=== PATIENT | female | born 1990 | race Caucasian/White ===

== ENCOUNTER 2020-11-18 15:30 | Outpatient (REF) | payer OTHER, SELFPAY | END 2020-11-18 15:31 | disposition home or self-care (01) | LOC: HO.MANLNP 15:30 | PROVIDERS: PCP Internal Medicine; Visit Provider Physician Assistant | DX: N39.0 Urinary tract infection, site not specified (principal) | CPT/HCPCS: 87086 ==

== ENCOUNTER 2021-03-13 07:56 | Outpatient (REF) | payer OTHER, SELFPAY ==
[2021-03-13 11:07] LABS: MANUAL DIFF FLAG NO
[2021-03-13 11:10] LABS: Basophils Absolute Auto 0.1 X10*3/uL (0.0-0.2); Basophils Percent Auto 1.6 % (0-2); Eosinophils Absolute Auto 0.4 X10*3/uL (0.0-0.4); Eosinophils Percent Auto 4.6 % (0-4); Hematocrit 43.1 % (37-47); Hemoglobin 13.8 g/dl (12.0-16.0); Imm Gran Abs Auto 0.02 X10*3/uL (0.00-0.03); Imm Gran Pct Auto 0.3 % (0.0-0.4); Lymphocytes Absolute Auto 2.4 X10*3/uL (1.2-4.9); Lymphocytes Percent Auto 31.8 % (20-40); Mean Corpuscular Hemoglobin 27.5 pg (27.0-33.0); Mean Platelet Volume 12.9 fL (9.4-12.3); Monocytes Absolute Auto 0.6 X10*3/uL (0.1-1.2); Monocytes Percent Auto 8.2 % (2-11); Neutrophils Absolute Auto 4.1 X10*3/uL (2.0-8.3); Neutrophils Percent Auto 53.5 % (45-73); Platelet Count 307 X10*3/uL (160-400); Red Blood Count 5.01 X10*6/uL (4.20-5.50); Red Cell Distribution Width 13.3 % (11.0-16.0); White Blood Count 7.6 X10*3/uL (4.8-10.8)
[2021-03-13 11:59] LABS: Alanine Aminotransferase 12 U/L (0-31); Albumin Level 4.5 g/dL (3.5-5.0); Alkaline Phosphatase 94 U/L (39-117); Anion Gap 12 (12-20); Aspartate Amino Transferase 14 U/L (5-31); Bilirubin Total 0.7 mg/dL (0.0-1.0); Blood Urea Nitrogen 11 mg/dL (9-16); Calcium 9.2 mg/dL (8.4-10.2); Carbon Dioxide 29 mmol/L (22-29); Chloride 103 mmol/L (96-108); Cholesterol 209 mg/dL; Estimated Glomerular Filt Rate 60; Glucose Fasting 91 mg/dL (60-99); HDL Cholesterol 56 mg/dL; LDL Cholesterol Calculated 138 mg/dl; Potassium 4.2 mmol/L (3.3-5.1); Sodium 140 mmol/L (135-145); Triglycerides 78 mg/dL
[2021-03-13 12:21] LABS: Thyroid Stimulating Hormone 1.44 uIU/mL (0.32-4.0); Vitamin D 25-OH Total 19.8 ng/mL (>30)
== END 2021-03-13 07:57 | disposition home or self-care (01) ==
LOC: HO.MANLDS 07:56
PROVIDERS: PCP Internal Medicine; Visit Provider Internal Medicine
DX: Z00.00 Encounter for general adult medical examination without abnormal findings (principal)
CPT/HCPCS: 36415; 80053; 80061; 82306; 84443; 85025

== ENCOUNTER 2021-12-04 09:22 | Outpatient (REF) | payer OTHER, SELFPAY ==
[2021-12-04 10:55] LABS: MANUAL DIFF FLAG NO
[2021-12-04 10:58] LABS: Basophils Absolute Auto 0.1 X10*3/uL (0.0-0.2); Basophils Percent Auto 1.2 % (0-2); Eosinophils Absolute Auto 0.4 X10*3/uL (0.0-0.4); Eosinophils Percent Auto 5.9 % (0-4); Hematocrit 41.7 % (37.0-47.0); Hemoglobin 13.5 g/dl (12.0-16.0); Imm Gran Abs Auto 0.02 X10*3/uL (0.00-0.03); Imm Gran Pct Auto 0.3 % (0.0-0.4); Lymphocytes Absolute Auto 2.2 X10*3/uL (1.2-4.9); Lymphocytes Percent Auto 31.4 % (20-40); Mean Corpuscular HGB Conc 32.4 g/dl (31.0-35.0); Mean Corpuscular Hemoglobin 27.8 pg (27.0-33.0); Mean Corpuscular Volume 85.8 fL (80.0-98.0); Mean Platelet Volume 12.1 fL (9.4-12.3); Monocytes Absolute Auto 0.6 X10*3/uL (0.1-1.2); Monocytes Percent Auto 8.4 % (2-11); Neutrophils Absolute Auto 3.7 x10*3/uL (2.0-8.3); Neutrophils Percent Auto 52.8 % (45-73); Platelet Count 331 X10*3/uL (160-400); Red Blood Count 4.86 X10*6/uL (4.20-5.50); Red Cell Distribution Width 12.8 % (11.0-16.0); White Blood Count 6.9 X10*3/uL (4.8-10.8)
[2021-12-04 11:24] LABS: Estimated Average Glucose 100 mg/dL; Hemoglobin A1c % 5.1 %
[2021-12-04 11:36] LABS: Erythrocyte Sedimentation Rate 7 MM/HR (0-20)
[2021-12-04 14:08] LABS: Alanine Aminotransferase 10 U/L (0-31); Albumin Level 4.6 g/dL (3.5-5.0); Alkaline Phosphatase 81 U/L (39-117); Anion Gap 12 (12-20); Aspartate Amino Transferase 13 U/L (5-31); Bilirubin Total 0.8 mg/dL (0.0-1.0); Blood Urea Nitrogen 17 mg/dL (9-16); Calcium 9.6 mg/dL (8.4-10.2); Carbon Dioxide 26 mmol/L (22-29); Chloride 105 mmol/L (96-108); Estimated Glomerular Filt Rate > 60; Glucose Random 89 mg/dL (60-115); Iron 62 mcg/dL (30-160); Percent Iron Saturation 17 % (15-50); Potassium 4.2 mmol/L (3.3-5.1); Rheumatoid Factor < 15.0 IU/mL (<15.0); Sodium 139 mmol/L (135-145); Total Iron Binding Capacity 357 mcg/dL (228-428); Total Protein 7.4 g/dL (6.5-8.0); Unsaturated Iron Binding 295 ug/dL
[2021-12-04 14:15] LABS: Ferritin 68 ng/mL (10-122); Free T4 (Free Thyroxine) 1.09 ng/dL (0.71-1.85); Thyroid Stimulating Hormone 0.67 uIU/mL (0.32-4.0); Vitamin D 25-OH Total 19.7 ng/mL (>30)
[2021-12-04 14:50] LABS: Folate 5.2 ng/mL (> or = 4.0); Vitamin B12 400 pg/mL (200-900)
[2021-12-05 13:51] LABS: Anti Nuclear Antibody Screen NEGATIVE (NEGATIVE)
[2021-12-09 15:12] LABS: HLA B27 Negative (Negative)
== END 2021-12-04 09:23 | disposition home or self-care (01) ==
LOC: HO.MANLDS 09:22
PROVIDERS: PCP Internal Medicine; Visit Provider Physician Assistant
DX: R53.83 Other fatigue (principal)
CPT/HCPCS: 36415; 80053; 82306; 82607; 82728; 82746; 83036; 83540; 84439; 84443; 85025; 85652; 86038; 86039; 86431; 86812

== ENCOUNTER 2022-09-05 14:38 | Outpatient (REF) | payer OTHER, SELFPAY ==
[2022-09-05 18:17] LABS: Appearance Urine Clear; Color Urine Yellow; Glucose Urine UA Negative (Negative); Leukocyte Esterase Urine Trace (Negative); Nitrite Urine Negative (Negative); PH 7.5 (5.0-9.0); Specific Gravity - Urine 1.025 (1.005-1.025); UMIC TRIGGER UACC YES; Urine Blood Negative (Negative); Urine Ketones Negative (Negative); Urine Protein Trace mg/dL (Neg-Trace)
[2022-09-05 18:22] LABS: Bacteria Urine None Seen (None Seen); Hyaline Casts Urine 0-2 /LPF (0-2); RBC Urine 0-2 /HPF (0-2); WBC Urine 0-5 /HPF (0-5)
[2022-09-05 18:46] LABS: HCG Quantitative < 2 mIU/mL
== END 2022-09-05 14:39 | disposition home or self-care (01) ==
LOC: HO.MANLDS 14:38
PROVIDERS: Visit Provider Physician Assistant
DX: N10 Acute pyelonephritis (principal); N94.4 Primary dysmenorrhea
CPT/HCPCS: 36415; 81001; 84702; 87086

== ENCOUNTER 2023-03-12 14:46 | Outpatient (REF) | payer OTHER, SELFPAY ==
[2023-03-12 18:00] LABS: Estimated Average Glucose 100 mg/dL; Hemoglobin A1C 108.3776 umol/L; Hemoglobin A1c % 5.1 % (<6.0)
== END 2023-03-12 14:47 | disposition home or self-care (01) ==
LOC: HO.MANLDS 14:46
PROVIDERS: Visit Provider Internal Medicine
DX: R73.9 Hyperglycemia, unspecified (principal)
CPT/HCPCS: 36415; 83036

== ENCOUNTER 2023-08-02 09:02 | Emergency (ER) | payer OTHER, SELFPAY ==
--- NOTE | ~2023-08-02 | CT_ITS ---
EXAMINATION: CT ABDOMEN AND PELVIS WITH CONTRAST CLINICAL INFORMATION: Abdominal pain COMPARISON: None available. TECHNIQUE: Multidetector volumetric images were obtained from the superior aspect of the liver through the pubic symphysis following administration 85 mL of Omnipaque 350 intravenous contrast. Sagittal and coronal reformatted images were obtained on the technologist's workstation. Oral contrast: No This CT examination was performed using dose optimization techniques as appropriate, variously including the following: *Automated exposure control *Adjustment of mA and/or kV according to patient size (this includes techniques or standardized protocols for targeted exams where dose is matched to indication/reason for exam; i.e. extremities or head) *Use of iterative reconstruction technique DLP: 416 mGy-cm FINDINGS: LUNG BASES: There is dependent bibasilar atelectasis. The heart size is normal. LIVER, GALLBLADDER, AND BILIARY TREE: The liver is normal in size, shape, and attenuation. There are punctate hypodensities in the right and left hepatic lobe most likely small cysts.. The gallbladder is unremarkable with no evidence of radiopaque gallstones, gallbladder wall thickening, or obvious pericholecystic inflammatory changes. PANCREAS: Unremarkable. SPLEEN: Unremarkable. ADRENAL GLANDS: Unremarkable. KIDNEYS AND URETERS: The kidneys are normal in size, shape, and attenuation. There are 2 mm nonobstructive radiopaque calculi upper pole right kidney and midpole and lower pole left kidney. No caliectasis or hydronephrosis seen. BLADDER: Unremarkable. GASTROINTESTINAL TRACT: There is moderate scattered stool seen throughout the colon without significant distention. The small bowel loops are normal caliber. No free air or free fluid seen. ABDOMINAL WALL: No significant hernia is appreciated. LYMPH NODES: Normal. VASCULAR: Unremarkable. PELVIC VISCERA: The uterus is anteverted and appears unremarkable. There is rim wall enhancing 1.4 cm cyst right ovarian likely corpus luteal cyst. There is no free fluid or free air. No abnormal pelvic lymphadenopathy. OSSEOUS STRUCTURES: Unremarkable. CT/CT abdomen pelvis w IV con IMPRESSION: 1. No acute intra-abdominal process seen. 2. Bilateral nonobstructive radiopaque renal calculi. No hydronephrosis. 3. Moderate constipation. Fleischner guidelines were followed.
[2023-08-02 09:06] VITALS: BP 109/71; PULSE 79; RESP 19; TEMP 36.6; O2SAT 98; BMI 21.0
--- NOTE | 2023-08-02 09:14 | ED_ITS ---
HPI - General Adult General Chief complaint: Abdominal Pain Stated complaint: abd pain Time Seen by Provider: 08/02/23 09:13 Source: patient and family () Mode of arrival: ambulatory Limitations: no limitations History of Present Illness HPI narrative: 32 year-old female with a history of ovarian cysts and tubal ligation arrives to emergency room with a complaint of right lower quadrant pain. She states that it started two days ago on 07/31/2023. The pain has been constant. She rated it a 6/10. No medications or other interventions have helped. The patient reports everything makes the pain worse. Last night, 08/01/2023, she had two episodes of vomiting. She reports no known sick contacts or travel history. She states her last menstrual period was 07/16/2023. Her last oral intake was a slice of lemon cake at 10:30 pm 08/01/2023. Patient denies fever, night sweats, chest pain, palpitations, shortness of breath, dyspnea, lightheadedness, dizziness, vision changes, double vision, loss of vision, changes in bowel movements, and changes in urination. Onset (ago): day(s) (2) Location: abdomen (RLQ) Radiation: non-radiation Severity: mild Severity scale (1-10): 4 Pain Consistency: constant Relieving factors: none Exacerbating factors: other (Patient reports everything makes the pain worse) Associated symptoms: nausea/vomiting and other (fatigue) Related Data Previous Rx's Medication Instructions Recorded ondansetron 4 mg disintegrating 4 mg PO Q8H 3 days #9 tabs 08/02/23 tablet Allergies Allergy/AdvReac Type Severity Reaction Status Date / Time naproxen Allergy Unknown Verified 08/02/23 09:05 quetiapine [From Seroquel] Allergy Vomiting Verified 08/02/23 09:05 Review of Systems 2 Constitutional: Constitutional: Reports no additional constitutional complaints, Denies chills, Denies fever(s) and Denies night sweats Eyes: Eyes: Reports no additional eye complaints, Denies blurry vision, Denies change in vision, Denies diplopia, Denies eye discharge, Denies loss of vision and Denies eye pain ENT: Denies dizziness Cardiovascular: Cardiovascular: Reports no additional cardiovascular complaints, Denies chest pain, Denies lightheadedness, Denies Loss of Consciousness and Denies dyspnea Respiratory: Respiratory: Reports no additional respiratory complaints and Denies dyspnea Gastrointestinal: Gastrointestinal: Reports no additional gastrointestinal complaints, Reports abdominal pain, Denies melena, Denies hematochezia, Denies change in bowel habits, Denies change in stool character, Reports nausea and Reports vomiting Genitourinary: Genitourinary: Denies hematuria, Denies urinary frequency, Denies dysuria, Denies urinary incontinence, Denies urinary hesitancy and Denies urinary urgency Musculoskeletal: Musculoskeletal: Reports no additional musculoskeletal complaints, Denies numbness and Denies tingling Neurologic: Denies dizziness, Denies loss of vision, Denies numbness and Denies tingling Psychiatric: Psychiatric: Reports no additional psychiatric complaints Endocrine: Endocrine: Reports no additional endocrine complaints Hematologic/Lymphatic: Hematologic/Lymphatic: Reports no additional hematologic/lymphatic complaints Allergic/Immunologic: Allergic/Immunologic: Reports no additional allergic/immunologic complaints PMFSH Past Medical History Attestation statement: The following information was validated with the patient. Source: old records reviewed, obtained from family (patient's provided additional history and confirmed the history provided by the patient.) and nursing notes reviewed Onset Date is defined in the Problem List Problems that require an onset date and time if occurred within 24 hrs of arrival to the ED Aortic Dissection and Rupture; Neurologic impairment; Cardiopulmonary Arrest; Endotracheal Intubation; Insertion or Replacement of Mechanical Circulatory Assist Device Social History Social History Smoked in Last 30 Days: No Advance Directives: No Advance Directives Information Provided: No Patient : No Physical Exam ED Vital Signs: Vital Signs - 24 hr 08/02/23 09:06 08/02/23 10:00 Temperature 98 F 98.6 F Pulse Rate 79 73 Respiratory Rate 19 16 Blood Pressure 109/71 99/57 L Pulse Oximetry 98 99 Oxygen Delivery Method Room Air Room Air BMI result Body Mass Index 21.0 Const General: cooperative, no acute distress, alert and awake Nutritional Appearance: well nourished Orientation/consciousness: patient oriented x3 Limitations: no limitations HENMT Head: Yes normal to inspection and Yes atraumatic Ears: hearing grossly normal bilaterally and external ears normal General nose exam: Normal external nose present, no nasal discharge noted and no epistaxis Face and sinus: Yes normal facial exam, No abrasion and No laceration Mouth: Normal oral and palatal mucosa present, no drooling and no muffled voice Eyes General: appearance normal, both eyes and all related structures Periorbital: periorbital findings normal Eyelids: Yes eyelids normal Conjunctivae: conjunctivae normal Pupils: Equal, round and reactive pupils present EOM: EOMs intact bilaterally Neck Neck: Yes normal visual inspection, Yes full ROM and Yes no lymphadenopathy Chest Chest palpation & inspection: normal inspection of the chest Resp Effort & Inspection: normal respiratory effort and able to speak in complete sentences GI Inspection: Yes normal to inspection Palpation (GI): Soft to palpation, not firm, Tenderness to palpation present (GI) in the RLQ, no guarding and not rigid Neuro General: patient oriented x3 and moves all extremities Cranial nerves: Yes Equal, round and reactive pupils present Cognition (Neuro): normal cognition Motor exam (neuro): 5/5 motor strength present throughout Sensory Exam: Normal double simultaneous stimulation for sensation Coordination: [id number] test normal Extrem General: Yes normal to inspection, Yes full ROM and Yes capillary refill normal Psych Appearance: grossly normal Mental Status: mental status grossly normal Affect: normal affect Attitude: cooperative Thought process: Normal thought process present Thought content: Normal thought content present Insight: Good insight present (Psych) Medications Administered Discontinued Medications Generic Name Dose Route Start Last Admin Trade Name Luis Alfredo PRN Reason Stop Dose Admin Sodium Chloride 1,000 mls @ 999 mls/hr 08/02/23 12:00 08/02/23 12:16 Ns IV 08/02/23 13:00 999 mls/hr .Q1H1M CECIL Administration Iohexol 85 ml 08/02/23 10:54 08/02/23 10:54 Iohexol 350 Mg/Ml 100 Ml Infus..Btl IV 08/02/23 10:55 85 ml ONCE ONE Administration Morphine Sulfate 4 mg 08/02/23 09:34 08/02/23 10:09 Morphine Sulfate 4 Mg/Ml Cartridge IVPUSH 08/02/23 09:35 4 mg ONCE ONE Administration Protocol Ondansetron HCl 4 mg 08/02/23 09:34 08/02/23 10:09 Ondansetron Hcl 4 Mg/2 Ml Vial IVPUSH 08/02/23 09:35 4 mg ONCE ONE Administration Medical Decision Making Medical Decision Making MDM Narrative: Patient is a 32 year old assigned female at with a history of ovarian cysts and tubal ligation presenting to the emergency department today with RLQ abdominal pain, nausea, and vomiting. Patient's physical exam was as noted in the physical exam portion of this note. Patient's blood work was unremarkable. Patient's urine showed a possible UTI however, given the patient's current symptoms, will wait to treat until culture reports. Patient's abdomen/pelvis CT showed mild constipation and a 1.4cm right ovarian cyst. I explained my physical exam findings as well as all test results to the patient and the patient's . I answered all questions asked by the patient and the patient's . Patient received pain medication and anti-emetics while in the department which she stated helped he symptoms significantly. I stressed the importance of the patient taking her medication as prescribed. I stressed the importance of the patient following up with her primary care provider. I stressed the importance of the patient returning to the emergency department immediately if her symptoms were to worsen or if she were to develop any dizziness, shortness of breath, difficulty breathing, chest pain, blurry vision, loss of vision, nausea, vomiting, abdominal pain, fever, chills, back pain, or any other complaints. Patient and the patient's verbalized agreement and understanding with this treatment plan and discharge. Differential Diagnosis Differential Diagnoses: The differential diagnosis associated with the presentation includes Ovarian cyst Abdominal pain Appendicitis Constipation Admission/Observation Consideration of admission/observation: Escalation of care including admission/observation considered Patient would have been admitted to the hospital had her work up had any findings where hospital admission was appropriate and her clinical presentation warranted hospital admission. Lab Data [facility] Lab Attestation statement: I reviewed the patient's lab results. My interpretation of these results are in the MDM Rationale portion of this note. 08/02/23 09:41 08/02/23 09:41 Labs: Lab Results 08/02/23 Range/Units 09:41 WBC 7.7 (4.8-10.8) X10*3/uL RBC 4.82 (4.20-5.50) X10*6/uL Hgb 13.4 (12.0-16.0) g/dl Hct 41.4 (37.0-47.0) % MCV 85.9 (80.0-98.0) fL MCH 27.8 (27.0-33.0) pg MCHC 32.4 (31.0-35.0) g/dl RDW 13.2 (11.0-16.0) % Plt Count 242 D (160-400) X10*3/uL MPV 11.6 (9.4-12.3) fL Immature Gran % (Auto) 0.4 (0.0-0.4) % Neut % (Auto) 52.0 (45-73) % Lymph % (Auto) 34.8 (20-40) % Wise % (Auto) 7.3 (2-11) % Eos % (Auto) 4.3 H (0-4) % Baso % (Auto) 1.2 (0-2) % Lymph # (Auto) 2.7 (1.2-4.9) X10*3/uL Wise # (Auto) 0.6 (0.1-1.2) X10*3/uL Eos # (Auto) 0.3 (0.0-0.4) X10*3/uL Baso # (Auto) 0.1 (0.0-0.2) X10*3/uL Abs Immat Gran (auto) 0.03 (0.00-0.03) X10*3/uL Absolute Neuts (auto) 4.0 (2.0-8.3) x10*3/uL Absolute Nucleated RBC 0.000 (0.0-0.012) X10*3/uL Nucleated RBC % (auto) 0.0 (0.0-0.2) /100WBC Sodium 139 (135-145) mmol/L Potassium 4.3 (3.3-5.1) mmol/L Chloride 106 (96-108) mmol/L Carbon Dioxide 27 (22-29) mmol/L Anion Gap 10 L (12-20) BUN 16 (9-16) mg/dL Creatinine 0.78 (0.5-1.4) mg/dL Estim Creat Clear Calc 81.1 Estimated GFR > 60 Random Glucose 88 (60-115) mg/dL Calcium 9.1 (8.4-10.2) mg/dL Total Bilirubin 0.5 (0.0-1.0) mg/dL AST 11 (5-31) U/L ALT 8 (0-31) U/L Alkaline Phosphatase 71 (39-117) U/L Total Protein 6.7 (6.5-8.0) g/dL Albumin 4.2 (3.5-5.0) g/dL Lipase 20 (8-78) U/L Beta HCG, Quant < 2 mIU/mL Urine Color Yellow Urine Appearance Clear Urine pH 8.5 (5.0-9.0) Ur Specific [place] 1.015 (1.005-1.025) Urine Protein Negative (Neg-Trace) mg/dL Urine Glucose (UA) Negative (Negative) mg/dL Urine Ketones Negative (Negative) mg/dL Urine Blood Negative (Negative) Urine Nitrite Negative (Negative) Ur Leukocyte Esterase Small (1+) H (Negative) Urine RBC 0-2 (0-2) /HPF Urine WBC 6-10 H (0-5) /HPF Ur Squamous Epith Cells 6-10 (0-2) /HPF Urine Bacteria Trace (None Seen) Hyaline Casts 0-2 (0-2) /LPF Independent Interpretation I performed an independent interpretation of an: CT Scan Interpretation: My interpretation is in agreement with the radiologist's impression of this imaging study. - EXAMINATION: CT ABDOMEN AND PELVIS WITH CONTRAST CLINICAL INFORMATION: Abdominal pain COMPARISON: None available. TECHNIQUE: Multidetector volumetric images were obtained from the superior aspect of the liver through the pubic symphysis following administration 85 mL of Omnipaque 350 intravenous contrast. Sagittal and coronal reformatted images were obtained on the technologist's workstation. Oral contrast: No This CT examination was performed using dose optimization techniques as appropriate, variously including the following: *Automated exposure control *Adjustment of mA and/or kV according to patient size (this includes techniques or standardized protocols for targeted exams where dose is matched to indication/reason for exam; i.e. extremities or head) *Use of iterative reconstruction technique DLP: 416 mGy-cm FINDINGS: LUNG BASES: There is dependent bibasilar atelectasis. The heart size is normal. LIVER, GALLBLADDER, AND BILIARY TREE: The liver is normal in size, shape, and attenuation. There are punctate hypodensities in the right and left hepatic lobe most likely small cysts.. The gallbladder is unremarkable with no evidence of radiopaque gallstones, gallbladder wall thickening, or obvious pericholecystic inflammatory changes. PANCREAS: Unremarkable. SPLEEN: Unremarkable. ADRENAL GLANDS: Unremarkable. KIDNEYS AND URETERS: The kidneys are normal in size, shape, and attenuation. There are 2 mm nonobstructive radiopaque calculi upper pole right kidney and midpole and lower pole left kidney. No caliectasis or hydronephrosis seen. BLADDER: Unremarkable. GASTROINTESTINAL TRACT: There is moderate scattered stool seen throughout the colon without significant distention. The small bowel loops are normal caliber. No free air or free fluid seen. ABDOMINAL WALL: No significant hernia is appreciated. LYMPH NODES: Normal. VASCULAR: Unremarkable. PELVIC VISCERA: The uterus is anteverted and appears unremarkable. There is rim wall enhancing 1.4 cm cyst right ovarian likely corpus luteal cyst. There is no free fluid or free air. No abnormal pelvic lymphadenopathy. OSSEOUS STRUCTURES: Unremarkable. CT/CT abdomen pelvis w IV con IMPRESSION: 1. No acute intra-abdominal process seen. 2. Bilateral nonobstructive radiopaque renal calculi. No hydronephrosis. 3. Moderate constipation. Fleischner guidelines were followed. Dictated By: Henri Arambula MD Signed By: Electronically signed by Henri Arambula MD 08/02/23 1985 Radiology Impression Discussion of test interpretation with radiology: I have reviewed the radiologist's reading. Independent Historian Clinical information obtained from an independent historian. History obtained from or confirmed by: Spouse (patient's provided additional history and confirmed the history provided by the patient.) Critical Care Time Critical Care Time Critical Care Time: Yes Total Critical Care Time: 35 Attestation: I spent 35 minutes of Critical Care Time with this patient. This does not include time spent on separately reported billable procedures. Discharge Plan Discharge Clinical Impression: Abdominal pain, Constipation, Ovarian cyst Patient Disposition: Home, Self-Care Instructions: Ovarian Cyst (ED), Constipation (DC), Abdominal Pain (ED) Additional Instructions: Follow up with your primary care provider. Return to the emergency department immediately if your symptoms worsen or if you develop any dizziness, shortness of breath, difficulty breathing, chest pain, blurry vision, loss of vision, nausea, vomiting, abdominal pain, fever, chills, back pain, or any other complaints. Prescriptions: New ondansetron 4 mg tablet,disintegrating 4 mg PO Q8H 3 Days Qty: 9 0RF Referrals: Rajat Givens MD [Primary Care Provider] - Stand Alone Forms: Work/School Release Interventions: ED Discharge Assessment Last Done: 08/02/23 12:18 Print Language: Lithuanian
[2023-08-02 09:55] LABS: MANUAL DIFF FLAG NO
[2023-08-02 09:57] LABS: Appearance Urine Clear; Color Urine Yellow; Glucose Urine UA Negative (Negative); Leukocyte Esterase Urine Small (1+) (Negative); Nitrite Urine Negative (Negative); PH 8.5 (5.0-9.0); Specific Gravity - Urine 1.015 (1.005-1.025); UMIC TRIGGER UACC YES; Urine Blood Negative (Negative); Urine Ketones Negative (Negative); Urine Protein Negative (Neg-Trace)
[2023-08-02 10:00] VITALS: BP 99/57; PULSE 73; RESP 16; TEMP 37; O2SAT 99
[2023-08-02 10:01] LABS: Bacteria Urine Trace (None Seen); Hyaline Casts Urine 0-2 /LPF (0-2); RBC Urine 0-2 /HPF (0-2); UACC Culture Trigger YES
[2023-08-02 10:03] LABS: Basophils Absolute Auto 0.1 X10*3/uL (0.0-0.2); Basophils Percent Auto 1.2 % (0-2); Eosinophils Absolute Auto 0.3 X10*3/uL (0.0-0.4); Eosinophils Percent Auto 4.3 % (0-4); Hematocrit 41.4 % (37.0-47.0); Hemoglobin 13.4 g/dl (12.0-16.0); Imm Gran Abs Auto 0.03 X10*3/uL (0.00-0.03); Imm Gran Pct Auto 0.4 % (0.0-0.4); Lymphocytes Absolute Auto 2.7 X10*3/uL (1.2-4.9); Lymphocytes Percent Auto 34.8 % (20-40); Mean Corpuscular HGB Conc 32.4 g/dl (31.0-35.0); Mean Corpuscular Hemoglobin 27.8 pg (27.0-33.0); Mean Corpuscular Volume 85.9 fL (80.0-98.0); Mean Platelet Volume 11.6 fL (9.4-12.3); Monocytes Absolute Auto 0.6 X10*3/uL (0.1-1.2); Monocytes Percent Auto 7.3 % (2-11); Platelet Count 242 X10*3/uL (160-400); Red Blood Count 4.82 X10*6/uL (4.20-5.50); Red Cell Distribution Width 13.2 % (11.0-16.0); White Blood Count 7.7 X10*3/uL (4.8-10.8)
[2023-08-02] MEDS: ondansetron HCL 4 MG/2 ML VIAL IVPUSH (10:09)
[2023-08-02] MEDS: Morphine Sulfate 4 MG/ML CARTRIDGE IVPUSH (10:09)
[2023-08-02 10:22] LABS: Alanine Aminotransferase 8 U/L (0-31); Albumin Level 4.2 g/dL (3.5-5.0); Alkaline Phosphatase 71 U/L (39-117); Anion Gap 10 (12-20); Aspartate Amino Transferase 11 U/L (5-31); Bilirubin Total 0.5 mg/dL (0.0-1.0); Blood Urea Nitrogen 16 mg/dL (9-16); Calcium 9.1 mg/dL (8.4-10.2); Carbon Dioxide 27 mmol/L (22-29); Chloride 106 mmol/L (96-108); Creatinine Clr Calc Pharmacy 81.1; Estimated Glomerular Filt Rate > 60; Glucose Random 88 mg/dL (60-115); Lipase 20 U/L (8-78); Potassium 4.3 mmol/L (3.3-5.1); Sodium 139 mmol/L (135-145); Total Protein 6.7 g/dL (6.5-8.0)
[2023-08-02 10:29] LABS: HCG Quantitative < 2 mIU/mL
[2023-08-02] MEDS: iohexoL 350 MG/ML 100 ML INFUS..BTL 85 ML IV (10:54)
[2023-08-02] MEDS: 0.9 % Sodium Chloride 1,000 ML 999 ML IV (12:16)
--- NOTE | 2023-08-02 12:23 | PC.NURSE ---
Pt discharged with recommendation to follow up with PCM; Awaiting fluid bolus completion and then D/C.
== END 2023-08-02 13:49 | disposition home or self-care (01) ==
PROVIDERS: Physician Assistant Medical; Emergency Provider Emergency Medicine; PCP Internal Medicine
DX: N83.201 Unspecified ovarian cyst, right side (principal); R10.2 Pelvic and perineal pain; K59.00 Constipation, unspecified; R11.2 Nausea with vomiting, unspecified; Z79.899 Other long term (current) drug therapy
CPT/HCPCS: 36415; 74177; 80053; 81001; 83690; 84702; 85025; 87086; 96361; 96374; 96375; 99284; 99285; J2270; J2405; Q9967

== ENCOUNTER 2024-02-10 07:07 | Emergency (ER) | payer OTHER, SELFPAY ==
--- NOTE | ~2024-02-10 | US_ITS ---
EXAMINATION: US PELVIS CLINICAL INFORMATION: Right lower quadrant pain. History of polypectomy. COMPARISON: None available. TECHNIQUE: Ultrasound of the pelvis is performed using both transabdominal and transvaginal transducers along with Doppler. Transvaginal imaging is performed due to inadequate visualization transabdominally. FINDINGS: Uterus: The uterus is anteverted and measures 9.5 x 4.3 x 5.5 cm in the sagittal, AP and transverse dimensions. The endometrial thickness is within normal limits measuring 0.4 cm. Small echogenic focus within the endometrium without associated vascularity measuring 0.3 x 0.3 cm. Small amount of fluid is seen within the endometrial cavity. No focal myometrial lesions. Nabothian cysts and calcifications within the cervix. Adnexa: Both ovaries are visualized. There is normal color flow to the adnexa. There is no ovarian torsion. There is no pelvic ascites or fluid collection. Right ovary measures 3.3 x 2 x 2 cm.Left ovary measures 2.1 x 1.2 x 1.3 cm. US/US pelvic and transvaginal IMPRESSION: 1. Small echogenic focus within the endometrium may represent tiny polyp, although there is no associated vascularity. Small amount of fluid within the endometrial cavity. 2. Unremarkable sonographic appearance of the ovaries.
--- NOTE | ~2024-02-10 | CT_ITS ---
EXAMINATION: CT ABDOMEN AND PELVIS WITH CONTRAST CLINICAL INFORMATION: Right lower quadrant pain COMPARISON: Ultrasound pelvis today, CT abdomen pelvis 08/02/2023 TECHNIQUE: Multidetector volumetric images were obtained from the superior aspect of the liver through the pubic symphysis following administration 85 mL of Omnipaque 350 intravenous contrast. Sagittal and coronal reformatted images were obtained on the technologist's workstation. Oral contrast: No This CT examination was performed using dose optimization techniques as appropriate, variously including the following: *Automated exposure control *Adjustment of mA and/or kV according to patient size (this includes techniques or standardized protocols for targeted exams where dose is matched to indication/reason for exam; i.e. extremities or head) *Use of iterative reconstruction technique DLP: 439 mGy-cm FINDINGS: LUNG BASES: There is new right lower lobe consolidation with associated bronchial thickening and branching densities. The left lung base is clear. No pleural effusions. LIVER, GALLBLADDER, AND BILIARY TREE: The liver is normal in size, shape, and attenuation. No focal hepatic lesion or biliary ductal dilatation is present. The gallbladder is unremarkable with no evidence of radiopaque gallstones, gallbladder wall thickening, or obvious pericholecystic inflammatory changes. PANCREAS: Unremarkable. SPLEEN: Spleen is slightly bulky and at the upper limits of normal in size ADRENAL GLANDS: Unremarkable. KIDNEYS AND URETERS: The kidneys are normal in size, shape, and attenuation aside from the presence of bilateral upper lobe cortical scarring, unchanged from prior. No hydronephrosis, hydroureter, or calculi seen. No perinephric stranding. BLADDER: Unremarkable. GASTROINTESTINAL TRACT: The small and large bowel are unremarkable. The appendix is unremarkable. ABDOMINAL WALL: Small periumbilical hernia seen containing only fat. LYMPH NODES: Normal. VASCULAR: Unremarkable. PELVIC VISCERA: Unremarkable. OSSEOUS STRUCTURES: Unremarkable. CT/CT abdomen pelvis w IV con IMPRESSION: 1. An intra-abdominal/pelvic cause for the patient's right lower quadrant pain has not been found. The appendix is normal. 2. New right lower lobe pneumonia. Severe abdominal pain can sometimes occurs in patients with lower lobe pneumonia. 3. Other incidental findings as described above. Fleischner guidelines were followed.
--- NOTE | ~2024-02-10 | US_ITS ---
EXAMINATION: US PELVIS CLINICAL INFORMATION: Right lower quadrant pain. History of polypectomy. COMPARISON: None available. TECHNIQUE: Ultrasound of the pelvis is performed using both transabdominal and transvaginal transducers along with Doppler. Transvaginal imaging is performed due to inadequate visualization transabdominally. FINDINGS: Uterus: The uterus is anteverted and measures 9.5 x 4.3 x 5.5 cm in the sagittal, AP and transverse dimensions. The endometrial thickness is within normal limits measuring 0.4 cm. Small echogenic focus within the endometrium without associated vascularity measuring 0.3 x 0.3 cm. Small amount of fluid is seen within the endometrial cavity. No focal myometrial lesions. Nabothian cysts and calcifications within the cervix. Adnexa: Both ovaries are visualized. There is normal color flow to the adnexa. There is no ovarian torsion. There is no pelvic ascites or fluid collection. Right ovary measures 3.3 x 2 x 2 cm.Left ovary measures 2.1 x 1.2 x 1.3 cm. US/US pelvic ovarian doppler IMPRESSION: 1. Small echogenic focus within the endometrium may represent tiny polyp, although there is no associated vascularity. Small amount of fluid within the endometrial cavity. 2. Unremarkable sonographic appearance of the ovaries.
[2024-02-10 07:24] VITALS: BP 111/51; PULSE 110; RESP 18; TEMP 37.7; O2SAT 98; BMI 22.7
[2024-02-10 07:35] VITALS: BP 105/57; PULSE 102; RESP 20; TEMP 37.4; O2SAT 98
--- NOTE | 2024-02-10 08:03 | ED_ITS ---
HPI - General Adult General Chief complaint: General Medical Stated complaint: R hip pain Time Seen by Provider: 02/10/24 07:17 Source: patient Mode of arrival: ambulatory Limitations: no limitations History of Present Illness ED Provider: Farzana NEWTON HPI narrative: This is a 33 year old female with a history of dysmenorrhea presenting with right-sided lower abdominal and hip pain x 2 days. She reports the pain started Saturday and has been increasing in severity. She is scheduled for a hysterectomy on 03/26 due to severe dysmenorrhea. LMP ended 1 week ago, initially she thought the pain was related to menses but it has been increasing in severity since the end of her period. She describes the pain as sharp and shooting in the right lower abdomen, hip, and lower back. Has had an intermittent dry cough. Reports subjective fevers but denies chills, chest pain, sob, dizziness, headache, headache, vision changes, weakness. Related Data Previous Rx's ?Medication ?Instructions ?Recorded ondansetron 4 mg disintegrating 4 mg PO Q8H 3 days #9 tabs 08/02/23 tablet albuterol sulfate 90 mcg/actuation 2 inh inhalation Q4-6H PRN 02/10/24 breath activated powder inhaler shortness of breath or wheezing #1 ea doxycycline hyclate 100 mg capsule 100 mg PO BID 10 days #20 caps 02/10/24 ondansetron 4 mg disintegrating 4 mg PO Q6H PRN nausea and 02/10/24 tablet vomiting #14 tabs prednisone 20 mg tablet 40 mg (2 x 20 mg) PO DAILY 5 days 02/10/24 #10 tabs Allergies Allergy/AdvReac Type Severity Reaction Status Date / Time naproxen Allergy Unknown Verified 02/10/24 07:26 quetiapine [From Seroquel] Allergy Vomiting Verified 02/10/24 07:26 Review of Systems 2 Review of Systems: Yes all other systems are reviewed and are negative PMFSH Past Medical History Attestation statement: The following information was validated with the patient. Source: old records reviewed and nursing notes reviewed Social History Social History Smoked in Last 30 Days: No Use of substances other than those prescribed or required for medical reasons: No Advance Directives: No Advance Directives Information Provided: Yes Do you have a plan to hurt others: No Plan Physical Exam ED Vital Signs: Vital Signs - 24 hr 02/10/24 07:24 02/10/24 07:35 02/10/24 08:57 Temperature 99.9 F 98.4 F Pulse Rate 110 H 102 H Respiratory Rate 18 20 18 Blood Pressure 111/51 L 105/57 L Pulse Oximetry 98 98 Oxygen Delivery Method Room Air Room Air 02/10/24 10:10 02/10/24 10:46 Temperature 99.4 F Pulse Rate 100 Respiratory Rate 20 18 Blood Pressure 96/47 L Pulse Oximetry 99 Oxygen Delivery Method Room Air BMI result Body Mass Index 22.7 vss Appearance: Alert.? Oriented X3.? No acute distress.? Head: Normocephalic, atraumatic, no step-offs or deformities Eyes: Pupils equal, round and reactive to light.? Neck: Normal inspection.? Neck supple.? CVS: Normal heart rate and rhythm.? Pulses normal.? Respiratory: No respiratory distress.? Breath sounds normal.? Abdomen: Soft. + tender to palpation over RLQ. No rebound tenderness, guarding, rigidity, peritoneal signs. Skin: Skin warm and dry.? Normal skin color.? Normal skin turgor.? Extremities: No lower extremity edema.? No calf ttp. 5/5 strength to bilateral upper and lower extremities Neuro: Oriented X 3.? No motor deficit.? No sensory deficit. CN 2-12 intact Course Reevaluation(s) Reevaluation #1: CBC unremarkable. Chemistry no acute findings needing intervention. Negative hCG. US small echogenic focus within the endometrium ( patient aware of this) small amount of fluid within the endometrial cavity. No torsion. Ct abd and pelvis no abnormal findings in RLQ the appendix is normal. New right lower lobe PNA, severe abd pain. This could accure w/ right lower lobe pna. Will start patint on doxy, prednisone and albuterol as she also doees have a cough. She is agreeable with this plan. Time: 11:28 Reevaluation #2: Educated patient on diagnosis and treatment plan, answered all question, patient verbalizes understanding. At this time patient will be discharged home, advised to return with new or worsening symptoms. Educated on worrisome signs and symptoms and when to return. At this time I feel comfortable discharge home. Medications Administered Discontinued Medications Generic Name Dose Route Start Last Admin Trade Name Luis Alfredo PRN Reason Stop Dose Admin Sodium Chloride 1,000 mls @ 999 mls/hr 02/10/24 10:15 02/10/24 10:47 Ns IV 02/10/24 11:15 999 mls/hr .Q1H1M CECIL Administration Iohexol 85 ml 02/10/24 09:28 02/10/24 09:28 Iohexol 350 Mg/Ml 100 Ml Infus..Btl IV 02/10/24 09:29 85 ml ONCE ONE Administration Morphine Sulfate 4 mg 02/10/24 08:40 02/10/24 08:57 Morphine Sulfate 4 Mg/Ml Cartridge IVPUSH 02/10/24 08:41 4 mg ONCE ONE Administration Protocol Ondansetron HCl 4 mg 02/10/24 08:22 02/10/24 08:36 Ondansetron Hcl 4 Mg/2 Ml Vial IVPUSH 02/10/24 08:23 4 mg ONCE ONE Administration Medical Decision Making Medical Decision Making [facility] Narrative: 33 year old female presenting with pain in RLQ, lower back, and right hip x 2 days. PE + ttp over RLQ. No rebound tenderness, guarding, rigidity, peritoneal signs. Hx and PE concerning for musculoskeletal injury vs dysmenorrhea vs endometriosis vs appendicitis. Unlikely pancreatitis, cholecystitis, peritonitis, ovarian torsion, ectopic, epidural abscess, cauda equina Plan - labs, imaging, pain control Differential Diagnosis Differential Diagnoses: The differential diagnosis associated with the presentation includes Hx and PE concerning for musculoskeletal injury vs dysmenorrhea vs endometriosis vs appendicitis. Unlikely pancreatitis, cholecystitis, peritonitis, ovarian torsion, ectopic, epidural abscess, cauda equina Admission/Observation Consideration of admission/observation: Escalation of care including admission/observation considered Lab Data 02/10/24 08:15 02/10/24 08:15 Labs: Lab Results 02/10/24 Range/Units 08:15 WBC 7.9 (4.8-10.8) X10*3/uL RBC 4.52 (4.20-5.50) X10*6/uL Hgb 13.0 (12.0-16.0) g/dl Hct 39.1 (37.0-47.0) % MCV 86.5 (80.0-98.0) fL MCH 28.8 (27.0-33.0) pg MCHC 33.2 (31.0-35.0) g/dl RDW 13.0 (11.0-16.0) % Plt Count 207 (160-400) X10*3/uL MPV 11.6 (9.4-12.3) fL Immature Gran % (Auto) 0.4 (0.0-0.4) % Neut % (Auto) 82.3 H (45-73) % Lymph % (Auto) 8.1 L (20-40) % [place] % (Auto) 8.1 (2-11) % Eos % (Auto) 0.3 (0-4) % Baso % (Auto) 0.8 (0-2) % Lymph # (Auto) 0.6 L (1.2-4.9) X10*3/uL [place] # (Auto) 0.6 (0.1-1.2) X10*3/uL Eos # (Auto) 0.0 (0.0-0.4) X10*3/uL Baso # (Auto) 0.1 (0.0-0.2) X10*3/uL Abs Immat Gran (auto) 0.03 (0.00-0.03) X10*3/uL Absolute Neuts (auto) 6.5 (2.0-8.3) x10*3/uL Absolute Nucleated RBC 0.000 (0.0-0.012) X10*3/uL Nucleated RBC % (auto) 0.0 (0.0-0.2) /100WBC Sodium 138 (135-145) mmol/L Potassium 4.1 (3.3-5.1) mmol/L Chloride 106 (96-108) mmol/L Carbon Dioxide 24 (22-29) mmol/L Anion Gap 12 (12-20) BUN 11 (9-16) mg/dL Creatinine 0.87 (0.5-1.4) mg/dL Estim Creat Clear Calc 68.7 Estimated GFR > 60 Random Glucose 116 H (60-115) mg/dL Calcium 8.9 (8.4-10.2) mg/dL Magnesium 2.0 (1.6-2.6) mg/dL Total Bilirubin 0.5 (0.0-1.0) mg/dL AST 12 (5-31) U/L ALT 7 (0-31) U/L Alkaline Phosphatase 94 (39-117) U/L Total Protein 6.7 (6.5-8.0) g/dL Albumin 4.2 (3.5-5.0) g/dL Lipase 13 (8-78) U/L Beta HCG, Quant < 2 mIU/mL Discharge Plan Discharge Clinical Impression: Pneumonia, Abdominal pain Patient Disposition: Home, Self-Care Instructions: Abdominal Pain (ED), Pneumonia (ED) Additional Instructions: Take your medications as prescribed. If you were prescribed antibiotics today, it is important that you take your medication to their entirety, do not skip any doses, do not finish them early. Follow-up with your primary care provider this week. Return to the emergency department with new or worsening symptoms. Such as fevers, chills, chest pain, shortness of breath, nausea, vomiting, dizziness, headache, vision changes, lethargy In case of emergency call 911 CT/CT abdomen pelvis w IV con IMPRESSION: 1. An intra-abdominal/pelvic cause for the patient's right lower quadrant pain has not been found. The appendix is normal. 2. New right lower lobe pneumonia. Severe abdominal pain can sometimes occurs in patients with lower lobe pneumonia. 3. Other incidental findings as described above. Fleischner guidelines were followed. US/US pelvic and transvaginal IMPRESSION: 1. Small echogenic focus within the endometrium may represent tiny polyp, although there is no associated vascularity. Small amount of fluid within the endometrial cavity. 2. Unremarkable sonographic appearance of the ovaries. Prescriptions: New doxycycline hyclate 100 mg capsule 100 mg PO BID 10 Days Qty: 20 0RF prednisone 20 mg tablet 40 mg PO DAILY 5 Days Qty: 10 0RF albuterol sulfate 90 mcg/actuation aerosol powdr breath activated 2 inh inhalation Q4-6H PRN (Reason: shortness of breath or wheezing) Qty: 1 0RF ondansetron 4 mg tablet,disintegrating 4 mg PO Q6H PRN (Reason: nausea and vomiting) Qty: 14 0RF No Action ondansetron 4 mg tablet,disintegrating 4 mg PO Q8H 3 Days Qty: 9 0RF Referrals: Rajat Givens MD [Primary Care Provider] - 2 days Stand Alone Forms: Work/School Release Print Language: Indonesian
[2024-02-10 08:18] LABS: MANUAL DIFF FLAG NO
[2024-02-10 08:20] LABS: Basophils Absolute Auto 0.1 X10*3/uL (0.0-0.2); Basophils Percent Auto 0.8 % (0-2); Eosinophils Percent Auto 0.3 % (0-4); Hematocrit 39.1 % (37.0-47.0); Imm Gran Abs Auto 0.03 X10*3/uL (0.00-0.03); Imm Gran Pct Auto 0.4 % (0.0-0.4); Lymphocytes Absolute Auto 0.6 X10*3/uL (1.2-4.9); Lymphocytes Percent Auto 8.1 % (20-40); Mean Corpuscular HGB Conc 33.2 g/dl (31.0-35.0); Mean Corpuscular Hemoglobin 28.8 pg (27.0-33.0); Mean Corpuscular Volume 86.5 fL (80.0-98.0); Mean Platelet Volume 11.6 fL (9.4-12.3); Monocytes Absolute Auto 0.6 X10*3/uL (0.1-1.2); Monocytes Percent Auto 8.1 % (2-11); Neutrophils Absolute Auto 6.5 x10*3/uL (2.0-8.3); Neutrophils Percent Auto 82.3 % (45-73); Platelet Count 207 X10*3/uL (160-400); Red Blood Count 4.52 X10*6/uL (4.20-5.50); White Blood Count 7.9 X10*3/uL (4.8-10.8)
[2024-02-10] MEDS: ondansetron HCL 4 MG/2 ML VIAL IVPUSH (08:36)
[2024-02-10 08:40] LABS: Alanine Aminotransferase 7 U/L (0-31); Albumin Level 4.2 g/dL (3.5-5.0); Alkaline Phosphatase 94 U/L (39-117); Anion Gap 12 (12-20); Aspartate Amino Transferase 12 U/L (5-31); Bilirubin Total 0.5 mg/dL (0.0-1.0); Blood Urea Nitrogen 11 mg/dL (9-16); Calcium 8.9 mg/dL (8.4-10.2); Carbon Dioxide 24 mmol/L (22-29); Chloride 106 mmol/L (96-108); Creatinine Clr Calc Pharmacy 68.7; Estimated Glomerular Filt Rate > 60; Glucose Random 116 mg/dL (60-115); Lipase 13 U/L (8-78); Potassium 4.1 mmol/L (3.3-5.1); Sodium 138 mmol/L (135-145); Total Protein 6.7 g/dL (6.5-8.0)
[2024-02-10 08:41] LABS: HCG Quantitative < 2 mIU/mL
[2024-02-10 08:57] VITALS: RESP 18
[2024-02-10] MEDS: Morphine Sulfate 4 MG/ML CARTRIDGE IVPUSH (08:57)
[2024-02-10] MEDS: iohexoL 350 MG/ML 100 ML INFUS..BTL 85 ML IV (09:28)
[2024-02-10 10:10] VITALS: BP 96/47; PULSE 100; RESP 20; TEMP 37.4; O2SAT 99
[2024-02-10 10:46] VITALS: RESP 18
[2024-02-10] MEDS: 0.9 % Sodium Chloride 1,000 ML 999 ML IV (10:47)
[2024-02-10 11:38] VITALS: BP 100/57; PULSE 82; RESP 20; TEMP 37.4; O2SAT 99
== END 2024-02-10 11:39 | disposition home or self-care (01) ==
PROVIDERS: Physician Assistant; Emergency Provider Emergency Medicine; PCP Internal Medicine
DX: J18.9 Pneumonia, unspecified organism (principal); R10.31 Right lower quadrant pain; M25.551 Pain in right hip; R50.9 Fever, unspecified; R11.2 Nausea with vomiting, unspecified; R10.2 Pelvic and perineal pain; N94.6 Dysmenorrhea, unspecified; R05.9 Cough, unspecified; Z79.899 Other long term (current) drug therapy
CPT/HCPCS: 36415; 74177; 76830; 76856; 80053; 83690; 83735; 84702; 85025; 93975; 96361; 96374; 96375; 99284; J2270; J2405; Q9967

== ENCOUNTER 2024-06-02 15:00 | Outpatient (REF) | payer OTHER, SELFPAY ==
[2024-06-02 18:02] LABS: MANUAL DIFF FLAG NO
[2024-06-02 18:08] LABS: Basophils Absolute Auto 0.1 X10*3/uL (0.0-0.2); Basophils Percent Auto 1.3 % (0-2); Eosinophils Absolute Auto 0.3 X10*3/uL (0.0-0.4); Eosinophils Percent Auto 3.3 % (0-4); Hematocrit 39.9 % (37.0-47.0); Imm Gran Abs Auto 0.03 X10*3/uL (0.00-0.03); Imm Gran Pct Auto 0.4 % (0.0-0.4); Lymphocytes Absolute Auto 2.2 X10*3/uL (1.2-4.9); Lymphocytes Percent Auto 29.4 % (20-40); Mean Corpuscular HGB Conc 32.6 g/dl (31.0-35.0); Mean Corpuscular Hemoglobin 27.8 pg (27.0-33.0); Mean Corpuscular Volume 85.3 fL (80.0-98.0); Mean Platelet Volume 12.6 fL (9.4-12.3); Monocytes Absolute Auto 0.5 X10*3/uL (0.1-1.2); Monocytes Percent Auto 6.7 % (2-11); Neutrophils Absolute Auto 4.5 x10*3/uL (2.0-8.3); Neutrophils Percent Auto 58.9 % (45-73); Platelet Count 271 X10*3/uL (160-400); Red Blood Count 4.68 X10*6/uL (4.20-5.50); Red Cell Distribution Width 13.4 % (11.0-16.0); White Blood Count 7.6 X10*3/uL (4.8-10.8)
[2024-06-02 18:26] LABS: Iron 52 mcg/dL (30-160); Percent Iron Saturation 18 % (15-50); Total Iron Binding Capacity 284 mcg/dL (228-428); Unsaturated Iron Binding 232 ug/dL
[2024-06-02 18:47] LABS: Ferritin 49 ng/mL (10-122)
== END 2024-06-02 15:01 | disposition home or self-care (01) ==
LOC: HO.MANLDS 15:00
PROVIDERS: Visit Provider Physician Assistant
DX: D50.8 Other iron deficiency anemias (principal)
CPT/HCPCS: 36415; 82728; 83540; 85025

== ENCOUNTER 2024-07-08 17:47 | Emergency (ER) | payer OTHER, SELFPAY ==
--- NOTE | ~2024-07-08 | XR_ITS ---
EXAMINATION: XR CHEST CLINICAL INFORMATION: pain COMPARISON: None available. TECHNIQUE: 2 views of the chest were obtained. FINDINGS: No significant abnormality is noted involving the heart, lungs, mediastinum, bony thorax or soft tissues. XR/XR chest 2V IMPRESSION: Unremarkable examination. Electronically signed by: Hao Hermosillo MD 07/08/2024 08:32 PM [facility]
--- NOTE | 2024-07-08 17:48 | ECG_ITS ---
Test Reason : CHEST PAIN Blood Pressure : / mmHG Vent. Rate : 056 BPM Atrial Rate : 000 BPM P-R Int : 000 ms QRS Dur : 066 ms QT Int : 452 ms P-R-T Axes : 000 013 034 degrees QTc Int : 436 ms Artifact in tracing Sinus bradycardia Otherwise normal EKG No previous ECGs available Referred By: Tadeo Castaneda Electronically Signed By:JOANNE CONCEPCION
--- OUTSIDE RECORDS SUMMARY | 2024-07-08 17:50 | XMS_ITS | Continuity of Care Document ---
Author Name [facility] Organization [facility] Care Team Providers Care [place] Stitcher Name Role Phone [facility] Unavailable Unavailable Medications Combined list of outpatient medications from Department of Defense and Veterans Affairs facilities.Medications provided include 1) outpatient medications from the last 15 months, and 2) patient-reported medications. Medication Details Route Status Patient Instructions Prescription Expires Prescription Number Last Dispense Date Ordering Provider Order Date Order Qty Source AZITHROMYCI N (azithromyc in), 250 MG, TABLET, ORAL, [facility], 6 ea. BLIST PACK Active [id number] 2023 6 Pharmac y Data Transac tion Service Facilit y AZITHROMYCI N (azithromyc in), 250 MG, TABLET, ORAL, LUPIN PHARMACEU, 6 ea. BLIST PACK Cancele d [id number] : 2023 0 Pharmac y Data Transac tion Service Facilit y MELOXICAM (MELOXICAM) , 15 MG, TABLET, ORAL, [employer] 100 ea. BOTTLE Active [id number] 2023 30 Pharmac y Data Transac tion Service Facilit y MELOXICAM (MELOXICAM) , 15 MG, TABLET, ORAL, [employer] 100 ea. BOTTLE Active [id number] 4 2023 30 Pharmac y Data Transac tion Service Facilit y METHYLPREDN ISOLONE (METHYLPRED NISOLONE), 4MG, TAB DS PK, ORAL, [employer], 21 ea. BLIST PACK Active [id number] 4 2023 21 Pharmac y Data Transac tion Service Facilit y Allergies, Adverse Reactions, Alerts Combined list of allergies from Department of Defense and Veterans Affairs facilities. It does not include entries that were removed or entered in error. Substance Category Reaction Severity Reaction type Status Date Reported Comments Source NAPROXEN (NAPROXEN SODIUM) Drug allergy (disorder) Other Reaction, Other: Suicial dreams active 5 [facility] SEROQUEL (QUETIAPINE FUMARATE) Drug allergy (disorder) Nausea active 5 [facility] Immunizations Combined list of available immunizations from the Department of Defense and Veterans Affairs facilities. Immunization Series Date Given Administered By Site Reaction Lot Number CVX Code Drug Md Allergy Immunology Status Comments Source MMR 2018 Jose GRIMM () Not Given MMR DoD Hep B, adult 2018 Jose GRIMM () Not Given Hep B, adult DoD MMR 2018 Jose GRIMM () Not Given MMR DoD Hep B, adult 2018 Jose GRIMM () Not Given Hep B, adult DoD meningococcal MCV4P 2018 [facility] () Not Given meningoco ccal MCV4P DoD MMR 2018 Jose GRIMM () Not Given MMR DoD influenza, injectable, quadrivalent, preservative free 2018 Jose GRIMM () Not Given influenza , injectabl e, quadrival ent, preservat cele free DoD MMR 2018 [facility] () Not Given MMR DoD MMR 2018 [facility] () Not Given MMR DoD Encounters Combined list of: 1) Encounters from Department of Veterans Affairs facilities going back up to thelast 18 months. 2) Encounters from the Department of Defense facilities going back up to 280 months. Location Location Details Encounter Type Encounter Number Reason For Visit Attending Provider ADM Date DC Date Status Disposition Source [facility](Can non_OpMed _Team A) TELE CONSULT [id number] Notes Entered by: GREG SERRANO 16 Jun 2014 0915 ------- ------- ------- ------- -- May ER Log F/U - c/o LEFT side pain, approxi mately six weeks JOSE DAVID Santiago 06/16 [facility](C maria elenaon_O pMed_Te am A) [facility](Photographer Assistant [facility]) TELE CONSULT [id number] Notes Entered by: MAGDI FLORES 26 Jul 2014 0958 ------- ------- ------- ------- -- PIPE BENDER REFERAVE BUCKLEY 07/26[facility](G yn [facility]) th [facility](Can non_OpMed _Team A) OUTPATIENT [id number] CC: PHYSICA L--CHES T/KNEE PAIN JOANLUIGI D 08/04 Released w/o Limitations [facility](C annon_O pMed_Te am A) th [facility](Can non_OpMed _Team A) OUTPATIENT [id number] CC Chest pain JOANLUIGI D 09/01 Released w/o Limitations [facility](C annon_O pMed_Te am A) th [facility](Can non_FHC_T eam B) TELE CONSULT [id number] Notes Entered by: GREG SERRANO 18 Oct 2014 1524 ------- ------- ------- ------- -- Sep ER Log F/U - c/o sinus infecti on JOSE DAVID GOLDEN 10/18 [facility](C eryn_F HC_Team B) th [facility](Can non_OpMed _Team A) TELE CONSULT [id number] Notes Entered by: MICHAEL CANO 21 Dec 2014 1756 ------- ------- ------- ------- -- [id number] [facility] ER Log JOSE DAVID GLODEN 12/21 [facility](C annon_O pMed_Te am A) th [facility](Photographer Assistant [facility]) TELE CONSULT [id number] Notes Entered by: MARTÍNEZ HOLMAN 29 Dec 2014 0857 ------- ------- ------- ------- -- DOES NOT FEEL SAFE WITH OFF BASE PROVIDE R [address] IRWIN 12/[facility](G yn [facility]) th [facility](Can non_Ped_T eam A) TELE CONSULT [id number] Notes Entered by: OSMIN KENNEDY 01 Feb 2015 1021 ------- ------- ------- ------- -- : CHAYITO Ricardo : FEB 02 LEANNA WEISS 02/01th [facility](C annon_P ed_Team A) th [facility](Opt ometry [facility]) OUTPATIENT [id number] CC ROUTINE EXAM LACIE SAUL 03/17 Released w/o Limitations [facility](O ptometr y [facility]) th [facility](Can non_OpMed _Team A) TELE CONSULT [id number] Notes Entered by: MARTÍNEZ HOLMAN 07 Apr 2015 0712 ------- ------- ------- ------- -- SORE THROAT BURNING LAKISHA SMITH 04/07th [facility](C annon_O pMed_Te am A) th [facility](Can non_OpMed _Team A) TELE CONSULT [id number] Notes Entered by: MARTÍNEZ HOLMAN 12 Apr 2015 0902 ------- ------- ------- ------- -- NAL ED LAKISHA SMITH 04/12th [facility](C annon_O pMed_Te am A) [facility](Dis ease Managemen t) TELE CONSULT [id number] Notes Entered by: ROBERT COLON 04 Jul 2015 1133 ------- ------- ------- ------- -- PAP Update VICENTA SMITH 07/04 Referred for Appointment [facility](Stephanie iskaty [employer] ent) [facility](Can non_OpMed _Team A) OUTPATIENT [id number] rash concern x3 weeks LUIGI FRANCO 07/05 Released w/o Limitations [facility](C annon_O pMed_Te am A) [facility](Can non_OpMed _Team A) OUTPATIENT [id number] CC DIZZINE SS, HOT FLASHES , HEADACH ES LUIGI FRANCO 08/16 Released w/o Limitations [facility](C annon_O pMed_Te am A) [facility](Can non_OpMed _Team A) TELE CONSULT [id number] Notes Entered by: CHANDNI KRISHNAN 23 Aug 2015 1300 ------- ------- ------- ------- -- PHONE CALL VIKI BARROW 08/23 Other Not Elsewhere Classified [facility](C annon_O pMed_Te am A) [facility](Can non_OpMed _Team A) TELE CONSULT [id number] Notes Entered by: VIKI BARROW 25 Aug 2015 0910 ------- ------- ------- ------- -- Micare message VIKI BARROW 08/25 Other Not Elsewhere Classified [facility](C annon_O pMed_Te am A) [facility](Photographer Assistant [facility]) TELE CONSULT [id number] Notes Entered by: STEPHIE FINN 24 Oct 2015 0911 ------- ------- ------- ------- -- HCG RESULTS AVE COVARRUBIAS 10/23 [facility](G yn [facility]) th [facility](Photographer Assistant [facility]) TELE CONSULT [id number] Notes Entered by: GABRIEL MARISCAL 27 Oct 2015 1527 ------- ------- ------- ------- -- AVE VALDEZ 10/[facility] yn [facility]) [facility](Can non_OpMed _Team A) TELE CONSULT [id number] Notes Entered by: Omero KEMP 31 Oct 2015 1016 ------- ------- ------- ------- -- Severe back pain possibe kidney infecti on x 1 week VIKI BARROW 10/30 Other Not Elsewhere Classified [facility](C annon_O pMed_Te am A) th [facility](Dis ease Managemen t) TELE CONSULT [id number] Notes Entered by: ROBERT COLON 28 May 2016 1319 ------- ------- ------- ------- -- 01 November 2015 [facility] ER LOG VICENTA SMITH 05/[facility](D isease Managem ent) th [facility](Dis ease Managemen t) TELE CONSULT [id number] Notes Entered by: ROBERT COLON 27 Jun 2016 1018 ------- ------- ------- ------- -- 26 Nov 2015 [facility] ER LOG VICENTA SMITH 06/27[facility](D isease Managem ent) th [facility](Can non_Ped_T eam A) TELE CONSULT [id number] Notes Entered by: ETHAN COLON 02 Jul 2016 0848 ------- ------- ------- ------- -- ACUTE - VOMITIN DIANNA KLINE 07/02 Referred for Appointment [facility](C annon_P ed_Team A) [facility](Photographer Assistant [facility]) TELE CONSULT [id number] Notes Entered by: SKYLAR BURT 06 Aug 2016 1112 ------- ------- ------- ------- -- Network result- ER NOTES- [address] COV[address]AS 08/06[facility](G yn [facility]) [facility](Can non_OpMed _Team A) OUTPATIENT [id number] CC PELVIC PAIN YUSEF SMITH 10/22 Released w/o Limitations [facility](C annon_O pMed_Te am A) [facility](Can non_OpMed _Team A) TELE CONSULT [id number] Notes Entered by: DIPESH BREWSTER 23 Oct 2016 1754 ------- ------- ------- ------- -- Call Pelvis US results BRANDI ROSAS 10/23 Released to [facility](C annon_O pMed_Te am A) [facility](Can non_OpMed _Team A) TELE CONSULT [id number] Notes Entered by: FLO GROVES 08 Jan 2017 1257 ------- ------- ------- ------- -- 07 January 2017 [facility] ER log LAKISHA SMITH 01/08th [facility](C annon_O pMed_Te am A) [facility](Can non_OpMed _Team A) TELE CONSULT [id number] Notes Entered by: CHANDNI KRISHNAN 14 Jan 2017 1025 ------- ------- ------- ------- -- CHEST INFLAMM ED LAKISHA SMITH 01/14 [facility](C annon_O pMed_Te am A) th [facility](Can non_OpMed _Team A) OUTPATIENT [id number] CC RIBCAGE PAIN VICENTA HOLLINGSWORTH 01/15 Released w/o Limitations [facility](C annon_O pMed_Te am A) th [facility](Can non_OpMed _Team A) TELE CONSULT [id number] Notes Entered by: JOSE D LORENZANA 28 Jan 2017 0738 ------- ------- ------- ------- -- ACUTE SPIDER BITE LAKISHA SMITH 01/28 [facility](C annon_O pMed_Te am A) [facility](EFM P) TELE CONSULT [id number] Notes Entered by: BILLY AGARWAL 08 Feb 2017 1311 ------- ------- ------- ------- -- EFMP Enroll ent OCTAVIO VELASQUEZ 02/08 [facility](E FMP) th [facility](Can non_OpMed _Team A) TELE CONSULT [id number] Notes Entered by: CHANDNI KRISHNAN 24 Apr 2017 0734 ------- ------- ------- ------- -- SINUS INFECTI ON JOSE DAVID GOLDEN 04/24 [facility](C annon_O pMed_Te am A) th [facility](Can non_OpMed _Team A) TELE CONSULT [id number] Notes Entered by: SABINO TORRES 03 May 2017 0902 ------- ------- ------- ------- -- RESULTS [facility] MGMT -2016 BRITT ANDERSON 05/03 [facility](C annon_O pMed_Te am A) [facility](Can non_OpMed _Team A) OUTPATIENT [id number] CC RIGHT KNEE PAIN ED SMITH 05/28 Released w/o Limitations [facility](C annon_O pMed_Te am A) [facility](Can non_OpMed _Team A) TELE CONSULT [id number] Notes Entered by: BRI PERAZA 10 Jun 2017 1543 ------- ------- ------- ------- -- Results receive d-MRI Rt Knee-11 [id number] BRITT ANDESRON 06/10 [facility](C annon_O pMed_Te am A) [facility](Can non_OpMed _Team A) OUTPATIENT [id number] VIRTUAL - MRI R KNEE - [facility] May - [phone] BRITT ANDERSON 06/12 Released w/o Limitations [facility](C annon_O pMed_Te am A) [facility](Can non_OpMed _Team A) TELE CONSULT [id number] Notes Entered by: Annie ANDERSON 17 Jun 2017 1402 ------- ------- ------- ------- -- MRI R knee review BRITT ANDERSON 06/17 [facility](C annon_O pMed_Te am A) [facility](Can non_OpMed _Team A) OUTPATIENT [id number] Mihir Silver e, X 2 Days BRITT ANDERSON 08/20 Released w/o Limitations [facility](C annon_O pMed_Te am A) [facility](Can non_C_T eam B) OUTPATIENT [id number] FIBROMY MELLISA MENDEZ 12/30 Released w/o Limitations [facility](Karena cerna_Peggy HC_Team B) [facility](Photographer Assistant [facility]) TELE CONSULT [id number] Notes Entered by: JOSE D LORENZANA 31 Dec 2017 1508 ------- ------- ------- ------- -- JONI Pineda ABOUT OB CLASS REGINA CHAVEZ 12/31 [facility]erred for Appointment [facility](Photographer Assistant [facility]) TELE CONSULT [id number] Notes Entered by: FLO GROVES 08 Jan 2018 0919 ------- ------- ------- ------- -- 07 January 2018 [facility] ER log MARTÍNEZ PEREZ 01/08th [facility](Can non_Ped_T eam A) TELE CONSULT [id number] Notes Entered by: CHANDNI KRISHNAN 14 Aug 2018 1020 ------- ------- ------- ------- -- LEANNA ESCOBAR 08/14 Referred for Appointment [facility](Karena Chanel ed_Team A) [facility](Photographer Assistant [facility]) TELE CONSULT [id number] Notes Entered by: BRI PERAZA 25 Aug 2018 1349 ------- ------- ------- ------- -- Network results -OB Dischar Note-01 [id number] 9-Artif acts and Images MARIANA REYES 08/25 [facility](Aden [facility]) Procedures Combined list of: 1) Procedures from Department of Veterans Affairs facilities going back up to thelast 18 months, not all VA non-surgical procedures are included; 2) All procedures from the Department of Defense facilities. Procedure Procedure Type Code Date Perfomer Comments Sourc e TELE ASSESS & MGT SRV PROV QUAL NONPHYS HLTH CARE PRO TO EST PAT,PARENT,GUARD NOT ORIG REL ASSESS & MGT SRV PROV W/IN PREV 7 DAYS NOR LEAD ASSESS & MGT SRV/PX W/IN NXT 24 HR/SOON APT;5-10 MIN MED DIS 8 DoD ONLINE ASSESS &MANAG SERV PROVIDE,A QUAL NONPHYS HCP TO AN ESTABLISHED PAT/GUARDIAN,NOT ORIGINAT FRM RELAT ASSESS &MANAG SERV PROVIDE W/IN THE PREV 7 DAYS,USE THE [employer]/SIMILAR [employer] NETWORK 7 DoD TELE ASSESS & MGT SRV PROV QUAL NONPHYS HLTH CARE PRO TO EST PAT,PARENT,GUARD NOT ORIG REL ASSESS & MGT SRV PROV W/IN PREV 7 DAYS NOR LEAD ASSESS & MGT SRV/PX W/IN NXT 24 HR/SOON APT;5-10 MIN MED DIS 7 DoD TELE ASSESS & MGT SRV PROV QUAL NONPHYS HLTH CARE PRO TO EST PAT,PARENT,GUARD NOT ORIG REL ASSESS & MGT SRV PROV W/IN PREV 7 DAYS NOR LEAD ASSESS & MGT SRV/PX W/IN NXT 24H/SOON APT; 21-30 MIN MED DIS 7 DoD TELE ASSESS & MGT SRV PROV QUAL NONPHYS HLTH CARE PRO TO EST PAT,PARENT,GUARD NOT ORIG REL ASSESS & MGT SRV PROV W/IN PREV 7 DAYS NOR LEAD ASSESS & MGT SRV/PX W/IN NXT 24 HR/SOON APT;5-10 MIN MED DIS 7 DoD DISEASE MANAGEMENT PROGRAM; INITIAL ASSESSMENT AND INITIATION OF THE PROGRAM 5 DoD TELE ASSESS & MGT SRV PROV QUAL NONPHYS HLTH CARE PRO TO EST PAT,PARENT,GUARD NOT ORIG REL ASSESS & MGT SRV PROV W/IN PREV 7 DAYS NOR LEAD ASSESS & MGT SRV/PX W/IN NXT 24 HR/SOON APT;5-10 MIN MED DIS 5 DoD DETERMINATION OF REFRACTIVE STATE 5 DoD TELE ASSESS & MGT SRV PROV QUAL NONPHYS HLTH CARE PRO TO EST PAT,PARENT,GUARD NOT ORIG REL ASSESS & MGT SRV PROV W/IN PREV 7 DAYS NOR LEAD ASSESS & MGT SRV/PX W/IN NXT 24 HR/SOON APT;5-10 MIN MED DIS 5 [facility] Non-Physician Phone Call To Patient/Provider Brief (5-10min) Non-Physician Phone Call To Patient/Provider Brief (5-10min) [id number] [phone] XIOMARA PEREZN Karoline [facility] Internet Med Svc Qual Nonphys Healthcare Prof Up To 7 Days Estab Patient Internet Med Svc Qual Nonphys Healthcare Prof Up To 7 Days Estab Patient [id number] BRITT ANDERSON [facility] Non-Physician Phone Call To Patient/Provider Brief (5-10min) Non-Physician Phone Call To Patient/Provider Brief (5-10min) [id number] [phone] JOSE DAVID GOLDEN [facility] Non-Physician Phone Call To Pt/Provider Lengthy (21-30 min) Non-Physician Phone Call To Pt/Provider Lengthy (21-30 min) [id number] [phone] OCTAVIO VELASQUEZ [facility] Non-Physician Phone Call To Patient/Provider Brief (5-10min) Non-Physician Phone Call To Patient/Provider Brief (5-10min) [id number] [phone] LAKISHA SMITH [facility] Disease management program; initial a e ment and initiation of the program 5 VICENTA SMITH [facility] Non-Physician Phone Call To Patient/Provider Brief (5-10min) Non-Physician Phone Call To Patient/Provider Brief (5-10min) [id number] [phone] LAKISHA SMITH [facility] Determination Of Refractive State Determination Of Refractive State [id number] 5 LACIE SAUL DoD Ophthalmological New Patient Start Comprehensive Care Ophthalmological New Patient Start Comprehensive Care [id number] [phone] LACIE SAUL [facility] Non-Physician Phone Call To Patient/Provider Brief (5-10min) Non-Physician Phone Call To Patient/Provider Brief (5-10min) [phone] [phone] DAYLIN MATIAS [facility] Social History Combined list of available smoking, tobacco, and other social history from Department of Defense and Veterans Affairs facilities. Social History Type Response Date Comment [facility] e This section is an empty social history section. [employer]D
[2024-07-08 17:56] VITALS: BP 128/69; PULSE 63; RESP 16; TEMP 36.4; O2SAT 98; BMI 26.8
--- NOTE | 2024-07-08 18:00 | ED_ITS ---
HPI - General Adult General Chief complaint: Chest Pain Stated complaint: chest pain on going worse today/on muscle relaxers Time Seen by Provider: 07/08/24 19:53 Source: patient Limitations: no limitations History of Present Illness ED Provider: Isabel Merritt PA-C HPI narrative: 33-year-old female with a history of chronic costochondritis per her report, presents with central chest pain. Patient has had discomfort for 3 days it is nonradiating and constant. Patient was seen by primary care, prescribed Flexeril, and steroid. Patient states the Flexeril made her extremely dizzy and lethargic. Denies recent cough or cold symptoms no fever. Denies shortness of breath diaphoresis nausea vomiting. Related Data Previous Rx's ?Medication ?Instructions ?Recorded ondansetron 4 mg disintegrating 4 mg PO Q8H 3 days #9 tabs 08/02/23 tablet albuterol sulfate 90 mcg/actuation 2 inh inhalation Q4-6H PRN 02/10/24 breath activated powder inhaler shortness of breath or wheezing #1 ea doxycycline hyclate 100 mg capsule 100 mg PO BID 10 days #20 caps 02/10/24 ondansetron 4 mg disintegrating 4 mg PO Q6H PRN nausea and 02/10/24 tablet vomiting #14 tabs prednisone 20 mg tablet 40 mg (2 x 20 mg) PO DAILY 5 days 02/10/24 #10 tabs methocarbamol 500 mg tablet 500 mg PO TID PRN pain #20 tabs 07/08/24 Allergies Allergy/AdvReac Type Severity Reaction Status Date / Time naproxen Allergy Unknown Verified 07/08/24 18:03 quetiapine [From Seroquel] Allergy Vomiting Verified 07/08/24 18:03 Review of Systems 2 Review of Systems: Yes all other systems are reviewed and are negative Constitutional: Constitutional: Denies fatigue and Denies fever(s) Cardiovascular: Cardiovascular: Reports chest pain and Denies dyspnea Respiratory: Respiratory: Denies cough and Denies dyspnea Gastrointestinal: Gastrointestinal: Denies abdominal pain, Denies nausea and Denies vomiting Endocrine: Endocrine: Denies fatigue [facility] Past Medical History Attestation statement: The following information was validated with the patient. Social History Social History Advance Directives: No Advance Directives Information Provided: Yes Do you have a plan to hurt others: No Plan Physical Exam ED Vital Signs: Vital Signs - 24 hr 07/08/24 17:56 07/08/24 20:43 Temperature 97.5 F 97.9 F Pulse Rate 63 58 Respiratory Rate 16 18 Blood Pressure 128/69 98/56 L Pulse Oximetry 98 100 Oxygen Delivery Method Room Air Room Air BMI result Body Mass Index 26.8 Const Other: Alert, well-appearing Orientation/consciousness: patient oriented x3 Chest Other: Pain elicited with palpation of chest wall, no deformity Resp Other: Nonlabored respiration Cardio Other: Normal peripheral perfusion Skin Other: Warm dry no rash Neuro General: patient oriented x3, no focal motor deficits and CN's II-XI intact bilaterally Psych Other: Calm cooperative Course Course Course Narrative: RME, this is a rapid medical exam performed by Robin Castaneda please refer to primary provider for complete H&P- 33 year old female with history of costochondritis presents for evaluation of chest pain for the last 3 days. Symptoms seemed to worsen today. EKG performed, plan for labs and a chest x-ray Medications Administered Discontinued Medications Generic Name Dose Route Start Last Admin Trade Name Freq PRN Reason Stop Dose Admin Ondansetron HCl 4 mg 07/08/24 20:06 07/08/24 20:11 Ondansetron Odt 4 Mg Tab.Rapdis TRANSLINGU 07/08/24 20:07 4 mg ONCE ONE Administration Medical Decision Making Medical Decision Making [facility] Narrative: 33-year-old female with a history of chronic costochondritis per her report, presents with central chest pain. Patient has had discomfort for 3 days it is nonradiating and constant. Patient was seen by primary care, prescribed Flexeril, and steroid. Patient states the Flexeril made her extremely dizzy and lethargic. Denies recent cough or cold symptoms no fever. Denies shortness of breath diaphoresis nausea vomiting. Problem: Chronic chest pain History: Per patient I have considered the following differential diagnoses: ACS, costochondritis, pneumonia, bronchitis, chest wall strain Plan: ACS was considered, however the patient has no risk factors for coronary artery disease her heart score is 0. Her discomfort is consistent with her costochondritis, per patient report. She essentially is asking for a different muscle relaxant. We will send with low-dose methocarbamol. She has no infectious signs symptoms. I have independently reviewed the following tests: Labs: No leukocytosis, not anemic, no electrolyte abnormality, troponin negative at less than 2.7 EKG: Junctional rhythm, rate of 56, no ischemic changes, QTC 436 Chest x-ray: XR/XR chest 2V IMPRESSION: Unremarkable examination. Electronically signed by: Hao Hermosillo MD 07/08/2024 08:32 PM [facility] Lab Data 07/08/24 18:09 07/08/24 18:09 Labs: Lab Results 07/08/24 Range/Units 18:09 WBC 9.5 (4.8-10.8) X10*3/uL RBC 4.84 (4.20-5.50) X10*6/uL Hgb 13.5 (12.0-16.0) g/dl Hct 40.7 (37.0-47.0) % MCV 84.1 (80.0-98.0) fL MCH 27.9 (27.0-33.0) pg MCHC 33.2 (31.0-35.0) g/dl RDW 13.1 (11.0-16.0) % Plt Count 310 (160-400) X10*3/uL MPV 12.1 (9.4-12.3) fL Immature Gran % (Auto) 0.3 (0.0-0.4) % Neut % (Auto) 64.8 (45-73) % Lymph % (Auto) 25.4 (20-40) % [place] % (Auto) 7.1 (2-11) % Eos % (Auto) 1.5 (0-4) % Baso % (Auto) 0.9 (0-2) % Lymph # (Auto) 2.4 (1.2-4.9) X10*3/uL [place] # (Auto) 0.7 (0.1-1.2) X10*3/uL Eos # (Auto) 0.1 (0.0-0.4) X10*3/uL Baso # (Auto) 0.1 (0.0-0.2) X10*3/uL Abs Immat Gran (auto) 0.03 (0.00-0.03) X10*3/uL Absolute Neuts (auto) 6.2 (2.0-8.3) x10*3/uL Absolute Nucleated RBC 0.000 (0.0-0.012) X10*3/uL Nucleated RBC % (auto) 0.0 (0.0-0.2) /100WBC PT 11.3 (10.9-12.4) SEC INR 1.0 (0.9-1.1) Sodium 141 (135-145) mmol/L Potassium 3.7 (3.3-5.1) mmol/L Chloride 106 (96-108) mmol/L Carbon Dioxide 28 (22-29) mmol/L Anion Gap 11 L (12-20) BUN 18 H (9-16) mg/dL Creatinine 0.87 (0.5-1.4) mg/dL Estim Creat Clear Calc 78.3 Estimated GFR > 60 Random Glucose 118 H (60-115) mg/dL Calcium 9.8 D (8.4-10.2) mg/dL Total Bilirubin 0.4 (0.0-1.0) mg/dL AST 16 (5-31) U/L ALT 14 (0-31) U/L Alkaline Phosphatase 86 (39-117) U/L Troponin I High Sens < 2.7 (<3.5-17.0) ng/L Total Protein 7.6 (6.5-8.0) g/dL Albumin 4.7 (3.5-5.0) g/dL Lipase 23 (8-78) U/L Influenza Type A (PCR) NEGATIVE (Negative) Influenza Type B (PCR) NEGATIVE (Negative) RSV RNA Qual (PCR) NEGATIVE (Negative) SARS-CoV-2 RNA (RT-PCR) NEGATIVE (Negative) Discharge Plan Discharge Clinical Impression: Costochondritis Patient Disposition: Home, Self-Care Instructions: Costochondritis (ED) Additional Instructions: All of your screening labs including a cardiac enzyme and viral panel were normal. Your chest x-ray is clear and there was no concerning changes on her EKG. Use the methocarbamol as directed, it may cause drowsiness. Continue to take your prescribed steroid. Follow up with your primary care provider as needed. Prescriptions: New methocarbamol 500 mg tablet 500 mg PO TID PRN (Reason: pain) Qty: 20 0RF No Action ondansetron 4 mg tablet,disintegrating 4 mg PO Q8H 3 Days Qty: 9 0RF doxycycline hyclate 100 mg capsule 100 mg PO BID 10 Days Qty: 20 0RF prednisone 20 mg tablet 40 mg PO DAILY 5 Days Qty: 10 0RF albuterol sulfate 90 mcg/actuation aerosol powdr breath activated 2 inh inhalation Q4-6H PRN (Reason: shortness of breath or wheezing) Qty: 1 0RF ondansetron 4 mg tablet,disintegrating 4 mg PO Q6H PRN (Reason: nausea and vomiting) Qty: 14 0RF Stand Alone Forms: Work/School Release Print Language: Tamazight
[2024-07-08 18:14] LABS: MANUAL DIFF FLAG NO
[2024-07-08 18:24] LABS: Basophils Absolute Auto 0.1 X10*3/uL (0.0-0.2); Basophils Percent Auto 0.9 % (0-2); Eosinophils Absolute Auto 0.1 X10*3/uL (0.0-0.4); Eosinophils Percent Auto 1.5 % (0-4); Hematocrit 40.7 % (37.0-47.0); Hemoglobin 13.5 g/dl (12.0-16.0); Imm Gran Abs Auto 0.03 X10*3/uL (0.00-0.03); Imm Gran Pct Auto 0.3 % (0.0-0.4); Lymphocytes Absolute Auto 2.4 X10*3/uL (1.2-4.9); Lymphocytes Percent Auto 25.4 % (20-40); Mean Corpuscular HGB Conc 33.2 g/dl (31.0-35.0); Mean Corpuscular Hemoglobin 27.9 pg (27.0-33.0); Mean Corpuscular Volume 84.1 fL (80.0-98.0); Mean Platelet Volume 12.1 fL (9.4-12.3); Monocytes Absolute Auto 0.7 X10*3/uL (0.1-1.2); Monocytes Percent Auto 7.1 % (2-11); Neutrophils Absolute Auto 6.2 x10*3/uL (2.0-8.3); Neutrophils Percent Auto 64.8 % (45-73); Platelet Count 310 X10*3/uL (160-400); Red Blood Count 4.84 X10*6/uL (4.20-5.50); Red Cell Distribution Width 13.1 % (11.0-16.0); White Blood Count 9.5 X10*3/uL (4.8-10.8)
[2024-07-08 18:34] LABS: Prothrombin Time 11.3 SEC (10.9-12.4)
[2024-07-08 18:35] LABS: Alanine Aminotransferase 14 U/L (0-31); Albumin Level 4.7 g/dL (3.5-5.0); Alkaline Phosphatase 86 U/L (39-117); Anion Gap 11 (12-20); Aspartate Amino Transferase 16 U/L (5-31); Bilirubin Total 0.4 mg/dL (0.0-1.0); Blood Urea Nitrogen 18 mg/dL (9-16); Calcium 9.8 mg/dL (8.4-10.2); Carbon Dioxide 28 mmol/L (22-29); Chloride 106 mmol/L (96-108); Creatinine Clr Calc Pharmacy 78.3; Estimated Glomerular Filt Rate > 60; Glucose Random 118 mg/dL (60-115); Lipase 23 U/L (8-78); Potassium 3.7 mmol/L (3.3-5.1); Sodium 141 mmol/L (135-145); Total Protein 7.6 g/dL (6.5-8.0)
[2024-07-08 18:44] LABS: Troponin-I High Sensitivity < 2.7 ng/L (<3.5-17.0)
[2024-07-08 18:54] LABS: Influenza A PCR NEGATIVE (Negative); Influenza B PCR NEGATIVE (Negative); Resp Syncy Virus RNA Qual PCR NEGATIVE (Negative); SARS COV2 PCR INHOUSE NEGATIVE (Negative)
[2024-07-08] MEDS: Ondansetron ODT 4 MG TAB.RAPDIS TRANSLINGU (20:11)
[2024-07-08 20:43] VITALS: BP 98/56; PULSE 58; RESP 18; TEMP 36.6; O2SAT 100
--- OUTSIDE RECORDS SUMMARY | 2024-07-08 20:51 | XMS_ITS | Continuity of Care Document ---
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 BLIST PACK Active [id number] 2023 6 Pharmac y Data Transac tion Service Facilit y AZITHROMYCI N (azithromyc in), 250 MG, TABLET, ORAL, LUPIN PHARMACEU, 6 ea. BLIST PACK Cancele d [id number] : 2023 0 Pharmac y Data Transac tion Service Facilit y MELOXICAM (MELOXICAM) , 15 MG, TABLET, ORAL, [employer] 100 ea. BOTTLE Active [id number] 2023 30 Pharmac y Data Transac tion Service Facilit y MELOXICAM (MELOXICAM) , 15 MG, TABLET, ORAL, [employer] 100 ea. BOTTLE Active [id number] 4 2023 30 Pharmac y Data Transac tion Service Facilit y METHYLPREDN ISOLONE (METHYLPRED NISOLONE), 4MG, TAB DS PK, ORAL, CADISTA PHARMAC, 21 ea. BLIST PACK Active [id number] 2023 21 Pharmac y Data Transac [...] Reaction, Other: Suicial dreams active 5 [facility] SEROQUEL (QUETIAPINE FUMARATE) Drug allergy (disorder) Nausea active 5 [facility] Immunizations Combined list of available immunizations from the Department of Defense and Veterans Affairs facilities. Immunization Series Date Given Administered By Site Reaction Lot Number CVX Code Drug Grinder Operator Tool Status Comments Source MMR 2018 Jose GRIMM [...] Medical Group(Can non_OpMed _Team A) TELE CONSULT [id number] Notes Entered by: GREG SERRANO 16 Jun 2014 0915 ------- ------- ------- ------- -- May ER Log F/U - c/o LEFT side pain, approxi mately six weeks JOSE DAVID Santiago 06/16 [facility](C maria elenaon_O pMed_Te am A) [facility](Network Admin [facility]) TELE CONSULT [id number] Notes Entered by: AMGDI FLORES 26 Jul 2014 0958 ------- ------- ------- ------- -- 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 REFERAVE BUCKLEY 07/26[facility](G yn [facility]) [facility](Can non_OpMed _Team A) OUTPATIENT [id number] CC: PHYSICA L--CHES T/KNEE PAIN JOANLUIGI D 08/04 Released w/o Limitations [facility](C annon_O pMed_Te am A) [facility](Can non_OpMed _Team A) OUTPATIENT [id number] CC Chest pain JOANLUIGI D 09/01 Released w/o Limitations [facility](C annon_O pMed_Te am A) [facility](Can non_FHC_T eam B) TELE CONSULT [id number] Notes Entered by: GREG SERRANO 18 Oct 2014 1524 ------- ------- ------- ------- -- Sep ER Log F/U - c/o sinus infecti on JOSE DAVID GOLDEN 10/18 [facility](C eryn_F HC_Team B) [facility](Can non_OpMed _Team A) TELE CONSULT [id number] Notes Entered by: MICHAEL CANO 21 Dec 2014 1756 ------- ------- ------- ------- -- [id number] 15 [facility] ER Log JOSE DAVID GOLDEN 12/21 [facility](C annon_O pMed_Te am A) [facility](Network Admin [facility]) TELE CONSULT [id number] Notes Entered by: MARTÍNEZ HOLMAN 29 Dec 2014 0857 ------- ------- ------- ------- -- DOES NOT FEEL SAFE WITH OFF BASE PROVIDE R [address] IRWIN 12/[facility](G yn [facility]) [facility](Can non_Ped_T eam A) TELE CONSULT [id number] Notes Entered by: OSMIN KENNEDY 01 Feb 2015 1021 ------- ------- ------- ------- -- : CHAYITO Ricardo : FEB 02 LEANNA WEISS 02/01[facility](C annon_P ed_Team A) [facility](Opt ometry [facility]) OUTPATIENT [id number] CC ROUTINE EXAM LACIE SAUL 03/17 Released w/o Limitations [facility](O ptometr y [facility]) th [facility](Can non_OpMed _Team A) TELE CONSULT [id number] Notes Entered by: MARTÍNEZ HOLMAN 07 Apr 2015 0712 ------- ------- ------- ------- -- SORE THROAT BURNING LAKISHA SMITH 04/07th [facility](C annon_O pMed_Te am A) [facility](Can non_OpMed _Team A) TELE CONSULT [id number] Notes Entered by: MARTÍNEZ HOLMAN 12 Apr 2015 0902 ------- ------- ------- ------- -- NAL ED LAKISHA SMITH 04/12th [facility](C annon_O pMed_Te am A) [facility](Dis ease Managemen t) TELE CONSULT [id number] Notes Entered by: ROBERT COLON 04 Jul 2015 1133 ------- ------- ------- ------- -- PAP Update VICENTA SMITH 07/04 Referred for Appointment [facility](Stephanie iskaty [employer] ent) [facility](Can non_OpMed _Team A) OUTPATIENT [id number] rash concern x3 weeks LUIGI FRANCO 07/05 Released w/o Limitations [facility](C annon_O pMed_Te am A) [facility](Can non_OpMed _Team A) OUTPATIENT [id number] CC DIZZINE SS, HOT FLASHES , HEADACH ES LUIGI FRANCO 08/16 Released w/o Limitations [facility](C annon_O pMed_Te am A) [facility](Can non_OpMed _Team A) TELE CONSULT [id number] Notes Entered by: CHANDNI KRISHNAN 23 Aug 2015 1300 ------- ------- ------- ------- -- PHONE CALL VIKI BARROW 08/23 Other Not Elsewhere Classified [facility](C annon_O pMed_Te am A) [facility](Can non_OpMed _Team A) TELE CONSULT [id number] Notes Entered by: VIKI BARROW 25 Aug 2015 0910 ------- ------- ------- ------- -- Micare message VIKI BARROW 08/25 Other Not Elsewhere Classified [facility](C annon_O pMed_Te am A) [facility](Network Admin [facility]) TELE CONSULT [id number] Notes Entered by: STEPHIE FINN 24 Oct 2015 0911 ------- ------- ------- ------- -- HCG RESULTS AVE COVARRUBIAS 10/23 [facility](G yn [facility]) [facility](Network Admin [facility]) TELE CONSULT [id number] Notes Entered by: GABRIEL MARISCAL 27 Oct 2015 1527 ------- ------- ------- ------- -- AVE VALDEZ 10/[facility]) [facility](Can non_OpMed _Team A) TELE CONSULT [id number] Notes Entered by: Omero KEMP 31 Oct 2015 1016 ------- ------- ------- ------- -- Severe back pain possibe kidney infecti on x 1 week VIKI BARROW 10/30 Other Not Elsewhere Classified [facility](C annon_O pMed_Te am A) [facility](Dis ease Managemen t) TELE CONSULT [id number] Notes Entered by: ROBERT COLON 28 May 2016 1319 ------- ------- ------- ------- -- 01 November 2015 [facility] ER LOG VICENTA SMITH 05/28[facility](D isease Managem ent) [facility](Dis ease Managemen t) TELE CONSULT [id number] Notes Entered by: ROBERT COLON 27 Jun 2016 1018 ------- ------- ------- ------- -- 26 Nov 2015 [facility] ER LOG VICENTA SMITH 06/27[facility](D isease Managem ent) th [facility](Can non_Ped_T eam A) TELE CONSULT [id number] Notes Entered by: ETHAN COLON 02 Jul 2016 0848 ------- ------- ------- ------- -- ACUTE - VOMITIN DIANNA KLINE 07/02 Referred for Appointment [facility](C annon_P ed_Team A) [facility](Network Admin [facility]) TELE CONSULT [id number] Notes Entered by: SKYLAR BRUT 06 Aug 2016 1112 ------- ------- ------- ------- -- Network result- ER NOTES- [address] COVARR[address]BIAS 08/06th [facility](G yn [facility]) [facility](Can non_OpMed _Team A) OUTPATIENT [id number] CC PELVIC PAIN YUSEF SMITH 10/22 Released w/o Limitations [facility](C annon_O pMed_Te am A) [facility](Can non_OpMed _Team A) TELE CONSULT [id number] Notes Entered by: DIPESH BREWSTER 23 Oct 2016 1754 ------- ------- ------- ------- -- Call Pelvis US results BRANDI ROSAS 10/23 Released to Self [facility](C annon_O pMed_Te am A) [facility](Can non_OpMed _Team A) TELE CONSULT [id number] Notes Entered by: FLO GROVES 08 Jan 2017 1257 ------- ------- ------- ------- -- 07 January 2017 [facility] ER log LAKISHA SMITH 01/08th [facility](C annon_O pMed_Te am A) [facility](Can non_OpMed _Team A) TELE CONSULT [id number] Notes Entered by: CHANDNI KRISHNAN 14 Jan 2017 1025 ------- ------- ------- ------- -- CHEST INFLAMM ED LAKISHA SMIHT 01/14 [facility](C annon_O pMed_Te am A) [facility](Can non_OpMed _Team A) OUTPATIENT [id number] CC RIBCAGE PAIN VICENTA HOLLINGSWORTH 01/15 Released w/o Limitations [facility](C annon_O pMed_Te am A) [facility](Can non_OpMed _Team A) TELE CONSULT [id number] Notes Entered by: JOSE D LORENZANA 28 Jan 2017 0738 ------- ------- ------- ------- -- ACUTE SPIDER BITE LAKISHA SMITH 01/28 [facility](C annon_O pMed_Te am A) [facility](EFM P) TELE CONSULT [id number] Notes Entered by: BILLY AGARWAL 08 Feb 2017 1311 ------- ------- ------- ------- -- EFMP Enroll ent OCTAVIO VELASQUEZ 02/08 [facility](E FMP) [facility](Can non_OpMed _Team A) TELE CONSULT [id number] Notes Entered by: CHANDNI KRISHNAN 24 Apr 2017 0734 ------- ------- ------- ------- -- SINUS INFECTI ON JOSE DAVID GOLDEN 04/24 [facility](C annon_O pMed_Te am A) [facility](Can non_OpMed _Team A) TELE CONSULT [id number] Notes Entered by: SABINO TORRES 03 May 2017 0902 ------- ------- ------- ------- -- RESULTS [facility]ONG[facility] MGMT -2016 BRITT ANDERSON 05/03 [facility](C annon_O pMed_Te am A) [facility](Can non_OpMed _Team A) OUTPATIENT [id number] CC RIGHT KNEE PAIN ED SMITH 05/28 Released w/o Limitations [facility](C annon_O pMed_Te am A) [facility](Can non_OpMed _Team A) TELE CONSULT [id number] Notes Entered by: BRI PERAZA 10 Jun 2017 1543 ------- ------- ------- ------- -- Results receive d-MRI Rt Knee-11 [id number] BRITT ANDERSON 06/10 [facility](C annon_O pMed_Te am A) [facility](Can non_OpMed _Team A) OUTPATIENT [id number] VIRTUAL - MRI R KNEE - [facility] May - [phone] BRITT ANDERSON 06/12 Released w/o Limitations [facility](C annon_O pMed_Te am A) [facility](Can non_OpMed _Team A) TELE CONSULT [id number] Notes Entered by: Annie ANDERSON 17 Jun 2017 1402 ------- ------- ------- ------- -- MRI R knee review BRITT ANDERSON 06/17 [facility](C annon_O pMed_Te am A) [facility](Can non_OpMed _Team A) OUTPATIENT [id number] Mihir Silver e, X 2 Days BRITT ANDERSON 08/20 Released w/o Limitations [facility](C annon_O pMed_Te am A) [facility](Can non_C_T eam B) OUTPATIENT [id number] FIBROMY MELLISA MENDEZ 12/30 Released w/o Limitations [facility](Karena cerna_Peggy HC_Team B) [facility](Network Admin [facility]) TELE CONSULT [id number] Notes Entered by: JOSE D LORENZANA 31 Dec 2017 1508 ------- ------- ------- ------- -- JONI Pineda ABOUT OB CLASS REGINA CHAVEZ 12/31 Referred for Appointment [facility](Network Admin [facility]) TELE CONSULT [id number] Notes Entered by: FLO GROVES 08 Jan 2018 0919 ------- ------- ------- ------- -- 07 January 2018 [facility] ER log MARTÍNEZ PEREZ 01/08th [facility](Can non_Ped_T eam A) TELE CONSULT [id number] Notes Entered by: CHANDNI KRISHNAN 14 Aug 2018 1020 ------- ------- ------- ------- -- LEANNA ESCOBAR 08/14 Referred for Appointment [facility](Karena Chanel ed_Team A) [facility](Network Admin [facility]) TELE CONSULT [id number] Notes Entered by: BRI PERAZA 25 Aug 2018 1349 ------- ------- ------- ------- -- Network results -OB Dischar Note-01 [id number] 9-Artif acts and Images MARIANA REYES 08/25 [facility](Aden [facility] Post) Procedures Combined list of: 1) Procedures [...] PROVIDE W/IN THE PREV 7 DAYS,USE THE [email or web address] 7 DoD TELE ASSESS & MGT [...] 24 HR/SOON APT;5-10 MIN MED DIS 5 [facility] Non-Physician Phone Call To Patient/Provider Brief (5-10min) Non-Physician Phone Call To Patient/Provider Brief (5-10min) [id number] XIOMARA PEREZN Karoline [facility] Internet Med Svc Qual Nonphys Healthcare Prof Up To 7 Days Estab Patient Internet Med Svc Qual Nonphys Healthcare Prof Up To 7 Days Estab Patient [phone] BRITT ANDERSON [facility] Non-Physician Phone Call To Patient/Provider Brief (5-10min) Non-Physician Phone Call To Patient/Provider Brief (5-10min) [phone] JOSE DAVID GOLDEN [facility] Non-Physician Phone Call To Pt/Provider Lengthy (21-30 min) Non-Physician Phone Call To Pt/Provider Lengthy (21-30 min) [phone] OCTAVIO VELASQUEZ [facility] Non-Physician Phone Call To Patient/Provider Brief (5-10min) Non-Physician Phone Call To Patient/Provider Brief (5-10min) [phone] LAKISHA SMITH [facility] Disease management program; initial a e ment and initiation of the program 5 VICENTA SMITH [facility] Non-Physician Phone Call To Patient/Provider Brief (5-10min) Non-Physician Phone Call To Patient/Provider Brief (5-10min) [phone] LAKISHA SMITH [facility] Determination Of Refractive State Determination Of Refractive State 13851 5 LACIE SAUL DoD Ophthalmological New Patient Start Comprehensive Care Ophthalmological New Patient Start Comprehensive Care [phone] LACIE SAUL [facility] Non-Physician Phone Call To Patient/Provider Brief (5-10min) Non-Physician Phone Call To Patient/Provider Brief (5-10min) [phone] DAYLIN MATIAS [facility] Social History Combined list of available smoking, tobacco, and other social history from Department of Defense and Veterans Affairs facilities. Social History Type Response Date Comment [facility] e This section is an empty social history section. DoD
[2024-07-08 21:37] VITALS: BP 98/56; PULSE 58; RESP 18; TEMP 36.6; O2SAT 100
== END 2024-07-08 21:38 | disposition home or self-care (01) ==
PROVIDERS: Physician Assistant; Emergency Provider Emergency Medicine; PCP Internal Medicine
DX: M94.0 Chondrocostal junction syndrome [Tietze] (principal); R07.89 Other chest pain; R42 Dizziness and giddiness; Z03.818 Encounter for observation for suspected exposure to other biological agents ruled out; Z79.899 Other long term (current) drug therapy
CPT/HCPCS: 0241U; 71046; 80053; 83690; 84484; 85025; 85610; 93005; 99283

== ENCOUNTER → 2024-07-08 17:48 | Outpatient (BNV) | payer OTHER, SELFPAY | PROVIDERS: Emergency Provider Emergency Medicine; PCP Internal Medicine; Visit Provider Internal Medicine | DX: R07.9 Chest pain, unspecified (principal); R00.1 Bradycardia, unspecified | CPT/HCPCS: 93010 ==

== ENCOUNTER 2024-07-23 00:04 | Emergency (ER) | payer OTHER, SELFPAY ==
--- NOTE | ~2024-07-23 | XR_ITS ---
CLINICAL HISTORY: chest pain 1 view chest x-ray. Comparison: CR/TN/SR - XR CHEST 2V - 07/08/24 18:19 EST Findings: The lungs appear clear. There is no consolidation, effusion, or pneumothorax. Cardiomediastinal silhouette is within normal limits. IMPRESSION: No acute cardiopulmonary abnormality. This document has been electronically signed by: Nas Voss MD on 07/23/2024 00:57:08
--- NOTE | 2024-07-23 00:07 | ECG_ITS ---
Test Reason : CHEST PAIN Blood Pressure : / mmHG Vent. Rate : 076 BPM Atrial Rate : 076 BPM P-R Int : 164 ms QRS Dur : 078 ms QT Int : 400 ms P-R-T Axes : 075 051 060 degrees QTc Int : 450 ms Normal sinus rhythm Normal ECG When compared with ECG of 08-JUL-2024 17:57, No significant change was found Referred By: Generic ED Physician Electronically Signed By:ISAI JACOB MD
[2024-07-23 00:08] VITALS: BP 107/62; PULSE 85; RESP 20; TEMP 36.4; O2SAT 100; BMI 26.4
--- NOTE | 2024-07-23 00:36 | ED.GENADULT ---
HPI - General Adult General Chief complaint: General Medical Stated complaint: CP Time Seen by Provider: 07/23/24 00:24 Source: patient, family and EMS Mode of arrival: EMS Limitations: no limitations History of Present Illness ED Provider: DR. Haji HPI narrative: 33-year-old female history of costochondritis came in with chest pain that radiates to the mid lower back started about 4 hours before coming to the ED patient went to [facility] but did not like the management and came to [facility], admitted to drinking 4 beer before coming to the hospital, no trauma, no falls. Patient is also complaining of dysuria stated that she is prone to UTI ever since she had hysterectomy. Related Data Previous Rx's ?Medication ?Instructions ?Recorded ondansetron 4 mg disintegrating 4 mg PO Q8H 3 days #9 tabs 08/02/23 tablet albuterol sulfate 90 mcg/actuation 2 inh inhalation Q4-6H PRN 02/10/24 breath activated powder inhaler shortness of breath or wheezing #1 ea doxycycline hyclate 100 mg capsule 100 mg PO BID 10 days #20 caps 02/10/24 ondansetron 4 mg disintegrating 4 mg PO Q6H PRN nausea and 02/10/24 tablet vomiting #14 tabs prednisone 20 mg tablet 40 mg (2 x 20 mg) PO DAILY 5 days 02/10/24 #10 tabs methocarbamol 500 mg tablet 500 mg PO TID PRN pain #20 tabs 07/08/24 Allergies Allergy/AdvReac Type Severity Reaction Status Date / Time naproxen Allergy Unknown Verified 07/23/24 00:10 quetiapine [From Seroquel] Allergy Vomiting Verified 07/23/24 00:10 Review of Systems Review of Systems: All other systems are reviewed and are negative Constitutional: Reports as per HPI and Reports no additional constitutional complaints Eyes: Reports as per HPI and Reports no additional eye complaints Reports system reviewed and no additional complaints, except as documented Cardiovascular: Reports as per HPI and Reports no additional cardiovascular complaints Respiratory: Reports as per HPI and Reports no additional respiratory complaints Gastrointestinal: Reports as per HPI and Reports no additional gastrointestinal complaints Genitourinary: Reports no additional female genitourinary complaints Musculoskeletal: Reports no additional musculoskeletal complaints Skin/Breast: Reports system reviewed and no additional complaints, except as docu Psychiatric: Reports no additional psychiatric complaints Endocrine: Reports no additional endocrine complaints Hematologic/Lymphatic: Reports no additional hematologic/lymphatic complaints Allergic/Immunologic: Reports no additional allergic/immunologic complaints Reports system reviewed and no additional complaints, except as documented and Reports Abnormal speech present [facility] Social History Social History Alcohol intake: current Alcohol intake frequency: holidays/special occasions only Alcohol type: beer, wine and hard liquor Smoked in Last 30 Days: No Use of substances other than those prescribed or required for medical reasons: No Advance Directives: No Advance Directives Information Provided: Yes Do you have a plan to hurt others: No Plan Patient : No Physical Exam ED Vital Signs: Vital Signs - 24 hr 07/23/24 00:08 07/23/24 00:51 07/23/24 01:27 Temperature 97.5 F Pulse Rate 85 82 Respiratory Rate 20 18 18 Blood Pressure 107/62 114/73 Pulse Oximetry 100 99 Oxygen Delivery Method Room Air Room Air 07/23/24 04:00 Temperature 97.6 F Pulse Rate 78 Respiratory Rate 16 Blood Pressure 94/60 Pulse Oximetry 96 Oxygen Delivery Method Room Air BMI result Body Mass Index 26.4 Vital signs have been reviewed and appear to be correct. Blood pressure elevated. Heart rate normal. Respiratory rate normal. Temperature normal. Oxygen saturation normal. Appearance: Alert. Oriented X3. No acute distress. Head: Normal external exam. Normocephalic. Atraumatic. No Martel signs noted. No raccoon eyes noted Eyes: PERRLA. EOMI. Conjunctiva and sclera normal. Eyelids normal. ENT: TM's Normal. Pharynx normal. Uvula midline. Moist mucous membranes. No trismus noted. No drooling noted. No muffled voice noted. Neck: Normal inspection. Neck supple. FROM. No adenopathy. Thyroid Normal. No meningeal signs. No neck mass noted. CVS: Normal heart rate and rhythm. Heart sound normal. No murmurs noted. Pulses normal throughout. Respiratory: No respiratory distress. Painless inspiration. Breath sounds normal. No wheezes/rales/rhonchi noted. Point of tenderness over the sternum and anterior chest wall, No accessory muscle usage noted or decreased air movement noted. Abdomen: Soft and nontender. Bowel sounds normal in all 4 quadrants. No distention noted. No organomegaly noted. No visible injury noted. Back: No CVA tenderness. Full range of motion noted. Skin: Skin warm and dry. Normal skin color. Normal skin turgor. No rashes/lesions/lacerations noted. Extremities: No lower extremity edema. Extremities exhibit normal range of motion. Extremities nontender. Neuro: Oriented X 3. Cranial nerve exam: II-XII are grossly intact No motor deficit. No sensory deficit. Reflexes normal. Course Reevaluation(s) Reevaluation #1: 33-year-old female with chest pain secondary to costochondritis improved with Toradol/morphine, unremarkable workup for chest pain. Time: 02:00 Medications Administered Discontinued Medications Generic Name Dose Route Start Last Admin Trade Name Freq PRN Reason Stop Dose Admin Ketorolac Tromethamine 15 mg 07/23/24 00:38 07/23/24 00:50 Ketorolac Tromethamine 15 Mg/Ml Vial IVPUSH 07/23/24 00:39 15 mg ONCE ONE Administration Morphine Sulfate 1 mg 07/23/24 00:38 07/23/24 00:51 Morphine Sulfate 2 Mg/Ml Cartridge IVPUSH 07/23/24 00:39 1 mg ONCE ONE Administration Protocol Medical Decision Making Differential Diagnosis Differential Diagnoses: The differential diagnosis associated with the presentation includes (ACS, pulmonary embolism, pneumonia, pneumothorax, pleural effusion, costochondritis, chest wall pain, electrolyte derangement, severe anemia.) Admission/Observation Consideration of admission/observation: Escalation of care including admission/observation considered Lab Data MDM Lab Attestation statement: I reviewed the patient's lab results. 07/23/24 00:39 07/23/24 00:39 Labs: Lab Results 07/23/24 07/23/24 07/23/24 Range/Units 00:39 01:40 01:44 WBC 7.5 (4.8-10.8) X10*3/uL RBC 4.63 (4.20-5.50) X10*6/uL Hgb 13.1 (12.0-16.0) g/dl Hct 38.4 (37.0-47.0) % MCV 82.9 (80.0-98.0) fL MCH 28.3 (27.0-33.0) pg MCHC 34.1 (31.0-35.0) g/dl RDW 13.2 (11.0-16.0) % Plt Count 252 (160-400) X10*3/uL MPV 12.3 (9.4-12.3) fL Immature Gran % (Auto) 0.5 H (0.0-0.4) % Neut % (Auto) 72.3 (45-73) % Lymph % (Auto) 20.2 (20-40) % [place] % (Auto) 4.5 (2-11) % Eos % (Auto) 1.2 (0-4) % Baso % (Auto) 1.3 (0-2) % Lymph # (Auto) 1.5 (1.2-4.9) X10*3/uL [place] # (Auto) 0.3 (0.1-1.2) X10*3/uL Eos # (Auto) 0.1 (0.0-0.4) X10*3/uL Baso # (Auto) 0.1 (0.0-0.2) X10*3/uL Abs Immat Gran (auto) 0.04 H (0.00-0.03) X10*3/uL Absolute Neuts (auto) 5.4 (2.0-8.3) x10*3/uL Absolute Nucleated RBC 0.000 (0.0-0.012) X10*3/uL Nucleated RBC % (auto) 0.0 (0.0-0.2) /100WBC PT 11.7 (10.9-12.4) SEC INR 1.0 (0.9-1.1) D-Dimer High Sensitivty < 150 NG/ML Sodium 143 (135-145) mmol/L Potassium 3.8 (3.3-5.1) mmol/L Chloride 111 H (96-108) mmol/L Carbon Dioxide 25 (22-29) mmol/L Anion Gap 11 L (12-20) BUN 9 (9-16) mg/dL Creatinine 0.73 (0.5-1.4) mg/dL Estim Creat Clear Calc 92.7 Estimated GFR > 60 Random Glucose 105 (60-115) mg/dL Calcium 8.6 D (8.4-10.2) mg/dL Troponin I High Sens < 2.7 (<3.5-17.0) ng/L B-Natriuretic Peptide < 10 (<100) pg/mL Urine Color Yellow Urine Appearance Clear Urine pH 7.0 (5.0-9.0) Ur Specific [place] 1.010 (1.005-1.025) Urine Protein Negative (Neg-Trace) mg/dL Urine Glucose (UA) Negative (Negative) mg/dL Urine Ketones Negative (Negative) mg/dL Urine Blood Negative (Negative) Urine Nitrite Negative (Negative) Ur Leukocyte Esterase Small (1+) H (Negative) Urine RBC 0-2 (0-2) /HPF Urine WBC 0-5 (0-5) /HPF Ur Squamous Epith Cells 3-5 (0-2) /HPF Urine Bacteria Trace (None Seen) Hyaline Casts 0-2 (0-2) /LPF Ethyl Alcohol 156 mg/dL Independent Interpretation I performed an independent interpretation of an: Plain X-Ray (Chest: No acute intrathoracic pathology.) Radiology Impression Discussion of test interpretation with radiology: I have reviewed the radiologist's reading. Discharge Plan Discharge Clinical Impression: Chest pain, Acute costochondritis Patient Disposition: Still a Patient Instructions: Costochondritis (ED) Prescriptions: No Action methocarbamol 500 mg tablet 500 mg PO TID PRN (Reason: pain) Qty: 20 0RF ondansetron 4 mg tablet,disintegrating 4 mg PO Q8H 3 Days Qty: 9 0RF doxycycline hyclate 100 mg capsule 100 mg PO BID 10 Days Qty: 20 0RF prednisone 20 mg tablet 40 mg PO DAILY 5 Days Qty: 10 0RF albuterol sulfate 90 mcg/actuation aerosol powdr breath activated 2 inh inhalation Q4-6H PRN (Reason: shortness of breath or wheezing) Qty: 1 0RF ondansetron 4 mg tablet,disintegrating 4 mg PO Q6H PRN (Reason: nausea and vomiting) Qty: 14 0RF Print Language: Macedonian
[2024-07-23 00:43] LABS: MANUAL DIFF FLAG NO
[2024-07-23 00:44] LABS: Basophils Absolute Auto 0.1 X10*3/uL (0.0-0.2); Basophils Percent Auto 1.3 % (0-2); Eosinophils Absolute Auto 0.1 X10*3/uL (0.0-0.4); Eosinophils Percent Auto 1.2 % (0-4); Hematocrit 38.4 % (37.0-47.0); Hemoglobin 13.1 g/dl (12.0-16.0); Imm Gran Abs Auto 0.04 X10*3/uL (0.00-0.03); Imm Gran Pct Auto 0.5 % (0.0-0.4); Lymphocytes Absolute Auto 1.5 X10*3/uL (1.2-4.9); Lymphocytes Percent Auto 20.2 % (20-40); Mean Corpuscular HGB Conc 34.1 g/dl (31.0-35.0); Mean Corpuscular Hemoglobin 28.3 pg (27.0-33.0); Mean Corpuscular Volume 82.9 fL (80.0-98.0); Mean Platelet Volume 12.3 fL (9.4-12.3); Monocytes Absolute Auto 0.3 X10*3/uL (0.1-1.2); Monocytes Percent Auto 4.5 % (2-11); Neutrophils Absolute Auto 5.4 x10*3/uL (2.0-8.3); Neutrophils Percent Auto 72.3 % (45-73); Platelet Count 252 X10*3/uL (160-400); Red Blood Count 4.63 X10*6/uL (4.20-5.50); Red Cell Distribution Width 13.2 % (11.0-16.0); White Blood Count 7.5 X10*3/uL (4.8-10.8)
[2024-07-23] MEDS: Ketorolac Tromethamine 15 MG/ML VIAL IVPUSH (00:50)
[2024-07-23 00:51] VITALS: RESP 18
[2024-07-23] MEDS: Morphine Sulfate 2 MG/ML CARTRIDGE 1 MG IVPUSH (00:51)
[2024-07-23 01:04] LABS: Anion Gap 11 (12-20); Blood Urea Nitrogen 9 mg/dL (9-16); Calcium 8.6 mg/dL (8.4-10.2); Carbon Dioxide 25 mmol/L (22-29); Chloride 111 mmol/L (96-108); Ethanol 156 mg/dL; Glucose Random 105 mg/dL (60-115); Potassium 3.8 mmol/L (3.3-5.1); Sodium 143 mmol/L (135-145)
[2024-07-23 01:09] LABS: Troponin-I High Sensitivity < 2.7 ng/L (<3.5-17.0)
[2024-07-23 01:15] LABS: Creatinine Clr Calc Pharmacy 92.7; Estimated Glomerular Filt Rate > 60
[2024-07-23 01:27] VITALS: BP 114/73; PULSE 82; RESP 18; O2SAT 99
[2024-07-23 01:51] LABS: B Type Natriuretic Peptide < 10 pg/mL (<100)
[2024-07-23 01:53] LABS: Appearance Urine Clear; Color Urine Yellow; Glucose Urine UA Negative (Negative); Leukocyte Esterase Urine Small (1+) (Negative); Nitrite Urine Negative (Negative); UMIC TRIGGER UACC YES; Urine Blood Negative (Negative); Urine Ketones Negative (Negative); Urine Protein Negative (Neg-Trace)
[2024-07-23 02:02] LABS: Prothrombin Time 11.7 SEC (10.9-12.4)
[2024-07-23 02:09] LABS: Bacteria Urine Trace (None Seen); Hyaline Casts Urine 0-2 /LPF (0-2); RBC Urine 0-2 /HPF (0-2); UACC Culture Trigger YES; WBC Urine 0-5 /HPF (0-5)
[2024-07-23 02:17] LABS: D Dimer High Sensitivity < 150 NG/ML
[2024-07-23 04:00] VITALS: BP 94/60; PULSE 78; RESP 16; TEMP 36.4; O2SAT 96
[2024-07-23 05:43] LABS: HCG Quantitative < 2 mIU/mL
[2024-07-23 06:00] VITALS: BP 89/54; PULSE 75; RESP 15; TEMP 36.6; O2SAT 96
[2024-07-23 06:48] LABS: Troponin-I High Sensitivity < 2.7 ng/L (<3.5-17.0)
[2024-07-23 07:10] VITALS: BP 102/57; PULSE 71; RESP 15; TEMP 36.7; O2SAT 98
== END 2024-07-23 07:12 | disposition home or self-care (01) ==
PROVIDERS: Emergency Provider Emergency Medicine
DX: R07.9 Chest pain, unspecified (principal); M94.0 Chondrocostal junction syndrome [Tietze]; M54.50 Low back pain, unspecified; R30.0 Dysuria; F10.90 Alcohol use, unspecified, uncomplicated; Y90.6 Blood alcohol level of 120-199 mg/100 ml; Z87.440 Personal history of urinary (tract) infections; Z90.710 Acquired absence of both cervix and uterus; Z79.899 Other long term (current) drug therapy
CPT/HCPCS: 36415; 71045; 80048; 80307; 81001; 83880; 84484; 84702; 85025; 85379; 85610; 87086; 93005; 96374; 96375; 99284; J1885; J2270

== ENCOUNTER → 2024-07-23 00:07 | Outpatient (BNV) | payer OTHER, SELFPAY | PROVIDERS: Emergency Provider Emergency Medicine; Visit Provider Internal Medicine Cardiovascular Disease | DX: R07.9 Chest pain, unspecified (principal) | CPT/HCPCS: 93010 ==

== ENCOUNTER → 2024-07-23 00:20 | Outpatient (BNV) | payer OTHER, SELFPAY | PROVIDERS: Emergency Provider Emergency Medicine; Visit Provider Radiology Diagnostic Radiology | DX: R07.9 Chest pain, unspecified (principal) | CPT/HCPCS: 71045 ==

== ENCOUNTER 2024-08-14 07:06 | Emergency (ER) | payer OTHER, SELFPAY ==
[2024-08-14 07:08] VITALS: BP 95/65; PULSE 80; RESP 18; TEMP 36.4; O2SAT 100; BMI 26.9
[2024-08-14 07:32] LABS: MANUAL DIFF FLAG NO
[2024-08-14 07:35] LABS: Appearance Urine Clear; Basophils Absolute Auto 0.1 X10*3/uL (0.0-0.2); Basophils Percent Auto 1.2 % (0-2); Color Urine Yellow; Eosinophils Absolute Auto 0.4 X10*3/uL (0.0-0.4); Eosinophils Percent Auto 4.7 % (0-4); Glucose Urine UA Negative (Negative); Hematocrit 40.8 % (37.0-47.0); Hemoglobin 13.5 g/dl (12.0-16.0); Imm Gran Abs Auto 0.02 X10*3/uL (0.00-0.03); Imm Gran Pct Auto 0.2 % (0.0-0.4); Leukocyte Esterase Urine Trace (Negative); Lymphocytes Absolute Auto 3.1 X10*3/uL (1.2-4.9); Lymphocytes Percent Auto 38.3 % (20-40); Mean Corpuscular HGB Conc 33.1 g/dl (31.0-35.0); Mean Corpuscular Hemoglobin 28.3 pg (27.0-33.0); Mean Corpuscular Volume 85.5 fL (80.0-98.0); Mean Platelet Volume 11.8 fL (9.4-12.3); Monocytes Absolute Auto 0.6 X10*3/uL (0.1-1.2); Neutrophils Absolute Auto 3.9 x10*3/uL (2.0-8.3); Neutrophils Percent Auto 48.6 % (45-73); Nitrite Urine Negative (Negative); PH 5.5 (5.0-9.0); Platelet Count 282 X10*3/uL (160-400); Red Blood Count 4.77 X10*6/uL (4.20-5.50); Specific Gravity - Urine 1.015 (1.005-1.025); UMIC TRIGGER UACC YES; Urine Blood Negative (Negative); Urine Ketones Negative (Negative); Urine Protein Negative (Neg-Trace); White Blood Count 8.1 X10*3/uL (4.8-10.8)
[2024-08-14 07:37] LABS: UPreg QC Valid YES; Urine Pregnancy NEGATIVE (NEGATIVE)
[2024-08-14 07:41] LABS: Bacteria Urine Trace (None Seen); Hyaline Casts Urine 0-2 /LPF (0-2); RBC Urine 0-2 /HPF (0-2); UACC Culture Trigger YES
[2024-08-14 07:50] LABS: Alanine Aminotransferase 11 U/L (0-31); Albumin Level 4.2 g/dL (3.5-5.0); Alkaline Phosphatase 83 U/L (39-117); Anion Gap 8 (12-20); Aspartate Amino Transferase 12 U/L (5-31); Bilirubin Total 0.5 mg/dL (0.0-1.0); Blood Urea Nitrogen 14 mg/dL (9-16); Calcium 8.6 mg/dL (8.4-10.2); Carbon Dioxide 27 mmol/L (22-29); Chloride 108 mmol/L (96-108); Creatinine Clr Calc Pharmacy 87.5; Estimated Glomerular Filt Rate > 60; Glucose Random 86 mg/dL (60-115); Potassium 3.7 mmol/L (3.3-5.1); Sodium 139 mmol/L (135-145)
--- NOTE | 2024-08-14 07:54 | ED_ITS ---
HPI - Female Genitourinary General Chief complaint: Vaginal Bleeding Stated complaint: vaginal pain Time Seen by Provider: 08/14/24 07:53 Source: patient Mode of arrival: ambulatory Limitations: no limitations History of Present Illness ED Provider: Venancio Pang PA-C HPI Narrative: 33-year-old female with history of total hysterectomy, bilateral salpingectomy by Dr. Simmons at [facility] in March 2024 presents to the ER for evaluation of vaginal pain, light vaginal bleeding since having intercourse last night. She reports she has had trouble with recurrent UTIs since the procedure along with vaginal pain. She has had small blue suture material come out which the doctor told her would happen. Last night after having sex more came out. She reports white vaginal discharge as well. Vaginal bleeding is light. No dysuria, urgency or frequency. No abdominal pain, nausea or vomiting. She saw Dr. simmons at her post-op visits but has not further appointments with him. MD elicited complaint: vaginal bleeding and pelvic pain Pertinent past history: recurrent UTIs Onset (ago): hour(s) Location of symptoms: vaginal Severity: moderate Female Urogenital Radiation: Non-Radiating Quality of pain: sharp Consistency: intermittent Vaginal discharge: white Vaginal bleeding: scant Exacerbating factors: intercourse Associated symptoms: denies other symptoms Treatment prior to arrival: none Sexual activity: Yes Patient : No Related Data Previous Rx's ?Medication ?Instructions ?Recorded ondansetron 4 mg disintegrating 4 mg PO Q8H 3 days #9 tabs 08/02/23 tablet albuterol sulfate 90 mcg/actuation 2 inh inhalation Q4-6H PRN 02/10/24 breath activated powder inhaler shortness of breath or wheezing #1 ea doxycycline hyclate 100 mg capsule 100 mg PO BID 10 days #20 caps 02/10/24 ondansetron 4 mg disintegrating 4 mg PO Q6H PRN nausea and 02/10/24 tablet vomiting #14 tabs prednisone 20 mg tablet 40 mg (2 x 20 mg) PO DAILY 5 days 02/10/24 #10 tabs methocarbamol 500 mg tablet 500 mg PO TID PRN pain #20 tabs 07/08/24 metronidazole 500 mg tablet 500 mg PO BID 7 days #14 tabs 08/14/24 Allergies Allergy/AdvReac Type Severity Reaction Status Date / Time baclofen Allergy Unknown Verified 08/14/24 07:14 naproxen Allergy Unknown Verified 07/23/24 00:10 quetiapine [From Seroquel] Allergy Vomiting Verified 07/23/24 00:10 venlafaxine Allergy Vomiting Verified 08/14/24 07:14 Review of Systems 2 Review of Systems: Yes all other systems are reviewed and are negative [facility] Social History Social History Alcohol intake: current Alcohol intake frequency: holidays/special occasions only Alcohol type: beer, wine and hard liquor Advance Directives: Yes Advance Directives Information Provided: Yes Advance Directives on File: No Do you have a plan to hurt others: No Plan Physical Exam 2 Vital Signs: Vital Signs: Last Vital Signs Temp 97.8 F 08/14/24 11:38 Pulse 76 08/14/24 11:38 Resp 16 08/14/24 11:38 BP 105/57 L 08/14/24 11:38 Pulse Ox 100 08/14/24 11:38 O2 Del Method Room Air 08/14/24 11:38 BMI result Body Mass Index 26.9 Appearance: Alert. Oriented X3. No acute distress. HEENT: normal external inspection Neck: Normal inspection. CVS: Normal heart rate and rhythm. Pulses normal. Respiratory: No respiratory distress. Breath sounds normal. Abdomen: Soft and nontender. +BS x4 Pelvic: normal inspection of external genitalia. Vaginal canal with moderate amount of thick white discharge. no bleeding. no friable tissue. no tenderness. Skin: Skin warm and dry. Normal skin color. Normal skin turgor. No rashes. Extremities: No lower extremity edema. No joint swelling. Neuro/psych: Oriented X 3. grossly normal, nonfocal. Normal speech and cognition. 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 She reports her uterus, cervix, ovaries and tubes were all removed. Pelvic exam without bleeding and no visualized suture material or FB. moderate discharge c/w BV. trich and yeast negative. UA w/ possible infection, repeat clean catch negative will treat for BV and have her f/u with Dr. Simmons patient agrees w/ plan and is stable for d/c home Differential Diagnosis Differential Diagnoses: The differential diagnosis associated with the presentation includes retained FB, STI, PID, BV, UTI, pyelonephritis, vaginal abscess Lab Data [facility] Lab Attestation statement: I reviewed the patient's lab results. no leukocytosis, no anemia, ua neg 08/14/24 07:25 08/14/24 07:25 Labs: Lab Results 08/14/24 08/14/24 08/14/24 Range/Units 07:25 09:45 09:46 WBC 8.1 (4.8-10.8) X10*3/uL RBC 4.77 (4.20-5.50) X10*6/uL Hgb 13.5 (12.0-16.0) g/dl Hct 40.8 (37.0-47.0) % MCV 85.5 (80.0-98.0) fL MCH 28.3 (27.0-33.0) pg MCHC 33.1 (31.0-35.0) g/dl RDW 13.0 (11.0-16.0) % Plt Count 282 (160-400) X10*3/uL MPV 11.8 (9.4-12.3) fL Immature Gran % (Auto) 0.2 (0.0-0.4) % Neut % (Auto) 48.6 (45-73) % Lymph % (Auto) 38.3 (20-40) % [place] % (Auto) 7.0 (2-11) % Eos % (Auto) 4.7 H (0-4) % Baso % (Auto) 1.2 (0-2) % Lymph # (Auto) 3.1 (1.2-4.9) X10*3/uL [place] # (Auto) 0.6 (0.1-1.2) X10*3/uL Eos # (Auto) 0.4 (0.0-0.4) X10*3/uL Baso # (Auto) 0.1 (0.0-0.2) X10*3/uL Abs Immat Gran (auto) 0.02 (0.00-0.03) X10*3/uL Absolute Neuts (auto) 3.9 (2.0-8.3) x10*3/uL Absolute Nucleated RBC 0.000 (0.0-0.012) X10*3/uL Nucleated RBC % (auto) 0.0 (0.0-0.2) /100WBC Sodium 139 (135-145) mmol/L Potassium 3.7 (3.3-5.1) mmol/L Chloride 108 (96-108) mmol/L Carbon Dioxide 27 (22-29) mmol/L Anion Gap 8 L (12-20) BUN 14 (9-16) mg/dL Creatinine 0.78 (0.5-1.4) mg/dL Estim Creat Clear Calc 87.5 Estimated GFR > 60 Random Glucose 86 (60-115) mg/dL Calcium 8.6 (8.4-10.2) mg/dL Total Bilirubin 0.5 (0.0-1.0) mg/dL AST 12 (5-31) U/L ALT 11 (0-31) U/L Alkaline Phosphatase 83 (39-117) U/L Total Protein 7.0 (6.5-8.0) g/dL Albumin 4.2 (3.5-5.0) g/dL Urine Color Yellow Yellow Urine Appearance Clear Turbid Urine pH 5.5 6.0 (5.0-9.0) Ur Specific [place] 1.015 1.020 (1.005-1.025) Urine Protein Negative Negative (Neg-Trace) mg/dL Urine Glucose (UA) Negative Negative (Negative) mg/dL Urine Ketones Negative Negative (Negative) mg/dL Urine Blood Negative Negative (Negative) Urine Nitrite Negative Negative (Negative) Ur Leukocyte Esterase Trace H Negative (Negative) Urine RBC 0-2 (0-2) /HPF Urine WBC 6-10 H (0-5) /HPF Ur Squamous Epith Cells 11-20 (0-2) /HPF Urine Bacteria Trace (None Seen) Hyaline Casts 0-2 (0-2) /LPF Urine Test NEGATIVE (NEGATIVE) Chlam trachomat DNA PCR NOT DETECTED (Not Detect.) N.gonorrhoeae DNA (PCR) NOT DETECTED (Not Detect.) T. vaginalis (PCR) NOT DETECTED (Not Detect) Bact vaginosis (PCR) NEGATIVE (Negative) C. krusei/glabrata (PCR) NOT DETECTED (Not Detect) Karina group (PCR) DETECTED A (Not Detect) Independent Historian Clinical information obtained from an independent historian. History obtained from or confirmed by: Spouse External Record Review External record reviewed: Prior outpatient labs Tests considered The following testing was considered but not selected: pelvic u/s considered, exam unremarkable Prescription Management I considered prescription management with: Pain Medication and Antibiotic Critical Care Time Critical Care Time Critical Care Time: No Discharge Plan Discharge Clinical Impression: Bacterial vaginosis Patient Disposition: Home, Self-Care Instructions: Bacterial Vaginosis (ED) Additional Instructions: Your urinalysis was negative for infection. You tested negative for Trichomonas and yeast. Take the prescribed antibiotics for bacterial vaginosis. No sexual activity until after you are completed antibiotics and your symptoms of pain and bleeding have resolved. Follow-up with your OBGYN as soon as possible. If you develop new or worsening symptoms call 911 or come back to the ER for further evaluation. Prescriptions: New metronidazole 500 mg tablet 500 mg PO BID 7 Days Qty: 14 0RF No Action methocarbamol 500 mg tablet 500 mg PO TID PRN (Reason: pain) Qty: 20 0RF ondansetron 4 mg tablet,disintegrating 4 mg PO Q8H 3 Days Qty: 9 0RF doxycycline hyclate 100 mg capsule 100 mg PO BID 10 Days Qty: 20 0RF prednisone 20 mg tablet 40 mg PO DAILY 5 Days Qty: 10 0RF albuterol sulfate 90 mcg/actuation aerosol powdr breath activated 2 inh inhalation Q4-6H PRN (Reason: shortness of breath or wheezing) Qty: 1 0RF ondansetron 4 mg tablet,disintegrating 4 mg PO Q6H PRN (Reason: nausea and vomiting) Qty: 14 0RF Interventions: ED Discharge Assessment Last Done: 08/14/24 11:38 Discharge Date/Time: 08/14/24 11:42 Print Language: Irish
--- OUTSIDE RECORDS SUMMARY | 2024-08-14 07:54 | XMS_ITS | Continuity of Care Document ---
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 BLIST PACK Active [id number] 2023 6 Pharmac y Data Transac tion Service Facilit y AZITHROMYCI N (azithromyc in), 250 MG, TABLET, ORAL, LUPIN PHARMACEU, 6 ea. BLIST PACK Cancele d [id number] : 2023 0 Pharmac y Data Transac tion Service Facilit y MELOXICAM (MELOXICAM) , 15 MG, TABLET, ORAL, [employer] 100 ea. BOTTLE Active [id number] 2023 30 Pharmac y Data Transac tion Service Facilit y MELOXICAM (MELOXICAM) , 15 MG, TABLET, ORAL, [employer] 100 ea. BOTTLE Active [id number] 2023 30 Pharmac y Data Transac tion Service Facilit y METHYLPREDN ISOLONE (METHYLPRED NISOLONE), 4MG, TAB DS PK, ORAL, CADISTA PHARMAC, 21 ea. BLIST PACK Active [id number] 2023 21 Pharmac y Data Transac [...] Other: Suicial dreams active 5 Special [facility] SEROQUEL (QUETIAPINE FUMARATE) Drug allergy (disorder) Nausea active 5 Special [facility] Immunizations Combined list of available immunizations from the Department of Defense and Veterans Affairs facilities. Immunization Series Date Given Administered By Site Reaction Lot Number CVX Code Drug Landscape Gardener Status Comments Source MMR 2018 Jose GRIMM [...] Medical Group(Can non_OpMed _Team A) TELE CONSULT [id number] Notes Entered by: GREG SERRANO 16 Jun 2014 0915 ------- ------- ------- ------- -- May ER Log F/U - c/o LEFT side pain, approxi mately six weeks JOSE DAVID Santiago 06/16 [facility](C maria elenaon_O pMed_Te am A) [facility](Underground Repairer [facility]) TELE CONSULT [id number] Notes Entered by: MAGDI FLORES 26 Jul 2014 0958 ------- ------- ------- ------- -- COUNTER HELPER REFERAVE BUCKLEY 07/26[facility](G yn [facility]) [facility](Can non_OpMed _Team A) OUTPATIENT [id number] CC: PHYSICA L--CHES T/KNEE PAIN JOANLUIGI D 08/04 Released w/o Limitations [facility](C annon_O pMed_Te am A) [facility](Can non_OpMed _Team A) OUTPATIENT [id number] CC Chest pain JOANLUIGI D 09/01 Released w/o Limitations [facility](C annon_O pMed_Te am A) [facility](Can non_FHC_T eam B) TELE CONSULT [id number] Notes Entered by: GREG SERRANO 18 Oct 2014 1524 ------- ------- ------- ------- -- Sep ER Log F/U - c/o sinus infecti on JOSE DAVID GOLDEN 10/18 [facility](C eryn_F HC_Team B) [facility](Can non_OpMed _Team A) TELE CONSULT [id number] Notes Entered by: MICHAEL CANO 21 Dec 2014 1756 ------- ------- ------- ------- -- [id number] 15 [facility] ER Log JOSE DAVID GOLDEN 12/21 [facility](C annon_O pMed_Te am A) [facility](Underground Repairer [facility]) TELE CONSULT [id number] Notes Entered by: MARTÍNEZ HOLMAN 29 Dec 2014 0857 ------- ------- ------- ------- -- DOES NOT FEEL SAFE WITH OFF BASE PROVIDE R [address] IRWIN 12/[facility](G yn [facility]) [facility](Can non_Ped_T eam A) TELE CONSULT [id number] Notes Entered by: OSMIN KENNEDY 01 Feb 2015 1021 ------- ------- ------- ------- -- : CHAYITO Ricardo : FEB 02 LEANNA WEISS 02/01[facility](C annon_P ed_Team A) [facility](Opt ometry [facility]) OUTPATIENT [id number] CC ROUTINE EXAM LACIE SAUL 03/17 Released w/o Limitations [facility](O ptometr y [facility]) th [facility](Can non_OpMed _Team A) TELE CONSULT [id number] Notes Entered by: MARTÍNEZ HOLMAN 07 Apr 2015 0712 ------- ------- ------- ------- -- SORE THROAT BURNING LAKISHA SMITH 04/07th [facility](C annon_O pMed_Te am A) [facility](Can non_OpMed _Team A) TELE CONSULT [id number] Notes Entered by: MARTÍNEZ HOLMAN 12 Apr 2015 0902 ------- ------- ------- ------- -- NAL ED LAKISHA SMITH 04/12th [facility](C annon_O pMed_Te am A) [facility](Dis ease Managemen t) TELE CONSULT [id number] Notes Entered by: ROBERT COLON 04 Jul 2015 1133 ------- ------- ------- ------- -- PAP Update VICENTA SMITH 07/04 Referred for Appointment [facility](Stephanie iskaty [employer] ent) [facility](Can non_OpMed _Team A) OUTPATIENT [id number] rash concern x3 weeks LUIGI FRANCO 07/05 Released w/o Limitations [facility](C annon_O pMed_Te am A) [facility](Can non_OpMed _Team A) OUTPATIENT [id number] CC DIZZINE SS, HOT FLASHES , HEADACH ES LUIGI FRANCO 08/16 Released w/o Limitations [facility](C annon_O pMed_Te am A) [facility](Can non_OpMed _Team A) TELE CONSULT [id number] Notes Entered by: CHANDNI KRISHNAN 23 Aug 2015 1300 ------- ------- ------- ------- -- PHONE CALL VIKI BARROW 08/23 Other Not Elsewhere Classified [facility](C annon_O pMed_Te am A) [facility](Can non_OpMed _Team A) TELE CONSULT [id number] Notes Entered by: VIKI BARROW 25 Aug 2015 0910 ------- ------- ------- ------- -- Micare message VIKI BARROW 08/25 Other Not Elsewhere Classified [facility](C annon_O pMed_Te am A) [facility](Underground Repairer [facility]) TELE CONSULT [id number] Notes Entered by: STEPHIE FINN 24 Oct 2015 0911 ------- ------- ------- ------- -- HCG RESULTS AVE COVARRUBIAS 10/23 [facility](G yn [facility]) [facility](Underground Repairer [facility]) TELE CONSULT [id number] Notes Entered by: GABRIEL MARISCAL 27 Oct 2015 1527 ------- ------- ------- ------- -- AVE VALDEZ 10/[facility]) [facility](Can non_OpMed _Team A) TELE CONSULT [id number] Notes Entered by: Omero KEMP 31 Oct 2015 1016 ------- ------- ------- ------- -- Severe back pain possibe kidney infecti on x 1 week VIKI BARROW 10/30 Other Not Elsewhere Classified [facility](C annon_O pMed_Te am A) [facility](Dis ease Managemen t) TELE CONSULT [id number] Notes Entered by: ROBERT COLON 28 May 2016 1319 ------- ------- ------- ------- -- 01 November 2015 [facility] ER LOG VICENTA SMITH 05/28[facility](D isease Managem ent) [facility](Dis ease Managemen t) TELE CONSULT [id number] Notes Entered by: ROBERT COLON 27 Jun 2016 1018 ------- ------- ------- ------- -- 26 Nov 2015 [facility] ER LOG VICENTA SMITH 06/27[facility](D isease Managem ent) th [facility](Can non_Ped_T eam A) TELE CONSULT [id number] Notes Entered by: ETHAN COLON 02 Jul 2016 0848 ------- ------- ------- ------- -- ACUTE - VOMITIN DIANNA KLINE 07/02 Referred for Appointment [facility](C annon_P ed_Team A) [facility](Underground Repairer [facility]) TELE CONSULT [id number] Notes Entered by: SKYLAR BURT 06 Aug 2016 1112 ------- ------- ------- ------- -- Network result- ER NOTES- [address] COV[address]BIAS 08/06[facility](G yn [facility]) [facility](Can non_OpMed _Team A) OUTPATIENT [id number] CC PELVIC PAIN YUSEF SMITH 10/22 Released w/o Limitations [facility](C annon_O pMed_Te am A) [facility](Can non_OpMed _Team A) TELE CONSULT [id number] Notes Entered by: DIPESH BREWSTER 23 Oct 2016 1754 ------- ------- ------- ------- -- Call Pelvis US results BRANDI ROSAS 10/23 Released to [facility](C annon_O pMed_Te am A) [facility](Can non_OpMed _Team A) TELE CONSULT [id number] Notes Entered by: FLO GROVES 08 Jan 2017 1257 ------- ------- ------- ------- -- 07 January 2017 [facility] ER log LAKISHA SMITH 01/08th [facility](C annon_O pMed_Te am A) [facility](Can non_OpMed _Team A) TELE CONSULT [id number] Notes Entered by: CHANDNI KRISHNAN 14 Jan 2017 1025 ------- ------- ------- ------- -- CHEST INFLAMM ED LAKISHA SMITH 01/14 [facility](C annon_O pMed_Te am A) [facility](Can non_OpMed _Team A) OUTPATIENT [id number] CC RIBCAGE PAIN VICENTA HOLLINGSWORTH 01/15 Released w/o Limitations [facility](C annon_O pMed_Te am A) [facility](Can non_OpMed _Team A) TELE CONSULT [id number] Notes Entered by: JOSE D LORENZANA 28 Jan 2017 0738 ------- ------- ------- ------- -- ACUTE SPIDER BITE LAKISHA SMITH 01/28 [facility](C annon_O pMed_Te am A) [facility](EFM P) TELE CONSULT [id number] Notes Entered by: BILLY AGARWAL 08 Feb 2017 1311 ------- ------- ------- ------- -- EFMP Enroll ent OCTAVIO VELASQUEZ 02/08 [facility](E FMP) th [facility](Can non_OpMed _Team A) TELE CONSULT [id number] Notes Entered by: CHANDNI KRISHNAN 24 Apr 2017 0734 ------- ------- ------- ------- -- SINUS INFECTI ON JOSE DAVID GOLDEN 04/24 [facility](C annon_O pMed_Te am A) [facility](Can non_OpMed _Team A) TELE CONSULT [id number] Notes Entered by: SABINO TORRES 03 May 2017 0902 ------- ------- ------- ------- -- RESULTS [facility] MGMT -2016 BRITT ANDERSON 05/03 [facility](C annon_O pMed_Te am A) [facility](Can non_OpMed _Team A) OUTPATIENT [id number] CC RIGHT KNEE PAIN ED SMITH 05/28 Released w/o Limitations [facility](C annon_O pMed_Te am A) [facility](Can non_OpMed _Team A) TELE CONSULT [id number] Notes Entered by: BRI PERAZA 10 Jun 2017 1543 ------- ------- ------- ------- -- Results receive d-MRI Rt Knee-11 [id number] BRITT ANDERSON 06/10 [facility](C annon_O pMed_Te am A) [facility](Can non_OpMed _Team A) OUTPATIENT [id number] VIRTUAL - MRI R KNEE - [facility] May - [phone] BRITT ANDERSON 06/12 Released w/o Limitations [facility](C annon_O pMed_Te am A) [facility](Can non_OpMed _Team A) TELE CONSULT [id number] Notes Entered by: Annie ANDERSON 17 Jun 2017 1402 ------- ------- ------- ------- -- MRI R knee review BRITT ANDERSON 06/17 [facility](C annon_O pMed_Te am A) [facility](Can non_OpMed _Team A) OUTPATIENT [id number] Mihir Silver e, X 2 Days BRITT ANDERSON 08/20 Released w/o Limitations [facility](C annon_O pMed_Te am A) [facility](Can non_C_T eam B) OUTPATIENT [id number] FIBROMY MELLISA MENDEZ 12/30 Released w/o Limitations [facility](Karena cerna_Peggy HC_Team B) [facility](Underground Repairer [facility]) TELE CONSULT [id number] Notes Entered by: JOSE D LORENZANA 31 Dec 2017 1508 ------- ------- ------- ------- -- JONI Pineda ABOUT OB CLASS REGINA CHAVEZ 12/31 Referred for Appointment [facility](Underground Repairer [facility]) TELE CONSULT [id number] Notes Entered by: FLO GROVES 08 Jan 2018 0919 ------- ------- ------- ------- -- 07 January 2018 [facility] ER log MARTÍNEZ PEREZ 01/08th [facility](Can non_Ped_T eam A) TELE CONSULT [id number] Notes Entered by: CHANDNI KRISHNAN 14 Aug 2018 1020 ------- ------- ------- ------- -- LEANNA ESCOBAR 08/14 Referred for Appointment [facility](Karena Chanel ed_Team A) [facility](Underground Repairer [facility]) TELE CONSULT [id number] Notes Entered by: BRI PERAZA 25 Aug 2018 1349 ------- ------- ------- ------- -- Network results -OB Dischar Note-01 [id number] 9-Artif acts and Images MARIANA REYES 08/25 [facility](Aden [facility]) Procedures Combined list of: 1) [...] PROVIDE W/IN THE PREV 7 DAYS,USE THE [employer] 7 DoD TELE ASSESS & MGT [...] 24 HR/SOON APT;5-10 MIN MED DIS 5 [facility] Non-Physician Phone Call To Patient/Provider Brief (5-10min) Non-Physician Phone Call To Patient/Provider Brief (5-10min) [id number] [phone] XIOMARA PEREZN Karoline [facility] Internet Med Svc Qual Nonphys Healthcare Prof Up To 7 Days Estab Patient Internet Med Svc Qual Nonphys Healthcare Prof Up To 7 Days Estab Patient [id number] [phone] BRITT ANDERSON [facility] Non-Physician Phone Call To Patient/Provider Brief (5-10min) Non-Physician Phone Call To Patient/Provider Brief (5-10min) [id number] JOSE DAVID GOLDEN [facility] Non-Physician Phone Call To Pt/Provider Lengthy (21-30 min) Non-Physician Phone Call To Pt/Provider Lengthy (21-30 min) [phone] OCTAVIO VELASQUEZ [facility] Non-Physician Phone Call To Patient/Provider Brief (5-10min) Non-Physician Phone Call To Patient/Provider Brief (5-10min) [id number] LAKISHA SMITH [facility] Disease management program; initial a e ment and initiation of the program 5 VICENTA SMITH [facility] Non-Physician Phone Call To Patient/Provider Brief (5-10min) Non-Physician Phone Call To Patient/Provider Brief (5-10min) [id number] LAKISHA SMITH [facility] Determination Of Refractive State Determination Of Refractive State [id number] 5 LACIE SAUL DoD Ophthalmological New Patient Start Comprehensive Care Ophthalmological New Patient Start Comprehensive Care [phone] 5 LACIE SAUL [facility] Non-Physician Phone Call To Patient/Provider Brief (5-10min) Non-Physician Phone Call To Patient/Provider Brief (5-10min) [phone] DAYLIN MATIAS [facility] Social History Combined list of available smoking, tobacco, and other social history from Department of Defense and Veterans Affairs facilities. Social History Type Response Date Comment [facility] e This section is an empty social history section. [employer]
[2024-08-14 08:25] VITALS: BP 111/55; PULSE 67; RESP 15; TEMP 36.6; O2SAT 100
[2024-08-14 10:51] VITALS: BP 105/57; PULSE 76; RESP 16; TEMP 36.6; O2SAT 100
[2024-08-14 11:07] LABS: Appearance Urine Turbid; Color Urine Yellow; Glucose Urine UA Negative (Negative); Leukocyte Esterase Urine Negative (Negative); Nitrite Urine Negative (Negative); Urine Blood Negative (Negative); Urine Ketones Negative (Negative); Urine Protein Negative (Neg-Trace)
[2024-08-14 11:38] VITALS: BP 105/57; PULSE 76; RESP 16; TEMP 36.6; O2SAT 100
[2024-08-14 13:39] LABS: Bacterial Vaginosis PCR NEGATIVE (Negative); Candida Group PCR DETECTED (Not Detect); Candida glab krusei PCR NOT DETECTED (Not Detect); Trichomonas vaginalis PCR NOT DETECTED (Not Detect)
[2024-08-14 14:40] LABS: CT PCR NOT DETECTED (Not Detect.); NG PCR NOT DETECTED (Not Detect.)
== END 2024-08-14 11:42 | disposition home or self-care (01) ==
PROVIDERS: Physician Assistant; Emergency Provider Emergency Medicine; PCP Internal Medicine
DX: N76.0 Acute vaginitis (principal); Z87.440 Personal history of urinary (tract) infections; Z79.899 Other long term (current) drug therapy
CPT/HCPCS: 36415; 80053; 81001; 81003; 81025; 81515; 85025; 87086; 87491; 87591; 99283

== ENCOUNTER 2024-11-02 10:46 | Outpatient (REF) | payer OTHER, SELFPAY ==
--- NOTE | ~2024-11-02 | XR_ITS ---
CLINICAL HISTORY: PAIN IN THORACIC SPINE --- Additional Notes or Special Instructions: WO 3 views lumbar spine Comparison: None Findings: Normal vertebral body alignment. No acute fractures or dislocation. No significant degenerative change. IMPRESSION: No acute findings. This document has been electronically signed by: Dari Bonilla MD on 11/04/2024 13:21:45
--- NOTE | ~2024-11-02 | XR_ITS ---
CLINICAL HISTORY: LOW BACK PAIN 3 views thoracic spine Comparison: None Findings: Normal alignment. Very mild dextrocurvature centered at the level of the thoracolumbar junction. No acute fractures or dislocation. No significant degenerative change. IMPRESSION: No acute findings. This document has been electronically signed by: Dari Bonilla MD on 11/04/2024 13:22:07
--- OUTSIDE RECORDS SUMMARY | 2024-11-02 12:36 | XMS_ITS | Data Portability ---
Author Organization [facility] Address [address] [place] [address] Assessment Encounter Date Assessment Date Assessment LastModified by Organization Details LastModified Time 11/27/2023 11/27/2023 [id number] [place] [id number] (QUICK TECHNICIAN) : MDM LOW MUST MEET 2 OF 3 ELEMENTS: PROBLEMS, DATA OR RISK ELEMENT 1: PROBLEMS ADDRESSED (LOW): 2 OR MORE SELF-LIMITED OR MINOR PROBLEMS OR 1 STABLE CHRONIC ILLNESS OR 1 ACUTE UNCOMPLICATED ILLNESS OR INJURY ELEMENT 2: DATA TO BE REVISED AND ANALYZED (LOW) MUST MEET 1 OF 2 CATEGORIES: CATEGORY 1. REVIEW OF PRIOR EXTERNAL NOTES/RESULTS, ORDERING OF TEST(S) CATEGORY 2. ASSESSMENT REQUIRING INDEPENDENT HISTORIAN(S) INCLUDE WHO THE HISTORIAN IS AND RELATION TO PT AND WHY PT IS UNABLE TO GIVE COMPLETE HISTORY ELEMENT 3: RISK (LOW) RISK OF COMPLICATIONS AND/OR MORBIDITY OR MORTALITY OF PATIENT MANAGEMENT PROVIDER MUST THOROUGHLY DOCUMENT ALL OF THE ELEMENTS COVERED Not available 11/27/2023 09:36:21 02/12/2024 02/12/2024 Patient agreed and verbally consents to this audio and video Telehealth appt via a secure platform [email or web address] Not available 02/12/2024 14:04:33 10/05/2024 10/05/2024 [id number] [place] [id number] (QUICK TECHNICIAN) MDM MODERATE MUST MEET 2 OUT OF 3 ELEMENTS: PROBLEMS, DATA OR RISK ELEMENT 1: PROBLEMS ADDRESSED 1 OR MORE CHRONIC ILLNESS WITH EXACERBATION OR 2 OR MORE STABLE CHRONIC ILLNESSES OR 1 UNDIAGNOSED NEW PROBLEM OR 1 ACUTE ILLNESS W/SYMPTOMS OR 1 ACUTE COMPLICATED INJURY ELEMENT 2: DATA MUST MEET 1 OF 3 CATEGORIES CATEGORY 1: REVIEW OF PRIOR EXTERNAL NOTES, REVIEW OF RESULTS, ORDERING OF EACH TEST, ASSESSMENT REQUIRING INDEPENDENT HISTORIAN OR CATEGORY 2: INDEPENDENT INTERPRETATION OF TESTS BY ANOTHER PHYSICIAN OR SPECIALIST OR CATEGORY 3: DISCUSSION OF MGT OR TEST INTERPRETATION W/EXTERNAL PHYSICIAN OR SPECIALIST ELEMENT 3: RISK RISK OF COMPLICATIONS AND/OR MORBIDITY OR MORTALITY OF PATIENT MANAGEMENT PROVIDER MUST THOROUGHLY DOCUMENT EACH ELEMENT THAT IS COVERED Not available 10/05/2024 16:15:22 Plan of Treatment Reminders Order Date Submit Date Provider Last Modified By Organization Details Last Modified Time Details Appointments None recorded. 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 Surgeries None recorded. Imaging XR, thoracic spine, 2 view 2024 025 [facility] Sched[facility], [address] [place] [address], [address], 5 08:10:39 XR, lumbar spine, 2 view 2024 025 [facility], [address] [place] [address], [address], 5 08:10:38 Medication Orders Rexulti 1 mg tablet 2023 024 [facility]2025, [address] [place], [address], 4 09:52:05 baclofen 20 mg tablet 2023 025 [facility] [address] [place] [address], [address], 15:52:37 tramadol 50 mg tablet 2023 024 [facility] [address] [place] [address], [address], 09:58:39 Rexulti 1 mg tablet 2023 024 [facility] [address] [place] [address], [address], 4 12:49:02 topiramate 25 mg tablet 2023 [facility] [address] [place] [address], [address], 14:45:48 sumatripta n 25 mg tablet 2023 [facility] [address] [place] [address], [address], 14:45:48 albuterol sulfate HFA 90 mcg/actuat ion aerosol inhaler 2023 [facility] [address] [place] [address], [address], 14:05:07 prednisone 10 mg tablet 2023 024 [facility] [address] [place] [address], [address], 14:30:30 levofloxac in 500 mg tablet 2023 [facility], [address] [place] [address], [address], 14:32:26 codeine 10 mg-guaifen esin 100 mg/5 mL oral liquid 2023 024 [facility]2024, [address] [place], [address], 14:30:49 lidocaine 5 % topical patch 2023 024 [facility]2024, [address] [place], [address], 4 14:31:24 meloxicam 15 mg tablet 2023 024 [facility]2024, [address] [place], [address], 09:44:19 Patient TargetsNo targets recorded. 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 [email or web address] [facility] (Medical Records) [address] [place], [address], 02/10/2024 11:59:48 02/10/20 24 02/10/2024 US, samantha c wall No observ ation record ed. [email or web address] [facility] (Medical Records) [address] [place], [address], 02/10/2024 12:01:39 02/10/20 24 02/10/2024 US, pelvi s, trans abdom inal + trans vagin al No observ ation record ed. [email or web address] [facility] (Medical Records) [address] [place], [address], 02/10/2024 12:02:55 07/08/20 24 07/08/2024 XR, chest , 2 view No observ ation record ed. [facility] (Medical Records) [address] [place], [address], 10/05/2024 16:05:22 Result Notes None recorded. Problems Name Problem SNOMED Code Status Onset Date Resolution Date Notes Provider Name and Address Organization Details Recorded Time Asthma 624623162 Active 2018 only when sick Nisreen jin [facility] 14:39:13 Anxiety 61009197 Active 2018 ?bipol ar d/o Nisreen jin [facility] 14:39:14 Allergic rhinitis 34762388 Active 2018 Nisreen jin [facility] 14:39:14 Costal chondriti s 15973546 Active 2018 Nisreen jin [facility] 14:39:14 Herpes labialis 8979683 Active 2018 Nisreen jin [facility] 14:38:55 Chronic pelvic pain of female 466556606 Active 2018 [facility] 14:39:13 Anemia 481938508 Active 2018 Nisreen jin [facility] 14:39:14 Chronic depressio n 188518295 Active 2018 Nisreen jin [place] [facility] 5 14:39:13 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 249309064 Active 2021 Not Available [facility] 00:31:34 Acute pharyngit is 307743017 Active 2021 Nisreen Patel null, [facility] 5 14:38:55 Fatigue 28844539 Active 2021 Nisreen Patel null, [facility] 5 14:38:55 Acute severe exacerbat ion of asthma 117876584 Active 2021 Nisreen Patel null, [facility] 5 14:38:55 COVID-19 411949596 Active 2021 Nisreen Patel null, [facility] 5 14:38:55 Acute sinusitis 88026002 Active 2021 Nisreen Patel null, [facility] 5 14:38:55 Colitis 33813922 Active 2021 Nisreen Patel null, [facility] 5 14:39:13 Cyst of ovary 01770945 Active 2021 Nisreen Patel [facility] 5 14:39:13 Hemorrhag ic cyst of ovary 753976712 Active 2021 Nisreen Patel null, [facility] 5 14:39:13 Influenza 8599771 Active 2022 Nisreen Patel null, [facility] 5 14:38:55 Substance abuse 56462908 Active 2022 Nisreen Patel null, [facility] 5 14:39:13 Acute urinary tract infection 704291030 Active 2022 Nisreen Patel null, [facility] 5 14:38:55 Anxiety disorder 107046078 Active 2022 Nisreen Patel null, [facility] 5 14:39:13 Nausea 873252935 Active 2022 Nisreen Patel null, [facility] 5 14:38:55 Dysmenorr hea 877688474 Active 2022 Nisreen Patel null, [facility] 5 14:39:13 Right lower quadrant pain 308778759 Active 2022 Nisreen Patel null, [facility] 5 14:38:55 Hyperglyc emia 72112405 Active 2022 Nisreen Patel null, [facility] 5 14:39:13 Infection of toe 691343315 Active 2022 Nisreen Patel null, [facility] 5 14:38:55 Celluliti s 446339084 Active 2022 Nisreen Patel null, [facility] 5 14:38:55 Random blood glucose outside reference range 611065917 Active 2022 Nisreen Patel null, [facility] 5 14:39:13 Hypoglyce tosin 923086465 Active 2022 Nisreen Patel null, [facility] 5 14:39:13 Acute bronchiti s 61466610 Active 2022 Nisreen Patel null, [facility] 5 14:38:55 Cough 32085943 Active 2023 Nisreen Patel null, [facility] 5 14:38:55 Patellofe moral syndrome of right knee 556065644564 9103 Active 2023 Nisreen Patel null, [facility] 5 14:39:13 Atypical chest pain 763506894 Active 2023 Nisreen Patel null, [facility] 5 14:38:55 Pneumonia 170797080 Active 2023 Nisreen Patel null, [facility] 5 14:38:55 Migraine 95043130 Active 2023 Nisreen Patel null, [facility] 5 14:39:13 Moderate recurrent major depressio n 17890537 [facility] 14:39:13 Low back pain 102139887 Active 2024 Nisreen jin, [facility] 5 14:38:55 Thoracic back pain 366148430 Active 2024 Rajat Givens, [address], [address], [facility] 5 16:16:49 Problem Notes None recorded. Procedures Surgical History Date Name Laterality Status Provider Name and Address Organization Details Recorded Time 03/27/20 23 Colonoscopy completed Stefan Givens [facility] 03/27/2023 16:16:35 07/22/19 19 total excision of bilateral fallopian tubes completed October [address], [address], [facility] 12/10/2018 10:45:16 01/20/20 12 Date of Last Pap Smear completed [facility] 12/10/2018 08:37:46 06/21/20 09 removal of ovarian cyst completed [facility] 12/10/2018 10:42:36 [facility] [address], [address], [facility] 12/10/2018 10:44:33 extraction of wisdom tooth completed [facility] 12/10/2018 10:41:45 Imaging Results Imaging Date Name Status LastModified by Organization Details LastModified Time 02/10/2024 CT, angiogram, abdomen + pelvis, w/ contrast completed [address] (Medical Records) [address] [place], [address], 02/10/2024 11:59:48 02/10/2024 US, pelvic wall completed [facility] (Medical Records) [address] [place], [address], 02/10/2024 12:01:39 02/10/2024 US, pelvis, transabdominal + transvaginal completed [email or web address] [facility] (Medical Records) [address] [place], [address], 02/10/2024 12:02:55 07/08/2024 XR, chest, 2 view completed [facility] (Medical Records) [address] [place], [address], 10/05/2024 16:05:22 Procedure Notes None recorded. Medical Equipment None Reported. Allergies Allergen ID Allergen Name Allergen Category Reaction Reaction Severity Criticality Documentation Date Start Date Code Code System Note Provider Name and Address Organization Details Recorded Time 3089 Seroquel medicatio n dizziness Not available Not available 12/10/2018 07488 RxNorm Janelle jin [facility] 9 08:26:52 3090 naproxen medicatio n Not available Not available Not available 12/10/2018 7258 RxNorm bad dream s Janelle jin [facility] 9 08:27:07 3092 sertralin e medicatio n nausea Not available Not available 12/10/2018 29274 RxNorm migra delaney Janelle jin [facility] 9 10:33:54 3506 escitalop allie Not available Not available Not available Not available 04/06/2019 07500 8 RxNorm suici david osbornet ion Edita ALEM Romeo [address] [place], [address], [place] [facility] 9 16:30:07 8610 venlafaxi ne medicatio n other Not available Not available 07/07/2024 79374 RxNorm BRAD PRAKASH [address] [place], [address], [place] [facility] 4 09:50:18 Medications Name Sig Start Date Stop Date Status Note LastModified by Organization Details LastModified Time methocarb ward 500 mg tablet active Not Available Not Available No t Available bupropion HCl SR 150 mg tablet,12 hr sustained -release TAKE 2 TABLETS BY MOUTH IN THE MORNING AND 1 TABLET IN THE EVENING active Not Available Not Available No t Available prednison e 10 mg tablet 5 tabs x 3 days4 tabs x 3 days3 tabs x 3 days2 tabs x 3 days1 tab x 3 days active Not Available Not Available No t Available doxycycli ne hyclate 100 mg capsule 02/11 completed Not Available Not Available Not Available cefuroxim e axetil 250 mg tablet Take 1 tablet twice a day by oral route for 10 days. 05/01 completed Not Available Not Available Not Available citalopra m 40 mg tablet 02/27 completed Not Available Not Available Not Available Vitamin C 500 mg tablet Take 1 tablet every day by oral route. 06/29 completed Not Available Not Available Not Available azithromy ronaldo 250 mg tablet TAKE 2 TABLETS BY MOUTH TODAY, THEN TAKE 1 TABLET DAILY FOR 4 DAYS DIRECTED active Not Available Not Available No t Available fluconazo le 150 mg tablet TAKE 1 TABLET BY MOUTH TODAY. REPEAT IN 3 DAYS active Not Available Not Available No t Available benzonata te 200 mg capsule TAKE 1 CAPSULE BY MOUTH THREE TIMES A DAY NEEDED FOR 7 DAYS 06/02 completed Not Available Not Available Not Available valacyclo vir 1 gram tablet TAKE 2 TABLETS BY MOUTH EVERY 12 HOURS FOR 1 DAY. START AFTER SYMPTOM ONSET. active Not Available Not Available No t Available Claritin 10 mg tablet Take 1 tablet every day by oral route. active spring and summer Not Available Not Available Not Available ondansetr on HCl 8 mg tablet Take 1 tablet 3 times a day by oral route as needed for 5 days. 06/29 completed Not Available Not Available Not Available meloxicam 15 mg tablet TAKE 1 TABLET BY MOUTH EVERY DAY FOR 30 DAYS active Not Available Not Available No t Available phenazopy ridine 200 mg tablet TAKE 1 TABLET BY MOUTH THREE TIMES A DAY FOR 7 DAYS 01/15 completed Not Available Not Available Not Available venlafaxi ne 25 mg tablet TAKE 1 TABLET 3 TIMES A DAY BY ORAL ROUTE. active Not Available Not Available No t Available sumatript an 25 mg tablet TAKE 1 TABLET FOR MIGRAINE : MAY REPEAT AFTER AN HOUR; MAX DOSE 200 MG 03/22/ 2025 active Not Available Not Available Not Avai lable prednison e 20 mg tablet 06/02 completed Not Available Not Available Not Available estradiol 0.1 mg/24 hr semiweekl y transderm al patch APPLY PATCH TO SKIN TWICE WEEKLY. active Not Available Not Available No t Available hydroxyzi ne pamoate 50 mg capsule 12/10 completed Not Available Not Available Not Available topiramat e 25 mg tablet TAKE 1 TABLET BY MOUTH EVERY DAY FOR 30 DAYS active Not Available Not Available No t Available metronida zole 500 mg tablet active Not Available Not Available No t Available ciproflox acin 250 mg tablet Take 1 tablet every 12 hours by oral route for 5 days. active Not Available Not Available No t Available estradiol 0.05 mg/24 hr semiweekl y transderm al patch PLACE 1 PATCH ONTO THE SKIN 2 TIMES A WEEK. active Not Available Not Available No t Available ciproflox acin 500 mg tablet TAKE 1 TABLET BY MOUTH EVERY 12 HOURS FOR 7 DAYS 06/29 completed Not Available Not Available Not Available sulfameth oxazole 800 mg-trimet hoprim 160 mg tablet TAKE 1 TABLET BY MOUTH EVERY 12 HOURS FOR 1 WEEK 01/15 completed Not Available Not Available Not Available tramadol 50 mg tablet Take 1 tablet every 6 hours by oral route with meals for 10 days. active Not Available Not Available No t Available ondansetr on 8 mg disintegr ating tablet PLACE 1 TABLET TWICE A DAY BY TRANSLIN GUAL ROUTE NEEDED FOR 30 DAYS. 03/11 completed Not Available Not Available Not Available baclofen 20 mg tablet 10/05 completed Not Available Not Available Not Available ketorolac 10 mg tablet TAKE 1 TABLET BY MOUTH EVERY 6 HOURS NEEDED FOR PAIN 06/29 completed Not Available Not Available Not Available Zofran 4 mg tablet Take 2 tablets twice a day by oral route for 3 days. 04/06 completed Not Available Not Available Not Available amoxicill in 875 mg tablet TAKE 1 TABLET BY MOUTH EVERY 12 HOURS FOR 7 DAYS 11/26 completed Not Available Not Available Not Available hydromorp shamika 2 mg tablet 12/10 completed Not Available Not Available Not Available citalopra m 20 mg tablet 12/10 completed Not Available Not Available Not Available methocarb ward 750 mg tablet Take 1 tablet 3 times a day by oral route as needed for 7 days. active Not Available Not Available No t Available dicyclomi ne 20 mg tablet TAKE 1 TABLET BY MOUTH FOUR TIMES DAILY 06/29 completed Not Available Not Available Not Available cephalexi n 500 mg capsule TAKE 1 CAPSULE BY MOUTH EVERY 6 HOURS FOR 10 DAYS 11/26 completed Not Available Not Available Not Available oseltamiv ir 75 mg capsule TAKE 1 CAPSULE BY MOUTH TWICE A DAY FOR 5 DAYS 01/15 completed Not Available Not Available Not Available ferrous sulfate 325 mg (65 mg iron) tablet Take 1 tablet every day by oral route for 30 days. 06/29 completed Not Available Not Available Not Available lidocaine 5 % topical patch APPLY 1 PATCH BY TOPICAL ROUTE ONCE DAILY (MAY WEAR UP TO 12HOURS. ) 06/02 completed Not Available Not Available Not Available promethaz ine 25 mg tablet TAKE 1 TABLET BY MOUTH EVERY 6 HOURS NEEDED FOR NAUSEA 01/15 completed Not Available Not Available Not Available orphenadr ine citrate ER 100 mg tablet,ex tended release TAKE 1 TABLET BY MOUTH TWICE A DAY FOR 10 DAYS 03/11 completed Not Available Not Available Not Available fluoxetin e 10 mg capsule Take 1 capsule every day by oral route for 30 days. 02/21 completed Not Available Not Available Not Available iron 325 mg tablet Take 1 tablet every day by oral route. 11/18 completed Not Available Not Available Not Available codeine 10 mg-guaife nesin 100 mg/5 mL oral liquid TAKE 10 ML BY MOUTH EVERY 4 HOURS 06/02 completed Not Available Not Available Not Available bisacodyl 5 mg tablet,de layed release TAKE 4 TABLETS BY MOUTH DAILY FOR 1 DAY 11/26 completed Not Available Not Available Not Available diclofena c sodium 50 mg tablet,de layed release TAKE 1 TABLET BY MOUTH TWICE A DAY FOR 10 DAYS 01/15 completed Not Available Not Available Not Available mirtazapi ne 15 mg tablet TAKE 1 TABLET BY MOUTH EVERY DAY FOR 30 DAYS active Not Available Not Available No t Available ergocalci ferol (vitamin D2) 1,250 mcg (50,000 unit) capsule TAKE 1 CAPSULE BY MOUTH EVERY WEEK 06/29 completed Not Available Not Available Not Available levofloxa ronaldo 500 mg tablet TAKE 1 TABLET BY MOUTH EVERY 24 HOURS FOR 7 DAYS 06/02 completed Not Available Not Available Not Available methylpre dnisolone 4 mg tablets in a dose pack TAKE 6 TABLETS ON DAY 1 DIRECTED ON PACKAGE AND DECREASE BY 1 TAB EACH DAY FOR A TOTAL OF 6 DAYS 11/26 completed Not Available Not Available Not Available albuterol sulfate HFA 90 mcg/actua tion aerosol inhaler INHALE 2 PUFFS BY MOUTH EVERY 4 HOURS NEEDED FOR 30 DAYS active Not Available Not Available No t Available morphine 15 mg immediate release tablet TAKE 1/2-1 TABLET BY MOUTH EVERY 6 HOURS NEEDED FOR PAIN 08/13 completed Not Available Not Available Not Available ondansetr on 4 mg disintegr ating tablet TAKE ONE TABLET ORALLY EVERY 8 HOURS FOR 3 DAYS 06/02 completed Not Available Not Available Not Available fluoxetin e 20 mg capsule Take 1 capsule every day by oral route for 30 days. 02/21 completed Not Available Not Available Not Available sertralin e 50 mg tablet 12/10 completed Not Available Not Available Not Available oxycodone 5 mg tablet TAKE 1 TABLET (5 MG TOTAL) BY MOUTH EVERY 4 HOURS NEEDED 06/02 completed Not Available Not Available Not Available escitalop allie 20 mg tablet Take 1 tablet every day by oral route for 30 days. 04/06 completed suicidal thoughts Not Available Not Available Not Available Mononessa (28) 0.25 mg-35 mcg tablet 12/10 completed Not Available Not Available Not Available bupropion HCl XL 150 mg 24 hr tablet, extended release take 1 tablet by mouth once a day 06/09 completed Not Available Not Available Not Available duloxetin e 20 mg capsule,d elayed release TAKE 1 CAPSULE BY MOUTH EVERY DAY 03/11 completed Not Available Not Available Not Available duloxetin e 30 mg capsule,d elayed release TAKE 1 CAPSULE BY MOUTH EVERY DAY 08/13 completed Not Available Not Available Not Available duloxetin e 60 mg capsule,d elayed release Take 1 capsule every day by oral route. 09/05 completed 09/05/22 - thowing up after taking in the morning Not Available Not Available Not Available Engerix-B (PF) 20 mcg/mL intramusc ular syringe 04/13 completed Not Available Not Available Not Available diclofena c epolamine 1.3 % transderm al 12 hour patch APPLY 1 PATCH TWICE A DAY BY TRANSDER MAL ROUTE FOR 30 DAYS. 2023 active Not Available Not Available Not Avai lable M-M-R II (PF) 1,000-12, 500 TCID50/0. 5 mL subcutane ous solution 04/13 completed Not Available Not Available Not Available GaviLyte- G 236 gram-22.7 4 gram-6.74 gram-5.86 gram oral solution TAKE DIRECTED 06/02 completed Not Available Not Available Not Available ProAir RespiClic k 90 mcg/actua tion breath activated 02/11 completed Not Available Not Available Not Available duloxetin e 40 mg capsule,d elayed release TAKE 1 CAPSULE BY MOUTH EVERY DAY 03/11 completed Not Available Not Available Not Available Rexulti 1 mg tablet active Not Available Not Available No t Available Vraylar 1.5 mg capsule Take 1 capsule every day by oral route for 30 days. 06/12 completed Not Available Not Available Not Available Dexcom G6 Sensor device USE 1 DIRECTED EVERY 10 DAYS active Not Available Not Available No t Available Dexcom G6 Transmitt er device 1 EACH BY MISCELLA NEOUS ROUTE EVERY 3 (THREE) MONTHS. active Not Available Not Available No t Available Fluarix Quad (PF) 60 mcg (15 mcg x 4)/0.5 mL IM syringe 04/13 completed Not Available Not Available Not Available Paxlovid 300 mg (150 mg x 2)-100 mg tablets in a dose pack TAKE 3 TABLETS BY MOUTH TWICE A DAY FOR 5 DAYS DIRECTED ON PACKAGIN G 06/29 completed Not Available Not Available Not Available Vitals Date Recorded Body height Body mass index (BMI) Body weight Heart rate Respiratory rate Oxygen saturation Oxygen saturation in Arterial blood by Pulse oximetry Systolic blood pressure Diastolic blood pressure Provider Name and Address Organization Details Last Updated DateTime 4 157.48 cm 7.4 kg/m2 02530.4 9 g 94 /min 16 /min 99 % 99 % 100 mm[Hg] 66 mm[Hg] Raúl Barbosa [facility] 4 09:23:39 Date Recorded Body height Body mass index (BMI) Body weight Heart rate Oxygen saturation Oxygen saturation in Arterial blood by Pulse oximetry Systolic blood pressure Diastolic blood pressure Provider Name and Address Organization Details Last Updated DateTime 4 157.48 cm 26.1 kg/m2 41385.9 1 g 86 /min 98 % 98 % 106 mm[Hg] 64 mm[Hg] Nisreen Drew [facility] 4 14:18:50 Date Recorded Body height Body mass index (BMI) Body weight Heart rate Oxygen saturation Oxygen saturation in Arterial blood by Pulse oximetry Systolic blood pressure Diastolic blood pressure Provider Name and Address Organization Details Last Updated DateTime 4 157.48 cm 26 kg/m2 52180.1 2 g 82 /min 98 % 98 % 100 mm[Hg] 62 mm[Hg] Olivia Stacy [facility] 4 09:37:25 Date Recorded Body height Body mass index (BMI) Body weight Heart rate Oxygen saturation Oxygen saturation in Arterial blood by Pulse oximetry Systolic blood pressure Diastolic blood pressure Provider Name and Address Organization Details Last Updated DateTime 5 157.48 cm 26.6 kg/m2 96848.9 7 g 95 /min 90 % 90 % 112 mm[Hg] 74 mm[Hg] Nisreen Drew [facility] 5 16:01:07 Social History Question Answer Notes LastModified by Organizat ion Details LastModified Time Tobacco Smoking Status Never Smoker Not Available [facility] 05/24/2020 03:36:24 What Was The Date Of Your Most Recent Tobacco Screening? 10/05/2024 [email or web address] Information not available 10/05/2024 Do You Or Have You Ever Used Any Other Forms Of Tobacco Or Nicotine? No Information not available 01/15/2023 Sex: Unknown Functional Status None recorded. Mental Status None recorded. Family History Relationship Description Onset Age of this Age Resolved Age Notes LastModified by Organization Details LastModified Time Paternal Grandfather Alcohol abuse sbucko Not available 2018 15:53:09 Paternal Grandfather Diabetes mellitus sbucko Not available 2018 15:53:09 Maternal Grandmother Alzheimer's disease 60 sbucko Not available 2018 15:53:09 Mother Diabetes mellitus sbucko Not available 2018 15:53:09 Mother Disorder of thyroid gland sbucko Not available 2018 15:53:09 Mother Substance abuse sbucko Not available 2018 15:53:09 Mother Obesity sbucko Not available 15:53:09 Mother Anxiety disorder sbucko Not available 2018 15:53:09 Brother Mental disorder sbucko Not available 2018 15:53:09 Daughter Attention deficit hyperactivit y disorder 7 sbucko Not available 05/01 15:53:09 Daughter Mental disorder 7 sbucko Not available 2018 15:53:09 Daughter Mental disorder 2 sbucko Not available 2018 15:53:09 Sister Anxiety disorder sbucko Not available 2018 15:53:09 Father Substance abuse sbucko Not available 2018 15:53:09 Father Alcohol abuse sbucko Not available 2018 15:53:09 Maternal Grandfather Diabetes mellitus sbucko Not available 2018 15:53:09 Medical History Condition Response Coronary Artery Disease N Gout N Other Y Kidney Stones Y Blood Diseases N Blood Transfusion N Breast Cancer N Lung Disease N Depression Y COPD N Defects or Inherited Disease N Anxiety Disorder Y Muscle, Joint, or Bone Problems N Obesity N Vision or Eye Problems N Arthritis N Infertility N Polyps N Mental Disorder N Cancer N Stroke N Varicosities N Endometriosis N Bladder or Kidney Problems N High Cholesterol N Liver Disease N Fibromyalgia N Headaches Y Kidney Disease N Allergies/Hayfever N Heart Problems N Hospitalizations N Thyroid Problems N GI Problems N Eating Disorder N Skin Problems N Anemia Y MRSA exposure N Constipation N Mental Illness Y Diabetes N Ovarian Cancer N Seizures/Epilepsy N Tuberculosis N Congestive Heart Failure (CHF) N Eczema N Abuse/Domestic Violence N Diverticulitis N Asthma N Reflux/GERD N Hepatitis N Heart Disease N Pulmonary Embolism N Hypertension N Chicken Pox Y Autism Spectrum Disorder (ASD) N Osteoporosis N Gynecological History Statement/Question Response Date of Last Pap Smear 01/20/2012 Obstetrics History GPAL:G 0 P 0 0 0 0 Immunizations Vaccine Type Date Status Note Provider Nam e and Address Organization Details Recorded Time COVID-19 vaccine, vector-nr, rS-Ad26, PF, 0.5 mL 1 completed Not Available [facility] 07/29/2022 05:47:18 Tdap 1 completed Not Available [facility] 07/29/2022 05:47:18 Hep B, adult 9 completed Not Available [facility] 07/29/2022 05:47:18 MMR 9 completed Not Available [facility] 07/29/2022 05:47:18 Influenza, split virus, quadrivalent, preservative 9 completed Not Available [facility] 07/29/2022 05:47:18 Influenza, split virus, quadrivalent, preservative 9 completed Not Available [facility] 07/29/2022 05:47:18 MMR 9 completed Not Available [facility] 07/29/2022 05:47:18 MMR 9 completed Not Available [facility] 07/29/2022 05:47:18 Hep B, adult 9 completed Not Available [facility] 07/29/2022 05:47:18 Past Encounters Encounter ID Performer Location Encounter Start Date Encounter Closed Date Diagnosis/Indication Diagnosis SNOMED-CT Code Diagnosis ICD10 Code Diagnosis Note [facility] [address] [place] [address], [place] [address] 12/10/2018 10:13:25 12/10/2018 11:15:43 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 will rx flector patch Chronic depression 01442 0009 F34.1 stable on citalopram Herpes labialis 8545120 B00.1 Asthma 748589498 J45.90 9 quiet Right lowe r quadrant pain 227125571 R10.31 pending labs or worsening of sx may need to go to ER - pt [facility] [address], [place] [address] 12/12/2018 13:47:05 12/12/2018 14:20:43 Right lower quadrant pain 715859661 R10.31 pending labs or worsening of sx may need to go to ER - pt understood Asthma 259587846 J45.90 9 quiet Anemia 562138579 D64.9 has f/u labs ordered [facility] [address] [facility] [address] [place] [place] [facility] [address] 02/09/2019 15:48:01 02/09/2019 16:28:22 Nausea and vomiting 18728098 R11.2 Right lowe r quadrant pain 582566698 R10.31 prior work up negative Screening procedure 2012 5006 Z13.9 [id number] [facility] [address] [facility] [address], [place] [address] 04/06/2019 15:32:42 04/06/2019 16:42:37 Depressive disorder 39653967 F32.9 escitalopr am not helpful - had SI so she stopped it citalopram not helpful sertraline caused nausea and migraines Acute asthma 730890478 J 45.901 breathing still difficult despite inhaler Acute sinusitis 19037519 J01.90 some improvemen t [id number] [facility] [address], [place] [address] 05/01/2019 15:22:55 05/01/2019 16:22:18 Active or passive immunization 285046936 Z23 Adult [facility] th examination 917952596 Z00.00 [id number] [facility] [address] [facility] [address] [place] [place] [facility] [place] [address] 06/02/2019 16:18:28 06/02/2019 16:35:36 Exposure to Bordetella pertussis 518888240 Z20.818 Depressive disorder 3548 9007 F32.9 escitalopr am not helpful - had SI so she stopped it citalopram not helpful sertraline caused nausea and migraines wellbutrin - made depression worse [id number] Rajat Givens [facility] [address] [facility] [address],[place] [address] 01/19/2020 15:44:49 01/19/2020 16:01:39 Anxiety 72023010 F41.9 see below still struggling with this as it dovetails into the depression s Chronic depression 85579 8 F34.1 after going through her mult med trials in the past we have decided upon using wellbutrin Asthma 519158458 J45.90 9 stable [id number] Rajat RameyFarzaneh Tosha [facility] [address] [facility] [address],[place] [address] 02/22/2020 15:44:20 02/22/2020 16:34:16 Anemia 902291667 D64.9 needs iron supp Chronic depression 8 F34.1 after going through her mult med trials in the past we have decided upon using wellbutrin Active or passive immunization 635921772 Z23 needs for her school [id number] BRAD PRAKASH [facility] [address] [facility] [address],[place] [address] 04/13/2020 15:47:06 04/13/2020 16:26:35 Patellofemoral syndrome of right knee 4797738884 464770 M22.2X1 the patient [place] to go to [place] [id number] Rajat Givens [facility] [address] [facility] [address],[place] [address] 08/24/2020 14:19:35 08/24/2020 15:03:36 Asthma 375484053 J45.909 stable Pain in right thumb 1076 682723 793590 M79.644 [id number] Rajat Givens [facility] [address] [facility] [address],[place] [address] 10/05/2020 15:51:22 10/05/2020 16:34:23 Wrist joint pain 411159321 M25.531 [id number] BRAD PRAKASH [facility] [address] [facility] [address],[place] [address] 11/18/2020 14:36:08 11/18/2020 16:16:45 Asthma 102656760 J45.909 stable Female sterilization 608 04546 Z30.2 will send to a automobile accessories installer for consult to reverse fallopian Acute urin jignesh tract infection 664740594 N39.0 based on dipstick will start on abx and submit culture [id number] Rajat Givens DO [facility] [address] [facility] [address],[place] [address] 03/07/2021 11:47:36 03/07/2021 13:17:53 Active or passive immunization 743528105 Z23 needs for her school Adult heal th examination 820382079 Z00.00 doing very well and is in remarkable good shape even after 4 kidsnote she has been having an issue with daily nausea the week after her menses [id number] BRAD PRAKASH [facility] [address] [facility] [address],[place] [address] 05/30/2021 09:23:35 05/30/2021 14:10:49 Cough 28903483 R05.2 will treat for probable bronchitis COVID test negative for her and daughter Acute bronchitis 2503632 2 J20.8 will treat [id number] Rajat Givens DO [facility] [address] [facility] [address],[place] [address] 06/09/2021 15:07:30 06/09/2021 16:45:54 Asthma 903372571 J45.909 stable now lungs sound good and is usu doing ok Anxiety 71115388 F41.9 see below still struggling with this as it dovetails into the depression s Chronic depression 82403 0009 F34.1 after going through her mult med trials in the past we [place] n [id number] Rajat Givens DO [facility] [address] [facility] [address],[place] [address] 08/08/2021 13:32:46 08/08/2021 14:05:54 Dislocation of patellofemoral joint 323603983 S83.004D given worsening of her right knee approx x 2monow hurting daily and getting diff to walkstates the knee gets locked up [id number] Rajat Givens DO [facility] [address] [facility] [address],[place] [address] 09/01/2021 08:52:49 09/04/2021 08:47:17 Allergic rhinitis 00087764 J30.9 nasal congestion is stable Asthma 808202505 J45.90 9 stable now lungs sound good and is usu doing ok Anxiety 65876604 F41.9 see below still struggling with this as it dovetails into the depression s relates that she is still doing ok [id number] BRAD PRAKASH [facility] [address] [facility], [place] [address] 10/04/2021 09:36:48 10/04/2021 16:47:39 Acute pharyngitis 070535244 J02.8 will start on z-ferdinand for abx Herpes labialis 2296601 B00.1 needs refill Cough 30990282 R05.2 will start on cough suppressan t [id number] BRAD PRAKASH [facility] [address] [facility], [place] [address] 11/29/2021 15:44:12 11/29/2021 15:55:32 Acute pharyngitis 776435353 J02.8 will start on z-ferdinand for abx and cough suppressan t Anemia 821041451 D50.8 will recheck levels Fatigue 90599992 R53.83 fatigue and recurrent illness, will fu with testing with blood work [id number] BRAD PRAKASH [facility] [address] [facility], [place] [address] 04/03/2022 10:21:10 04/03/2022 15:56:05 Asthma 937139394 J45.21 stable Acute sinusitis 26074771 J01.00 will fu with doxy and immunologi st visit [id number] Rajat Givens DO [facility] [address] [facility], [place] [address] 06/29/2022 11:41:17 06/29/2022 13:23:34 Hemorrhagic cyst of ovary 441215356 N83.209 flip provide with diclofenac 50 mg daily [id number] Rajat Givens DO [facility] [address],[place] [address] 08/13/2022 09:07:52 08/13/2022 15:34:53 Asthma 357015377 J45.21 stable nowflu was an issue but now is doing well Influenza 2070525 J10.1 had influenza A and worse issues were the vomiting Substance abuse 50563369 F19.10 she is still struggling and craving she prob left the program too soonshe will call otto today and see if there is a need to return or to have her do an outpts will call and let me know [id number] BRAD PRAKASH [facility] [address] [facility] [address],[place] [address] 09/05/2022 13:55:50 09/05/2022 14:51:47 Acute urinary tract infection 828262272 N10 will start on bactrim Anxiety disorder 9845392 06 F40.01 split the duloxetine 40 mg and 20 mg Nausea 336059828 R11.0 will switch to 8 mg from 4 mg Dysmenorrhea 824997060 N 94.4 will set up with lab work [id number] Rajat Givens DO [facility] [address] [facility] [address] [address] 01/15/2023 13:48:17 01/15/2023 14:56:01 Asthma 712919629 J45.21 stable nowflu was an issue but now is doing well Right lowe r quadrant pain 160589811 R10.31 could this be a femoral hernia? will ask her to se dr ellis [id number] Rajat Givens DO [facility] [address] [facility] [address] [address] 03/11/2023 16:06:54 03/12/2023 07:51:26 Asthma 139193996 J45.21 stable nowflu was an issue but now is doing well Chronic depression 50603 0009 F34.1 bupropion is not helping alone Anxiety 09387324 F41.9 see below still struggling with this as it dovetails into the depression s relates that she is still doing ok [id number] Rajat Givens DO [facility] [address] [facility] [address],[place] [address] 04/15/2023 13:15:09 04/15/2023 14:53:42 Anxiety 62356786 F41.9 see below still struggling with this as it dovetails into the depression s relates that she is still doing ok Asthma 373136528 J45.21 stable nowflu was an issue but now is doing well Chronic depression 03113 000 F34.1 bupropion is not helping alone Random blo od glucose outside reference range 026090112 R73.09 pt having symptomati c low level glucose dropgluc to test [id number] is normalwill refer for opinion Hypoglycemia 912420231 E 16.2 endocrine not seeing her until 6 months from now unacceptab lewe will order tests now [id number] Rajat Givens, [facility] [address] [address] 11/27/2023 09:11:29 11/27/2023 11:18:19 Depression screening 167777794 Z13.31 Negative Screen Dislocatio n of patellofemoral joint 689930199 S83.004D Patellofem oral syndrome of right knee 3040466293 621433 M22.2X1 will have her start PT and also get a neoprene nico cross brace Atypical chest pain 1025 51677 R07.89 [id number] BRAD PRAKASH [facility] [address] [facility] [place] [address] 02/12/2024 10:49:36 02/14/2024 09:18:15 Asthma 461227694 J45.21 stable Pneumonia 183888508 J17 adjusted taper, switch out from doxy to levofloxac ingiven cough suppressan textended work note until 02/24/24 [id number] BRAD PRAKASH [facility] [address] [facility] [address],[place] [address] 06/02/2024 14:13:10 06/02/2024 14:55:46 Anxiety 93691193 F41.1 stable Chronic depression 02332 000 F34.1 suggested rexulti as an alt, with benefits for bipolar d/o (depressio n) Migraine 29447721 G43.90 9 start on topimax and sumitrapta n Anemia 338888766 D50.8 will recheck levels [id number] BRAD PRAKASH [facility] [address] [facility] [address],[place] [address] 07/07/2024 09:30:16 07/07/2024 10:14:05 Costal chondritis 57163178 M94.0 will add a msk relaxer and pain medication to the steroid Chronic depression 98412 0009 F34.1 said would be approved for the PA [id number] Rajat Givens DO [facility] [address] [facility] [address],[place] [address] 10/05/2024 15:36:06 10/05/2024 16:24:31 Low back pain 749070305 M54.50 Thoracic back pain 88912 8004 M54.6 Health Concerns Section Related Observation LastModified by Organization Detai ls LastModified Time None Recorded Concern Status LastModified by Organization Details LastModified Time None Recorded Advance Directives Directive None Recorded Payers Encounter Date Sequence Insurance Name Policy Number Policy Rizvi Covered Member ID Rizvi Member ID Guarantor Name 11/27/2023 1 [place] - DOS PRIOR TO 2024 - [employer] () Lilly Fontanareau [id number] Lilly Fontanareau 02/12/2024 1 [place] - DOS PRIOR TO 2024 - [employer] () Lilly Karoline Carla [id number] Lilly A Carla 06/02/2024 1 [place] - DOS PRIOR TO 2024 - [employer] () Lilly Karoline Carla [id number] Lilly A Carla 07/07/2024 1 [place] - DOS PRIOR TO 2024 - [employer] () Lilly A Carla [id number] Lilly Karoline Carla 10/05/2024 1 [place]AST - DOS ON OR AFTER 24 - [employer]NA () Lilly Aguirre [id number] Lilly Ramey Carla Notes Date Note Type Note Provider Name and Address Organization Details Recorded Time 4 text/htm l states she stretched her right leg last th and caused a pop in her knee followed by pain under the knee caprelates that she is sore and swollen but the swelling is betterbut pain is persisting and is taking ibuprofenminnie magdaleno with some help Rajat Givens, [address] [place], [address], [facility], [place], [facility] 11/27/2023 09:47:30 4 text/htm l ER f/u The patient is participating in this appointment via telemedicine communication with a phone call/video calling service ([employer])The patient consents to use of these platforms in place of an in-person appointment due to either sick symptoms the patient is presenting with or current office closure due to COVID exposure in order to keep our office staff and patients safe the patient was seen in the ER for severe RLQ abdominal painthe patient was originally thought to have appendicitis but has pneumoniathe patient was started on doxy and short course of 40 mg x 5 days prednisone will give patient alt taper for prednisoneswitch out from doxycyline to levofloxacingiven short course of cough suppressantshe is still having same respiratory symptoms and fever, no improvement on the medication, feels worse will monitor progress and if anything else needs to be adjusted BRAD PRAKASH [address] [place], [address], [facility], [place], [facility] 02/12/2024 14:14:47 4 text/htm l anxiety and depression the patient recently had her full hysterectomy about 6 weeks agothe patient has been feeling kind of off, kind of down no major triggers at this time the patient is currently on buproprion 150 mg TID the patient is not currently significantly depressedrecommended rexulti for MDDpossible vraylar in the future or as an alt if insurance doesn't cover will recheck her RBC levels from her surgery migraine are worseningagreed to start maintenance medication with abortive med on board BRAD PRAKASH [address] [place], [address], [facility], [place], [facility] 06/02/2024 14:54:43 4 text/htm l f/u 3 week the patient is still having issues with the costal chondritisthe patient is getting the pain behind the back, the patient reports that the pred is helping somewhatwill add tramadol and baclofen to what she is taking, will be cautious on the medications will monitor for it chronic depression: will resubmit for the rexulti for a PA, 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 on [id number] : per pt for insurance: [phone] option 2 continue on current medications as prescribed BRAD PRAKASH [address] [place], [address], [facility], [place], [facility] 07/07/2024 10:04:25 5 text/htm l relates that she had an episode of passing out and brought to ER and also had pain in her chest is still present and now states is radiating directly to her midline seen in er at and had major w/u and was told no major issuealso nobody figured out why she passed out priorf/u 3 week the patient is still having issues with the costal chondritisthe patient is getting the pain behind the back, the patient reports that the pred is helping somewhatwill add tramadol and baclofen to what she is taking, will be cautious on the medications will monitor for it chronic depression: will resubmit for the rexulti for a PA, 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 on [id number] : per pt for insurance: [phone] option 2 continue on current medications as prescribed Rajat Givens DO [address] [facility], [place], [address], [facility], [place], [facility] 10/05/2024 16:18:50 OBGyn Episode No OBEpisode recorded.
== END 2024-11-02 10:47 | disposition home or self-care (01) ==
LOC: HO.XRAY 10:46
PROVIDERS: PCP Internal Medicine; Visit Provider Internal Medicine
DX: M54.50 Low back pain, unspecified (principal); M54.6 Pain in thoracic spine
CPT/HCPCS: 72070; 72100

== ENCOUNTER → 2024-11-02 10:51 | Outpatient (BNV) | payer OTHER, SELFPAY | PROVIDERS: PCP Internal Medicine; Visit Provider Radiology Diagnostic Radiology | DX: M54.6 Pain in thoracic spine (principal); M54.50 Low back pain, unspecified | CPT/HCPCS: 72070; 72100 ==

== ENCOUNTER 2025-02-04 22:00 | Emergency (ER) | payer OTHER, SELFPAY ==
--- NOTE | ~2025-02-04 | CT_ITS ---
CLINICAL HISTORY: RLQ RUQ pain CT abdomen and pelvis with contrast Comparison: 02/10/2024 Findings: Lung bases are clear. No acute bony abnormalities. Stable tiny lateral right hepatic cyst. No significant focal abnormalities in liver or spleen. Pancreas and adrenal glands unremarkable. Gallbladder is within normal limits. Punctate nonobstructing right renal stone. No bilateral ureteral stone or hydronephrosis. Bilateral areas of renal scarring. Punctate bilateral renal cysts. Abdominal aorta is normal in caliber. No free fluid or adenopathy in the pelvis. No diverticulitis. Appendix unremarkable. Hysterectomy. No adnexal abnormality. Impression: No acute process This document has been electronically signed by: Merrill Lancaster MD on 02/05/2025 00:22:13
[2025-02-04 22:02] VITALS: BP 96/60; PULSE 76; RESP 16; TEMP 36.7; O2SAT 97; BMI 27.7
[2025-02-04 22:30] LABS: MANUAL DIFF FLAG NO
[2025-02-04 22:32] LABS: Hematocrit 38.7 % (37.0-47.0); Hemoglobin 13.0 g/dl (12.0-16.0); Imm Gran Abs Auto 0.03 X10*3/uL (0.00-0.03); Imm Gran Pct Auto 0.3 % (0.0-0.4); Lymphocytes Absolute Auto 3.0 X10*3/uL (1.2-4.9); Mean Corpuscular HGB Conc 33.6 g/dl (31.0-35.0); Mean Corpuscular Hemoglobin 28.0 pg (27.0-33.0); Mean Corpuscular Volume 83.4 fL (80.0-98.0); NRBC Abs Auto 0.000 X10*3/uL (0.0-0.012); NRBC Pct Auto 0.0 /100WBC (0.0-0.2); Platelet Count 242 X10*3/uL (160-400); Red Blood Count 4.64 X10*6/uL (4.20-5.50); White Blood Count 9.0 X10*3/uL (4.8-10.8)
[2025-02-04 22:47] LABS: Alanine Aminotransferase 10 U/L (0-31); Albumin Level 4.3 g/dL (3.5-5.0); Alkaline Phosphatase 96 U/L (39-117); Anion Gap 11 (12-20); Aspartate Amino Transferase 16 U/L (5-31); Blood Urea Nitrogen 11 mg/dL (9-16); Calcium 8.6 mg/dL (8.4-10.2); Carbon Dioxide 25 mmol/L (22-29); Chloride 109 mmol/L (96-108); Creatinine Clr Calc Pharmacy 81.0; Estimated Glomerular Filt Rate > 60; Lipase 28 U/L (8-78); Magnesium 1.9 mg/dL (1.6-2.6); Potassium 4.2 mmol/L (3.3-5.1); Sodium 141 mmol/L (135-145); Total Protein 6.8 g/dL (6.5-8.0)
[2025-02-04 22:52] LABS: Appearance Urine Clear; Glucose Urine UA Negative (Negative); PH 6.5 (5.0-9.0); Specific Gravity - Urine 1.020 (1.005-1.025)
--- NOTE | 2025-02-04 23:15 | ED.ABDPAIN ---
HPI - Abdominal Pain General Chief Complaint: Abdominal Pain Stated Complaint: abd pain Time Seen by Provider: 02/04/25 23:06 Source: patient Mode of arrival: ambulatory Limitations: no limitations History of Present Illness ED Provider: Dr. Tessie Gutierrez HPI narrative: Patient comes to the emergency room complaining of right lower quadrant pain. Patient states it has been going on for about a week, patient states it hurts after eating. Patient denies right upper quadrant pain. Patient denies nausea vomiting or diarrhea, denies fever or chills. Patient states that a year ago she had a total hysterectomy. Related Data Previous Rx's ?Medication ?Instructions ?Recorded ondansetron 4 mg disintegrating 4 mg PO Q8H 3 days #9 tabs 08/02/23 tablet albuterol sulfate 90 mcg/actuation 2 inh inhalation Q4-6H PRN 02/10/24 breath activated powder inhaler shortness of breath or wheezing #1 ea doxycycline hyclate 100 mg capsule 100 mg PO BID 10 days #20 caps 02/10/24 ondansetron 4 mg disintegrating 4 mg PO Q6H PRN nausea and 02/10/24 tablet vomiting #14 tabs prednisone 20 mg tablet 40 mg (2 x 20 mg) PO DAILY 5 days 02/10/24 #10 tabs methocarbamol 500 mg tablet 500 mg PO TID PRN pain #20 tabs 07/08/24 metronidazole 500 mg tablet 500 mg PO BID 7 days #14 tabs 08/14/24 hyoscyamine sulfate 0.125 mg tablet 0.125 mg PO QID PRN dyspepsia #14 02/05/25 tabs Allergies Allergy/AdvReac Type Severity Reaction Status Date / Time baclofen Allergy Unknown Verified 02/04/25 22:05 naproxen Allergy Unknown Verified 02/04/25 22:05 quetiapine (From Seroquel) Allergy Vomiting Verified 02/04/25 22:05 venlafaxine Allergy Vomiting Verified 02/04/25 22:05 Review of Systems Review of Systems Constitutional : No Weight loss, No Fever, No Chills, No Night Sweats, No Fatigue, No Malaise ENT/Mouth : No Hearing loss, No Ear Pain, No Nasal Congestion, No Sinus Pain, No Hoarseness, No sore throat, No Rhinorrhea, No Swallowing Difficulty Eyes: No Eye Pain, No Swelling, No Redness, No Foreign Body, No Discharge, No Vision Changes Cardiovascular : No Chest Pain, No SOB, No Dyspnea on Exertion, No Orthopnea, No Edema, No Palpitations Respiratory : No Cough, No Sputum, No Wheezing, No Smoke Exposure, No Dyspnea Gastrointestinal : No Nausea, No Vomiting, No Diarrhea, No Constipation, complaining of right lower quadrant pain with eating, no right upper quadrant pain Genitourinary : no irregular bleeding, No Dysuria, No Urinary Frequency, No Hematuria, No Urinary Incontinence, No Urgency, No Flank Pain, No Urinary Flow Changes, No Hesitancy Musculoskeletal : No joint pain, No Myalgias, No Joint Swelling Skin : No Skin Lesions, No rash Neuro : No Weakness, No Numbness, No Paresthesias, No Loss of Consciousness, No Dizziness, No Headache Psych : No Anxiety/Panic, No Depression, No SI/HI/AH/VH, No Social Issues, Heme/Lymph: No Bruising, No Bleeding,No Lymphadenopathy Endocrine : No Polyuria, No Polydipsia, No Temperature Intolerance [facility] Past Medical History Medical History (Updated 02/05/25 @ 01:49 by Tessie Gutierrez MD) Depression Surgical History (Updated 02/04/25 @ 23:20 by Vladimir Hart RN) History of hysterectomy Social History Social History Alcohol intake: current Alcohol intake frequency: holidays/special occasions only Alcohol type: beer, wine and hard liquor Smoked in Last 30 Days: No Use of substances other than those prescribed or required for medical reasons: No Advance Directives: No Advance Directives Information Provided: No Patient : No Physical Exam ED Exam Exam: Appearance: Alert. Oriented X3. No acute distress. Eyes: Pupils equal, round and reactive to light. ENT: Pharynx normal. Neck: Normal inspection. Neck supple. No lymph nodes noted. No crepitus CVS: Normal heart rate and rhythm. Pulses normal. Normal S1 and S2 Respiratory: No respiratory distress. Breath sounds normal. No Wheezing. No rales Abdomen: Soft , tenderness to palpation in the right lower quadrant, no rebound or guarding, patient had mildly positive Izquierdo's sign, no CVA tenderness, No rigidity. No distention. Skin: Skin warm and dry. Normal skin color. Normal skin turgor. Extremities: No lower extremity edema. No Lacerations. No Rash Neuro: Oriented X 3. No motor deficit. No sensory deficit. Moving all extremities. No slurred speech. CN 2 through 12 grossly intact Psych: calm, cooperative, normal affect Vital Signs: Vital Signs - 24 hr 02/04/25 22:02 02/05/25 01:21 Temperature 98.1 F 98.0 F Pulse Rate 76 71 Respiratory Rate 16 18 Blood Pressure 96/60 95/54 L Pulse Oximetry 97 98 Oxygen Delivery Method Room Air Room Air BMI result Body Mass Index 27.7 Course Course Course Narrative: Patient reports right lower quadrant pain for 1 week worsened by food A bit strange that patient has right lower quadrant pain with eating and reports no right upper quadrant pain. However, on physical exam, patient did have both right upper quadrant and right lower quadrant pain. Patient had a total hysterectomy, has no ovaries, ovarian cyst not a possibility. All of patient's labs and imaging pending Patient receiving IV ketorolac for pain control. Patient denies nausea Medical Decision Making Medical Decision Making [facility] Narrative: My interpretation of labs: No significant abnormality in patient's hematology and chemistry, normal LFTs, normal lipase, urinalysis negative for UTI CT scan of the abdomen and pelvis does not show any acute abnormality. Patient received a dose of ketorolac, then a dose of morphine, patient feeling a bit better. No nausea vomiting or diarrhea. Patient instructed to follow-up with the primary care physician, eventually patient may need referral to Gastroenterology. Differential Diagnosis Differential Diagnoses: The differential diagnosis associated with the presentation includes (Acute cholecystitis, pancreatitis, appendicitis) Admission/Observation Consideration of admission/observation: Escalation of care including admission/observation considered (Given patient's physical exam and symptoms, admission/observation was considered) Lab Data [facility] Lab Attestation statement: I reviewed the patient's lab results. 02/04/25 22:25 02/04/25 22:25 Labs: Lab Results 02/04/25 02/04/25 Range/Units 22:25 22:39 WBC 9.0 (4.8-10.8) X10*3/uL RBC 4.64 (4.20-5.50) X10*6/uL Hgb 13.0 (12.0-16.0) g/dl Hct 38.7 (37.0-47.0) % MCV 83.4 (80.0-98.0) fL MCH 28.0 (27.0-33.0) pg MCHC 33.6 (31.0-35.0) g/dl RDW 13.9 (11.0-16.0) % Plt Count 242 (160-400) X10*3/uL MPV 11.8 (9.4-12.3) fL Immature Gran % (Auto) 0.3 (0.0-0.4) % Neut % (Auto) 53.7 (45-73) % Lymph % (Auto) 33.0 (20-40) % Antelope % (Auto) 8.0 (2-11) % Eos % (Auto) 3.8 (0-4) % Baso % (Auto) 1.2 (0-2) % Lymph # (Auto) 3.0 (1.2-4.9) X10*3/uL Antelope # (Auto) 0.7 (0.1-1.2) X10*3/uL Eos # (Auto) 0.3 (0.0-0.4) X10*3/uL Baso # (Auto) 0.1 (0.0-0.2) X10*3/uL Abs Immat Gran (auto) 0.03 (0.00-0.03) X10*3/uL Absolute Neuts (auto) 4.8 (2.0-8.3) x10*3/uL Absolute Nucleated RBC 0.000 (0.0-0.012) X10*3/uL Nucleated RBC % (auto) 0.0 (0.0-0.2) /100WBC Sodium 141 (135-145) mmol/L Potassium 4.2 (3.3-5.1) mmol/L Chloride 109 H (96-108) mmol/L Carbon Dioxide 25 (22-29) mmol/L Anion Gap 11 L (12-20) BUN 11 (9-16) mg/dL Creatinine 0.88 (0.5-1.4) mg/dL Estim Creat Clear Calc 81.0 Estimated GFR > 60 Random Glucose 98 (60-115) mg/dL Calcium 8.6 (8.4-10.2) mg/dL Magnesium 1.9 (1.6-2.6) mg/dL Total Bilirubin 0.4 (0.0-1.0) mg/dL AST 16 (5-31) U/L ALT 10 (0-31) U/L Alkaline Phosphatase 96 (39-117) U/L Total Protein 6.8 (6.5-8.0) g/dL Albumin 4.3 (3.5-5.0) g/dL Lipase 28 (8-78) U/L Urine Color Yellow Urine Appearance Clear Urine pH 6.5 (5.0-9.0) Ur Specific Critz 1.020 (1.005-1.025) Urine Protein Negative (Neg-Trace) mg/dL Urine Glucose (UA) Negative (Negative) mg/dL Urine Ketones Negative (Negative) mg/dL Urine Blood Negative (Negative) Urine Nitrite Negative (Negative) Ur Leukocyte Esterase Negative (Negative) Urine Test NEGATIVE (NEGATIVE) Influenza Type A (PCR) NEGATIVE (Negative) Influenza Type B (PCR) NEGATIVE (Negative) RSV RNA Qual (PCR) NEGATIVE (Negative) SARS-CoV-2 RNA (RT-PCR) NEGATIVE (Negative) Independent Interpretation I performed an independent interpretation of an: CT Scan Radiology Impression Discussion of test interpretation with radiology: I have reviewed the radiologist's reading. Radiologist Impression: Lung bases are clear. No acute bony abnormalities. Stable tiny lateral right hepatic cyst. No significant focal abnormalities in liver or spleen. Pancreas and adrenal glands unremarkable. Gallbladder is within normal limits. Punctate nonobstructing right renal stone. No bilateral ureteral stone or hydronephrosis. Bilateral areas of renal scarring. Punctate bilateral renal cysts. Abdominal aorta is normal in caliber. No free fluid or adenopathy in the pelvis. No diverticulitis. Appendix unremarkable. Hysterectomy. No adnexal abnormality. Impression: No acute process Medications Administered Discontinued Medications Generic Name Dose Route Start Last Admin Trade Name Freq PRN Reason Stop Dose Admin Iohexol 85 ml 02/04/25 23:48 02/04/25 23:49 Iohexol 350 Mg/Ml 100 Ml Infus..Btl IV 02/04/25 23:49 85 ml ONCE ONE Administration Ketorolac Tromethamine 30 mg 02/04/25 23:14 02/04/25 23:41 Ketorolac Tromethamine 30 Mg/Ml Vial IVPUSH 02/04/25 23:15 30 mg ONCE ONE Administration Critical Care Time Critical Care Time Critical Care Time: Yes Total Critical Care Time: 45 Attestation: I have personally provided critical care time. Time includes review of lab data, radiology results, discussion with consultants, and monitoring for potential decompensation. Intervention performed as documented. Discharge Plan Discharge Clinical Impression: Abdominal pain Patient Disposition: Home, Self-Care Instructions: Abdominal Pain (ED) Additional Instructions: Please follow-up with your primary care physician tomorrow. If you have any worsening or new symptoms, please return to the emergency room or call 911 Prescriptions: New hyoscyamine sulfate 0.125 mg tablet 0.125 mg PO QID PRN (Reason: dyspepsia) Qty: 14 0RF No Action methocarbamol 500 mg tablet 500 mg PO TID PRN (Reason: pain) Qty: 20 0RF metronidazole 500 mg tablet 500 mg PO BID 7 Days Qty: 14 0RF ondansetron 4 mg tablet,disintegrating 4 mg PO Q8H 3 Days Qty: 9 0RF doxycycline hyclate 100 mg capsule 100 mg PO BID 10 Days Qty: 20 0RF prednisone 20 mg tablet 40 mg PO DAILY 5 Days Qty: 10 0RF albuterol sulfate 90 mcg/actuation aerosol powdr breath activated 2 inh inhalation Q4-6H PRN (Reason: shortness of breath or wheezing) Qty: 1 0RF ondansetron 4 mg tablet,disintegrating 4 mg PO Q6H PRN (Reason: nausea and vomiting) Qty: 14 0RF Print Language: Vietnamese
[2025-02-04 23:28] LABS: Resp Syncy Virus RNA Qual PCR NEGATIVE (Negative); SARS COV2 PCR INHOUSE NEGATIVE (Negative)
[2025-02-04 23:29] LABS: UPreg QC Valid YES
[2025-02-04] MEDS: iohexoL 350 MG/ML 100 ML INFUS..BTL 85 ML IV (23:49)
[2025-02-05 01:21] VITALS: BP 95/54; PULSE 71; RESP 18; TEMP 36.7; O2SAT 98
[2025-02-05 01:57] VITALS: RESP 16
[2025-02-05 02:04] VITALS: BP 96/58; PULSE 78; RESP 16; TEMP 36.6; O2SAT 97
[2025-02-05 02:06] VITALS: BP 96/58; PULSE 78; RESP 16; TEMP 36.6; O2SAT 97
== END 2025-02-05 02:08 | disposition home or self-care (01) ==
PROVIDERS: Emergency Provider Emergency Medicine; PCP Internal Medicine
DX: R10.31 Right lower quadrant pain (principal); Z03.818 Encounter for observation for suspected exposure to other biological agents ruled out
CPT/HCPCS: 74177; 80053; 81003; 81025; 83690; 83735; 85025; 87637; 96374; 96375; 99284; J1885; J2270; Q9967

== ENCOUNTER → 2025-02-04 23:14 | Outpatient (BNV) | payer OTHER, SELFPAY | PROVIDERS: Emergency Provider Emergency Medicine; PCP Internal Medicine; Visit Provider Radiology Diagnostic Radiology | DX: R10.11 Right upper quadrant pain (principal); R10.31 Right lower quadrant pain | CPT/HCPCS: 74177 ==

== ENCOUNTER 2025-04-22 08:58 | Outpatient (REF) | payer OTHER, SELFPAY ==
--- NOTE | ~2025-04-22 | FL_ITS ---
EXAMINATION: XR GI SERIES CLINICAL INFORMATION: Right upper quadrant pain COMPARISON: None available. TECHNIQUE: The exam was initiated with oral administration of thick barium or patient chose not to proceed and the exam was terminated. FINDINGS: On few images obtained following oral administration of thick barium in upright view there is normal propagation of bolus from the oral cavity through the pharynx, esophagus into stomach without obstruction, narrowing or stricture. No intraluminal filling defect or extrinsic compression seen. The GE junction widely patent. Patient chose to stop the exam after second oral administration of thick barium. FLUOROSCOPY TIME: 48 seconds. DOSE AREA PRODUCT: 310.6 uGy-m2 (microgray-meter squared) FL/FL upper GI series IMPRESSION: Limited exam. The esophagus is unremarkable. Due to exam being discontinued stomach and duodenum could not be evaluated. Electronically signed by: Henri Arambula MD 04/23/2025 06:57 AM EDT
--- OUTSIDE RECORDS SUMMARY | 2025-04-22 09:39 | XMS_ITS | Encounter Summary ---
Author Organization [facility] Address [address] [place] [address] [place] [phone] Phone Care Team Providers Care Assistant Auto Center Manager Name Role Phone Rajat Givens DO Unavailable Rajat Givens DO Primary Care Provider Encounter Details Date Type Department Care Team (Late st Contact Info) Description 06/14/2022 Procedure [facility], Ct Scan - [address] [id number] Social History Tobacco Use Types Packs/Day Years Used Date Smoking Tobacco: Never Smokeless Tobacco: Never Alcohol Use Standard Drinks/Week Comments No 0 (1 standard drink = 0.6 oz pur e alcohol) Comments Unknown Sex and Gender Information Value Date Recorded Sex Assigned at Female 07/22/2024 11:12 PM EST Legal Sex Female 10:26 PM EDT Gender Identity Female 07/22/2024 11:12 PM EST Sexual Orientation Straight 07/22/2024 11 :12 PM EST documented as of this encounter Functional Status * Calculated C-SSRS Risk Score (Lifetime/Recent) Answer Date of Assessment Author No Risk Indicated 06/14/2022 12:29 PM Melinda Herrera RN * [place] Suicide Severity Rating Scale (Screener/Recent Self-Report) Question Answer Date of Assessment Author 1. Wish to be (Past 1 Month) No 022 12:29 PM Melinda Herrera RN 2. Non-Specific Active Suici david Thoughts (Past 1 Month) No 06/14/2022 12:29 PM Melinda Herrera RN 6. Suicidal Behavior (Lifetime) No 12:29 PM Melinda Herrera RN documented as of this encounter Plan of Treatment Not on file documented as of this encounter Visit Diagnoses Not on filedocumented in this encounter Additional Health Concerns Infection Onset Date Last Indicated Resolved Time CoV-Risk 07/28/2022 07/28/2022 08/08/2022 1:22 AM EST Influenza 07/28/2022 07/28/2022 08/04/2022 1:22 AM EST CoV-Risk 06/03/2023 06/03/2023 06/14/2023 1:22 AM EST CoV-Risk 10/31/2023 10/31/2023 11/11/2023 1:22 AM EDT documented as of this encounter Care Teams Assistant Auto Center Manager Relationship Specialty Start Date End Date Rajat Givens DO PCP - General Internal Medicine 12/10/18 Rajat Givens DO Historical LMR Provider 05/07/17 documented as of this encounter Additional Source Comments The information contained in this document represents components of the legal health record. It is not the complete legal health record.[facility]
--- OUTSIDE RECORDS SUMMARY | 2025-04-22 09:39 | XMS_ITS | Clinical Summary ---
Author Organization [facility] Address [address] [place] [address] Phone Care Team Providers Care Labor Standards Director Name Role Phone Rajat Givens DO Unavailable Rajat Givens DO Primary Care Provider [phone] Allergies Active Allergy Reactions Criticality Noted Date Comments Estradiol 06/24/2024 Naproxen Unknown 01/19/2014 Other Reaction(s): Other Reaction, Other: Suicial dreams, Other Reaction, Other: Suicial dreams. States all other NSAIDS well tolerated. Problem is specific to naproxin Quetiapine Unknown,Nausea and/o r Vomiting 01/19/2014 Other Reaction(s): Nausea Medications buPROPion (WELLBUTRIN SR) 150 MG SR 12 hr tablet Take 150 mg by mouth 2 (two) times a day. Active DEXCOM G6 SENSOR DeviIndications :Hyperglycemia, Hypoglycemia 1 each by Miscellaneous route Every 10 Days. 9 each 3 4 Active DEXCOM G6 TRANSMITTER DeviIndications :Hyperglycemia, Hypoglycemia 1 each by Miscellaneous route every 3 (three) months. 1 each 3 4 Active albuterol 90 mcg/actuation inhaler INHALE 2 PUFFS BY MOUTH EVERY 4 HOURS NEEDED FOR 30 DAYS 4 Active estradioL (VIVELLE-DOT) 0.1 mg/24 hrIndications:S urgical menopause on hormone replacement therapy Apply patch to skin twice weekly. 24 patch 2 5 Active fluconazole (DIFLUCAN) 150 MG tabletIndicatio ns:Vaginal discharge Take one dose now and repeat in 3 days 2 tablet 1 5 Active Active Problems Problem Noted Date Diagnosed Date Pelvic pain 03/26/2024 Papanicolaou smear of cervix with low grade squamous intraepithelial lesion (LGSIL) 12/31/2023 Assessment & Plan (12/31/2023 9:17 AM EDT): The natural history of cervical dysplasia installations to HPV was reviewed with the patient. I explained that she will need a colposcopy even if she opts for hysterectomy. Hyperglycemia 03/28/2023 Overview (03/28/2023): Had 209 after eating pasta Assessment & Plan (04/10/2023 3:37 PM EDT): Keshas sugars spiked following carb dense foods, one time to the 170s. She tends to graze throughout the day with corresponding rises in her PPGs. Her sugars are somewhat reactive. Her GMI (14 day equivalent estimated A1c) was 5.7% due to PPG spikes which is threshold for prediabetes. She did not screen for other criteria of diabetes although some FPGs could be again suggestive of prediabetes. Lab orders were sent including serum A1c. We reviewed the importance of healthy lifestyle overall and spent time discussing importance of good quality sleep, regular physical activity, healthy diet, and maintaining a healthy BMI. Assessment & Plan (03/28/2023 10:04 PM EDT): Keshas POCT A1c today is 5.1%. She has 1 finger stick of 209 shortly after eating a meal with pasta following shakiness and hypoglycemia. Question emerging altered insulin dysregulation and resistance. Two separate random and verifiable plasma glucoses >200 with symptoms are needed to verify T2DM other than GTT or A1c which have been unremarkable. A sample FSL3 was provided for an unblinded CGM trial. We can order random serum glucose labs if her CGM patterns indicate a need. Her glucometer testing supplies or technique may have yielded a false high. Jose is at some risk for T2DM with a family history. We spent time discussing healthy diet and exercise recommendations per ADA guidelines with literature provided. Lifestyle is important to good metabolic and glycemic health prevention, we spent time discussing importance of good quality sleep, regular activity and healthy diet. Encouraged to contact us with any concerns or questions and follow up in 2 weeks. CGM Trial Type of Diabetes: Patient does not know Assessment/HPI: Jose is here today for CGM trial. Procedures: Glucose Monitoring: Type of Sensor: Freestyle Paty 3 Instruction: Patient Instructed on:, Calibrations, When to test BS, Troubleshooting, What to expect with the sensor, Patient instructed to remove sensor if redness, pain or bleeding occurs. . Insertion Site Selected: arms, Site Prep: Insertion site wiped with alcohol. Insertion: completed, area looks good, no redness, no bleeding. Plan: Patient will remove sensor and return in 2 weeks to drop off at net front end developer or follow up appointment. Hypoglycemia 03/28/2023 Assessment & Plan (04/10/2023 3:52 PM EDT): Jose has experienced x2 episodes of hypoglycemia, 1x overnight as low as 53 per her CGM data on her phone with arrow down indicating still dropping. Her blood sugar the previous night was euglycemic with 110s following dinner the previous evening. She denies drinking alcohol or exercising the previous 2 days. She is a busy, active mother which may affect her sugars. We discussed having a healthy snack incorporating carbs, protein, and healthy fat at bedtime such as string cheese or small handful of nuts or small fruit. The second instance occurred in response to a carb dense food a t the [employer] fair and appeared pretty reactive. We reviewed hypoglycemia prevention, recognition and management including the effects of exercise and/or alcohol for up to 48 hours after. I would recommend the use of a CGM at least temporarily to learn her how her diet and activity affect her glucose to prevent further lows and better prevent hypoglycemia, especially as a mother of young children. Encouraged to continue to make healthy diet choices and remain as physically active as tolerates. Encouraged to contact us with any concerns or questions and follow up in 6 months. Assessment & Plan (03/28/2023 10:19 PM EDT): Jose has x1 document FPG of 69 and reports multiple low sugars as low as 45. She confirms symptoms of hunger, tremors, headache, weakness, and diaphoresis associated with known lows. She additionally wakes up sometimes with these symptoms. Jose treats her lows with cookies or juice or a full meal with her symptoms resolving fairly quickly and improved glucose. We spent time discussing hypoglycemia prevention, recognition and management with literature provided. FSL3 unblinded CGM trial initiated. Jose will keep a food log via priya or written at least for part of the trial to determine if she is experiencing reactive hypoglycemia or further evaluation is needed to R/O insulinoma. We spent time discussing elements of healthy diet, meal and snack frequency as well as food choices to prevent reactive hypoglycemia with literature provided. Additionally, TSH ordered to R/O thyroid dysregulation. Resolved Problems Problem Noted Date Diagnosed Date Resolved Date Menorrhagia with regular cycle 03/26/2024 03/27/2024 Dysmenorrhea 03/26/2024 03/27/2024 Immunizations Immunization Administration Dates Next Due COVID-19 (Pre-05/13) Connor Vaccine, rS-Ad26, PF 04/07/2021 Hepatitis B Adult 01/03/2023, 9,06/19/2019,2018,05/01/2019,05/01/2019 Influenza Quadrivalent Prese rvative Free IM 05/01/2019 MMR 06/19/2019,05/01/2019 Tdap 01/03/2023,04/09/2011,07/22/2010 Family History Medical History Relation Comments No Known Problems Father No Known Problems Maternal Grandfather No Known Problems Maternal Grandmother Diabetes Mother Ovarian cancer Mother hyst No Known Problems Paternal Grandfather No Known Problems Paternal Grandmother Relation Status Comments Brother Alive Father Maternal Grandfather Maternal Grandmother Mother Alive Paternal Grandfather Paternal Grandmother Sister Alive Social History Tobacco Use Types Packs/Day Years Used Date Smoking Tobacco: Never Smokeless Tobacco: Never Tobacco Cessation:Counseling Given: Not Answered Alcohol Use Standard Drinks/Week Comments Yes 0 (1 standard drink = 0.6 oz pur e alcohol) 1-2 month or less Education Answer Date Recorded Are you interested in more education? Not on afia e 11/16/2022 Are you concerned about learning? Not on file 11/16/2022 No 11/16/2022 No 11/16/2022 Digital Access Answer Date Recorded No 12/15/2022 No 12/15/2022 Reliable internet access at home? Not on file 12/15/2022 Device with a working camera? Not on file Intimate Partner Violence Answer Date R ecorded Are you denied basic needs s uch as food, clothing, or medical care? No 07/22/2024 In the past 12 months have y ou been in a relationship with a person who hurts, threatens, or tries to control you? No 07/22/2024 Are you denied basic needs s uch as food, clothing, or medical care? No 07/22/2024 In the past 12 months have y ou been in a relationship with a person who hurts, threatens, or tries to control you? No 07/22/2024 Comments No Sex and Gender Information Value Date Recorded Sex Assigned at Female 07/22/2024 11:12 PM EST Legal Sex Female 10:26 PM EDT Gender Identity Female 07/22/2024 11:12 PM EST Sexual Orientation Straight 07/22/2024 11 :12 PM EST Last Filed Vital Signs Vital Sign Reading Time Taken Comments Blood Pressure 104/58 08/26/2024 12:08 PM EST Pulse 81 07/22/2024 10:22 PM EST Temperature 36.2 C (97.2 F) 07/22/2024 10:22 PM EST Respiratory Rate 20 07/22/2024 10:22 PM EST Oxygen Saturation 100% 07/22/2024 10:22 PM EST Inhaled Oxygen Concentration - - Weight 63.5 kg (140 lb) 07/22/2024 10:22 PM EST Height 157.5 cm (5' 2 ) 07/22/2024 10:22 PM EST Body Mass Index 25.61 07/22/2024 10:22 PM EST Plan of Treatment Health Maintenance Due Date Last Done Comments DEPRESSION SCREENING 2001 HEPATITIS C SCREENING 10/10/2007 HIV ONE-TIME SCREENING (18-6 5 YEARS) 10/10/2007 INFLUENZA VACCINE (#1) 2025 3, 05/01/2019 COVID-19 VACCINE (2 2024-2 6 season) 2025 04/07/2021 SCREENING FOR DIABETES 08/16/2026 4, 04/18/2023, 03/18/2023 PAP SMEAR 12/18/2026 12/19/2023 Adult Td,Tdap Booster 01/03/2033 01/03/2023 , 04/09/2011, 07/22/2010 SMOKING STATUS SCREENING (On ce After 26 Yrs) Completed 08/26/2024 HEPATITIS A VACCINES Aged Out No long er eligible based on patient's age to complete this topic HIB VACCINES Aged Out No longer eligi ble based on patient's age to complete this topic MENINGOCOCCAL VACCINES (ACWY) Aged Out No longer eligible based on patient's age to complete this topic MENINGOCOCCAL VACCINES (B) Aged Out N o longer eligible based on patient's age to complete this topic PNEUMOCOCCAL VACCINES (0-49 years) Aged Out No longer eligible b ased on patient's age to complete this topic Medical Devices Not on file Procedures Procedure Name Priority Date/Time Associated Diagnosis Comments PAP TEST Routine 12/19/2023 12:00 AM EDT GLUCOSE TOLERANCE TEST, 2 HR Routine 03/18/2023 9:26 AM EDT Hyperglycemia from Last 3 Months or Most Recently Relevant to Health Maintenance Results * (ABNORMAL) Pap Test (12/19/2023 12:00 AM EDT) 12/19/2023 12/20/2023 9:0 9 AM EDT Narrative SEE NARRATIVE - 12/26/2023 9:16 [place] [address] Marketing Effectiveness Manager: Amisha Hopkins MD SERVICE GIRL Cytology Report FINAL DIAGNOSIS A. PAP SMEAR (THIN PREP) CE: SPECIMEN ADEQUACY: Satisfactory for evaluation; transformation zone present. INTERPRETATION: EPITHELIAL CELL ABNORMALITY - SQUAMOUS. Low grade squamous intraepithelial lesion. This specimen was analyzed by the automated ThinPrep Imaging System ([employer] and manually rescreened by a meat cutter and/or pathologist. Electronically Signed Out By: MD Latasha Sky CT(ASCP) By his/her signature above, the pathologist listed as making the Final Diagnosis certifies that he/she has personally reviewed this case and confirmed or corrected the diagnosis. The Pap test is a screening test primarily for squamous cancers and precursors and has associated false-negative and false-positive results. New technologies such as liquid-based preparations may decrease but will not eliminate all false-negative results. Regular sampling and follow-up of unexplained clinical signs and symptoms are recommended to minimize false negative results. PROCEDURES/ADDENDA HPV Testing (Requested) Ordered Date: 12/20/2023 A. PAP SMEAR (THIN PREP) CE: Human Papilloma Virus TEST POSITIVE for high-risk Human Papilloma Virus type Other high risk (non-type 16, 18, or 45) probe set (Includes 31, 33, 35, 39, 51, 52, 56, 58, 59, 66, 68) Note: Additional testing was necessary to identify the most virulent high-risk strains. Negative for high-risk Human Papilloma Virus types 16, 18 and 45. Testing performed by [employer] HR-HPV analysis. Clinical correlation is advised. This HPV test was performed at [facility], [address] [place] [address]. This test has been FDA approved for both SurePath and ThinPrep cervical cytology specimens. The accuracy and precision of this test for all other specimen sources has been verified in the Cytopathology Laboratory of the [facility] and has not been cleared or approved by the U.S. Food and Drug Administration. Clinical correlation is advised. CLINICAL HISTORY Date of Last Menstrual Period: 12-09-2023 Infection History: HPV: 2023 Treatment History: Other: CONCURRENT POLYPECTOMY Other Clinical Conditions: Screening Pap SERVICE GIRL exam with abnormal findings: CERVICAL POLYP SPECIMEN SOURCE A: PAP SMEAR (THIN PREP) CE Patient Name: JOSE BARRAGAN : 1990 (Age: 33) Sex: F Institution: [facility] Location: [facility] Date of Collection: 12/19/2023 Date of Reported: 12/26/2023 09:16 Results to: Santi Wellington MD us Santi Wellington MD CYTOLOGY ORDERABLES Delmi nadine Result SEE NARRATIVE * (ABNORMAL) Glucose tolerance test, 2 hr (03/18/2023 9:26 AM EDT) FASTING GLUCOSE 69(L) 70 - 95 mg/dL [facility] ONE HR GLUCOSE 116 70 - 180 mg/dL [facility] TWO HR GLUCOSE 117 70 - 155 mg/dL [facility] Comment: PLEASE NOTE THESE RANGES ARE FOR PATIENTS. REFERENCE RANGES, NON- PATIENTS: FASTING GLUCOSE: 70-100 mg/dl 1 HOUR GLUCOSE: 70-200 mg/dl 2 HOUR GLUCOSE: 70-200 mg/dl Blood 03/18/2023 9:26 AM EDT 03/18/2023 11:53 AM EDT us Rajat Givens DO LAB BLOOD ORDERABLES Final Resul t [facility] [address] [place] [address] from Last 3 Months or Most Recently Relevant to Health Maintenance Insurance [employer] NET PARTIAL [employer] NET [employer]IAL Member Subscriber Plan / Payer (Ef fective 2023-Present) Name:Jose Barragan Relation to Subscriber:Self Name:Carla Jose Payer ID:Not on file Group ID:Not on file Type:Medicaid Address: [address] [employer] NET [employer]IAL Member Subscriber Plan / Payer (Ef fective 2023-Present) Name:Jose Barragan Relation to Subscriber:Self Name:Jose Barragan Payer ID:Not on file Group ID:Not on file Type:Medicaid Address: [address] [employer] NET [employer]IAL [employer] Member Subscriber Plan / Payer (Ef fective 2023-Present) Name:Jose Barragan Relation to Subscriber:Self Name:Jose Barragan Payer ID:Not on file Group ID:Not on file Type:Medicaid Address: [address] [facility] NET PARTIAL Member Subscriber Plan / Payer (Ef fective 2023-Present) Name:Jose Barragan Relation to Subscriber:Self Name:Jose Barragan Payer ID:Not on file Group ID:Not on file Type:Medicaid Address: [address] [employer] NET PARTIAL Member Subscriber Plan / Payer (Ef fective 2023-Present) Name:Jose Barragan Relation to Subscriber:Self Name:Jose Barragan Payer ID:Not on file Group ID:Not on file Type:Medicaid Address: [address] [facility] NET PARTIAL Member Subscriber Plan / Payer (Ef fective 2023-Present) Name:Jose Barragan Relation to Subscriber:Self Name:Jose Barragan Payer ID:Not on file Group ID:Not on file Type:Medicaid Address: [address] [employer] NET PARTIAL [employer] Advance Directives For more information, please contact: [phone] (9AM - 5PM Martha/[facility], Saturday-Saturday) Documents on File Type Date Recorded Patient Psychiatric Social Worker Supervisor Expl anation Healthcare Proxy 03/31/2024 4:11 PM * Full Code (Latest Code Status on File) Date Activated Date Inactivated Comments 03/26/2024 3:05 PM Question Answer Comments Code Status Confirmed With: Patient * Full Code Date Activated Date Inactivated Comments 03/26/2024 9:12 AM 03/26/2024 3:05 PM Question Answer Comments Code Status Confirmed With: Patient Care Teams Labor Standards Director Relationship Specialty Start Date End Date Rajat Givens DO [email or web address] PCP - General Internal Medicine 12/10/18 Rajat Givens DO [email or web address] Historical LMR Provider 05/07/17 Additional Source Comments The information contained in this document represents components of the legal health record. It is not the complete legal health record.[facility]
--- OUTSIDE RECORDS SUMMARY | 2025-04-22 09:39 | XMS_ITS | Encounter Summary ---
Author Organization [facility] Address [address] [place] [address] Phone Care Team Providers Care Html Web Developer Name Role Phone Rajat Givens DO Unavailable Rajat Givens DO Primary Care Provider [phone] Encounter Details Date Type Department Care Team (Late st Contact Info) Description 05/27/2024 Procedure Pass [address] [place] [address] Social History Tobacco Use Types Packs/Day Years Used Date Smoking Tobacco: Never Smokeless Tobacco: Never Alcohol Use Standard Drinks/Week Comments Yes 0 [...] as food, clothing, or medical care? No 03/26/2024 In the past 12 months have y ou been in a relationship with a person who hurts, threatens, or tries to control you? No 03/26/2024 Are you denied basic needs s uch as food, clothing, or medical care? No 03/26/2024 In the past 12 months have y ou been in a relationship with a person who hurts, threatens, or tries to control you? No 03/26/2024 Comments No Sex and Gender Information Value Date Recorded Sex Assigned at Female 07/22/2024 11:12 PM EST Legal Sex Female 10:26 PM EDT Gender Identity Female 07/22/2024 11:12 PM EST Sexual Orientation Straight 07/22/2024 11 :12 PM EST documented as of this encounter Plan of Treatment Not on file documented as of this encounter Visit Diagnoses Not on filedocumented in this encounter Care Teams Html Web Developer Relationship Specialty Start Date End Date Rajat Givens DO [email or web address] PCP - General Internal Medicine 12/10/18 Rajat Givens DO [email or web address] Historical LMR Provider 05/07/17 documented as of this encounter Additional Source Comments The information contained in this document represents components of the legal health record. It is not the complete legal health record.[facility]
--- OUTSIDE RECORDS SUMMARY | 2025-04-22 09:39 | XMS_ITS | Encounter Summary ---
Author Organization [facility] Address [address] [place] [address] Phone Care Team Providers Care Engineering Supervisor Name Role Phone Rajat Givens DO Unavailable Mar Voss CNM Unavailable Kimberly Henderson FOOD SERVICE CASHIER Unavailable [phone] Maddy Johnson MD Unavailable Carmelo Kellogg MD Unavailable Fina Clement FOOD SERVICE CASHIER Unavailable Estiven Alonso MD Unavailable Tatiana Gutierrez FOOD SERVICE CASHIER Unavailable Catherine Sloan MD Unavailable [phone] Oscar Braxton MD Unavailable Ramya Mendiola MD Unavailable Vidya Kilgore MD Unavailable [phone] Sena Stuart FOOD SERVICE CASHIER Unavailable Rajat Givens DO Primary Care Provider Encounter Details Date Type Department Care Team (Latest Contact Info) Description 02/09/2019 Transcribe Orders Virtual Department [address] [place] [address] Edita Romeo PA-C [address] [place] [address] Nausea and vomiting, intractability of vomiting not specified, unspecified vomiting type (Primary Dx) Social History Tobacco Use Types Packs/Day Years [...] on file documented as of this encounter Results * FL BARIUM SWALLOW ESOPHAGRAM SINGLE CONTRAST (02/13/2019 9:58 AM EDT) Anatomical Region Laterality Modality Chest Radiographic Kathleen ging 02/13/2019 9:27 AM EDT Impressions 02/13/2019 10:49 AM EDT Normal esophagram. FLUOROSCOPY TIME: 1 min. 45 sec; 17 IMAGES/FRAMES POS - [id number] Narrative 02/13/2019 10:49 AM EDT COMPARISON: Upper GI series 01/13/2013. BARIUM SWALLOW FINDINGS: Branch Controller lateral neck radiograph was obtained. Bones and soft tissues are within normal limits. A double contrast barium swallow was performed. Low dose pulsed fluoroscopy was utilized with limited exposures to reduce radiation dose. Esophagus is normal in contour and motility. No stricture, mass, ulceration, hiatal hernia or reflux. Barium tablet passed into the stomach Procedure Note Marshall Tao MD - 02/13/2019 COMPARISON: Upper GI series 01/13/2013. BARIUM SWALLOW FINDINGS: Branch Controller lateral neck radiograph was obtained. Bones and soft tissues arewithin normal limits. A double contrast barium swallow was performed. Lowdose pulsed fluoroscopy was utilized with limited exposures to reduceradiation dose. Esophagus is normal in contour and motility. Nostricture, mass, ulceration, hiatal hernia or reflux. Barium tabletpassed into the stomach IMPRESSION: Normal esophagram. FLUOROSCOPY TIME: 1 min. 45 sec; 17 IMAGES/FRAMES POS - [id number] October Agueda AMAN IMG FL MISC Final Result documented in this encounter Visit Diagnoses Diagnosis Nausea and vomiting, intractability of vomiting not specified, unspecified vomiting type- Primary Nausea and vomiting, intractability of vomiting not specified, unspecified vomiting type documented in this encounter Additional Health Concerns Infection Onset Date Last Indicated Resolved Time CoV-Risk 07/28/2022 07/28/2022 08/08/2022 1:22 AM EST Influenza 07/28/2022 07/28/2022 08/04/2022 1:22 AM EST CoV-Risk 06/03/2023 06/03/2023 06/14/2023 1:22 AM EST CoV-Risk 10/31/2023 10/31/2023 11/11/2023 1:22 AM EDT documented as of this encounter Care Teams Engineering Supervisor Relationship Specialty Start Date End Date Rajat Givens DO PCP - General Internal Medicine 12/10/18 Rajat Givens DO Historical LMR Provider 05/07/17 Mar Voss CNM [address] [place] [address] Historical LMR Provider 05/07/17 2 Kimberly Henderson NP [address] [place] [address] Historical LMR Provider 05/07/17 07/29/21 Maddy Johnson MD [address] [place] [address] Historical LMR Provider 05/07/17 2 Carmelo Kellogg MD [address] [place] [address] Historical LMR Provider 05/07/17 Fina Clement NP [address] [place] [address] [email or web address] Historical LMR Provider 05/07/17 2 Estiven Alonso MD [address] [place] [address], [facility] [place] [address] [email or web address] Historical LMR Provider 05/07/17 07/29/21 Tatiana Gutierrez NP [address] [place] [address] Historical LMR Provider 05/07/17 2 Catherine Sloan MD [address] [place] [address] Historical LMR Provider 05/07/17 2 Oscar Braxton MD [address] [place] [address], [address] [place] [address] [email or web address] Historical LMR Provider 05/07/17 07/29/21 [place] [address] [email or web address] Historical LMR Provider 05/07/17 07/29/21 Vidya Kilgore [facility] [place] [address] Historical LMR Provider 05/07/17 2 Sena Stuart NP [address] [place] [address] Historical LMR Provider 05/07/17 2 documented as of this encounter Additional Source Comments The information contained in this document represents components of the legal health record. It is not the complete legal health record.[facility]
--- OUTSIDE RECORDS SUMMARY | 2025-04-22 09:39 | XMS_ITS | Encounter Summary ---
Author Organization [facility] Address [address] [place] [address] [place] [address] Phone Care Team Providers Care Armature Straightener Name Role Phone Rajat Givens DO Unavailable Rajat Givens DO Primary Care Provider [phone] Encounter Details Date Type Department Care Team (Late st Contact Info) Description 01/13/2023 Procedure Pass [facility], Ct Scan - [address] [address] Social History Tobacco Use Types Packs/Day Years Used Date Smoking Tobacco: Never Smokeless Tobacco: Never Alcohol Use Standard Drinks/Week Comments Yes 0 (1 standard drink = 0.6 oz pur e alcohol) Education Answer Date Recorded Are you interested in more education? Not on afia e 11/16/2022 Are you concerned about learning? Not on file 11/16/2022 No 11/16/2022 No 11/16/2022 Digital Access Answer Date Recorded No 12/15/2022 No 12/15/2022 Reliable internet access at home? Not on file 12/15/2022 Device with a working camera? Not on file Comments Unknown Sex and Gender Information Value Date Recorded Sex Assigned at Female 07/22/2024 11:12 PM EST Legal Sex Female 10:26 PM EDT Gender Identity Female 07/22/2024 11:12 PM EST Sexual Orientation Straight 07/22/2024 11 :12 PM EST documented as of this encounter Functional Status * Calculated C-SSRS Risk Score (Lifetime/Recent) Answer Date of Assessment Author No Risk Indicated 01/13/2023 4:56 PM EDT Terrie Shields RN * [place] Suicide Severity Rating Scale (Screener/Recent Self-Report) Question Answer Date of Assessment Author 1. Wish to be (Past 1 Month) No 023 4:56 PM EDT Terrie Shields RN 2. Non-Specific Active Suici david Thoughts (Past 1 Month) No 01/13/2023 4:56 PM EDT Terrie Shields RN 6. Suicidal Behavior (Lifetime) No 4:56 PM EDT Terrie Shields RN documented as of this encounter Plan of Treatment Not on file documented as of this encounter Visit Diagnoses Not on filedocumented in this encounter Additional Health Concerns Infection Onset Date Last Indicated Resolved Time CoV-Risk 06/03/2023 06/03/2023 06/14/2023 1:22 AM EST CoV-Risk 10/31/2023 10/31/2023 11/11/2023 1:22 AM EDT documented as of this encounter Care Teams Armature Straightener Relationship Specialty Start Date End Date Rajat Givens DO PCP - General Internal Medicine 12/10/18 Rajat Givens DO Historical LMR Provider 05/07/17 documented as of this encounter Additional Source Comments The information contained in this document represents components of the legal health record. It is not the complete legal health record.[facility]
--- OUTSIDE RECORDS SUMMARY | 2025-04-22 09:39 | XMS_ITS | Encounter Summary ---
Author Organization [facility] Address [address] [place] [phone] Phone Care Team Providers Care Draw Frame Operator Name Role Phone Rajat Givens DO Unavailable Mar Voss CNM Unavailable Kimberly Henderson ROASTER HELPER Unavailable [phone] Maddy Johnson MD Unavailable Carmelo Kellogg MD Unavailable Fina Clement ROASTER HELPER Unavailable Estiven Alonso MD Unavailable Tatiana Gutierrez ROASTER HELPER Unavailable Catherine Sloan MD Unavailable [phone] Oscar Braxton MD Unavailable Ramya Mendiola MD Unavailable Vidya Kilgore MD Unavailable [phone] Sena Stuart ROASTER HELPER Unavailable Rajat Givens DO Primary Care Provider [phone] Reason for Referral * MRI/CAT Scan - Closed Specialty Diagnoses / Procedures Referred By Niko t Referred To Contact Radiology Diagnoses Right lower quadrant pain Procedures CT Abdomen/Pelvis Agueda October, PA-C Phone: tel: fax: Referral ID Status Reason Start Date Expiration Date Visits Re quested Visits Authorized [id number] Closed 12/10/2018 12/10/2019 1 1 Encounter Details Date Type Department Care Team (Latest Contact Info) Description 12/10/2018 Transcribe Orders Virtual Department [address] [place] [address] Edita Romeo PA-C [address] [place] [address] Right lower quadrant pain (Primary Dx) Social History Tobacco Use Types [...] documented as of this encounter Results * CT ABDOMEN/PELVIS WITH CONTRAST (12/11/2018 2:40 PM EDT) Anatomical Region Laterality Modality Abdomen, Pelvis Computed Tomogra phy 12/11/2018 3:15 PM EDT Impressions 12/11/2018 3:56 PM EDT Bilateral non-obstructing nephrolithiasis. No ureteral stones. New small right hepatic cyst. No evidence of appendicitis or adnexal pathology. No inflammatory changes, free fluid or other source of pain detected. TOTAL CTDIvol: 6.2 mGy POS - [id number] Edited by: Luisa Avalos on 12/11/2018 3:28 PM Narrative 12/11/2018 3:56 PM EDT HISTORY: Right lower quadrant abdominal pain. COMPARISON: Pelvic ultrasound December 10, 2018. CT January 09, 2013. TECHNIQUE: After the administration of oral and intravenous contrast, multidetector CT is obtained from dome of the liver through the inferior pubic rami. Sagittal and coronal reformats generated. Automated exposure control utilized. FINDINGS: Lung bases: No findings of concern. Liver and spleen: There is a new sub-centimeter mass seen in the right hepatic lobe peripherally consistent with a cyst. No peripheral puddling. It was not evident previously. Spleen upper normal in size. Small anterior-inferior splenule. Biliary tree and pancreas: No findings of concern. Adrenals and : No adrenal masses. There are several 1 to 2 mm stones throughout the upper half of the left kidney and one in the lower half. Several also present on the right, including one measuring up to 2 mm. Renal enhancement symmetric. No worrisome masses. No ureteral stones. Bladder unremarkable. Uterus anteverted and unremarkable. Ovaries appear to have physiologic cysts bilaterally. No worrisome masses seen. Bowel: Stomach decompressed. Duodenum unremarkable for technique. Ileal and jejunal fold patterns appear unremarkable. Appendix unremarkable. Sigmoid colon extends quite high. No evidence of colitis. Nodes: No adenopathy detected. Vascular: No findings of concern. Soft tissues: No findings of concern. Bones: No findings of concern. Procedure Note Francisco Javier Puga MD - 12/11/2018 HISTORY: Right lower quadrant abdominal pain. COMPARISON: Pelvic ultrasound December 10, 2018. CT January 09, 2013. TECHNIQUE: After the administration of oral and intravenous contrast,multidetector CT is obtained from dome of the liver through the inferiorpubic rami. Sagittal and coronal reformats generated. Automated exposurecontrol utilized. FINDINGS: Lung bases: No findings of concern. Liver and spleen: There is a new sub-centimeter mass seen in the righthepatic lobe peripherally consistent with a cyst. No peripheral puddling.It was not evident previously. Spleen upper normal in size. Smallanterior-inferior splenule. Biliary tree and pancreas: No findings of concern. Adrenals and : No adrenal masses. There are several 1 to 2 mm stonesthroughout the upper half of the left kidney and one in the lower half.Several also present on the right, including one measuring up to 2 mm.Renal enhancement symmetric. No worrisome masses. No ureteral stones.Bladder unremarkable. Uterus anteverted and unremarkable. Ovaries appearto have physiologic cysts bilaterally. No worrisome masses seen. Bowel: Stomach decompressed. Duodenum unremarkable for technique. Ilealand jejunal fold patterns appear unremarkable. Appendix unremarkable.Sigmoid colon extends quite high. No evidence of colitis. Nodes: No adenopathy detected. Vascular: No findings of concern. Soft tissues: No findings of concern. Bones: No findings of concern. IMPRESSION: Bilateral non-obstructing nephrolithiasis. No ureteral stones. New smallright hepatic cyst. No evidence of appendicitis or adnexal pathology. Noinflammatory changes, free fluid or other source of pain detected. TOTAL CTDIvol: 6.2 mGy POS - [id number] Edited by: Luisa Avalos on 12/11/2018 3:28 PM October Agueda [place] IMG CT ABD/PELVIS Final Resu lt documented in this encounter Visit Diagnoses Diagnosis Right lower quadrant pain- Primary Right lower quadrant pain documented in this encounter Additional Health Concerns Infection Onset Date Last Indicated Resolved Time CoV-Risk 07/28/2022 07/28/2022 08/08/2022 1:22 AM EST Influenza 07/28/2022 07/28/2022 08/04/2022 1:22 AM EST CoV-Risk 06/03/2023 06/03/2023 06/14/2023 1:22 AM EST CoV-Risk 10/31/2023 10/31/2023 11/11/2023 1:22 AM EDT documented as of this encounter Care Teams Draw Frame Operator Relationship Specialty Start Date End Date Rajat Givens DO [email or web address] PCP - General Internal Medicine 12/10/18 Rajat Givens DO [email or web address] Historical LMR Provider 05/07/17 Mar Voss CNM [address] [place] [address] Historical LMR Provider 05/07/17 2 Kimberly Henderson NP [address] [place] [address] [email or web address] Historical LMR Provider 05/07/17 07/29/21 Maddy Johnson MD [address] [place] [address] Historical LMR Provider 05/07/17 2 Carmelo Kellogg MD [address] [place] [address] Historical LMR Provider 05/07/17 Fina Clement NP [address] [place] [address] [email or web address] Historical LMR Provider 05/07/17 2 Estiven Alonso MD 22 [facility], [address] [place] [address] [email or web address] Historical LMR Provider 05/07/17 07/29/21 Tatiana Gutierrez NP [address] [place] [address] Historical LMR Provider 05/07/17 2 Catherine Sloan MD [address], [place] [address] Historical LMR Provider 05/07/17 2 Oscar Braxton MD 22 [facility], [address] [address] [email or web address] Historical LMR Provider 05/07/17 07/29/21 [place] [address] [email or web address] Historical LMR Provider 05/07/17 07/29/21 Vidya Kilgore MD [address] [place] [phone] Historical LMR Provider 05/07/17 2 Sena Stuart NP [address] [place] [address] Historical LMR Provider 05/07/17 2 documented as of this encounter Additional Source Comments The information contained in this document represents components of the legal health record. It is not the complete legal health record.[facility]
--- OUTSIDE RECORDS SUMMARY | 2025-04-22 09:39 | XMS_ITS | Encounter Summary ---
Author Organization [facility] Address [address] [place] [address] [place] [address] Phone Care Team Providers Care Plater Barrel Name Role Phone Rajat Givens DO Unavailable Rajat Givens DO Primary Care Provider [phone] Encounter Details Date Type Department Care Team (Latest Contact Info) Description 2022 Transcribe Orders Virtual Department [address] [place] [address] Yodit Canales PA 6 [facility] [place] [address] [place] [address] Family history of ischemic heart disease and other diseases of the circulatory system (Primary Dx) Social History Tobacco Use Types [...] documented as of this encounter Visit Diagnoses Diagnosis Family history of ischemic heart disease and other diseases of the circulatory system- Primary documented in this encounter Additional Health Concerns Infection Onset Date Last Indicated Resolved Time CoV-Risk 06/03/2023 06/03/2023 06/14/2023 1:22 AM EST CoV-Risk 10/31/2023 10/31/2023 11/11/2023 1:22 AM EDT documented as of this encounter Care Teams Plater Barrel Relationship Specialty Start Date End Date Rajat Givens DO [email or web address] PCP - General Internal Medicine 12/10/18 Rajat Givens DO [email or web address] Historical LMR Provider 05/07/17 documented as of this encounter Additional Source Comments The information contained in this document represents components of the legal health record. It is not the complete legal health record.[facility]
--- OUTSIDE RECORDS SUMMARY | 2025-04-22 09:39 | XMS_ITS | Encounter Summary ---
Author Organization [facility] Address [address] [place] [address] Phone Care Team Providers Care Handle And Vent Machine Operator Name Role Phone Rajat Givens DO Unavailable Rajat Givens DO Primary Care Provider Reason for Referral * MRI/CAT Scan - Closed Specialty Diagnoses / Procedures Referred By Niko thorne Referred To Contact Radiology Diagnoses Unspecified dislocation of right patella, subsequent encounter Procedures MRI Knee (Right) Rajat Givens DO Phone: tel: fax: [email or web address] Referral ID Status Reason Start Date Expiration Date Visits Re quested Visits Authorized [id number] Closed 08/08/2021 08/08/2022 1 1 Encounter Details Date Type Department Care Team (Late st Contact Info) Description 08/08/2021 Transcribe Orders Virtual Department [address] [place] [address] Rajat Givens DO [address] [place] [address] [email or web address] Unspecified dislocation of right patella, subsequent encounter (Primary Dx) Social History Tobacco Use Types [...] documented as of this encounter Results * MRI KNEE WITHOUT CONTRAST (RIGHT) (08/27/2021 7:19 AM EST) Anatomical Region Laterality Modality Knee Right Magnetic Resonan ce 08/27/2021 12:4 1 PM EST Impressions 08/27/2021 12:44 PM EST Essentially normal MRI appearance of the knee. POS [id number] Narrative 08/27/2021 12:44 PM EST TECHNIQUE: 1.5 Natasha scanner. Nonenhanced exam. Compare to plain films 08/22/2021. FINDINGS: Collateral and cruciate ligaments intact. No meniscal tear. No marrow edema, cartilage thinning or osteochondral defects. No joint effusion nor popliteal cyst. Distal quadriceps and patellar tendon and retinacula are intact. Procedure Note Pee Mcfarlane MD - 08/27/2021 TECHNIQUE: 1.5 Natasha scanner. Nonenhanced exam. Compare to plain films 08/22/2021. FINDINGS: Collateral and cruciate ligaments intact. No meniscal tear. No marrow edema, cartilage thinning or osteochondral defects. No joint effusion nor popliteal cyst. Distal quadriceps and patellar tendon and retinacula are intact. IMPRESSION: Essentially normal MRI appearance of the knee. POS [id number] us Rajat A Bigda DO IMG MR EXTREMITY Final Result * XR KNEE 4 OR MORE VIEWS (RIGHT) (08/22/2021 3:57 PM EST) Anatomical Region Laterality Modality Knee Right Computed Radiogr aphy 08/22/2021 4:11 PM EST Impressions 08/22/2021 4:12 PM EST No findings to account for pain. Narrative 08/22/2021 4:12 PM EST COMPARISON: 12/09/2013. RIGHT KNEE RADIOGRAPH FINDINGS: 4 images obtained. No acute fracture or malalignment. Joint spaces are preserved. No destructive or suspicious bone lesions. No joint effusion or soft tissue swelling. Procedure Note Jesse Archer MD - 08/22/2021 COMPARISON: 12/09/2013. RIGHT KNEE RADIOGRAPH FINDINGS: 4 images obtained. No acute fracture or malalignment. Joint spaces are preserved. Nodestructive or suspicious bone lesions. No joint effusion or soft tissueswelling. IMPRESSION: No findings to account for pain. us Rajat Givens DO IMG XR LOWER EXTREMITY Final Res ult documented in this encounter Visit Diagnoses Diagnosis Unspecified dislocation of right patella, subsequent encounter- Primary Unspecified dislocation of right patella, subsequent encounter Unspecified dislocation of right patella, subsequent encounter documented in this encounter Additional Health Concerns Infection Onset Date Last Indicated Resolved Time CoV-Risk 07/28/2022 07/28/2022 08/08/2022 1:22 AM EST Influenza 07/28/2022 07/28/2022 08/04/2022 1:22 AM EST CoV-Risk 06/03/2023 06/03/2023 06/14/2023 1:22 AM EST CoV-Risk 10/31/2023 10/31/2023 11/11/2023 1:22 AM EDT documented as of this encounter Care Teams Handle And Vent Machine Operator Relationship Specialty Start Date End Date Rajat Givens DO PCP - General Internal Medicine 12/10/18 Rajat Givens DO Historical LMR Provider 05/07/17 documented as of this encounter Additional Source Comments The information contained in this document represents components of the legal health record. It is not the complete legal health record.[facility]
--- OUTSIDE RECORDS SUMMARY | 2025-04-22 09:39 | XMS_ITS | Encounter Summary ---
Author Organization [facility] Address [address] [facility] [address] [place] [address] Phone Care Team Providers Care Hotel Or Motel Receptionist Name Role Phone Rajat Givens DO Unavailable Rajat Givens DO Primary Care Provider [phone] Encounter Details Date Type Department Care Team (Latest Contact Info) Description 10/19/2022 Transcribe Orders Virtual Department [address] [place] [address] Yodit Canales PA 6 [facility] [place] [address] [place] [address] Family history of cerebral aneurysm (Primary Dx) Social History Tobacco Use Types [...] encounter Visit Diagnoses Diagnosis Family history of cerebral aneurysm- Primary Family history of other cardiovascular diseases documented in this encounter Additional Health Concerns Infection Onset Date Last Indicated Resolved Time CoV-Risk 06/03/2023 06/03/2023 06/14/2023 1:22 AM EST CoV-Risk 10/31/2023 10/31/2023 11/11/2023 1:22 AM EDT documented as of this encounter Care Teams Hotel Or Motel Receptionist Relationship Specialty Start Date End Date [email or web address] PCP - General Internal Medicine 12/10/18 Rajat Givens DO [email or web address] Historical LMR Provider 05/07/17 documented as of this encounter Additional Source Comments The information contained in this document represents components of the legal health record. It is not the complete legal health record.[facility]
--- OUTSIDE RECORDS SUMMARY | 2025-04-22 09:39 | XMS_ITS | Encounter Summary ---
Author Organization [facility] Address [address] [place] [address] Phone Care Team Providers Care Federal Air Marshal Name Role Phone Rajat Givens DO Unavailable Rajat Givens DO Primary Care Provider [phone] Encounter Details Date Type Department Care Team (Late st Contact Info) Description 03/26/2024 Procedure Pass OR Admitting Dept - Virtual Department [address] [place] [address] Social History Tobacco Use Types Packs/Day Years [...] Date of Assessment Author No Risk Indicated 03/26/2024 3:38 PM EDT Antoinette Krishnamurthy RN * [place] Suicide Severity Rating Scale (Screener/Recent Self-Report) Question Answer Date of Assessment Author 1. Wish to be (Past 1 Month) No 03/26/2024 3:38 PM EDT Antoinette Krishnamurthy se, RN 2. Non-Specific Active Suici david Thoughts (Past 1 Month) No 03/26/2024 3:38 PM EDT Hiral Krishnamurthy RN 6. Suicidal Behavior (Lifetime) No 3:38 PM EDT Antoinette Krishnamurthy RN documented as of this encounter Plan of Treatment Not on file documented as of this encounter Visit Diagnoses Not on filedocumented in this encounter Care Teams Federal Air Marshal Relationship Specialty Start Date End Date Rajat Givens DO PCP - General Internal Medicine 12/10/18 Rajat Givens DO [email or web address] Historical LMR Provider 05/07/17 documented as of this encounter Additional Source Comments The information contained in this document represents components of the legal health record. It is not the complete legal health record.[facility]
--- OUTSIDE RECORDS SUMMARY | 2025-04-22 09:39 | XMS_ITS | Encounter Summary ---
Author Organization [facility] Address [address] [place] [address] Phone Care Team Providers Care Learning Support Teacher Name Role Phone Rajat Givens DO Unavailable Mar Voss CNM Unavailable Kimberly Henderson DELIVERY ASSISTANT Unavailable [phone] Maddy Johnson MD Unavailable Carmelo Kellogg MD Unavailable Fina Clement DELIVERY ASSISTANT Unavailable Estiven Alonso MD Unavailable Tatiana Gutierrez DELIVERY ASSISTANT Unavailable Catherine Sloan MD Unavailable [phone] Oscar Braxton MD Unavailable Ramya Mendiola MD Unavailable Vidya Kilgore MD Unavailable [phone] Sena Stuart DELIVERY ASSISTANT Unavailable Rajat Givens DO Primary Care Provider Encounter Details Date Type Department Care Team (Late st Contact Info) Description 08/24/2020 Transcribe Orders Virtual Department [address] [place] [address] Rajat Givens DO [address] [place] [address] [email or web address] Thumb pain, right (Primary Dx) Social History Tobacco Use Types [...] documented as of this encounter Results * XR FINGER 2 OR MORE VIEWS (RIGHT) (09/07/2020 4:02 PM EST) Anatomical Region Laterality Modality Hand Right Computed Radiogr aphy 09/07/2020 4:06 PM EST Impressions 09/07/2020 4:07 PM EST Unremarkable plain film appearance of the thumb POS [id number] Narrative 09/07/2020 4:07 PM EST 3 views. No comparison No fracture or dislocation. No significant arthritic changes. No foreign bodies or soft tissue calcifications. Procedure Note Pee Mcfarlane MD - 09/07/2020 3 views. No comparison No fracture or dislocation. No significant arthritic changes. No foreign bodies or soft tissue calcifications. IMPRESSION: Unremarkable plain film appearance of the thumb POS [email or web address] us Rajat A Bigda DO IMG XR UPPER EXTREMITY Final Res ult documented in this encounter Visit Diagnoses Diagnosis Thumb pain, right- Primary Thumb pain, right documented in this encounter Additional Health Concerns Infection Onset Date Last Indicated Resolved Time CoV-Risk 07/28/2022 07/28/2022 08/08/2022 1:22 AM EST Influenza 07/28/2022 07/28/2022 08/04/2022 1:22 AM EST CoV-Risk 06/03/2023 06/03/2023 06/14/2023 1:22 AM EST CoV-Risk 10/31/2023 10/31/2023 11/11/2023 1:22 AM EDT documented as of this encounter Care Teams Learning Support Teacher Relationship Specialty Start Date End Date Tosha Rajat RameyDO PCP - General Internal Medicine 12/10/18 Rajat Givens DO Historical LMR Provider 05/07/17 Mar Voss CNM [address] [place] [address] Historical LMR Provider 05/07/17 2 Kimberly Henderson DELIVERY ASSISTANT [address] [place] [address] [email or web address] Historical LMR Provider 05/07/17 07/29/21 Maddy Johnson MD [address] [place] [address] Historical LMR Provider 05/07/17 2 Carmelo Kellogg MD [address] [place] [address] Historical LMR Provider 05/07/17 Fina Clement NP [address] [place] [address] [email or web address] Historical LMR Provider 05/07/17 2 Estiven Alonso MD [address] [facility], [address] [place] [address] [email or web address] Historical LMR Provider 05/07/17 07/29/21 Tatiana Gutierrez NP [address] [place] [address] Historical LMR Provider 05/07/17 2 Catherine Sloan MD [address] [place] [address] Historical LMR Provider 05/07/17 2 Oscar Braxton MD [address] [place] [address], [address] [place] [address] [email or web address] Historical LMR Provider 05/07/17 07/29/21 [place] [address] [email or web address] Historical LMR Provider 05/07/17 07/29/21 Vidya Kilgore MD [address] [place] [address] Historical LMR Provider 05/07/17 2 Sena Stuart NP [address] [place] [address] Historical LMR Provider 05/07/17 2 documented as of this encounter Additional Source Comments The information contained in this document represents components of the legal health record. It is not the complete legal health record.[facility]
--- OUTSIDE RECORDS SUMMARY | 2025-04-22 09:39 | XMS_ITS | Encounter Summary ---
Author Organization [facility] Address [address] [facility] [address] [place] [address] Phone Care Team Providers Care Fisher Spear Name Role Phone PopeyeRajat becker Unavailable Rajat Givens Karoline DO Primary Care Provider [phone] Encounter Details Date Type Department Care Team (Late st Contact Info) Description 04/18/2023 Transcribe Orders [facility] Laboratory [address] [place] [address] Rajat Givens DO [address] [facility] [place] [address] [place] [address] Social History Tobacco Use Types Packs/Day Years [...] documented as of this encounter Care Teams Fisher Spear Relationship Specialty Start Date End Date Rajat Givens DO PCP - General Internal Medicine 12/10/18 Rajat Givens DO Historical LMR Provider 05/07/17 documented as of this encounter Additional Source Comments The information contained in this document represents components of the legal health record. It is not the complete legal health record.[facility]
--- OUTSIDE RECORDS SUMMARY | 2025-04-22 09:39 | XMS_ITS | Encounter Summary ---
Author Organization [facility] Address [address] [place] [address] Phone Care Team Providers Care Head Of English Name Role Phone Rajat Givens Unavailable Rajat Givens Primary Care Provider [phone] Encounter Details Date Type Department Care Team (Late st Contact Info) Description 08/08/2021 Procedure Pass [facility], [address] [address] Social History Tobacco Use Types Packs/Day Years [...] documented as of this encounter Care Teams Head Of English Relationship Specialty Start Date End Date PopeyeRajat [email or web address] PCP - General Internal Medicine 12/10/18 Rajat Givens DO [email or web address] Historical LMR Provider 05/07/17 documented as of this encounter Additional Source Comments The information contained in this document represents components of the legal health record. It is not the complete legal health record.[facility]
== END 2025-04-22 08:59 | disposition home or self-care (01) ==
LOC: HO.XRAY 08:58
PROVIDERS: PCP Internal Medicine; Visit Provider Internal Medicine
DX: R10.11 Right upper quadrant pain (principal)
CPT/HCPCS: 74240

== ENCOUNTER → 2025-04-22 09:16 | Outpatient (BNV) | payer OTHER, SELFPAY | PROVIDERS: PCP Internal Medicine; Visit Provider Radiology Diagnostic Radiology | DX: R10.11 Right upper quadrant pain (principal) | CPT/HCPCS: 74240 ==

== ENCOUNTER 2025-04-23 12:01 | Emergency (ER) | payer OTHER, SELFPAY ==
--- NOTE | 2025-04-23 12:16 | ED_ITS ---
HPI - General Adult General Chief complaint: Abdominal Pain Stated complaint: R Side Abdominal Pain Time Seen by Provider: 04/23/25 14:10 History of Present Illness ED Provider: Geronimo Pearce MD HPI narrative: 34-year-old female with history of chronic hypoglycemia and total hysterectomy including ovaries on estrogen supplementation. She comes in with acute on chronic pain mostly in the right flank/right upper quadrant. Some postprandial nausea. No fever or chills no jaundice. She is moving her bowels okay denies dysuria or hematuria reports a kidney stone during Related Data Previous Rx's ?Medication ?Instructions ?Recorded ondansetron 4 mg disintegrating 4 mg PO Q8H 3 days #9 tabs 08/02/23 tablet albuterol sulfate 90 mcg/actuation 2 inh inhalation Q4 -6H PRN 02/10/24 breath activated powder inhaler shortness of breath or wheezing #1 ea doxycycline hyclate 100 mg capsule 100 mg PO BID 10 da ys #20 caps 02/10/24 ondansetron 4 mg disintegrating 4 mg PO Q6H PRN nausea and 02/10/24 tablet vomiting #14 tabs prednisone 20 mg tablet 40 mg (2 x 20 mg) PO DAILY 5 days 02/10/24 #10 tabs methocarbamol 500 mg tablet 500 mg PO TID PRN pain #20 tabs 07/08/24 metronidazole 500 mg tablet 500 mg PO BID 7 days #14 t abs 08/14/24 hyoscyamine sulfate 0.125 mg tablet 0.125 mg PO QID AL N dyspepsia #14 02/05/25 tabs Allergies Allergy/AdvReac Type Severity Reaction Status Date / Time baclofen Allergy Unknown Verified 04/23/25 12:18 naproxen Allergy Unknown Verified 04/23/25 12:18 quetiapine (From Seroquel) Allergy Vomiting Verified 04/23/25 12:18 venlafaxine Allergy Vomiting Verified 04/23/25 12:18 [facility] Past Medical History Medical History (Updated 04/24/25 @ 00:01 by Suhail Pemberton) Depression Surgical History (Updated 02/04/25 @ 23:20 by Vladimir Hart RN) History of hysterectomy Social History Social History Alcohol intake: current Alcohol intake frequency: holidays/special occasions only Alcohol type: beer, wine and hard liquor Smoked in Last 30 Days: No Use of substances other than those prescribed or required for medical reasons: No Advance Directives: No Advance Directives Information Provided: No Patient : No Physical Exam ED Exam Exam: EXAM: Gen: Alert, awake, well appearing, well hydrated. Head: Atraumatic Eyes: Anicteric, Normal conjunctiva. ENT: Moist mucosa, no pallor. ? Neck: Supple. Skin: ?No observable rash or bruising on exposed or examined skin Respiratory: Breathing comfortably, No distress.Clear to auscultation bilaterally, symmetric chest expansion, No wheeze, rales, ronchi. Cardiovascular: Regular rate and rhythm. No murmurs or rub. Well perfused periphery, warm extremities. No edema. ? Abdominal: Mild right upper quadrant tenderness. Soft, no objective distension. No palpable masses or obvious organomegaly. ?No guarding, no rebound tenderness or other peritoneal findings. : No flank tenderness. Neuro: Alert. Gross movement of all extremities intact. ? Psych: Calm. Cooperative. MSK: No grossly visible deformity. Vital signs: See flowsheet Vital Signs: Vital Signs - 24 hr 04/23/25 15:42 Temperature 97.6 F Pulse Rate 84 Respiratory Rate 16 Blood Pressure 111/53 L Pulse Oximetry 99 Oxygen Delivery Method Room Air BMI result Body Mass Index 24.9 Course Course Course Narrative: This is a rapid medical exam performed by Mitch Lockhart NP: Additional HPI, ROS, PE not included below will be deferred to primary provider. Patient is a 34y/o F presenting with complaint of LLQ pain which today began to radiate to her back. Associated nausea and vomiting. Denies urinary symptoms. Has had kidney stone before, states this feels different. Plan: Labs, UA, will defer imaging to primary provider Procedures Procedure Narrative Procedure Narrative: EMERGENCY ULTRASOUND INTERPRETATION- Limited Point of Care Biliary [This study was ordered, performed, and interpreted by myself. The study reveals: Impression: NO EVIDENCE OF ACUTE INFLAMMATION OF THE GALLBLADDER, NO EVIDENCE OF OBSTRUCTIVE BILIARY DISEASE, [Indication: RUQ PAIN Gallbladder: NO WALL THICKENING > 4MM, NO PERICHOLECYSTIC FLUID, NOT GROSSLY DILATED/HYDROPIC. -Additional: WALL MEASUREMENT: CBD MEASURMENT IF OBTAINED: Performed by: Geronimo Pearce MD Images were stored CPT:59283] __ EMERGENCY ULTRASOUND INTERPRETATION-Limited Retroperitoneal (Renal) [This study was ordered, performed, and interpreted by myself. The study reveals: Impression: NO EVIDENCE OF UROLOGIC OBSTRUCTION] [Indication: FLANK PAIN Bladder: ANECHOIC URINE Right Kidney: NO HYDRONEPHROSIS Performed by: Geronimo Pearce MD Images were stored CPT: 48917] Medical Decision Making Medical Decision Making MDM Narrative: Medical Decision Makin-year-old female with history of hysterectomy and kidney stones with right- sided flank/right upper quadrant pain acute on chronic. Awake alert oriented here afebrile looks well. No leukocytosis. Mild tenderness of the flank and upper abdomen but no ultrasonographic findings to suggest urologic obstruction or biliary pathology. Labs are generally reassuring. The patient's pain is reasonably well controlled and appears mostly to be chronic. No lower quadrant tenderness fever or other suggestion of acute appendicitis or acute surgical or gynecologic pathology particularly given the patient has total hysterectomy and ovarian removal. Preliminary Favored Differential Diagnosis: Enteritis, ureteral colic, musculoskeletal trunk pain, biliary pathology, gastritis, PUD among additional considered etiologies Testing Interpreted Independently: ?See below for details Radiology or Lab testing Results Reviewed: ?See below for details Consults: ?See below for details Independent Historians/External Chart Reviews: ?See below for details Social Determinants of Health Impacting MDM/Planning: ?See below for details Lab Data 04/23/25 12:24 04/23/25 12:24 Labs: Lab Results 04/23/25 04/23/25 Range/Units 12:24 14:29 WBC 7.1 (4.8-10.8) X10*3/uL RBC 4.81 (4.20-5.50) X10*6/uL Hgb 13.5 (12.0-16.0) g/dl Hct 40.4 (37.0-47.0) % MCV 84.0 (80.0-98.0) fL MCH 28.1 (27.0-33.0) pg MCHC 33.4 (31.0-35.0) g/dl RDW 12.7 (11.0-16.0) % Plt Count 284 (160-400) X10*3/uL MPV 11.6 (9.4-12.3) fL Immature Gran % (Auto) 0.3 (0.0-0.4) % Neut % (Auto) 58.5 (45-73) % Lymph % (Auto) 29.7 (20-40) % [place] % (Auto) 7.1 (2-11) % Eos % (Auto) 3.1 (0-4) % Baso % (Auto) 1.3 (0-2) % Lymph # (Auto) 2.1 (1.2-4.9) X10*3/uL [place] # (Auto) 0.5 (0.1-1.2) X10*3/uL Eos # (Auto) 0.2 (0.0-0.4) X10*3/uL Baso # (Auto) 0.1 (0.0-0.2) X10*3/uL Abs Immat Gran (auto) 0.02 (0.00-0.03) X10*3/uL Absolute Neuts (auto) 4.1 (2.0-8.3) x10*3/uL Absolute Nucleated RBC 0.000 (0.0-0.012) X10*3/uL Nucleated RBC % (auto) 0.0 (0.0-0.2) /100WBC Sodium 138 (135-145) mmol/L Potassium 4.3 (3.3-5.1) mmol/L Chloride 107 (96-108) mmol/L Carbon Dioxide 28 (22-29) mmol/L Anion Gap 7 L (12-20) BUN 14 (9-16) mg/dL Creatinine 0.79 (0.5-1.4) mg/dL Estim Creat Clear Calc 92.7 Estimated GFR > 60 Random Glucose 90 (60-115) mg/dL Calcium 8.9 (8.4-10.2) mg/dL Total Bilirubin 0.5 (0.0-1.0) mg/dL AST 18 (5-31) U/L ALT 12 (0-31) U/L Alkaline Phosphatase 95 (39-117) U/L Total Protein 7.3 (6.5-8.0) g/dL Albumin 4.5 (3.5-5.0) g/dL Beta HCG, Quant < 2 mIU/mL Urine Color Yellow Urine Appearance Clear Urine pH 7.0 (5.0-9.0) Ur Specific [place] 1.010 (1.005-1.025) Urine Protein Negative (Neg-Trace) mg/dL Urine Glucose (UA) Negative (Negative) mg/dL Urine Ketones Negative (Negative) mg/dL Urine Blood Negative (Negative) Urine Nitrite Negative (Negative) Ur Leukocyte Esterase Trace H (Negative) Urine RBC 0-2 (0-2) /HPF Urine WBC 0-5 (0-5) /HPF Ur Squamous Epith Cells 0-2 (0-2) /HPF Urine Bacteria None Seen (None Seen) Hyaline Casts 0-2 (0-2) /LPF Discharge Plan Discharge Clinical Impression: Calculus of kidney Patient Disposition: Home, Self-Care Instructions: Abdominal Pain (ED) Additional Instructions: _ DISCHARGE DIAGNOSES: Abdominal pain of unclear cause reassuring workup including ultrasound of your gallbladder and right kidney HISTORY OF PRESENTATION: ?Right flank and upper abdominal pain EMERGENCY DEPARTMENT COURSE,TESTS, TREATMENTS: While in the ED today you had a point of care limited ultrasound of your gallbladder and right kidney which were normal. Blood work including blood counts electrolytes kidney function liver function and urinalysis were reassuring DISCHARGE MEDICATIONS: ?[We have made no changes to your regular medication regimen] FOLLOW-UP: ?Call your primary or general physician soon as possible to discuss your symptoms, your ED visit and to discuss follow up plans Call your primary doctor for follow up INSTRUCTIONS ?& RETURN PRECAUTIONS: If any symptoms change first call your primary physician, if it is after-hours your primary doctors office should have a provider regional medical director you can speak with. If the symptoms are severe or very concerning to you then call 911 or return to the ED. Geronimo Pearce MD Emergency Physician [facility] Prescriptions: No Action methocarbamol 500 mg tablet 500 mg PO TID PRN (Reason: pain) Qty: 20 0RF metronidazole 500 mg tablet 500 mg PO BID 7 Days Qty: 14 0RF ondansetron 4 mg tablet,disintegrating 4 mg PO Q8H 3 Days Qty: 9 0RF doxycycline hyclate 100 mg capsule 100 mg PO BID 10 Days Qty: 20 0RF prednisone 20 mg tablet 40 mg PO DAILY 5 Days Qty: 10 0RF albuterol sulfate 90 mcg/actuation aerosol powdr breath activated 2 inh inhalation Q4-6H PRN (Reason: shortness of breath or wheezing) Qty: 1 0RF ondansetron 4 mg tablet,disintegrating 4 mg PO Q6H PRN (Reason: nausea and vomiting) Qty: 14 0RF hyoscyamine sulfate 0.125 mg tablet 0.125 mg PO QID PRN (Reason: dyspepsia) Qty: 14 0RF Interventions: ED Discharge Assessment Last Done: 04/23/25 15:42 Discharge Date/Time: 04/23/25 15:49 Print Language: Maltese
[2025-04-23 12:17] VITALS: BP 111/53; PULSE 84; RESP 16; TEMP 36.4; O2SAT 99; BMI 24.9
[2025-04-23 12:27] LABS: MANUAL DIFF FLAG NO
[2025-04-23 12:28] LABS: Hematocrit 40.4 % (37.0-47.0); Hemoglobin 13.5 g/dl (12.0-16.0); Imm Gran Abs Auto 0.02 X10*3/uL (0.00-0.03); Imm Gran Pct Auto 0.3 % (0.0-0.4); Lymphocytes Absolute Auto 2.1 X10*3/uL (1.2-4.9); Mean Corpuscular HGB Conc 33.4 g/dl (31.0-35.0); Mean Corpuscular Hemoglobin 28.1 pg (27.0-33.0); Mean Corpuscular Volume 84.0 fL (80.0-98.0); NRBC Abs Auto 0.000 X10*3/uL (0.0-0.012); NRBC Pct Auto 0.0 /100WBC (0.0-0.2); Platelet Count 284 X10*3/uL (160-400); Red Blood Count 4.81 X10*6/uL (4.20-5.50); White Blood Count 7.1 X10*3/uL (4.8-10.8)
[2025-04-23 12:49] LABS: Alanine Aminotransferase 12 U/L (0-31); Albumin Level 4.5 g/dL (3.5-5.0); Alkaline Phosphatase 95 U/L (39-117); Anion Gap 7 (12-20); Aspartate Amino Transferase 18 U/L (5-31); Blood Urea Nitrogen 14 mg/dL (9-16); Calcium 8.9 mg/dL (8.4-10.2); Carbon Dioxide 28 mmol/L (22-29); Chloride 107 mmol/L (96-108); Creatinine Clr Calc Pharmacy 92.7; Estimated Glomerular Filt Rate > 60; Potassium 4.3 mmol/L (3.3-5.1); Sodium 138 mmol/L (135-145); Total Protein 7.3 g/dL (6.5-8.0)
--- OUTSIDE RECORDS SUMMARY | 2025-04-23 13:08 | XMS_ITS | Clinical Summary ---
Author Organization [facility] Address [address] [place] [address] Phone Care Team Providers Care Asset Protection Agent Name Role Phone Rajat Givens DO Unavailable Rajat Givens DO Primary Care Provider [phone] Allergies Active Allergy Reactions Criticality Noted Date [...] in 2 weeks to drop off at front end driver or follow up appointment. Hypoglycemia 03/28/2023 Assessment [...] SEE NARRATIVE - 12/26/2023 9:16 [place] [address] Operational Risk Analyst: Amisha Hopkins MD FIRE PROTECTION ENGINEERING TECHNICIAN Cytology Report FINAL DIAGNOSIS A. PAP SMEAR (THIN PREP) CE: SPECIMEN ADEQUACY: Satisfactory for evaluation; transformation zone present. INTERPRETATION: EPITHELIAL CELL ABNORMALITY - SQUAMOUS. Low grade squamous intraepithelial lesion. This specimen was analyzed by the automated ThinPrep Imaging System ([employer] and manually rescreened by a paving rammer and/or pathologist. Electronically Signed Out By: MD [...] 16, 18 and 45. Testing performed by [employer] HR-HPV analysis. Clinical correlation is advised. This HPV test was performed at [facility], [address] [place] [address]. This test has been FDA approved for both SurePath and ThinPrep cervical cytology specimens. The accuracy and precision of this test for all other specimen sources has been verified in the Cytopathology Laboratory of the [facility] and has not been cleared or approved by the U.S. Food and Drug Administration. Clinical correlation is advised. CLINICAL HISTORY Date of Last Menstrual Period: 12-09-2023 Infection History: HPV: 2023 Treatment History: Other: CONCURRENT POLYPECTOMY Other Clinical Conditions: Screening Pap FIRE PROTECTION ENGINEERING TECHNICIAN exam with abnormal findings: CERVICAL POLYP SPECIMEN SOURCE A: PAP SMEAR (THIN PREP) CE Patient Name: JOSE BARRAGAN : 1990 (Age: 33) Sex: F Institution: [facility] Location: [facility] Date of Collection: 12/19/2023 Date of Reported: 12/26/2023 09:16 Results to: Santi Wellington MD us Santi Wellington MD CYTOLOGY ORDERABLES Delmi nadine Result SEE NARRATIVE * (ABNORMAL) Glucose tolerance test, 2 hr (03/18/2023 9:26 AM EDT) FASTING GLUCOSE 69(L) 70 - 95 mg/dL [facility] ONE HR GLUCOSE 116 70 - 180 mg/dL [facility] TWO HR GLUCOSE 117 70 - 155 mg/dL [facility] Comment: PLEASE NOTE THESE RANGES ARE FOR PATIENTS. REFERENCE RANGES, NON- PATIENTS: FASTING GLUCOSE: 70-100 mg/dl 1 HOUR GLUCOSE: 70-200 mg/dl 2 HOUR GLUCOSE: 70-200 mg/dl Blood 03/18/2023 9:26 AM EDT 03/18/2023 11:53 AM EDT us Rajat Givens DO LAB BLOOD ORDERABLES Final Resul t [facility] [address] [place] [address] from Last 3 Months or Most Recently Relevant to Health Maintenance Insurance [employer] NET [employer]IAL [employer] NET PARTIAL Member Subscriber Plan / Payer (Ef fective 2023-Present) Name:Jose Barragan Relation to Subscriber:Self Name:Carla Jose Payer ID:Not on file Group ID:Not on file Type:Medicaid Address: [address] [employer] NET [employer] Member Subscriber Plan / Payer (Ef fective 2023-Present) Name:Jose Barragan Relation to Subscriber:Self Name:Jose Barragan Payer ID:Not on file Group ID:Not on file Type:Medicaid Address: [address] [employer]IAL [facility] Address: [address] [place] [address] [employer] NET PARTIAL Member Subscriber Plan / Payer (Ef fective 2023-Present) Name:Jose Barragan Relation to Subscriber:Self Name:Jose Barragan Payer ID:Not on file Group ID:Not on file Type:Medicaid Address: [address] [facility] Address: [address] [address] [facility] NET PARTIAL Member Subscriber Plan / Payer (Ef fective 2023-Present) Name:Jose Barragan Relation to Subscriber:Self Name:Jose Barragan Payer ID:Not on file Group ID:Not on file Type:Medicaid Address: [address] [employer] NET PARTIAL Member Subscriber Plan / Payer (Ef fective 2023-Present) Name:Jose Barragan Relation to Subscriber:Self Name:Jose Barragan Payer ID:Not on file Group ID:Not on file Type:Medicaid Address: [address] [facility] Address: [facility] [id number] [place] [id number] [facility] NET PARTIAL Member Subscriber Plan / Payer (Ef fective 2023-Present) Name:Jose Barragan Relation to Subscriber:Self Name:Jose Barragan Payer ID:Not on file Group ID:Not on file Type:Medicaid Address: [address] [employer] [facility] Address: [id number] [place] [phone] Advance Directives For more information, please contact: [phone] (9AM - 5PM Martha/[facility] [place], Saturday-Saturday) Documents on File Type Date Recorded Patient Joy Operator Helper Expl anation Healthcare Proxy 03/31/2024 4:11 PM * Full Code (Latest Code Status on File) Date Activated Date Inactivated Comments 03/26/2024 3:05 PM Question Answer Comments Code Status Confirmed With: Patient * Full Code Date Activated Date Inactivated Comments 03/26/2024 9:12 AM 03/26/2024 3:05 PM Question Answer Comments Code Status Confirmed With: Patient Care Teams Asset Protection Agent Relationship Specialty Start Date End Date Rajat Givens DO [email or web address] PCP - General Internal Medicine 12/10/18 Rajat Givens DO [email or web address] Historical LMR Provider 05/07/17 Additional Source Comments The information contained in this document represents components of the legal health record. It is not the complete legal health record.[facility]
--- OUTSIDE RECORDS SUMMARY | 2025-04-23 13:08 | XMS_ITS | Encounter Summary ---
Author Organization [facility] Address [address] [place] [address] Phone Care Team Providers Care Mig Welder Name Role Phone Rajat Givens DO Unavailable Mar Voss CNM Unavailable Kimberly Henderson CAR RENTAL DELIVERER Unavailable [phone] Mdady Johnson MD Unavailable Carmelo Kellogg MD Unavailable Fina Clement CAR RENTAL DELIVERER Unavailable Estiven Alonso MD Unavailable Tatiana Gutierrez CAR RENTAL DELIVERER Unavailable Catherine Sloan MD Unavailable [phone] Oscar Braxton MD Unavailable Ramya Mendiola MD Unavailable Vidya Kilgore MD Unavailable [phone] Sena Stuart CAR RENTAL DELIVERER Unavailable Rajat Givens DO Primary Care Provider [phone] Reason for Referral * MRI/CAT Scan - Closed Specialty Diagnoses / Procedures Referred By Niko t Referred To Contact Radiology Diagnoses Right lower quadrant pain Procedures CT Abdomen/Pelvis Ageuda October, PA-C Phone: tel: fax: Referral ID Status Reason Start Date Expiration Date Visits Re quested Visits Authorized [id number] Closed 12/10/2018 12/10/2019 1 1 Encounter Details Date Type Department Care Team (Latest Contact Info) Description 12/10/2018 Transcribe Orders Virtual Department [address] [place] [address] Edita Romeo PA-C [address] [place] [address] Right lower quadrant pain (Primary Dx) Social [...] documented as of this encounter Care Teams Mig Welder Relationship Specialty Start Date End Date Rajat Givens DO [email or web address] PCP - General Internal Medicine 12/10/18 Rajat Givens DO [email or web address] Historical LMR Provider 05/07/17 Mar Voss CNM [address] [place] [address] Historical LMR Provider 05/07/17 2 Kimberly Henderson NP [address] [place] [address] [email or web address] Historical LMR Provider 05/07/17 07/29/21 Maddy Johnson MD [address] [place] [address] Historical LMR Provider 05/07/17 2 Carmelo Kellogg MD [address] [place] [address] Historical LMR Provider 05/07/17 Fina Clement NP [address] [place] [address] [email or web address] Historical LMR Provider 05/07/17 2 Estiven Alonso MD 22 [facility], [address] [place] [address] [email or web address] Historical LMR Provider 05/07/17 07/29/21 Tatiana Gutierrez NP [address] [place] [address] Historical LMR Provider 05/07/17 2 Catherine Sloan MD [address] [address] Historical LMR Provider 05/07/17 2 Oscar Braxton MD 22 [facility], [address] [address] [email or web address] Historical LMR Provider 05/07/17 07/29/21 [place] [address] [email or web address] Historical LMR Provider 05/07/17 07/29/21 Vidya Kilgore MD [address] [place] [id number] Historical LMR Provider 05/07/17 2 Sena Stuart NP [address] [place] [address] Historical LMR Provider 05/07/17 2 documented as of this encounter Additional Source Comments The information contained in this document represents components of the legal health record. It is not the complete legal health record.[facility]
--- OUTSIDE RECORDS SUMMARY | 2025-04-23 13:08 | XMS_ITS | Encounter Summary ---
Author Organization [facility] Address [address] [place] [address] [place] [address] Phone Care Team Providers Care Technical Services Coordinator Name Role Phone Rajat Givens DO Unavailable Rajat Givens DO Primary Care Provider [phone] Encounter Details Date Type Department Care Team (Latest Contact Info) Description 10/19/2022 Transcribe Orders Virtual Department [address] [place] [address] Yodit Canales PA 6 [facility] [place] [address] [place] [address] Family history of cerebral aneurysm (Primary Dx) [...] documented as of this encounter Care Teams Technical Services Coordinator Relationship Specialty Start Date End Date PopeyeRajat [email or web address] [email or web address] PCP - General Internal Medicine 12/10/18 Rajat Givens DO [email or web address] Historical LMR Provider 05/07/17 documented as of this encounter Additional Source Comments The information contained in this document represents components of the legal health record. It is not the complete legal health record.[facility]
--- OUTSIDE RECORDS SUMMARY | 2025-04-23 13:08 | XMS_ITS | Encounter Summary ---
Author Organization [facility] Address [address] [place] [address] Phone Care Team Providers Care Lockstitch Front Edge Tape Sewer Name Role Phone Rajat Givens DO Unavailable Mar Voss CNM Unavailable Kimberly Henderson RUNNER OUT Unavailable [phone] Maddy Johnson MD Unavailable Carmelo Kellogg MD Unavailable Fina Clement RUNNER OUT Unavailable Estiven Alonso MD Unavailable Tatiana Gutierrez RUNNER OUT Unavailable Catherine Sloan MD Unavailable [phone] Oscar Braxton MD Unavailable Ramya Mendiola MD Unavailable Vidya Kilgore MD Unavailable [phone] Sena [place] RUNNER OUT Unavailable Rajat Givens DO Primary Care Provider Encounter Details Date Type Department Care Team (Latest Contact Info) Description 02/09/2019 Transcribe Orders Virtual Department [address] [place] [address] Edita Romeo PA-C [address] [place] [address] Nausea and vomiting, intractability of vomiting not [...] Upper GI series 01/13/2013. BARIUM SWALLOW FINDINGS: [employer] Assembler lateral neck radiograph was obtained. Bones and [...] Upper GI series 01/13/2013. BARIUM SWALLOW FINDINGS: [employer] Assembler lateral neck radiograph was obtained. Bones and [...] documented as of this encounter Care Teams Lockstitch Front Edge Tape Sewer Relationship Specialty Start Date End Date Rajat Givens DO PCP - General Internal Medicine 12/10/18 Rajat Givens DO Historical LMR Provider 05/07/17 Mar Voss CNM [address] [place] [address] Historical LMR Provider 05/07/17 2 Kimberly Henderson NP [address] [place] [address] Historical LMR Provider 05/07/17 07/29/21 Maddy Johnson MD [address] [place] [address] Historical LMR Provider 05/07/17 2 Carmelo Kellogg MD [address] [place] [address] Historical LMR Provider 05/07/17 Fina Clement NP [address] [place] [address] [email or web address] Historical LMR Provider 05/07/17 2 Estiven Alonso MD [address] [place] [address], [place] [place] [address] [email or web address] Historical LMR Provider 05/07/17 07/29/21 Tatiana Gutierrez NP [address] [place] [address] Historical LMR Provider 05/07/17 2 Catherine Sloan MD [address] [place] [address] Historical LMR Provider 05/07/17 2 Oscar Braxton MD [address] [place] [address], [address] [place] [address] [email or web address] Historical LMR Provider 05/07/17 07/29/21 [place] [address] [email or web address] Historical LMR Provider 05/07/17 07/29/21 Vidya Kilgore [facility] [place] [address] Historical LMR Provider 05/07/17 2 Sena [place] NP [address] [place] [address] Historical LMR Provider 05/07/17 2 documented as of this encounter Additional Source Comments The information contained in this document represents components of the legal health record. It is not the complete legal health record.[facility]
--- OUTSIDE RECORDS SUMMARY | 2025-04-23 13:08 | XMS_ITS | Encounter Summary ---
Author Organization [facility] Address [address] [place] [address] Phone Care Team Providers Care Plate Preparer Name Role Phone Rajat Givens DO Unavailable Rajat Givens DO Primary Care Provider [phone] Encounter Details Date Type Department Care Team (Late st Contact Info) Description 03/26/2024 Procedure Pass OR Admitting Dept - Virtual Department [address] [place] [address] Social History Tobacco Use Types Packs/Day Years [...] 3:38 PM EDT Antoinette Krishnamurthy RN * [place] Suicide Severity Rating Scale (Screener/Recent Self-Report) Question [...] on filedocumented in this encounter Care Teams Plate Preparer Relationship Specialty Start Date End Date Rajat Givens DO PCP - General Internal Medicine 12/10/18 Rajat Givens DO Historical LMR Provider 05/07/17 documented as of this encounter Additional Source Comments The information contained in this document represents components of the legal health record. It is not the complete legal health record.[facility]
--- OUTSIDE RECORDS SUMMARY | 2025-04-23 13:08 | XMS_ITS | Encounter Summary ---
Author Organization [facility] Address [address] [place] [address] Phone Care Team Providers Care Cook Barbecue Name Role Phone Rajat Givens DO Unavailable Rajat Givens DO Primary Care Provider [phone] Encounter Details Date Type Department Care Team (Late st Contact Info) Description 05/27/2024 Procedure Pass [address] [place] [address] Social History Tobacco Use Types Packs/Day Years [...] on filedocumented in this encounter Care Teams Cook Barbecue Relationship Specialty Start Date End Date Rajat Givens DO PCP - General Internal Medicine 12/10/18 Rajat Givens DO Historical LMR Provider 05/07/17 documented as of this encounter Additional Source Comments The information contained in this document represents components of the legal health record. It is not the complete legal health record.[facility]
--- OUTSIDE RECORDS SUMMARY | 2025-04-23 13:08 | XMS_ITS | Encounter Summary ---
Author Organization [facility] Address [address] [place] [address] [place] [address] Phone Care Team Providers Care Nurse Informatics Educator Name Role Phone Rajat Givens DO Unavailable Rajat Givens DO Primary Care Provider [phone] Encounter Details Date Type Department Care Team (Late st Contact Info) Description 06/14/2022 Procedure Pass [facility], Ct Scan - [address] [address] Social History Tobacco Use Types Packs/Day Years [...] 06/14/2022 12:29 PM Melinda Herrera RN * [place] Suicide Severity Rating Scale (Screener/Recent Self-Report) Question [...] documented as of this encounter Care Teams Nurse Informatics Educator Relationship Specialty Start Date End Date Rajat Givens DO PCP - General Internal Medicine 12/10/18 Rajat Givens DO Historical LMR Provider 05/07/17 documented as of this encounter Additional Source Comments The information contained in this document represents components of the legal health record. It is not the complete legal health record.[facility]
--- OUTSIDE RECORDS SUMMARY | 2025-04-23 13:08 | XMS_ITS | Encounter Summary ---
Author Organization [facility] Address [address] [facility] [address] [place] [address] Phone Care Team Providers Care Nozzle Operator Name Role Phone PopeyeRajat becker Unavailable Rajat Givens Karoline DO Primary Care Provider [phone] Encounter Details Date Type Department Care Team (Late st Contact Info) Description 04/18/2023 Transcribe Orders [facility] [address] [place] [address] Rajat Givens DO [address] [facility] [address] [place] [address] [email or web address] Social History Tobacco Use Types Packs/Day Years [...] documented as of this encounter Care Teams Nozzle Operator Relationship Specialty Start Date End Date Rajat Givens DO [email or web address] PCP - General Internal Medicine 12/10/18 Rajat Givens DO [email or web address] Historical LMR Provider 05/07/17 documented as of this encounter Additional Source Comments The information contained in this document represents components of the legal health record. It is not the complete legal health record.[facility]
--- OUTSIDE RECORDS SUMMARY | 2025-04-23 13:08 | XMS_ITS | Encounter Summary ---
Author Organization [facility] Address [address] [place] [address] [place] [address] Phone Care Team Providers Care Lock Technician Name Role Phone Rajat Givens DO Unavailable Rajat Givens DO Primary Care Provider Encounter Details Date Type Department Care Team (Late st Contact Info) Description 01/13/2023 Procedure Pass [facility], Ct Scan - [address] [address] Social History Tobacco Use Types Packs/Day Years [...] 4:56 PM EDT Terrie Shields RN * [place] Suicide Severity Rating Scale (Screener/Recent Self-Report) Question [...] documented as of this encounter Care Teams Lock Technician Relationship Specialty Start Date End Date Rajat Givens DO PCP - General Internal Medicine 12/10/18 Rajat Givens DO [email or web address] Historical LMR Provider 05/07/17 documented as of this encounter Additional Source Comments The information contained in this document represents components of the legal health record. It is not the complete legal health record.[facility]
--- OUTSIDE RECORDS SUMMARY | 2025-04-23 13:08 | XMS_ITS | Encounter Summary ---
Author Organization [facility] Address [address] [place] [address] [place] [address] Phone Care Team Providers Care Windows Software Engineer Name Role Phone Rajat Givens DO Unavailable Rajat Givens DO Primary Care Provider [phone] Encounter Details Date Type Department Care Team (Latest Contact Info) Description 2022 Transcribe Orders Virtual Department [address] [place] [address] Yodit Canales PA [address] [facility] [place] [address] [place] [address] Family history of ischemic heart disease and [...] documented as of this encounter Care Teams Windows Software Engineer Relationship Specialty Start Date End Date Rajat Givens DO [email or web address] PCP - General Internal Medicine 12/10/18 Rajat Givens DO [email or web address] Historical LMR Provider 05/07/17 documented as of this encounter Additional Source Comments The information contained in this document represents components of the legal health record. It is not the complete legal health record.[facility]
--- OUTSIDE RECORDS SUMMARY | 2025-04-23 13:09 | XMS_ITS | Encounter Summary ---
Author Organization [facility] Address [address] [place] [address] Phone Care Team Providers Care Double Cut Off Saw Operator Name Role Phone Rajat Givens DO Unavailable Mar Voss CNM Unavailable Kimberly Henderson FILTER ASSEMBLER Unavailable [phone] Maddy Johnson MD Unavailable Carmelo Kellogg MD Unavailable Fina Clement FILTER ASSEMBLER Unavailable Estiven Alonso MD Unavailable Tatiana Gutierrez FILTER ASSEMBLER Unavailable Catherine Sloan MD Unavailable [phone] Oscar Braxton MD Unavailable Ramya Mendiola MD Unavailable Vidya Kilgore MD Unavailable [phone] Sena [place] FILTER ASSEMBLER Unavailable Rajat Givens DO Primary Care Provider Encounter Details Date Type Department Care Team (Late st Contact Info) Description 08/24/2020 Transcribe Orders Virtual Department [address] [place] [address] Rajat Givens DO [address] [facility] [place] [address] [email or web address] Thumb pain, right (Primary Dx) Social History [...] documented as of this encounter Care Teams Double Cut Off Saw Operator Relationship Specialty Start Date End Date Tosha Rajat RameyDO PCP - General Internal Medicine 12/10/18 Rajat Givens DO Historical LMR Provider 05/07/17 Mar Voss CNM [address] [place] [address] Historical LMR Provider 05/07/17 2 Kimberly Henderson FILTER ASSEMBLER [address] [place] [address] [email or web address] Historical LMR Provider 05/07/17 07/29/21 Maddy [place] MD [address] [place] [address] Historical LMR Provider 05/07/17 2 Carmelo Kellogg MD [address] [place] [address] Historical LMR Provider 05/07/17 Fina Clement NP [address] [place] [address] [email or web address] Historical LMR Provider 05/07/17 2 Estiven Alonso MD [address] [facility], [address]nd [place] [address] [email or web address] Historical LMR Provider 05/07/17 07/29/21 Tatiana Gutierrez NP [address] [place] [address] Historical LMR Provider 05/07/17 2 Catherine Sloan MD [address] [place] [address] Historical LMR Provider 05/07/17 2 Oscar Braxton MD [address] [place] [address], [address] [place] [address] [email or web address] Historical LMR Provider 05/07/17 07/29/21 [place] [address] [email or web address] Historical LMR Provider 05/07/17 07/29/21 Vidya Kilgore MD [address] [place] [address] Historical LMR Provider 05/07/17 2 Sena [place] NP [address] [place] [address] Historical LMR Provider 05/07/17 2 documented as of this encounter Additional Source Comments The information contained in this document represents components of the legal health record. It is not the complete legal health record.[facility]
--- OUTSIDE RECORDS SUMMARY | 2025-04-23 13:09 | XMS_ITS | Encounter Summary ---
Author Organization [facility] Address [address] [place] [address] Phone Care Team Providers Care Embedded Linux Engineer Name Role Phone Rajat Givens Unavailable Rajat Givens Primary Care Provider [phone] Encounter Details Date Type Department Care Team (Late st Contact Info) Description 08/08/2021 Procedure Pass [facility], [address] [address] Social History Tobacco Use Types Packs/Day Years [...] documented as of this encounter Care Teams Embedded Linux Engineer Relationship Specialty Start Date End Date PopeyeRajat [email or web address] PCP - General Internal Medicine 12/10/18 Rajat Givens DO [email or web address] Historical LMR Provider 05/07/17 documented as of this encounter Additional Source Comments The information contained in this document represents components of the legal health record. It is not the complete legal health record.[facility]
--- OUTSIDE RECORDS SUMMARY | 2025-04-23 13:09 | XMS_ITS | Encounter Summary ---
Author Organization [facility] Address [address] [place] [address] Phone Care Team Providers Care Production Tester Name Role Phone Rajat Givens DO Unavailable Rajat Givens DO Primary Care Provider [phone] Reason for Referral * MRI/CAT Scan - Closed Specialty Diagnoses / Procedures Referred By Niko thorne Referred To Contact Radiology Diagnoses Unspecified dislocation of right patella, subsequent encounter Procedures MRI Knee (Right) Rajat Givens DO Phone: tel: fax: mailto:[email or web address] Referral ID Status Reason Start Date Expiration Date Visits Re quested Visits Authorized [id number] Closed 08/08/2021 08/08/2022 1 1 Encounter Details Date Type Department Care Team (Late st Contact Info) Description 08/08/2021 Transcribe Orders Virtual Department [address] [place] [address] Rajat Givens DO [address] [place] [address] [email or web address] Unspecified dislocation of right patella, subsequent encounter [...] documented as of this encounter Care Teams Production Tester Relationship Specialty Start Date End Date Rajat Givens DO PCP - General Internal Medicine 12/10/18 Rajat Givens DO Historical LMR Provider 05/07/17 documented as of this encounter Additional Source Comments The information contained in this document represents components of the legal health record. It is not the complete legal health record.[facility]
--- OUTSIDE RECORDS SUMMARY | 2025-04-23 13:09 | XMS_ITS | Data Portability ---
Author Organization [facility], Telehealth Patient Home Address [address] [place] [address] Assessment Encounter Date Assessment Date Assessment LastModified by Organization Details LastModified Time 02/12/2024 02/12/2024 Patient agreed and verbally consents to this audio and video Telehealth appt via a secure platform [email or web address] Not available 02/12/2024 14:04:33 10/05/2024 10/05/2024 [id number] [place] [id number] ([employer]) MDM MODERATE MUST MEET 2 OUT OF [...] THAT IS COVERED Not available 10/05/2024 16:15:22 04/14/2025 04/14/2025 [id number] [place] [id number] ([employer]) MDM MODERATE MUST MEET 2 OUT OF [...] EACH ELEMENT THAT IS COVERED Not available 04/14/2025 11:03:53 Plan of Treatment Reminders Order Date Submit Date Provider Last Modified By Organization Details Last Modified Time Details Appointments None recorded. Lab CBC w/ auto diff 2023 024 [facility], [address] [place] [address], [address], 4 12:16:00 iron + TIBC + ferritin, serum 2023 024 [facility], [address] [place] [address], [address], 4 12:16:00 Referral None recorded. Procedures None recorded. Surgeries None recorded. Imaging NM, hepatobili jignesh scan 2024 025 [facility] (Imaging), [address] [place], [address], 5 16:09:24 RF, upper gastrointe stinal tract, w/ contrast PO 2024 025 [facility] (Imaging), [address] [place], [address], 5 08:19:42 XR, thoracic spine, 2 view 2024 025 [facility] Central Scheduling, [address] [place], [address], 5 08:10:39 XR, lumbar spine, 2 view 2024 025 [facility] Central Scheduling, [address] [place], [address], 5 08:10:38 Medication Orders Rexulti 1 mg tablet 2023 024 [facility]/Pharmacy #2024, [address] [place], [address], 4 09:52:05 baclofen 20 mg tablet 2023 025 [facility]Pharmacy #2024, [address] [place], [address], 5 15:52:37 tramadol 50 mg tablet 2023 024 [facility]Pharmacy #2024, [address] [place], [address], 4 09:58:39 Rexulti 1 mg tablet 2023 024 [facility]Pharmacy #2024, [address] [place], [address], 4 12:49:02 topiramate 25 mg tablet 2023 024 [facility]Pharmacy #2024, [address] [place], [address], 4 14:45:48 sumatripta n 25 mg tablet 2023 024 [facility]Pharmacy #2024, [address] [place], [address], 4 14:45:48 albuterol sulfate HFA 90 mcg/actuat ion aerosol inhaler 2023 024 [facility]armacy #2024, [address] [place], [address], 4 14:05:07 prednisone 10 mg tablet 2023 024 [facility]armacy #2024, [address] [place] [address], [address], 4 14:30:30 levofloxac in 500 mg tablet 2023 024 [facility]2024, [address] [place], [address], 14:32:26 codeine 10 mg-guaifen esin 100 mg/5 mL oral liquid 2023 024 [facility] #5, [address] [place], [address], 14:30:49 Patient TargetsNo targets recorded. Patient Instructions Encounter Date Encounter Id Patient Instructions Last Modified By Organization Details Last Modified Time 10/05/2024 [id number] healthy upper back: exercises Not available 10/05/2024 16:17:03 back care and preventing injuries: care instructions Not available 10/05/2024 16:17:03 getting back to normal after low back pain: care instructions Not available 10/05/2024 16:17:03 learning about relief for back pain Not available 10/05/2024 16:17:03 Reason for Referral None Reported. Results Created Date Observation Date Name Description Value Unit Range Abnormal Flag Note LastModifiedBy Organization Detail LastModifiedTime 02/10/2002/10/2024 CT, angio gram, abdom en + pelvi s, w/ contr ast No observ ation record ed. [facility] (Medical Records) [address] [place], [address], 02/10/2024 11:59:48 02/10/2002/10/2024 US, pelvi c wall No observ ation record ed. [address] (Medical Records) [address] [place], [address], 02/10/2024 12:01:39 02/10/20 24 02/10/2024 US, pelvi s, trans abdom inal + trans vagin al No observ ation record ed. [address] (Medical Records) [address] [place], [address], 02/10/2024 12:02:55 07/08/20 24 07/08/2024 XR, chest , 2 view No observ ation record ed. [address] (Medical Records) [address] [facility], [address], 10/05/2024 16:05:22 11/05/19 25 11/02/2024 XR, lumba r spine , 2 view No observ ation record ed. [address] (Medical Records) 575 [facility] [place], [address], 04/14/2025 11:06:15 11/05/19 25 11/02/2024 XR, thora cic spine , 2 view No observ ation record ed. [address] (Medical Records) [address] [place], [address], 04/14/2025 11:06:15 02/06/20 25 02/04/2025 CT, abdom en + pelvi s, w/ contr ast No observ ation record ed. [address] (Medical Records) [address] [place], [address], 04/14/2025 11:06:15 04/23/20 25 04/22/2025 RF, upper gastr ointe trudy l tract , w/ contr ast PO No observ ation record ed. [facility] (Medical Records) [address] [place], [address], 04/23/2025 07:01:55 Result Notes None recorded. Problems Name Problem SNOMED Code Status Onset Date Resolution Date Notes Provider Name and Address Organization Details Recorded Time Asthma 108721189 Active 2018 only when sick [facility] 5 14:39:13 Anxiety 76876664 Active 2018 ?bipol ar d/o [facility] 03/14/202 5 14:39:14 Allergic rhinitis 48838114 Active 2018 Nisreen jin, [facility] 5 14:39:14 Costal chondriti s 83474988 Active 2018 [facility] 5 14:39:14 Herpes labialis 3114761 Active 2018 [facility] 5 14:38:55 Chronic pelvic pain of female 709435919 Active 2018 Nisreen jin, [facility] 5 14:39:13 Anemia 263228553 Active 2018 [facility] 5 14:39:14 Chronic depressio n 300406457 Active 2018 [facility] 5 14:39:13 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 534740286 Active 2021 Not Available [facility] 2 00:31:34 Acute pharyngit is 749747448 Active 2021 [facility] 5 14:38:55 Fatigue 94925340 Active 2021 [facility] 5 14:38:55 Acute severe exacerbat ion of asthma 490579913 Active 2021 Nisreen jin [facility] 5 14:38:55 COVID-19 207949956 Active 2021 [facility] 5 14:38:55 Acute sinusitis 81587314 Active 2021 Nisreen jin [facility] 5 14:38:55 Colitis 78794193 Active 2021 Nisreen jin [facility] 5 14:39:13 Cyst of ovary 45614164 Active 2021 Nisreen jin [facility] 5 14:39:13 Hemorrhag ic cyst of ovary 466534186 Active 2021 Nisreen Patel null, [facility] 5 14:39:13 Influenza 8902395 Active 2022 Nisreenjaneth Patel null, [facility] 5 14:38:55 Substance abuse 96783129 Active 2022 Nisreen Patel null, [facility] 5 14:39:13 Acute urinary tract infection 117096965 Active 2022 Rajat Givens, DO [address] [facility], [place], [address], [facility] 15:06:50 Anxiety disorder 848561472 Active 2022 Nisreen Patel null, [facility] 14:39:13 Nausea 531933034 Active 2022 Nisreen Patel null, [facility] 5 14:38:55 Dysmenorr hea 704064325 Active 2022 Nisreen Patel null, [facility] 5 14:39:13 Right lower quadrant pain 136690940 Active 2022 Nisreen Patel null, [facility] 5 14:38:55 Hyperglyc emia 90703538 Active 2022 Nisreen Patel null, [facility] 5 14:39:13 Infection of toe 056554120 Active 2022 Nisreen Patel null, [facility] 5 14:38:55 Celluliti s 593183611 Active 2022 Nisreen Patel null, [facility] 5 14:38:55 Random blood glucose outside reference range 042924538 Active 2022 Nisreen Patel null, [facility] 5 14:39:13 Hypoglyce tosin 457222344 Active 2022 Nisreen Patel null, [facility] 5 14:39:13 Acute bronchiti s 34528564 Active 2022 Nisreenjaneth Patel null, [facility] 5 14:38:55 Cough 54876625 Active 2023 Nisreenjaneth Patel null, [facility] 5 14:38:55 Patellofe moral syndrome of right knee 865064358695 9103 Active 2023 Nisreenjaneth Patel null, [facility] 5 14:39:13 Atypical chest pain 913272485 Active 2023 Nisreenjaneth Patel null, [facility] 14:38:55 Pneumonia 913603597 Active 2023 Nsireenjaneth Patel null, [facility] 5 14:38:55 Migraine 15598872 Active 2023 Nisreenjaneth Patel null, [facility] 5 14:39:13 Moderate recurrent major depressio n 51504685 Active 2023 Nisreenjaneth Patel null, [facility] 5 14:39:13 Low back pain 537454828 Active 2024 Nisreenjaneth Patel null, [facility] 5 14:38:55 Thoracic back pain 041882582 Active 2024 Rajat Givens, [address] [place] [address], [address], [facility] 5 16:16:49 Aphthous ulcer of mouth 549383498 Active 2024 Rajat Givens, DO [address] [place] [address], [address], [facility] 5 17:59:07 Right upper quadrant pain 701528960 Active 2024 Rajat Givens, DO [address] [place] [address], [address], [facility] 5 11:04:18 Problem Notes None recorded. Procedures Surgical History Date Name Laterality Status Provider Name and Address Organization Details Recorded Time 03/27/20 23 Colonoscopy completed Stefan Givens [facility] 03/27/2023 16:16:35 07/22/19 19 total excision of bilateral fallopian tubes completed Edita [facility] [address] [place], [address], [facility] 12/10/2018 10:45:16 01/20/20 12 Date of Last Pap Smear completed [facility] 12/10/2018 08:37:46 06/21/20 09 removal of ovarian cyst completed [facility] 12/10/2018 10:42:36 Knee Surgery completed Edita [address], [address], [facility] 12/10/2018 10:44:33 extraction of wisdom tooth completed [facility] 12/10/2018 10:41:45 Imaging Results None recorded. Procedure Notes None recorded. Medical Equipment None Reported. Allergies Allergen ID Allergen Name Allergen Category Reaction Reaction Severity Criticality Documentation Date Start Date Code Code System Note Provider Name and Address Organization Details Recorded Time 3089 Seroquel medicatio n dizziness Not available Not available 12/10/2018 79259 RxNorm [facility] 9 08:26:52 3090 naproxen medicatio n Not available Not available Not available 12/10/2018 7258 RxNorm bad dream s [facility] 9 08:27:07 3092 sertralin e medicatio n nausea Not available Not available 12/10/2018 81203 RxNorm migra delaney [facility] 9 10:33:54 3506 escitalop allie Not available Not available Not available Not available 04/06/2019 81011 8 RxNorm suici david ideat ion October [facility] [address] [place], [address], [facility] 9 16:30:07 8610 venlafaxi ne medicatio n other Not available Not available 07/07/2024 90228 RxNorm BRAD PRAKASH [address] [place], [address], [facility] - [facility] 4 09:50:18 Medications Name Sig Start Date Stop Date Status Note LastModified by Organization Details LastModified Time Prescript ion - Prior Authoriza tion Request active Not Available Not Available Not Available methocarb ward 500 mg tablet active Not Available Not Available No t Available bupropion HCl SR 150 mg tablet,12 hr sustained -release TAKE 2 TABLETS BY MOUTH IN THE MORNING AND 1 TABLET IN THE EVENING active Not Available Not Available No t Available cefprozil 500 mg tablet Take 1 tablet every 24 hours by oral route for 7 days. 06/29 completed Not Available Not Available Not Available prednison e 10 mg tablet 5 tabs x 3 days4 tabs x 3 days3 tabs x 3 days2 tabs x 3 days1 tab x 3 days active Not Available Not Available No t Available doxycycli ne hyclate 100 mg capsule Take 1 capsule twice a day by oral route for 7 days. 02/11 completed Not Available Not Available Not [...] Available valacyclo vir 1 gram tablet TAKE 1 TABLET BY MOUTH TWICE A DAY FOR 7 DAYS active Not Available Not Available No [...] AFTER AN HOUR; MAX DOSE 200 MG 2024 active Not Available Not Available Not Avai [...] oxazole 800 mg-trimet hoprim 160 mg tablet Take 1 tablet every 12 hours by oral route for 5 days. 03/17 completed Not Available Not Available Not Available [...] Available Not Available baclofen 20 mg tablet Take 1 tablet 3 times a day by oral route as needed for 14 days. 10/05 completed Not Available Not Available Not [...] completed Not Available Not Available Not Available hyoscyami ne sulfate 0.125 mg tablet Take 1 tablet every 6 hours by oral route for 7 days. 03/19 completed Not Available Not Available Not Available [...] Not Available Not Available Not Available lidocaine HCl 2 % mucosal solution TAKE 15 ML EVERY 3 HOURS BY ORAL ROUTE NEEDED, FOR ORAL ULCER. active Not Available Not Available No t Available iron 325 mg tablet Take 1 [...] in Arterial blood by Pulse oximetry Systolic And Diastolic Provider Name and Address Organization Details Last Updated DateTime 5 157.48 cm 26.6 kg/m2 67501.9 7 g 95 /min 90 % 90 % 112/74 mm[Hg] Nisreen Paetl [facility] 5 16:01:07 Date Recorded Body height Body mass index (BMI) Body weight Heart rate Oxygen saturation Oxygen saturation in Arterial blood by Pulse oximetry Systolic And Diastolic Provider Name and Address Organization Details Last Updated DateTime 4 157.48 cm 26.1 kg/m2 15140.9 1 g 86 /min 98 % 98 % 106/64 mm[Hg] Nisreen Patel [facility] 4 14:18:50 Date Recorded Body height Body mass index (BMI) Body weight Heart rate Oxygen saturation Oxygen saturation in Arterial blood by Pulse oximetry Systolic And Diastolic Provider Name and Address Organization Details Last Updated DateTime 4 157.48 cm 26 kg/m2 60636.1 2 g 82 /min 98 % 98 % 100/62 mm[Hg] Olivia Stacy [facility] 4 09:37:25 Social History Question Answer Notes LastModified by Organizat ion Details LastModified Time Tobacco Smoking Status Never Smoker Not Available [facility] 05/24/2020 03:36:24 What Was The Date Of Your Most Recent Tobacco Screening? 10/05/2024 [email or web address] Information not available 10/05/2024 Sex: Unknown Functional Status Question Answer Note LastModified by Organization D etails LastModified Time Do you or have you ever used any other forms of tobacco or nicotine? No Information not available 01/15/2023 Mental Status None recorded. Family History Relationship Description Onset Age of this Age Resolved Age Notes LastModified by Organization Details LastModified Time Paternal Grandfather Harmful pattern of use of alcohol sbucko Not available 2018 15:53:09 Paternal Grandfather [...] abuse sbucko Not available 2018 15:53:09 Father Harmful pattern of use of alcohol sbucko Not available 2018 15:53:09 Maternal Grandfather Diabetes mellitus sbucko Not available 2018 15:53:09 Medical History Condition Response Coronary Artery Disease N Other Y Gout N Blood Diseases N Kidney Stones Y Breast Cancer N Blood Transfusion N Lung Disease N Depression Y COPD [...] PF, 0.5 mL 1 completed Not Available [facility] 07/29/2022 05:47:18 Tdap 1 completed Not Available [facility] 07/29/2022 05:47:18 Hep B, adult 9 completed Not Available [facility] 07/29/2022 05:47:18 MMR 9 completed Not Available [facility] 07/29/2022 05:47:18 Influenza, split virus, quadrivalent, preservative 9 completed Not Available [facility] 07/29/2022 05:47:18 Influenza, split virus, quadrivalent, preservative 9 completed Not Available [facility] 07/29/2022 05:47:18 MMR 9 completed Not Available [facility] 07/29/2022 05:47:18 MMR 9 completed Not Available [facility] 07/29/2022 05:47:18 Hep B, adult 9 completed Not Available [facility] 07/29/2022 05:47:18 Past Encounters Encounter ID Performer Location Encounter Start Date Encounter Closed Date Diagnosis/Indication Diagnosis SNOMED-CT Code Diagnosis ICD10 Code Diagnosis IMO Codes Diagnosis Note [id number] DO [facility] [address] [facility],[place] [address] 12/10/2018 10:13:25 12/10/2018 11:15:43 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 will rx flector patch Chronic depression 25688 0009 F34.1 stable on citalopram Herpes labialis 3619522 B00.1 Asthma 386682126 J45.90 9 quiet Right lowe r quadrant pain 946214700 R10.31 pending labs or worsening of sx may need to go to ER - pt understood Rajat Givens [facility] [address] [facility],[place] [address] 12/12/2018 13:47:05 12/12/2018 14:20:43 Right lower quadrant pain 041942663 R10.31 pending labs or worsening of sx may need to go to ER - pt understood Asthma 421287140 J45.90 9 quiet Anemia 472044406 D64.9 has f/u labs ordered [id number] Rajat Givens [facility] [address] [facility],[place] [address] 02/09/2019 15:48:01 02/09/2019 16:28:22 Nausea and vomiting 44735296 R11.2 Right lowe r quadrant pain 269173159 R10.31 prior work up negative Screening procedure 2012 5006 Z13.9 [id number] Rajat Givens [facility] [address] [facility],[place] [address] 04/06/2019 15:32:42 04/06/2019 16:42:37 Depressive disorder 91820542 F32.9 escitalopr am not helpful - had SI so she stopped it citalopram not helpful sertraline caused nausea and migraines Acute asthma 436276746 J 45.901 breathing still difficult despite inhaler Acute sinusitis 68977966 J01.90 some improvemen t [id number] Rajat Givens [facility] [address] [facility],[place] [address] 05/01/2019 15:22:55 05/01/2019 16:22:18 Active or passive immunization 071826196 Z23 Adult [facility] th examination 137763856 Z00.00 [id number] Rajat Givens [facility] [address] [facility], [address] D [facility] [place] [address] 06/02/2019 16:18:28 06/02/2019 16:35:36 Exposure to Bordetella pertussis 171931785 Z20.818 Depressive disorder 3548 9007 F32.9 escitalopr am not helpful - had SI so she stopped it citalopram not helpful sertraline caused nausea and migraines wellbutrin - made depression worse [id number] Rajat Givens [facility] [address] [facility], [place] [address] 01/19/2020 15:44:49 01/19/2020 16:01:39 Anxiety 10995859 F41.9 see below still struggling with this as it dovetails into the depression s Chronic depression 86574 8 F34.1 after going through her mult med trials in the past we have decided upon using wellbutrin Asthma 401757242 J45.90 9 stable [id number] Rajat Givens [facility] [address] [facility], [place] [address] 02/22/2020 15:44:20 02/22/2020 16:34:16 Anemia 377673564 D64.9 needs iron supp Chronic depression 8 F34.1 after going through her mult med trials in the past we have decided upon using wellbutrin Active or passive immunization 984644453 Z23 needs for her school [id number] Rajat Givens [facility] [address] [facility], [place] [address] 04/13/2020 15:47:06 04/13/2020 16:26:35 Patellofemoral syndrome of right knee 5062690971 231938 M22.2X1 the patient [place] to go to [place] [id number] Rajat Givens [facility] [address] [facility],[place] [address] 08/24/2020 14:19:35 08/24/2020 15:03:36 Asthma 698719741 J45.909 stable Pain in right thumb 1076 238039 800549 M79.644 [id number] Rajat Givens [facility] [address] [facility] [address] [place] [address] 10/05/2020 15:51:22 10/05/2020 16:34:23 Pain of joint of wrist M25.531 [id number] Rajat Givens [facility] [address] [facility] [address] 11/18/2020 14:36:08 11/18/2020 16:16:45 Asthma 139555130 J45.909 stable Female sterilization 608 03084 Z30.2 will send to a [facility] g[facility] for consult to reverse fallopian Acute urin jignesh tract infection 033434759 N39.0 based on dipstick will start on abx and submit culture [id number] Rajat Givens [facility] [address] [facility] [address] 03/07/2021 11:47:36 03/07/2021 13:17:53 Active or passive immunization 205564193 Z23 needs for her school Adult heal th examination 689355022 Z00.00 doing very well and is in remarkable good shape even after 4 kidsnote she has been having an issue with daily nausea the week after her menses [id number] Rajat Givens [facility] [address] [facility] [address] [place] [address] 05/30/2021 09:23:35 05/30/2021 14:10:49 Cough 15770366 R05.2 will treat for probable bronchitis COVID test negative for her and daughter Acute bronchitis 2893706 2 J20.8 will treat [id number] Rajat Givens [facility] [address] [facility] [address] [place] [address] 06/09/2021 15:07:30 06/09/2021 16:45:54 Asthma 242330401 J45.909 stable now lungs sound good and is usu doing ok Anxiety 30321511 F41.9 see below still struggling with this as it dovetails into the depression s Chronic depression 17902 0009 F34.1 after going through her mult med trials in the past we have decided upon using wellbutrin [id number] Rajat Givens [facility] [address] [facility],[place] [address] 08/08/2021 13:32:46 08/08/2021 14:05:54 Dislocation of patellofemoral joint 745985253 S83.004D given worsening of her right knee approx x 2monow hurting daily and getting diff to [facility] the knee gets locked up [id number] Rajat Givens [facility] [address] [facility] [address] 09/01/2021 08:52:49 09/04/2021 08:47:17 Allergic rhinitis 22977977 J30.9 nasal congestion is stable Asthma 501125376 J45.90 9 stable now lungs sound good and is usu doing ok Anxiety 63440595 F41.9 see below still struggling with this as it dovetails into the depression s relates that she is still doing ok [id number] Rajat Givens [facility] [address] [facility],[place] [address] 10/04/2021 09:36:48 10/04/2021 16:47:39 Acute pharyngitis 248749808 J02.8 will start on z-ferdinand for abx Herpes labialis 5164717 B00.1 needs refill Cough 56684945 R05.2 will start on cough suppressan t [id number] Rajat Givens [facility] [address] [facility],[place] [address] 11/29/2021 15:44:12 11/29/2021 15:55:32 Acute pharyngitis 050606393 J02.8 will start on z-ferdinand for abx and cough suppressan t Anemia 469054653 D50.8 will recheck levels Fatigue 26121595 R53.83 fatigue and recurrent illness, will fu with testing with blood work [id number] Rajat Givens [facility] [address] [facility] [address],[place], [place] [address] 04/03/2022 10:21:10 04/03/2022 15:56:05 Asthma [id number] J45.21 stable Acute sinusitis 86409169 J01.00 will fu with doxy and immunologi st visit [id number] Rajat Givens [facility] Internal Medicine [address] [facility] [address] [address] 06/29/2022 11:41:17 06/29/2022 13:23:34 Hemorrhagic cyst of ovary 117460961 N83.209 flip provide with diclofenac 50 mg daily [id number] Rajat Givens [facility] Internal Medicine [address] [facility] [address] [address] 08/13/2022 09:07:52 08/13/2022 15:34:53 Asthma 225476670 J45.21 stable nowflu was an issue but now is doing well Influenza 8778001 J10.1 had influenza A and worse issues were the vomiting Substance abuse 34933167 F19.10 she is still struggling and craving she prob left the program too soonshe will call [place] today and see if there is a need to return or to have her do an outpts will call and let me know [id number] Rajat Givens [facility] Internal Medicine [address] [facility] [address] [place] [address] 09/05/2022 13:55:50 09/05/2022 14:51:47 Acute urinary tract infection 957898212 N10 will start on bactrim Anxiety disorder 8769978 06 F40.01 split the duloxetine 40 mg and 20 mg Nausea 201819368 R11.0 will switch to 8 mg from 4 mg Dysmenorrhea 354861615 N 94.4 will set up with lab work [id number] Rajat Givens [facility] Internal Medicine [address] [facility] [address] [address] 01/15/2023 13:48:17 01/15/2023 14:56:01 Asthma 744687833 J45.21 stable nowflu was an issue but now is doing well Right triston ramirez quadrant pain 855334789 R10.31 could this be a femoral hernia? will ask her to se dr ellis [address] Rajat Givens, [facility] Internal Medicine [address] [facility],[place] [address] 03/11/2023 16:06:54 03/12/2023 07:51:26 Asthma 032988643 J45.21 stable nowflu was an issue but now is doing well Chronic depression 77968 000 F34.1 bupropion is not helping alone Anxiety 24156530 F41.9 see below still struggling with this as it dovetails into the depression s relates that she is still doing ok [id number] Rajat Givens, [facility] Medicine [address] [facility],[place] [address] 04/15/2023 13:15:09 04/15/2023 14:53:42 Anxiety 62691765 F41.9 see below still struggling with this as it dovetails into the depression s relates that she is still doing ok Asthma 963248696 J45.21 stable nowflu was an issue but now is doing well Chronic depression 13157 0009 F34.1 bupropion is not helping alone Random blo od glucose outside reference range 101513792 R73.09 pt having symptomati c low level glucose dropgluc to test goygygy0b is normalwill refer for opinion Hypoglycemia 168347276 E 16.2 endocrine not seeing her until 6 months from now unacceptab lewe will order tests now [id number] aRjat Givens [facility] Internal Medicine [address] [facility] [facility] [place] [address] 11/27/2023 09:11:29 11/27/2023 11:18:19 Depression screening 436809173 Z13.31 Negative Screen Dislocatio n of patellofemoral joint 201362310 S83.004D Patellofem oral syndrome of right knee 5391372326 515859 M22.2X1 will have her start PT and also get a neoprene nico cross brace Atypical chest pain 1025 22920 R07.89 [id number] Rajat Givens [facility] Internal Medicine [address] [facility],[place] [address] 02/12/2024 10:49:36 02/14/2024 09:18:15 Asthma 825304110 J45.21 stable Pneumonia 210401579 J17 adjusted taper, switch out from doxy to levofloxac ingiven cough suppressan textended work note until 02/24/24 [id number] Rajat Givens [facility] Internal Medicine [address] [facility] [address] 06/02/2024 14:13:10 06/02/2024 14:55:46 Anxiety 34372503 F41.1 stable Chronic depression 81142 000 F34.1 suggested rexulti as an alt, with benefits for bipolar d/o (depressio n) Migraine 76290723 G43.90 9 start on topimax and sumitrapta n Anemia 677373581 D50.8 will recheck levels [id number] Rajat Givens [facility] Internal Medicine [address] [facility], [place] [address] 07/07/2024 09:30:16 07/07/2024 10:14:05 Costal chondritis 66077882 M94.0 will add a msk relaxer and pain medication to the steroid Chronic depression 8 F34.1 said would be approved for the [place] [id number] Rajat Givens [facility] Internal Medicine [address] [facility], [place] [address] 10/05/2024 15:36:06 10/05/2024 16:24:31 Low back pain 406436086 M54.50 Thoracic back pain 22284 8004 M54.6 [id number] Rajat Givens [facility] Internal Medicine [address] [facility],[place] [address] 04/14/2025 09:13:24 04/14/2025 11:55:38 Depression screening 644997534 Z13.31 Negative Screen Asthma 897419724 J45.21 stable nowflu was an issue but now is doing well Right uppe r quadrant pain 624421273 R10.11 2315424 given ongoing symptoms we need to look for gastritis /ulceras well as GB dysfunctio n Health Concerns Section Related Observation LastModified by Organization Detai ls LastModified Time None Recorded Concern Status LastModified by Organization Details LastModified Time None Recorded Advance Directives Directive None Recorded Payers Insurance Date Sequence Insurance Name Policy Number Policy Rizvi Covered Member ID Rizvi Member ID Guarantor Name 04/22/2020 SLIDING FEE SCHEDULE - DISCOUNT Lilly Ramey Carla 01/14/2023 1 [place] [facility] Lilly Ramey Carla [id number] Lilly Ramey Carla 01/14/2023 1 [place] PRIOR TO 2022 - [facility] (MEDICAID) Lilly Ramey Carla [id number] Lilly Ramey Carla 10/05/2024 1 [facility] () Lilly Ramey Carla [id number] Lilly Ramey Carla 02/22/2020 SLIDING FEE SCHEDULE - DISCOUNT Lilly Karoline Carla 01/14/[address] [facility] (HMO) [id number] Lilly Ramey Carla [id number] Lilly A Carla 09/24/2023 PAYMENT PLAN Lilly Karoline Carla 01/14/2023 2 [place] [facility] Lilly Ramey Carla [id number] Lilly Karoline Carla 08/24/2020 SLIDING FEE SCHEDULE - DISCOUNT Lilly Karoline Carla 01/15/2020 1 [facility] () Girma Aguirre [id number] Lilly Karoline Calra 01/14/2023 1 [employer] Lilly Karoline Carla [id number] Lilly A Carla 10/08/2023 1 [facility] Lilly Ramey Carla [id number] Lilly A Carla 04/11/2025 1 [facility] () Lilly A Carla [id number] Lilly Karoline Carla Notes Date Note Type Note Provider Name and Address Organization Details Recorded Time 4 text/htm l ROS as noted in the HPI ER f/u The patient is participating in this appointment via telemedicine communication with a phone call/video calling service (Doxy)The patient consents to use of these platforms [...] needs to be adjusted BRAD PRAKASH [address] [place], [address], [facility] 02/12/2024 14:14:47 4 text/htm l ROS as noted in the HPI anxiety and depression the patient recently had [...] abortive med on board BRAD PRAKASH [address] [place], [address], [facility] 06/02/2024 14:54:43 4 text/htm l ROS as noted in the HPI f/u 3 week the patient is still [...] 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, 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 on [id number]-wf-kdia : per pt for insurance: [phone] option 2 continue on current medications as prescribed BRAD PRAKASH [address] [place], [address], [facility] 07/07/2024 10:04:25 5 text/htm l ROS as noted in the HPI relates that she had an episode of [...] 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, 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 on navxp-ar-dniv : per pt for insurance: [phone] option 2 continue on current medications as prescribed Rajat Givens DO [address] [place], [address], [facility] 10/05/2024 16:18:50 5 text/htm l Care Management - AsthmaReported by PatientROS as noted in the HPI patient is evaluated via tele/video assessment per patient consent during current pandemic relate she is having stomach pain after she eats relates that she is very limited to what she can eat yogurt okalso states she has been having pain in her pelvic area that stops her from what she is doingrelates she is also very stressed Rajat Givens DO [address] [place], [address], [facility] Medicine 04/14/2025 11:06:24 OBGyn Episode No OBEpisode recorded.
[2025-04-23 14:41] LABS: Appearance Urine Clear; Glucose Urine UA Negative (Negative); PH 7.0 (5.0-9.0); Specific Gravity - Urine 1.010 (1.005-1.025); UMIC TRIGGER UACC YES
[2025-04-23 15:42] VITALS: BP 111/53; PULSE 84; RESP 16; TEMP 36.4; O2SAT 99
== END 2025-04-23 15:49 | disposition home or self-care (01) ==
PROVIDERS: Registered Nurse Emergency; Emergency Provider Emergency Medicine; PCP Internal Medicine
DX: N20.0 Calculus of kidney (principal); R10.11 Right upper quadrant pain; R10.A1 Flank pain, right side; E16.2 Hypoglycemia, unspecified; Z90.710 Acquired absence of both cervix and uterus; R11.0 Nausea; F32.A Depression, unspecified
CPT/HCPCS: 36415; 76705; 76775; 80053; 81001; 84702; 85025; 99284

== ENCOUNTER → 2025-05-14 07:30 | Outpatient (REF) | payer OTHER, SELFPAY ==
--- NOTE | ~2025-05-14 | NM_ITS ---
EXAMINATION: NM HEPATOBILIARY WITHOUT PHARM HISTORY: POSTPRANDIAL ABDOMINAL PAIN IN RUQ. TECHNIQUE: An hepatobiliary scan was performed following intravenous administration of 5 mCi technetium 99m-mebrofenin. Sequential images were obtained to 1 hour. COMPARISON: Correlation is made with a CT of the abdomen with contrast dated 02/04/2025. FINDINGS: There is normal uptake and excretion of the radiopharmaceutical by the liver. Gallbladder activity is noted at 16 minutes. Common bile duct activity is noted at 12 minutes. Small bowel activity is identified at 20 minutes. NM/NM hepatobiliary wo pharm IMPRESSION: Normal hepatobiliary scan. Electronically signed by: Cristopher Eugene MD 05/14/2025 09:05 AM EDT
--- OUTSIDE RECORDS SUMMARY | 2025-05-14 07:32 | XMS_ITS | Encounter Summary ---
Author Organization [facility] Address [address] [place] [address] [place] [address] Phone Care Team Providers Care Corporate Legal Secretary Name Role Phone Rajat Givens DO Unavailable Rajat Givens DO Primary Care Provider [phone] Encounter Details Date Type Department Care Team (Late st Contact Info) Description 01/13/2023 Procedure Pass [facility], Ct Scan - [address] [address] Social History Tobacco Use Types Packs/Day Years [...] 4:56 PM EDT Terrie Shields RN * Graves Suicide Severity Rating Scale (Screener/Recent Self-Report) Question [...] documented as of this encounter Care Teams Corporate Legal Secretary Relationship Specialty Start Date End Date Rajat Givens DO PCP - General Internal Medicine 12/10/18 Rajat Givens DO Historical LMR Provider 05/07/17 documented as of this encounter Additional Source Comments The information contained in this document represents components of the legal health record. It is not the complete legal health record.[facility]
--- OUTSIDE RECORDS SUMMARY | 2025-05-14 07:32 | XMS_ITS | Encounter Summary ---
Author Organization [facility] Address [address] [place] [address] Phone Care Team Providers Care Curriculum Assistant Principal Name Role Phone Rajat Givens DO Unavailable Mar Voss CNM Unavailable Kimberly Henderson LEATHER SKINNER Unavailable [phone] Maddy Johnson MD Unavailable Carmelo Kellogg MD Unavailable Fina Clement LEATHER SKINNER Unavailable Estiven Alonso MD Unavailable Tatiana Gutierrez LEATHER SKINNER Unavailable Catherine Sloan MD Unavailable Oscar Braxton MD Unavailable Ramya Mendiola MD Unavailable Vidya Kilgore MD Unavailable [phone] Sena Stuart LEATHER SKINNER Unavailable Rajat Givens DO Primary Care Provider [phone] Reason for Referral * MRI/CAT Scan - Closed Specialty Diagnoses / Procedures Referred By Niko t Referred To Contact Radiology Diagnoses Right lower quadrant pain Procedures CT Abdomen/Pelvis Agueda October, PA-C Phone: tel: fax: [email or web address] Referral ID Status Reason Start Date Expiration Date Visits Re quested Visits Authorized [id number] Closed 12/10/2018 12/10/2019 1 1 Encounter Details Date Type Department Care Team (Latest Contact Info) Description 12/10/2018 Transcribe Orders Virtual Department [address] [place] [address] Edita Romeo PA-C [address] [place] [address] [email or web address] Right lower quadrant pain (Primary Dx) Social [...] documented as of this encounter Care Teams Curriculum Assistant Principal Relationship Specialty Start Date End Date Rajat Givens DO [email or web address] PCP - General Internal Medicine 12/10/18 Rajat Givens DO [email or web address] Historical LMR Provider 05/07/17 Mar Voss CNM [address] [place] [address] Historical LMR Provider 05/07/17 2 Kimberly Henderson NP [address] [place] [address] [email or web address] Historical LMR Provider 05/07/17 07/29/21 Maddy Johnson MD [address] [place] [address] Historical LMR Provider 05/07/17 2 Carmelo Kellogg MD [address] [place] [address] Historical LMR Provider 05/07/17 Fina Clement NP [address] [place] [address] [email or web address] Historical LMR Provider 05/07/17 2 Estiven Alonso MD [address] [address] [email or web address] Historical LMR Provider 05/07/17 07/29/21 Tatiana Gutierrez NP [address] [place] [address] Historical LMR Provider 05/07/17 2 Catherine Sloan MD [address], [place] [address] Historical LMR Provider 05/07/17 2 Oscar Braxton MD [facility], [facility] [address] [place] [address] [email or web address] Historical LMR Provider 05/07/17 07/29/21 [place] [address] [email or web address] Historical LMR Provider 05/07/17 07/29/21 Viyda Kilgore MD [address] [place] [address] Historical LMR Provider 05/07/17 2 Sena Stuart NP [address] [place] [address] Historical LMR Provider 05/07/17 2 documented as of this encounter Additional Source Comments The information contained in this document represents components of the legal health record. It is not the complete legal health record.[facility]
--- OUTSIDE RECORDS SUMMARY | 2025-05-14 07:33 | XMS_ITS | Clinical Summary ---
Author Organization [facility] Address [address] [place] [address] Phone Care Team Providers Care Sharepoint Manager Name Role Phone Rajat Givens DO Unavailable Rajat Givens DO Primary Care Provider [phone] Allergies Active Allergy Reactions Criticality Noted Date [...] times a day. Active DEXCOM G6 SENSOR DeviIndication s:Hyperglycemi a,Hypoglycemia 1 each by Miscellaneous route Every 10 Days. 9 each 3 02/17/20 24 Active DEXCOM G6 TRANSMITTER DeviIndication s:Hyperglycemi a,Hypoglycemia 1 each by Miscellaneous route every 3 (three) months. 1 each 3 02/17/20 24 Active albuterol 90 mcg/actuation inhaler INHALE 2 PUFFS BY MOUTH EVERY 4 HOURS NEEDED FOR 30 DAYS 02/12/20 24 Active fluconazole (DIFLUCAN) 150 MG tabletIndicati ons:Vaginal discharge Take one dose now and repeat in 3 days 2 tablet 1 08/26/19 25 Active estradioL (VIVELLE-DOT) 0.1 mg/24 hrIndications: Surgical menopause on hormone replacement therapy APPLY PATCH TO SKIN TWICE WEEKLY. 24 patch 2 04/26/20 25 Active estradioL (VIVELLE-DOT) 0.1 mg/24 hrIndications: Surgical menopause on hormone replacement therapy Apply patch to skin twice weekly. 24 patch 2 08/24/19 25 2024 Discontinued Active Problems Problem Noted Date Diagnosed Date [...] Assessment & Plan (03/28/2023 10:04 PM EDT): Jose's POCT A1c today is 5.1%. She has [...] weeks to drop off at front end technician or follow up appointment. Hypoglycemia 03/28/2023 Assessment [...] regular cycle 03/26/2024 03/27/2024 Dysmenorrhea 03/26/2024 03/27/2024 Encounters Date Type Department Care Team Description 04/25/2025 Refill [facility] [address] [place] [address] Oscar Braxton MD Medication Refill from Last 3 Months Immunizations Immunization Administration Dates Next Due COVID-19 [...] (#1) 2025 3, 05/01/2019 COVID-19 VACCINE (2 - 2024-2 6 season) 2025 04/07/2021 SCREENING FOR [...] Recently Relevant to Health Maintenance Results * Pap Test (12/19/2023 12:00 AM EDT) Report [address] [address] Azure Developer: Amisha Hopkins MD HAND CLOTH EXAMINER Cytology Report FINAL DIAGNOSIS A. PAP SMEAR (THIN PREP) CE: SPECIMEN ADEQUACY: Satisfactory for evaluation; transformation zone present. INTERPRETATION: EPITHELIAL CELL ABNORMALITY - SQUAMOUS. Low grade squamous intraepithelial lesion. This specimen was analyzed by the automated ThinPrep Imaging System ([employer] and manually rescreened by a web site administrator and/or pathologist. Electronically Signed Out By: MD [...] 16, 18 and 45. Testing performed by [email or web address] HR-HPV analysis. Clinical correlation is advised. This HPV test was performed at [facility], [address] [place] [address]. This test has been FDA approved for both SurePath and ThinPrep cervical cytology specimens. The accuracy and precision of this test for all other specimen sources has been verified in the Cytopathology Laboratory of the [facility] and has not been cleared or approved by the U.S. Food and Drug Administration. Clinical correlation is advised. CLINICAL HISTORY Date of Last Menstrual Period: 12-09-2023 Infection History: HPV: 2023 Treatment History: Other: CONCURRENT POLYPECTOMY Other Clinical Conditions: Screening Pap HAND CLOTH EXAMINER exam with abnormal findings: CERVICAL POLYP SPECIMEN SOURCE A: PAP SMEAR (THIN PREP) CE Patient Name: JOSE BARRAGAN : 1990 (Age: 33) Sex: F Institution: [facility] Location: [facility] Date of Collection: 12/19/2023 Date of Reported: 12/26/2023 09:16 Results to: Santi Wellington MD [facility] Final Diagnosis A. PAP SMEAR (THIN PREP) CE: SPECIMEN ADEQUACY: Satisfactory for evaluation; transformation zone present. INTERPRETATION: EPITHELIAL CELL ABNORMALITY - SQUAMOUS. Low grade squamous intraepithelial lesion. This specimen was analyzed by the automated ThinPrep Imaging System ([employer] and manually rescreened by a web site administrator and/or pathologist. [facility] Results\Inte rpretation A. PAP SMEAR (THIN PREP) CE: Human Papilloma Virus TESTPOSITIVE for high-risk Human Papilloma Virus type Other high risk (non-type 16, 18, or 45) probe set (Includes 31, 33, 35, 39, 51, 52, 56, 58, 59, 66, 68) Note: Additional testing was necessary to identify the most virulent high-risk strains.Negative for high-risk Human Papilloma Virus types 16, 18 and 45.Testing performed by [email or web address] HR-HPV analysis. Clinical correlation is advised. This HPV test was performed at [facility], [address] [place] [address]. This test has been FDA approved for both SurePath and ThinPrep cervical cytology specimens. The accuracy and precision of this test for all other specimen sources has been verified in the Cytopathology Laboratory of the [facility] and has not been cleared or approved by the U.S. Food and Drug Administration. Clinical correlation is advised. [facility] Conversion Type (Conversion Source) 12/19/2023 12/20/2023 9:09 AM EDT us Santi Wellington MD CYTOLOGY ORDERABLES Edit ed Result - Final [facility] [address] [place] [address] * (ABNORMAL) Glucose tolerance test, 2 hr (03/18/2023 9:26 AM EDT) FASTING GLUCOSE 69(L) 70 - 95 mg/dL [facility] ONE HR GLUCOSE 116 70 - 180 mg/dL [facility] TWO HR GLUCOSE 117 70 - 155 mg/dL [facility] Comment: PLEASE NOTE THESE RANGES ARE FOR PATIENTS. REFERENCE RANGES, NON- PATIENTS: FASTING GLUCOSE: 70-100 mg/dl 1 HOUR GLUCOSE: 70-200 mg/dl 2 HOUR GLUCOSE: 70-200 mg/dl Blood 03/18/2023 9:26 AM EDT 03/18/2023 11:53 AM EDT us Rajat Givens DO LAB BLOOD ORDERABLES Final Resul t [facility] [address] [place] [address] from Last 3 Months or Most Recently Relevant to Health Maintenance Insurance [employer] NET PARTIAL Member Subscriber Plan / Payer (Ef fective 2023-Present) Name:Jose Barragan Relation to Subscriber:Self Name:Jose Barragan Payer ID:Not on file Group ID:Not on file Type:Medicaid Address: [address] [employer] NET PART[employer] Member Subscriber Plan / Payer (Ef fective 2023-Present) Name:CarlaJose garrett Relation to Subscriber:Self Name:Jose Barragan Payer ID:Not on file Group ID:Not on file Type:Medicaid Address: [address] [facility] Address: [facility] [id number] [place] [phone] [facility] NET PARTIAL Member Subscriber Plan / Payer (Ef fective 2023-Present) Name:Carla Jose Relation to Subscriber:Self Name:Carla Jose Payer ID:Not on file Group ID:Not on file Type:Medicaid Address: [address] [employer] PART[employer] Member Subscriber Plan / Payer (Ef fective 2023-Present) Name:Jose Barragan Relation to Subscriber:Self Name:Jose Barragan Payer ID:Not on file Group ID:Not on file Type:Medicaid Address: [address] [facility] Address: [facility] [id number] [place] [phone] [employer] NET PARTIAL Member Subscriber Plan / Payer (Ef fective 2023-Present) Name:Jose Barragan Relation to Subscriber:Self Name:Jose Barragan Payer ID:Not on file Group ID:Not on file Type:Medicaid Address: [address] [facility] NET PARTIAL [facility] NET PARTIAL Member Subscriber Plan / Payer (Ef fective 2023-Present) Name:oJse Barragan Relation to Subscriber:Self Name:Jose Barragan Payer ID:Not on file Group ID:Not on file Type:Medicaid Address: [address] [facility] Address: [facility] [id number] [place] [phone] [facility] NET PARTIAL Member Subscriber Plan / Payer (Ef fective 2023-Present) Name:Jose Barragan Relation to Subscriber:Self Name:Jose Barragan Payer ID:Not on file Group ID:Not on file Type:Medicaid Address: [address] [employer] NET PARTIAL [facility] Address: [facility] [id number] [place] [phone] Advance Directives For more information, please contact: [phone] (9AM - 5PM [facility], Saturday-Saturday) Documents on File Type Date Recorded Patient Composite Assembler Expl anation Healthcare Proxy 03/31/2024 4:11 PM * Full Code (Latest Code Status on File) Date Activated Date Inactivated Comments 03/26/2024 3:05 PM Question Answer Comments Code Status Confirmed With: Patient * Full Code Date Activated Date Inactivated Comments 03/26/2024 9:12 AM 03/26/2024 3:05 PM Question Answer Comments Code Status Confirmed With: Patient Care Teams Sharepoint Manager Relationship Specialty Start Date End Date Rajat Givens DO PCP - General Internal Medicine 12/10/18 Rajat Givens DO Historical LMR Provider 05/07/17 Additional Source Comments The information contained in this document represents components of the legal health record. It is not the complete legal health record.[facility]
--- OUTSIDE RECORDS SUMMARY | 2025-05-14 07:33 | XMS_ITS | Encounter Summary ---
Author Organization [facility] Address [address] [place] [address] [place] [address] Phone Care Team Providers Care Report Checker Name Role Phone Rajat Givens DO Unavailable Rajat Givens DO Primary Care Provider [phone] Encounter Details Date Type Department Care Team (Late st Contact Info) Description 05/27/2024 Procedure Pass [address] [place] [address] Social History Tobacco Use Types Packs/Day Years [...] on filedocumented in this encounter Care Teams Report Checker Relationship Specialty Start Date End Date Rajat Givens DO [email or web address] PCP - General Internal Medicine 12/10/18 Rajat Givens DO [email or web address] Historical LMR Provider 05/07/17 documented as of this encounter Additional Source Comments The information contained in this document represents components of the legal health record. It is not the complete legal health record.[facility]
--- OUTSIDE RECORDS SUMMARY | 2025-05-14 07:33 | XMS_ITS | Encounter Summary ---
Author Organization [facility] Address [address] [place] [address] Phone Care Team Providers Care Framing Machine Tender Name Role Phone Rajat Givens DO Unavailable Mar Voss CNM Unavailable Kimberly Henderson HOUSE REPAIRER Unavailable [phone] Maddy Johnson MD Unavailable Carmelo Kellogg MD Unavailable Fina Clement HOUSE REPAIRER Unavailable Estiven Alonso MD Unavailable Tatiana Gutierrez HOUSE REPAIRER Unavailable Catherine Sloan MD Unavailable [phone] Oscar Braxton MD Unavailable Ramya Mendiola MD Unavailable Vidya Kilgore MD Unavailable [phone] Sena Stuart HOUSE REPAIRER Unavailable Rajat Givens DO Primary Care Provider Encounter Details Date Type Department Care Team (Latest Contact Info) Description 02/09/2019 Transcribe Orders Virtual Department 30 [place] [address] Edita Romeo PA-C [address] [place] [address] [email or web address] Nausea and vomiting, intractability of vomiting not [...] Upper GI series 01/13/2013. BARIUM SWALLOW FINDINGS: Brass Finisher lateral neck radiograph was obtained. Bones and [...] Upper GI series 01/13/2013. BARIUM SWALLOW FINDINGS: Brass Finisher lateral neck radiograph was obtained. Bones and [...] documented as of this encounter Care Teams Framing Machine Tender Relationship Specialty Start Date End Date Rajat Givens DO PCP - General Internal Medicine 12/10/18 Rajat Givens DO Historical LMR Provider 05/07/17 Mar Voss CNM 30 [place] [address] Historical LMR Provider 05/07/17 2 Kimberly Henderson NP 30 [place] [address] Historical LMR Provider 05/07/17 07/29/21 Maddy Johnson MD [address] [place] [address] Historical LMR Provider 05/07/17 2 Carmelo Kellogg MD [address] [place] [address] Historical LMR Provider 05/07/17 Fina Clement NP [address] [place] [address] [email or web address] Historical LMR Provider 05/07/17 2 Estiven Alonso MD [address] [place] [address], [facility] [place] [address] [email or web address] Historical LMR Provider 05/07/17 07/29/21 Tatiana Gutierrez NP [address] [place] [address] Historical LMR Provider 05/07/17 2 Catherine Sloan MD [address], [place] [address] Historical LMR Provider 05/07/17 2 Oscar Braxton MD 22 [facility], [address] [address] Historical LMR Provider 05/07/17 07/29/21 [place] [address] [email or web address] Historical LMR Provider 05/07/17 07/29/21 Vidya Kilgore MD [address] [place] [phone] Historical LMR Provider 05/07/17 2 Sena Stuart NP [address] [place] [address] Historical LMR Provider 05/07/17 2 documented as of this encounter Additional Source Comments The information contained in this document represents components of the legal health record. It is not the complete legal health record.[facility]
--- OUTSIDE RECORDS SUMMARY | 2025-05-14 07:33 | XMS_ITS | Encounter Summary ---
Author Organization [facility] Address [address] [facility] [address] [place] [address] Phone Care Team Providers Care Scholastic Aptitude Test Grader Name Role Phone PopeyeRajat becker Unavailable Tosha Rajat Karoline DO Primary Care Provider [phone] Encounter Details Date Type Department Care Team (Late st Contact Info) Description 04/18/2023 Transcribe Orders [facility] [address] [place] [address] Rajat Givens DO [address] [facility] [address] Social History Tobacco Use Types Packs/Day Years [...] documented as of this encounter Care Teams Scholastic Aptitude Test Grader Relationship Specialty Start Date End Date Rajat Gviens DO PCP - General Internal Medicine 12/10/18 Rajat Givens DO Historical LMR Provider 05/07/17 documented as of this encounter Additional Source Comments The information contained in this document represents components of the legal health record. It is not the complete legal health record.[facility]
--- OUTSIDE RECORDS SUMMARY | 2025-05-14 07:33 | XMS_ITS | Encounter Summary ---
Author Organization [facility] Address [address] [place] [address] Phone Care Team Providers Care Stamping Operator Name Role Phone Rajat Givens DO Unavailable Rajat Givens DO Primary Care Provider [phone] Encounter Details Date Type Department Care Team (Late st Contact Info) Description 03/26/2024 Procedure Pass OR Admitting Dept - Virtual Department 30 [place] [address] Social History Tobacco Use Types Packs/Day Years [...] 3:38 PM EDT Antoinette Krishnamurthy RN * [place] Suicide Severity Rating Scale (Screener/Recent Self-Report) Question [...] on filedocumented in this encounter Care Teams Stamping Operator Relationship Specialty Start Date End Date Rajat Givens DO PCP - General Internal Medicine 12/10/18 Rajat Givens DO [email or web address] Historical LMR Provider 05/07/17 documented as of this encounter Additional Source Comments The information contained in this document represents components of the legal health record. It is not the complete legal health record.[facility]
--- OUTSIDE RECORDS SUMMARY | 2025-05-14 07:33 | XMS_ITS | Encounter Summary ---
Author Organization [facility] Address [address] [facility] [address] [place] [address] Phone Care Team Providers Care Manager Architecture Name Role Phone Rajat Givens DO Unavailable Rajat Givens DO Primary Care Provider [phone] Encounter Details Date Type Department Care Team (Latest Contact Info) Description 10/19/2022 Transcribe Orders Virtual Department 30 [place] [address] Yodit Canales PA [address] [facility] [place] [address] Family history of cerebral aneurysm (Primary Dx) [...] documented as of this encounter Care Teams Manager Architecture Relationship Specialty Start Date End Date [email or web address] [email or web address] PCP - General Internal Medicine 12/10/18 Rajat Givens DO [email or web address] Historical LMR Provider 05/07/17 documented as of this encounter Additional Source Comments The information contained in this document represents components of the legal health record. It is not the complete legal health record.[facility]
--- OUTSIDE RECORDS SUMMARY | 2025-05-14 07:33 | XMS_ITS | Encounter Summary ---
Author Organization [facility] Address [address] [place] [address] [place] [address] Phone Care Team Providers Care Claims Associate Name Role Phone Rajat Givens DO Unavailable Rajat Givens DO Primary Care Provider [phone] Encounter Details Date Type Department Care Team (Latest Contact Info) Description 2022 Transcribe Orders Virtual Department 30 [place] [address] Yodit Canales PA [address] [facility] [place] [address] [place] [address] Family history of ischemic heart disease and [...] documented as of this encounter Care Teams Claims Associate Relationship Specialty Start Date End Date Rajat Givens DO [email or web address] PCP - General Internal Medicine 12/10/18 Rajat Givens DO [email or web address] Historical LMR Provider 05/07/17 documented as of this encounter Additional Source Comments The information contained in this document represents components of the legal health record. It is not the complete legal health record.[facility]
--- OUTSIDE RECORDS SUMMARY | 2025-05-14 07:33 | XMS_ITS | Encounter Summary ---
Author Organization [facility] Address [address] [place] [address] [place] [address] Phone Care Team Providers Care Special Delivery Clerk Name Role Phone Rajat Givens DO Unavailable Rajat Givens DO Primary Care Provider [phone] Encounter Details Date Type Department Care Team (Late st Contact Info) Description 06/14/2022 Procedure Pass [facility], Ct Scan - [address] [address] Social History Tobacco Use Types Packs/Day Years [...] 06/14/2022 12:29 PM Melinda Herrera RN * [place] Suicide Severity Rating Scale (Screener/Recent Self-Report) Question [...] documented as of this encounter Care Teams Special Delivery Clerk Relationship Specialty Start Date End Date Rajat Givens DO PCP - General Internal Medicine 12/10/18 Rajat Givens DO Historical LMR Provider 05/07/17 documented as of this encounter Additional Source Comments The information contained in this document represents components of the legal health record. It is not the complete legal health record.[facility]
--- OUTSIDE RECORDS SUMMARY | 2025-05-14 07:34 | XMS_ITS | Encounter Summary ---
Author Organization [facility] Address [address] [place] [address] Phone Care Team Providers Care Compressor Assembler Name Role Phone Rajat Givens DO Unavailable Mar Voss CNM Unavailable Kimberly Henderson RADIOLOGY TEACHER Unavailable [phone] Maddy Johnson MD Unavailable Carmelo Kellogg MD Unavailable Fina Clement RADIOLOGY TEACHER Unavailable Estiven Alonso MD Unavailable Tatiana Gutierrez RADIOLOGY TEACHER Unavailable Catherine Sloan MD Unavailable [phone] Oscar Braxton MD Unavailable Ramya Mendiola MD Unavailable Vidya Kilgore MD Unavailable [phone] Sena Stuart RADIOLOGY TEACHER Unavailable Rajat Givens DO Primary Care Provider Encounter Details Date Type Department Care Team (Late st Contact Info) Description 08/24/2020 Transcribe Orders Virtual Department [address] [place] [address] Rajat Givens DO [address] [facility] [place] [address] [email or web address] Thumb pain, right (Primary Dx) Social History [...] documented as of this encounter Care Teams Compressor Assembler Relationship Specialty Start Date End Date Tosha Rajat RameyDO PCP - General Internal Medicine 12/10/18 Rajat Givens DO Historical LMR Provider 05/07/17 Mar Voss CNM [address] [place] [address] Historical LMR Provider 05/07/17 2 Kimberly Henderson RADIOLOGY TEACHER [address] [place] [address] [email or web address] Historical LMR Provider 05/07/17 07/29/21 Maddy Johnson MD [address] [place] [address] Historical LMR Provider 05/07/17 2 Carmelo Kellogg MD [address] [place] [address] Historical LMR Provider 05/07/17 Fina Clement NP [address] [place] [address] [email or web address] Historical LMR Provider 05/07/17 2 Estiven Alonso MD [address] [facility], 2nd [place] [address] [email or web address] Historical LMR Provider 05/07/17 07/29/21 Tatiana Gutierrez NP [address] [place] [address] Historical LMR Provider 05/07/17 2 Catherine Sloan MD [address] [place] [address] Historical LMR Provider 05/07/17 2 Oscar Braxton MD [address] [place] [address], [address] [place] [address] [email or web address] Historical LMR Provider 05/07/17 07/29/21 [place] [address] [email or web address] Historical LMR Provider 05/07/17 07/29/21 Vidya Kilgore MD [address] [place] [address] Historical LMR Provider 05/07/17 2 Sena Stuart NP [address] [place] [address] Historical LMR Provider 05/07/17 2 documented as of this encounter Additional Source Comments The information contained in this document represents components of the legal health record. It is not the complete legal health record.[facility]
--- OUTSIDE RECORDS SUMMARY | 2025-05-14 07:34 | XMS_ITS | Data Portability ---
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 Procedures None recorded. Surgeries None recorded. Imaging NM, hepatobili jignesh scan 2024 025 [facility] (Imaging), [address] [place], [address], 5 16:09:24 RF, upper gastrointe stinal tract, w/ contrast PO 2024 025 [facility] (Imaging), [address] [place], [address], 5 08:19:42 XR, thoracic spine, 2 view 2024 025 [facility] Central Scheduling, [address] [place], [address], 5 08:10:39 XR, lumbar spine, 2 view 2024 025 [facility] Sched[facility], [address] [place], [address], 5 08:10:38 Medication Orders Rexulti 1 mg tablet 2023 024 [facility]/Pharmacy #2024, [address] [place], [address], 4 09:52:05 baclofen 20 mg tablet 2023 025 [facility]/Pharmacy #2024, [address] [place], [address], 5 15:52:37 tramadol 50 mg tablet 2023 024 [facility]/Pharmacy #2024, [address] [place], [address], 4 09:58:39 Rexulti 1 mg tablet 2023 024 [facility]/Pharmacy #2024, [address] [place], [address], 4 12:49:02 topiramate 25 mg tablet 2023 024 [facility]/Pharmacy #2024, [address] [place], [address], 4 14:45:48 sumatripta n 25 mg tablet 2023 024 [facility]/Pharmacy #2024, [address] [place], [address], 4 14:45:48 albuterol sulfate HFA 90 mcg/actuat ion aerosol inhaler 2023 024 [facility]/Pharmacy #2024, [address] [place], [address], 4 14:05:07 prednisone 10 mg tablet 2023 024 [facility]Pharmacy #2024, [address] [place] [address], [address], 4 14:30:30 levofloxac in 500 mg tablet 2023 024 [facility]/Pharmacy #2024, [address] [place], [address], 14:32:26 codeine 10 mg-guaifen esin 100 mg/5 mL oral liquid 2023 024 ANA LILIA [facility]/Pharmacy #5, [address] [place], [address], 14:30:49 Patient TargetsNo targets recorded. Patient Instructions Encounter Date Encounter Id Patient Instructions Last Modified By Organization Details Last Modified Time 10/05/2024 [id number] healthy upper back: exercises Not available 10/05/2024 [...] contr ast No observ ation record ed. [facility]9 [facility] (Medical Records) [address] [place], [address], 02/10/2024 11:59:48 02/10/2002/10/2024 US, pelvi c wall No observ ation record ed. [address] (Medical Records) [address] [place], [address], 02/10/2024 12:01:39 02/10/20 24 02/10/2024 US, pelvi s, trans abdom inal + trans vagin al No observ ation record ed. [address] (Medical Records) [address] [place], [address], 02/10/2024 12:02:55 07/08/20 24 07/08/2024 XR, chest , 2 view No observ ation record ed. [address] (Medical Records) [address] [facility] [place], [address], 10/05/2024 16:05:22 11/05/19 25 11/02/2024 XR, lumba r spine , 2 view No observ ation record ed. [address] (Medical Records) 575 [place], [address], 04/14/2025 11:06:15 11/05/19 25 11/02/2024 XR, thora cic spine , 2 view No observ ation record ed. [address] (Medical Records) [address] [place], [address], 04/14/2025 11:06:15 02/06/20 25 02/04/2025 CT, abdom en + pelvi s, w/ contr ast No observ ation record ed. [address] (Medical Records) [address] [place], [address], 04/14/2025 11:06:15 04/23/20 25 04/22/2025 RF, upper gastr ointe trudy l tract , w/ contr ast PO No observ ation record ed. [address] (Medical Records) [address] [place], [address], 05/04/2025 23:29:20 Result Notes None recorded. Problems Name Problem SNOMED Code Status Onset Date Resolution Date Notes Provider Name and Address Organization Details Recorded Time Asthma 872938711 Active 2018 only when sick [facility] 5 14:39:13 Anxiety 96061824 Active 2018 ?bipol ar d/o SHAUN Laboy [facility] 5 14:39:14 Allergic rhinitis 73129023 Active 2018 Nisreen jin, [facility] 5 14:39:14 Costal chondriti s 69630624 Active 2018 [facility] 14:39:14 Herpes labialis 5869780 Active 2018 [facility] 5 14:38:55 Chronic pelvic pain of female 401665456 Active 2018 Nisreen jin [facility] 5 14:39:13 Anemia 776415729 Active 2018 [facility] 14:39:14 Chronic depressio n 196861374 Active 2018 [facility] 5 14:39:13 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 413659194 Active 2021 Not Available [facility] 2 00:31:34 Acute pharyngit is 957595782 [facility] 2021 [facility] 14:38:55 Fatigue 03288214 Active 2021 [facility] 14:38:55 Acute severe exacerbat ion of asthma 863311044 Active 2021 Nisreen jin [facility] 5 14:38:55 COVID-19 554263575 [facility] 2021 [facility] 14:38:55 Acute sinusitis 17526371 Active 2021 [facility] 5 14:38:55 Colitis 39987898 Active 2021 Nisreen jin [facility] 5 14:39:13 Cyst of ovary 15518662 Active 2021 Nisreen jin, [facility] 5 14:39:13 Hemorrhag ic cyst of ovary 730171902 Active 2021 Nisreenjaneth Patel null, [facility] Internal [facility] 5 14:39:13 Influenza 9337765 Active 2022 Nisreen Jorge null, [facility] 5 14:38:55 Substance abuse 90201983 Active 2022 Nisreenjaneth Patel null, [facility] 5 14:39:13 Acute urinary tract infection 604398721 Active 2022 Rajat Givens, DO [address] [facility], [place], [address], [facility] 5 15:06:50 Anxiety disorder 631013822 Active 2022 Nisreenjaneth Patel null, [facility] 5 14:39:13 Nausea 014681600 Active 2022 Nisreenjaneth Patel null, [facility] 5 14:38:55 Dysmenorr hea 589510243 Active 2022 Nisreenjaneth Patel null, [facility] 5 14:39:13 Right lower quadrant pain 076552675 Active 2022 Nisreenjaneth Patel null, [facility] 5 14:38:55 Hyperglyc emia 73580124 Active 2022 Nisreen Patel null, [facility] Internal [facility] 5 14:39:13 Infection of toe 447294144 Active 2022 Nisreenjaneth Patel null, [facility] 5 14:38:55 Celluliti s 466941303 Active 2022 Nisreen Patel null, [facility] 5 14:38:55 Random blood glucose outside reference range 550323460 Active 2022 Nirseen Patel null, [facility] 5 14:39:13 Hypoglyce tosin 962002351 Active 2022 Nisreen Patel null, [facility] 5 14:39:13 Acute bronchiti s 46997025 Active 2022 Nisreen Patel null, [facility] 5 14:38:55 Cough 00628048 Active 2023 Nisreenjaneth Patel null, [facility] 5 14:38:55 Patellofe moral syndrome of right knee 237735695848 9103 Active 2023 Nisreenjaneth Patel null, [facility] 5 14:39:13 Atypical chest pain 243085350 Active 2023 Nisreen Patel null, [facility] 14:38:55 Pneumonia 826915298 Active 2023 Nisreenjaneth Patel null, [facility] 5 14:38:55 Migraine 66034920 Active 2023 Nisreen Patel null, [facility] 5 14:39:13 Moderate recurrent major depressio n 18006454 Active 2023 Nisreenjaneth Patel null, [facility] 5 14:39:13 Low back pain 665012226 Active 2024 Nisreenjaneth Patel null, [facility] 5 14:38:55 Thoracic back pain 193890471 Active 2024 Rajat Givens DO [address] [place] [address], [address], [facility] Internal [facility] 5 16:16:49 Aphthous ulcer of mouth 285036025 Active 2024 Rajat Givens DO [address] [place] [address], [address], [facility] 5 17:59:07 Right upper quadrant pain 149076856 Active 2024 Rajat Givens DO [address] [place] [address], [address], [facility] 5 11:04:18 Problem Notes None recorded. Procedures Surgical History Date Name Laterality Status Provider Name and Address Organization Details Recorded Time 03/27/20 23 Colonoscopy completed Stefan Givens [facility] 03/27/2023 16:16:35 07/22/19 19 total excision of bilateral fallopian tubes completed Edita [address], [address], [facility] 12/10/2018 10:45:16 01/20/20 12 Date of Last Pap Smear completed [facility] 12/10/2018 08:37:46 06/21/20 09 removal of ovarian cyst completed [facility] 12/10/2018 10:42:36 Knee Surgery completed Edita [address], [address], [facility] 12/10/2018 10:44:33 extraction of wisdom tooth completed [facility] 12/10/2018 10:41:45 Imaging Results None recorded. Procedure Notes None recorded. Medical Equipment None Reported. Allergies Allergen ID Allergen Name Allergen Category Reaction Reaction Severity Criticality Documentation Date Start Date Code Code System Note Provider Name and Address Organization Details Recorded Time 3089 Seroquel medicatio n dizziness Not available Not available 12/10/2018 16989 RxNorm Janellesuarav Da Silva [facility] 9 08:26:52 3090 naproxen medicatio n Not available Not available Not available 12/10/2018 7258 RxNorm bad dream s [facility] 08:27:07 3092 sertralin e medicatio n nausea Not available Not available 12/10/2018 19603 RxNorm migra delaney Janellesaurav Da Silva [facility] 9 10:33:54 3506 escitalop allie Not available Not available Not available Not available 04/06/2019 52440 8 RxNorm suici david ideat ion October [facility], [facility] [address] [place], [address], [facility] 9 16:30:07 8610 venlafaxi ne medicatio n other Not available Not available 07/07/2024 29899 RxNorm BRAD PRAKASH [address] [place], [address], [facility] 4 09:50:18 Medications [...] Updated DateTime 5 157.48 cm 26.6 kg/m2 53724.9 7 g 95 /min 90 % 90 % 112/74 mm[Hg] Nisreen Patel [facility] 5 16:01:07 Date Recorded Body height Body mass index (BMI) Body weight Heart rate Oxygen saturation Oxygen saturation in Arterial blood by Pulse oximetry Systolic And Diastolic Provider Name and Address Organization Details Last Updated DateTime 4 157.48 cm 26.1 kg/m2 75895.9 1 g 86 /min 98 % 98 % 106/64 mm[Hg] Nisreen Patel [facility] 4 14:18:50 Date Recorded Body height Body mass index (BMI) Body weight Heart rate Oxygen saturation Oxygen saturation in Arterial blood by Pulse oximetry Systolic And Diastolic Provider Name and Address Organization Details Last Updated DateTime 4 157.48 cm 26 kg/m2 94976.1 2 g 82 /min 98 % 98 % 100/62 mm[Hg] Olivia Stacy [facility] 4 09:37:25 Social History Question Answer Notes LastModified by Organizat ion Details LastModified Time Tobacco Smoking Status Never Smoker Not Available [facility] 05/24/2020 03:36:24 What Was The Date Of [...] PF, 0.5 mL 1 completed Not Available [facility] 07/29/2022 05:47:18 Tdap 1 completed Not Available [facility] 07/29/2022 05:47:18 Hep B, adult 9 completed Not Available [facility] 07/29/2022 05:47:18 MMR 9 completed Not Available [facility] 07/29/2022 05:47:18 Influenza, split virus, quadrivalent, preservative 9 completed Not Available [facility] 07/29/2022 05:47:18 Influenza, split virus, quadrivalent, preservative 9 completed Not Available [facility] 07/29/2022 05:47:18 MMR 9 completed Not Available [facility] 07/29/2022 05:47:18 MMR 9 completed Not Available [facility] 07/29/2022 05:47:18 Hep B, adult 9 completed Not Available [facility] 07/29/2022 05:47:18 Past Encounters Encounter ID Performer Location Encounter Start Date Encounter Closed Date Diagnosis/Indication Diagnosis SNOMED-CT Code Diagnosis ICD10 Code Diagnosis IMO Codes Diagnosis Note [id number] DO [facility] [address] [facility],[place] [address] 12/10/2018 10:13:25 12/10/2018 11:15:43 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 M94.0 chronic will rx flector patch Chronic depression 06736 0009 F34.1 stable on citalopram Herpes labialis 2905372 B00.1 Asthma 644352193 J45.90 9 quiet Right lowe r quadrant pain 355665580 R10.31 pending labs or worsening of sx may need to go to ER - pt understood Rajat Givens [facility] [address] [facility],[place] [address] 12/12/2018 13:47:05 12/12/2018 14:20:43 Right lower quadrant pain 431205133 R10.31 pending labs or worsening of sx may need to go to ER - pt understood Asthma 827771555 J45.90 9 quiet Anemia 759795208 D64.9 has f/u labs ordered [id number] Rajat Givens [facility] [address] [facility],[place] [address] 02/09/2019 15:48:01 02/09/2019 16:28:22 Nausea and vomiting 62724771 R11.2 Right lowe r quadrant pain 272122414 R10.31 prior work up negative Screening procedure 2012 5006 Z13.9 [id number] Rajat Givens [facility] [address] [facility],[place] [address] 04/06/2019 15:32:42 04/06/2019 16:42:37 Depressive disorder 45715212 F32.9 escitalopr am not helpful - had SI so she stopped it citalopram not helpful sertraline caused nausea and migraines Acute asthma 525340313 J 45.901 breathing still difficult despite inhaler Acute sinusitis 69403186 J01.90 some improvemen t [id number] Rajat Givens [facility] [address] [facility],[place] [address] 05/01/2019 15:22:55 05/01/2019 16:22:18 Active or passive immunization 285188958 Z23 Adult [facility] th examination 436303790 Z00.00 [id number] Rajat Givens [facility] [address] [facility],[place] [address] 06/02/2019 16:18:28 06/02/2019 16:35:36 Exposure to Bordetella pertussis 174415020 Z20.818 Depressive disorder 3548 9007 F32.9 escitalopr am not helpful - had SI so she stopped it citalopram not helpful sertraline caused nausea and migraines wellbutrin - made depression worse [id number] Rajat Givens [facility] [address] [facility],[place] [address] 01/19/2020 15:44:49 01/19/2020 16:01:39 Anxiety 91692993 F41.9 see below still struggling with this as it dovetails into the depression s Chronic depression 97317 8 F34.1 after going through her mult med trials in the past we have decided upon using wellbutrin Asthma 430466825 J45.90 9 stable [id number] Rajat Givens [facility] [address] [facility] [address] 02/22/2020 15:44:20 02/22/2020 16:34:16 Anemia 199590519 D64.9 needs iron supp Chronic depression 8 F34.1 after going through her mult med trials in the past we have decided upon using wellbutrin Active or passive immunization 616931723 Z23 needs for her school [id number] Rajat Givens [facility] [address] [facility],[place] [address] 04/13/2020 15:47:06 04/13/2020 16:26:35 Patellofemoral syndrome of right knee 6314429662 120552 M22.2X1 the patient [place] to go to [place] [id number] Rajat Givens [facility] [address] [facility],[place] [address] 08/24/2020 14:19:35 08/24/2020 15:03:36 Asthma 042351938 J45.909 stable Pain in right thumb 1076 403428 416662 M79.644 [id number] Rajat Givens [facility] [address] [facility] [address],[place] [address] 10/05/2020 15:51:22 10/05/2020 16:34:23 Pain of joint of wrist 232305546 M25.531 [id number] Rajat Givens [facility] [address] [facility] [address] 11/18/2020 14:36:08 11/18/2020 16:16:45 Asthma 863705330 J45.909 stable Female sterilization 608 77612 Z30.2 will send to a ship's captain for consult to reverse fallopian Acute urin jignesh tract infection 113338050 N39.0 based on dipstick will start on abx and submit culture [id number] Rajat Givens [facility] [address] [facility],[place] [address] 03/07/2021 11:47:36 03/07/2021 13:17:53 Active or passive immunization 309530346 Z23 needs for her school Adult heal th examination 863451205 Z00.00 doing very well and is in remarkable good shape even after 4 kidsnote she has been having an issue with daily nausea the week after her menses [id number] Rajat Givens [facility] [address] [facility] on [address],[place] [address] 05/30/2021 09:23:35 05/30/2021 14:10:49 Cough 99153208 R05.2 will treat for probable bronchitis COVID test negative for her and daughter Acute bronchitis 9641606 2 J20.8 will treat [id number] Rajat Givens [facility] [address] [facility] on [address],[place] [address] 06/09/2021 15:07:30 06/09/2021 16:45:54 Asthma 902178215 J45.909 stable now lungs sound good and is usu doing ok Anxiety 63883322 F41.9 see below still struggling with this as it dovetails into the depression s Chronic depression 82551 0009 F34.1 after going through her mult med trials in the past we have decided upon using wellbutrin [id number] Rajat Givens [facility] [address] [facility] on [address],[place] [address] 08/08/2021 13:32:46 08/08/2021 14:05:54 Dislocation of patellofemoral joint 717190254 S83.004D given worsening of her right knee approx x 2monow hurting daily and getting diff to [facility] the knee gets locked up [id number] Rajat Givens [facility] [address] [facility] on [address],[place] [address] 09/01/2021 08:52:49 09/04/2021 08:47:17 Allergic rhinitis 32354639 J30.9 nasal congestion is stable Asthma 386690137 J45.90 9 stable now lungs sound good and is usu doing ok Anxiety 36281698 F41.9 see below still struggling with this as it dovetails into the depression s relates that she is still doing ok [id number] Rajat Givens [facility] [address] [facility],[place] [address] 10/04/2021 09:36:48 10/04/2021 16:47:39 Acute pharyngitis 652858995 J02.8 will start on z-ferdinand for abx Herpes labialis 6528906 B00.1 needs refill Cough 15358233 R05.2 will start on cough suppressan t [id number] Rajat Givens [facility] [address] [facility] [address],[place] [address] 11/29/2021 15:44:12 11/29/2021 15:55:32 Acute pharyngitis 082555589 J02.8 will start on z-ferdinand for abx and cough suppressan t Anemia 481315016 D50.8 will recheck levels Fatigue 67300911 R53.83 fatigue and recurrent illness, will fu with testing with blood work [id number] Rajat Givens [facility] [address] [facility] on [address],[place] [address] 04/03/2022 10:21:10 04/03/2022 15:56:05 Asthma 543521007 J45.21 stable Acute sinusitis 66994849 J01.00 will fu with doxy and immunologi st visit [id number] Rajat Givens [facility] [address] [facility] [address],[place] [address] 06/29/2022 11:41:17 06/29/2022 13:23:34 Hemorrhagic cyst of ovary 086187972 N83.209 flip provide with diclofenac 50 mg daily [id number] Rajat Givens [facility] [address] [facility] [address],[place] [address] 08/13/2022 09:07:52 08/13/2022 15:34:53 Asthma 149845927 J45.21 stable nowflu was an issue but now is doing well Influenza 1808216 J10.1 had influenza A and worse issues were the vomiting Substance abuse 87228530 F19.10 she is still struggling and craving she prob left the program too soonshe will call [facility] today and see if there is a need to return or to have her do an outpts will call and let me know [id number] Rajat Givens [facility] [address] [facility] [address],[place] [address] 09/05/2022 13:55:50 09/05/2022 14:51:47 Acute urinary tract infection 888581253 N10 will start on bactrim Anxiety disorder 2468304 06 F40.01 split the duloxetine 40 mg and 20 mg Nausea 513582735 R11.0 will switch to 8 mg from 4 mg Dysmenorrhea 500934153 N 94.4 will set up with lab work [id number] Rajat Givens [facility] [address] [facility] [address],[place] [address] 01/15/2023 13:48:17 01/15/2023 14:56:01 Asthma 465125135 J45.21 stable nowflu was an issue but now is doing well Right lowe r quadrant pain 263820529 R10.31 could this be a femoral hernia? will ask her to se dr ellis [id number] Rajat Givens, [facility] [address] [facility] [address] [facility] [place] [address] 03/11/2023 16:06:54 03/12/2023 07:51:26 Asthma 855642656 J45.21 stable nowflu was an issue but now is doing well Chronic depression 83543 000 F34.1 bupropion is not helping alone Anxiety 51547912 F41.9 see below still struggling with this as it dovetails into the depression s relates that she is still doing ok [id number] Rajat Givens, [facility] [address] [facility],[place] [facility] [place] [address] 04/15/2023 13:15:09 04/15/2023 14:53:42 Anxiety 18334500 F41.9 see below still struggling with this as it dovetails into the depression s relates that she is still doing ok Asthma 544902890 J45.21 stable nowflu was an issue but now is doing well Chronic depression 06007 0009 F34.1 bupropion is not helping alone Random blo od glucose outside reference range 105733054 R73.09 pt having symptomati c low level glucose dropgluc to test [id number] is normalwill refer for opinion Hypoglycemia 287830673 E 16.2 endocrine not seeing her until 6 months from now unacceptab lewe will order tests now [id number] Rajat Givens [facility] [address] [facility],[place] [facility] [place] [address] 11/27/2023 09:11:29 11/27/2023 11:18:19 Depression screening [id number] Z13.31 Negative Screen Dislocatio n of patellofemoral joint [id number] S83.004D Patellofem oral syndrome of right knee [id number] M22.2X1 will have her start PT and also get a neoprene nico cross brace Atypical chest pain 1025 22815 R07.89 [id number] Rajat Givens [facility] Internal Medicine [address] [facility] [address] [place] [facility] [place] [address] 02/12/2024 10:49:36 02/14/2024 09:18:15 Asthma [id number] J45.21 stable Pneumonia 104962407 J17 adjusted taper, switch out from doxy to levofloxac ingiven cough suppressan textended work note until 02/24/24 [id number] Rajat Givens [facility] Internal Medicine [address] [facility], [place] [address] 06/02/2024 14:13:10 06/02/2024 14:55:46 Anxiety 76151055 F41.1 stable Chronic depression 8 F34.1 suggested rexulti as an alt, with benefits for bipolar d/o (depressio n) Migraine 28381166 G43.90 9 start on topimax and sumitrapta n Anemia 142354154 D50.8 will recheck levels [id number] [facility] [address] [facility], [place] [address] 07/07/2024 09:30:16 07/07/2024 10:14:05 Costal chondritis 96482905 M94.0 will add a msk relaxer and pain medication to the steroid Chronic depression 8 F34.1 said would be approved for the [place] [id number] Rajat Givens [facility] Internal Medicine [address] [facility], [place] [address] 10/05/2024 15:36:06 10/05/2024 16:24:31 Low back pain 158280147 M54.50 Thoracic back pain 99745 8004 M54.6 [id number] Rajat Givens [facility] Internal Medicine [address] [facility], [place] [address] 04/14/2025 09:13:24 04/14/2025 11:55:38 Depression screening [id number] Z13.31 Negative Screen Asthma 217907271 J45.21 stable nowflu was an issue but now is doing well Right uppe r quadrant pain 321298303 R10.11 [id number] given ongoing symptoms we need to look [...] DISCOUNT Lilly Ramey Carla 01/14/2023 1 [place] [facility] Lilly Ramey Carla [id number] Lilly Ramey Carla 01/14/2023 1 [place] PRIOR TO 2022 - [facility] (MEDICAID) Lilly Ramey Carla [id number] Lilly Ramey Carla 10/05/2024 1 [facility] () Lilly Karoline JoCarla [id number] Lilly Ramey Carla 02/22/2020 SLIDING FEE SCHEDULE - DISCOUNT Lilly Karoline Carla 01/14/2023 1 [facility] PLAN (HMO) [id number] Lilly Ramey Carla [id number] Lilly A Carla 09/24/2023 PAYMENT PLAN Lilly Karoline Carla 01/14/2023 2 [place] [facility] Lilly Ramey Carla [id number] Lilly Karoline Carla 08/24/2020 SLIDING FEE SCHEDULE - DISCOUNT Lilly Karoline Carla 01/15/2020 1 [facility] () Girma Aguirre [id number] Lilly Karoline Carla 01/14/2023 1 [employer] Lilly Karoline Carla [id number] Lilly A Carla 10/08/2023 [address] [facility] ADMIN [facility] Lilly Karoline FontanaCarla [id number] Lilly A Carla 04/11/2025 1 [facility] () Lillyjeet JoCarla [id number] Lillyjeet Fontanareau Notes Date Note Type Note Provider Name [...] needs to be adjusted BRAD PRAKASH [address] [place], [address], [facility] Internal Medicine 02/12/2024 14:14:47 4 text/htm l [...] abortive med on board BRAD PRAKASH [address] [place], [address], [facility] Internal Medicine 06/02/2024 14:54:43 4 text/htm l [...] a PA, 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 on [id number] : per pt for insurance: [phone] option 2 continue on current medications as prescribed BRAD PRAKASH [address] [place], [address], [facility] Internal Medicine 07/07/2024 10:04:25 5 text/htm l [...] a PA, 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 on [id number] : per pt for insurance: [phone] option 2 continue on current medications as prescribed Rajat Givens DO [address] [place], [address], [facility] Internal Medicine 10/05/2024 16:18:50 5 text/htm l [...] also very stressed Rajat Givens DO [address] [place], [address], [facility] Internal Medicine 04/14/2025 11:06:24 OBGyn Episode No OBEpisode recorded.
--- OUTSIDE RECORDS SUMMARY | 2025-05-14 07:34 | XMS_ITS | Encounter Summary ---
Author Organization [facility] Address [address] [place] [address] Phone Care Team Providers Care Outdoor Education Teacher Name Role Phone Rajat Givens Unavailable Rajat Givens DO Primary Care Provider [phone] Encounter Details Date Type Department Care Team (Late st Contact Info) Description 08/08/2021 Procedure Pass [facility], [address] [address] Social History Tobacco Use Types Packs/Day Years [...] documented as of this encounter Care Teams Outdoor Education Teacher Relationship Specialty Start Date End Date PopeyeRajat [email or web address] PCP - General Internal Medicine 12/10/18 Rajat Givens DO Historical LMR Provider 05/07/17 documented as of this encounter Additional Source Comments The information contained in this document represents components of the legal health record. It is not the complete legal health record.[facility]
--- OUTSIDE RECORDS SUMMARY | 2025-05-14 07:34 | XMS_ITS | Encounter Summary ---
Author Organization [facility] Address [address] [place] [address] Phone Care Team Providers Care Maintenance Welder Name Role Phone Rajat Givens DO Unavailable Rajat Givens DO Primary Care Provider [phone] Reason for Referral * MRI/CAT Scan - Closed Specialty Diagnoses / Procedures Referred By Niko thorne Referred To Contact Radiology Diagnoses Unspecified dislocation of right patella, subsequent encounter Procedures MRI Knee (Right) Rajat Givens DO Phone: tel: fax: [email or web address] Referral ID Status Reason Start Date Expiration Date Visits Re quested Visits Authorized [id number] Closed 08/08/2021 08/08/2022 1 1 Encounter Details Date Type Department Care Team (Late st Contact Info) Description 08/08/2021 Transcribe Orders Virtual Department [address] [place] [address] Rajat Givens DO [address] [facility] [place] [address] [email or web address] Unspecified dislocation of right patella, subsequent encounter [...] documented as of this encounter Care Teams Maintenance Welder Relationship Specialty Start Date End Date Rajat Givens DO [email or web address] PCP - General Internal Medicine 12/10/18 Rajat Givens DO [email or web address] Historical LMR Provider 05/07/17 documented as of this encounter Additional Source Comments The information contained in this document represents components of the legal health record. It is not the complete legal health record.[facility]
== END ==
LOC: HO.NUCMED 07:30
PROVIDERS: PCP Internal Medicine; Visit Provider Internal Medicine
DX: R10.11 Right upper quadrant pain (principal)
CPT/HCPCS: 78226; A9537

== ENCOUNTER → 2025-05-14 07:33 | Outpatient (BNV) | payer OTHER, SELFPAY | PROVIDERS: PCP Internal Medicine; Visit Provider Radiology Diagnostic Radiology | DX: R10.11 Right upper quadrant pain (principal) | CPT/HCPCS: 78226 ==

== ENCOUNTER 2025-07-06 15:14 | Emergency (ER) | payer OTHER, SELFPAY ==
--- NOTE | ~2025-07-06 | XR_ITS ---
EXAMINATION: XR CHEST CLINICAL INFORMATION: cp COMPARISON: Previous chest x-ray July 2024 TECHNIQUE: 2 views of the chest were obtained. FINDINGS: No significant abnormality is noted involving the heart, lungs, mediastinum, bony thorax or soft tissues. XR/XR chest 2V IMPRESSION: Unremarkable examination. Electronically signed by: Salena Melton MD 07/06/2025 05:12 PM [facility]
--- NOTE | 2025-07-06 15:17 | ECG_ITS ---
Test Reason : CHEST PAIN Blood Pressure : */* mmHG Vent. Rate : 92 BPM Atrial Rate : 92 BPM P-R Int : 146 ms QRS Dur : 76 ms QT Int : 366 ms P-R-T Axes : 58 7 11 degrees QTcB Int : 452 ms Normal sinus rhythm Normal ECG When compared with ECG of 23-Jul-2024 00:19, No significant change was found Referred By: Jose Ontiveros Electronically Signed By: Jese Webster
[2025-07-06 16:34] VITALS: BP 116/69; PULSE 76; RESP 16; TEMP 36.6; O2SAT 100; BMI 23.6
--- NOTE | 2025-07-06 16:43 | ED.GENADULT ---
HPI - General Adult General Chief complaint: Upper Respiratory Symptoms Stated complaint: chest pain Time Seen by Provider: 07/06/25 21:07 Source: patient Mode of arrival: ambulatory Limitations: no limitations History of Present Illness ED Provider: Dr. Miriam Kumar HPI narrative: 34 year old female with history of costochondritis presenting with chest pain that has been ongoing for the last 3 days without relief. Pain described as central, radiating to her back, constant but worse with movement or deep breaths, and unrelieved with tylenol or ibuprofen. Denies associated fever, cough, SOB, sputum production, n/v/d, abd pain, lower extremity edema, known sick contacts or travel. Has been seen previously for this issue by multiple doctors and has follow up with a GI specialist later this month. Related Data Previous Rx's ?Medication ?Instructions ?Recorded ondansetron 4 mg disintegrating 4 mg PO Q8H 3 days #9 tabs 08/02/23 tablet albuterol sulfate 90 mcg/actuation 2 inh inhalation Q4-6H PRN 02/10/24 breath activated powder inhaler shortness of breath or wheezing #1 ea doxycycline hyclate 100 mg capsule 100 mg PO BID 10 days #20 caps 02/10/24 ondansetron 4 mg disintegrating 4 mg PO Q6H PRN nausea and 02/10/24 tablet vomiting #14 tabs prednisone 20 mg tablet 40 mg (2 x 20 mg) PO DAILY 5 days 02/10/24 #10 tabs methocarbamol 500 mg tablet 500 mg PO TID PRN pain #20 tabs 07/08/24 metronidazole 500 mg tablet 500 mg PO BID 7 days #14 tabs 08/14/24 hyoscyamine sulfate 0.125 mg tablet 0.125 mg PO QID PRN dyspepsia #14 02/05/25 tabs cyclobenzaprine 10 mg tablet 10 mg PO TID #10 tabs 07/06/25 Allergies Allergy/AdvReac Type Severity Reaction Status Date / Time baclofen Allergy Unknown Verified 07/06/25 16:37 naproxen Allergy Unknown Verified 07/06/25 16:37 quetiapine (From Seroquel) Allergy Vomiting Verified 07/06/25 16:37 venlafaxine Allergy Vomiting Verified 07/06/25 16:37 Review of Systems Review of Systems: as per HPI, full review of systems performed and negative but for the above mentioned pertinent positives and negatives. [facility] Past Medical History Medical History Depression Surgical History History of hysterectomy Social History Social History Alcohol intake: current Alcohol intake frequency: holidays/special occasions only Alcohol type: beer, wine and hard liquor Advance Directives: No Advance Directives Information Provided: No Physical Exam ED Exam Exam: GENERAL: Well-Appearing, conversant, no acute distress. SKIN: Normal skin color for ethnicity, warm, dry, no rashes noted. HEENT:? Normocephalic, atraumatic, no stridor, posterior oropharynx nonerythematous, dentition intact, EOMI. NECK: Soft, supple, full ROM, midline structures nontender, no step-offs, no deformities, no lymphadenopathy. CHEST: Heart regular rate and rhythm, no murmurs, symmetric chest rise and fall, left anterior chest wall tenderness to palaption, no crepitus. PULMONARY: Clear to auscultation bilaterally, no labored breathing, no wheezes/rhales/rhonchi. ABDOMINAL: Soft, nondistended, nontender, positive bowel sounds in all quadrants. : Deferred. MUSCULOSKELETAL: Normal tone, full range of motion, no deformities, no peripheral edema. NEURO: Alert and oriented x3, CN II through XII intact, equal strength and sensation bilateral upper and lower extremities, no focal neurologic deficits.? PSYCHIATRIC: Normal affect, fluid speech, good eye contact and appropriate demeanor. Vital Signs: Vital Signs - 24 hr 07/06/25 16:34 07/06/25 21:43 07/06/25 22:38 Temperature 97.9 F 97.8 F 97.8 F Pulse Rate 76 80 80 Respiratory Rate 16 16 16 Blood Pressure 116/69 107/66 107/66 Pulse Oximetry 100 100 100 Oxygen Delivery Method Room Air Room Air Room Air BMI result Body Mass Index 23.6 Course Course Course Narrative: RME: 34-year-old female presents to ED for chest pain for 3 days gone to the back some chills. Patient denies any much cough. Patient states history of costochondritis labs EKG SARs strep x-ray ordered Medications Administered Discontinued Medications Generic Name Dose Route Start Last Admin Trade Name Luis Alfredo PRN Reason Stop Dose Admin Diazepam 2 mg 07/06/25 21:42 07/06/25 21:51 Diazepam 2 Mg Tablet PO 07/06/25 21:43 2 mg ONCE ONE Administration Ketorolac Tromethamine 30 mg 07/06/25 21:42 07/06/25 21:52 Ketorolac Tromethamine 30 Mg/Ml Vial IM 07/06/25 21:43 30 mg ONCE ONE Administration Medical Decision Making Medical Decision Making [facility] Narrative: Patient presents today with a chief complaint of chest pain. Differential diagnosis includes, but is not limited to, acute coronary syndrome, musculoskeletal pain, pneumothorax, GERD, pleurisy, pulmonary embolism, dissection, among others. I will order EKG, chest x-ray, laboratory workup including cardiac enzymes to further evaluate for etiology. Workup today is reassuring. Patient has close follow up as outpatient. Using shared decision making, plan for discharge home to follow-up with primary care and/or specialist.? Patient understands and agrees with plan for discharge.? Discharged home in stable condition. Differential Diagnosis Differential Diagnoses: The differential diagnosis associated with the presentation includes (as above) Admission/Observation Consideration of admission/observation: Escalation of care including admission/observation considered Lab Data [facility] Lab Attestation statement: I reviewed the patient's lab results. 07/06/25 16:56 07/06/25 16:56 Labs: Lab Results 07/06/25 07/06/25 Range/Units 16:56 21:47 WBC 7.9 (4.8-10.8) X10*3/uL RBC 5.02 (4.20-5.50) X10*6/uL Hgb 13.7 (12.0-16.0) g/dl Hct 43.4 (37.0-47.0) % MCV 86.5 (80.0-98.0) fL MCH 27.3 (27.0-33.0) pg MCHC 31.6 (31.0-35.0) g/dl RDW 13.4 (11.0-16.0) % Plt Count 287 (160-400) X10*3/uL MPV 11.6 (9.4-12.3) fL Immature Gran % (Auto) 0.3 (0.0-0.4) % Neut % (Auto) 70.4 (45-73) % Lymph % (Auto) 17.0 L (20-40) % [place] % (Auto) 8.0 (2-11) % Eos % (Auto) 3.4 (0-4) % Baso % (Auto) 0.9 (0-2) % Lymph # (Auto) 1.3 (1.2-4.9) X10*3/uL [place] # (Auto) 0.6 (0.1-1.2) X10*3/uL Eos # (Auto) 0.3 (0.0-0.4) X10*3/uL Baso # (Auto) 0.1 (0.0-0.2) X10*3/uL Abs Immat Gran (auto) 0.02 (0.00-0.03) X10*3/uL Absolute Neuts (auto) 5.6 (2.0-8.3) x10*3/uL Absolute Nucleated RBC 0.000 (0.0-0.012) X10*3/uL Nucleated RBC % (auto) 0.0 (0.0-0.2) /100WBC ESR 19 (1-20) MM/HR PT 12.2 (11.2-13.5) SEC INR 1.0 (0.9-1.1) APTT 32.3 (26.7-34.1) SEC Sodium 142 (135-145) mmol/L Potassium 4.2 (3.3-5.1) mmol/L Chloride 109 H (96-108) mmol/L Carbon Dioxide 28 (22-29) mmol/L Anion Gap 9 L (12-20) BUN 15 (9-16) mg/dL Creatinine 1.15 (0.5-1.4) mg/dL Estim Creat Clear Calc 51.5 Estimated GFR 54 Random Glucose 91 (60-115) mg/dL Calcium 9.0 (8.4-10.2) mg/dL Total Bilirubin 0.4 (0.0-1.0) mg/dL AST 18 (5-31) U/L ALT 18 (0-31) U/L Alkaline Phosphatase 101 (39-117) U/L Troponin I High Sens < 2.7 (<3.5-17.0) ng/L C-Reactive Protein 0.31 (< or = 0.50) mg/dL NT-Pro-B Natriuret Pep 39.4 (<300) pg/mL Total Protein 7.1 (6.5-8.0) g/dL Albumin 4.6 (3.5-5.0) g/dL Influenza Type A (PCR) NEGATIVE (Negative) Influenza Type B (PCR) NEGATIVE (Negative) RSV RNA Qual (PCR) NEGATIVE (Negative) SARS-CoV-2 RNA (RT-PCR) NEGATIVE (Negative) S. pyogenes GrpA DULCE MARIA Negative (Negative) Independent Interpretation I performed an independent interpretation of an: EKG and Plain X-Ray Interpretation: My independent interpretation of the chest x-ray reveals no consolidations, pulmonary edema, pleural effusion, pneumothorax, obvious bony abnormalities. Radiology Impression Discussion of test interpretation with radiology: I have reviewed the radiologist's reading. Independent Historian Clinical information obtained from an independent historian. History obtained from or confirmed by: Spouse External Record Review External record reviewed: Inpatient record Prescription Management I considered prescription management with: Pain Medication Discharge Plan Discharge Clinical Impression: Acute chest pain, Acute costochondritis Patient Disposition: Home, Self-Care Instructions: Chest Pain (ED) Additional Instructions: DIAGNOSIS & TREATMENT: You were seen in the Emergency Department for your chest discomfort. We performed an EKG, laboratory work and chest xray which did not reveal any acute abnormalities that would explain your symptoms. FURTHER CARE: We have not found any emergent physical exam or lab abnormalities that would require admission to the hospital today. Many people who come to the ER with chest discomfortn do not leave with a specific diagnosis at the end of their visit. In the Emergency Department we try to make sure that there is no emergent problem that needs admission to the hospital or antibiotics right now. This does not mean that your evaluation is complete--please be sure to follow up with your regular doctor as additional testing as an outpatient may be indicated. Please be certain to drink plenty of fluids over the next several days. WHEN YOU SHOULD BE SEEN NEXT: Please follow-up with your primary care provider within the next 2-3 days for reevaluation of your symptoms. WHEN TO RETURN TO THE ED: Monitor your symptoms closely and return to the emergency department immediately for any new/worsening symptoms including: Worsening chest pain, difficulty breathing, fevers greater than 100 degrees, passing out, any new symptom that concerns you. Call 911 with any medical emergency. Prescriptions: New cyclobenzaprine 10 mg tablet 10 mg PO TID Qty: 10 0RF No Action methocarbamol 500 mg tablet 500 mg PO TID PRN (Reason: pain) Qty: 20 0RF metronidazole 500 mg tablet 500 mg PO BID 7 Days Qty: 14 0RF ondansetron 4 mg tablet,disintegrating 4 mg PO Q8H 3 Days Qty: 9 0RF doxycycline hyclate 100 mg capsule 100 mg PO BID 10 Days Qty: 20 0RF prednisone 20 mg tablet 40 mg PO DAILY 5 Days Qty: 10 0RF albuterol sulfate 90 mcg/actuation aerosol powdr breath activated 2 inh inhalation Q4-6H PRN (Reason: shortness of breath or wheezing) Qty: 1 0RF ondansetron 4 mg tablet,disintegrating 4 mg PO Q6H PRN (Reason: nausea and vomiting) Qty: 14 0RF hyoscyamine sulfate 0.125 mg tablet 0.125 mg PO QID PRN (Reason: dyspepsia) Qty: 14 0RF Interventions: ED Discharge Assessment Last Done: 07/06/25 22:38 Discharge Date/Time: 07/06/25 22:38 Print Language: American
[2025-07-06 17:16] LABS: MANUAL DIFF FLAG NO
[2025-07-06 17:29] LABS: Strep A Nucleic Acid Negative (Negative)
[2025-07-06 17:31] LABS: Hematocrit 43.4 % (37.0-47.0); Hemoglobin 13.7 g/dl (12.0-16.0); Imm Gran Abs Auto 0.02 X10*3/uL (0.00-0.03); Imm Gran Pct Auto 0.3 % (0.0-0.4); Lymphocytes Absolute Auto 1.3 X10*3/uL (1.2-4.9); Mean Corpuscular HGB Conc 31.6 g/dl (31.0-35.0); Mean Corpuscular Hemoglobin 27.3 pg (27.0-33.0); Mean Corpuscular Volume 86.5 fL (80.0-98.0); NRBC Abs Auto 0.000 X10*3/uL (0.0-0.012); NRBC Pct Auto 0.0 /100WBC (0.0-0.2); Platelet Count 287 X10*3/uL (160-400); Red Blood Count 5.02 X10*6/uL (4.20-5.50); White Blood Count 7.9 X10*3/uL (4.8-10.8)
[2025-07-06 17:32] LABS: INTERNATIONAL NORM RATIO 1.0 (0.9-1.1); Prothrombin Time 12.2 SEC (11.2-13.5)
[2025-07-06 17:35] LABS: Partial Thromboplastin Time 32.3 SEC (26.7-34.1)
[2025-07-06 17:37] LABS: Alanine Aminotransferase 18 U/L (0-31); Albumin Level 4.6 g/dL (3.5-5.0); Alkaline Phosphatase 101 U/L (39-117); Anion Gap 9 (12-20); Aspartate Amino Transferase 18 U/L (5-31); Blood Urea Nitrogen 15 mg/dL (9-16); Calcium 9.0 mg/dL (8.4-10.2); Carbon Dioxide 28 mmol/L (22-29); Chloride 109 mmol/L (96-108); Creatinine Clr Calc Pharmacy 51.5; Estimated Glomerular Filt Rate 54; Potassium 4.2 mmol/L (3.3-5.1); Sodium 142 mmol/L (135-145); Total Protein 7.1 g/dL (6.5-8.0)
[2025-07-06 17:55] LABS: Troponin-I High Sensitivity < 2.7 ng/L (<3.5-17.0)
[2025-07-06 18:17] LABS: NT Pro B Type Natriuretic Pept 39.4 pg/mL (<300)
--- OUTSIDE RECORDS SUMMARY | 2025-07-06 21:07 | XMS_ITS | Encounter Summary ---
Author Organization [facility] Address [address] [place] [address] Phone Care Team Providers Care Practical Nurse Name Role Phone Rajat Givens DO Unavailable Rajat Givens DO Primary Care Provider [phone] Encounter Details Date Type Department Care Team (Late st Contact Info) Description 03/26/2024 Procedure Pass [place] Admitting Dept - Virtual Department [address] [place] [address] Social History Tobacco Use Types Packs/Day Years [...] 3:38 PM EDT Antoinette Krishnamurthy RN * [place] Suicide Severity Rating Scale (Screener/Recent Self-Report) Question [...] on filedocumented in this encounter Care Teams Practical Nurse Relationship Specialty Start Date End Date Rajat Givens DO PCP - General Internal Medicine 12/10/18 Rajat Givens DO [email or web address] Historical LMR Provider 05/07/17 documented as of this encounter Additional Source Comments The information contained in this document represents components of the legal health record. It is not the complete legal health record.[facility]
--- OUTSIDE RECORDS SUMMARY | 2025-07-06 21:07 | XMS_ITS | Encounter Summary ---
Author Organization [facility] Address [address] [place] [address] Phone Care Team Providers Care Consumer Loan Officer Name Role Phone Rajat Givens DO Unavailable Mar Voss CNM Unavailable Kimberly Henderson BEHAVIORAL HEALTH TECH Unavailable [phone] Maddy Johnson MD Unavailable Carmelo Kellogg MD Unavailable Fina Clement BEHAVIORAL HEALTH TECH Unavailable Estiven Alonso MD Unavailable Tatiana Gutierrez BEHAVIORAL HEALTH TECH Unavailable Catherine Sloan MD Unavailable [phone] Oscar Braxton MD Unavailable Ramya Mendiola MD Unavailable Vidya Kilgore MD Unavailable [phone] Sena Stuart BEHAVIORAL HEALTH TECH Unavailable Rajat Givens DO Primary Care Provider Encounter Details Date Type Department Care Team (Latest Contact Info) Description 02/09/2019 Transcribe Orders Virtual Department [address] [place] [address] Edita Romeo PA-C [address] [place] [address] [email or web address] Nausea and vomiting, intractability of vomiting not [...] Upper GI series 01/13/2013. BARIUM SWALLOW FINDINGS: Jalousie Installer lateral neck radiograph was obtained. Bones and [...] Upper GI series 01/13/2013. BARIUM SWALLOW FINDINGS: Jalousie Installer lateral neck radiograph was obtained. Bones and [...] documented as of this encounter Care Teams Consumer Loan Officer Relationship Specialty Start Date End Date Rajat Givens DO PCP - General Internal Medicine 12/10/18 Rajat Givens DO Historical LMR Provider 05/07/17 Mar Voss CNM [address] [place] [address] Historical LMR Provider 05/07/17 2 Kimberly Henderson NP [address] [place] [address] Historical LMR Provider 05/07/17 07/29/21 Maddy Johnson MD [address] [place] [address] Historical LMR Provider 05/07/17 2 Carmelo Kellogg MD [address] [place] [address] Historical LMR Provider 05/07/17 Fina Clement NP [address] [place] [address] [email or web address] Historical LMR Provider 05/07/17 2 Estiven Alonso MD [address] [place] [address], [facility] [place] [address] [email or web address] Historical LMR Provider 05/07/17 07/29/21 Tatiana Gutierrez NP [address] [place] [address] Historical LMR Provider 05/07/17 2 Catherine Sloan MD [address], [place] [address] Historical LMR Provider 05/07/17 2 Oscar Braxton MD [address] [facility], [address] [address] Historical LMR Provider 05/07/17 07/29/21 [place] [address] [email or web address] Historical LMR Provider 05/07/17 07/29/21 Vidya Kilgore MD [address] [place] [id number] Historical LMR Provider 05/07/17 2 Sena Stuart NP [address] [place] [address] Historical LMR Provider 05/07/17 2 documented as of this encounter Additional Source Comments The information contained in this document represents components of the legal health record. It is not the complete legal health record.[facility]
--- OUTSIDE RECORDS SUMMARY | 2025-07-06 21:07 | XMS_ITS | Encounter Summary ---
Author Organization [facility] Address [address] [facility] [address] [place] [address] Phone Care Team Providers Care Poker In Name Role Phone PopeyeRajat becker Karoline SINGLETON Unavailable Rajat Givens DO Primary Care Provider [phone] Encounter Details Date Type Department Care Team (Late st Contact Info) Description 04/18/2023 Transcribe Orders [facility] [address] [place] [address] Rajat Givens DO [address] [facility] [address] [place], [place] [id number] Social History Tobacco Use Types Packs/Day Years [...] documented as of this encounter Care Teams Poker In Relationship Specialty Start Date End Date Rajat Givens DO PCP - General Internal Medicine 12/10/18 Rajat Givens DO Historical LMR Provider 05/07/17 documented as of this encounter Additional Source Comments The information contained in this document represents components of the legal health record. It is not the complete legal health record.[facility]
--- OUTSIDE RECORDS SUMMARY | 2025-07-06 21:07 | XMS_ITS | Encounter Summary ---
Author Organization [facility] Address [address] [facility] [address] [place] [address] Phone Care Team Providers Care Family Law Paralegal Name Role Phone Rajat Givens DO Unavailable Rajat Givens DO Primary Care Provider [phone] Encounter Details Date Type Department Care Team (Latest Contact Info) Description 10/19/2022 Transcribe Orders Virtual Department [address] [place] [address] Yodit Canales PA 6 [facility] [place] [address] [place] [address] Family history of cerebral aneurysm (Primary Dx) [...] documented as of this encounter Care Teams Family Law Paralegal Relationship Specialty Start Date End Date [email or web address]Year Up PCP - General Internal Medicine 12/10/18 Rajat Givens DO [email or web address]Year Up Historical LMR Provider 05/07/17 documented as of this encounter Additional Source Comments The information contained in this document represents components of the legal health record. It is not the complete legal health record.[facility]
--- OUTSIDE RECORDS SUMMARY | 2025-07-06 21:07 | XMS_ITS | Encounter Summary ---
Author Organization [facility] Address [address] [place] [address] Phone Care Team Providers Care Director Medicaid Name Role Phone Rajat Givens DO Unavailable Mar Voss CNM Unavailable Kimberly Henderson CONSUMER INSIGHT MANAGER Unavailable [phone] Maddy Johnson MD Unavailable Carmelo Kellogg MD Unavailable Fina Clement CONSUMER INSIGHT MANAGER Unavailable Estiven Alonso MD Unavailable Tatiana Gutierrez CONSUMER INSIGHT MANAGER Unavailable Catherine Sloan MD Unavailable [phone] Oscar Braxton MD Unavailable Ramya Mendiola MD Unavailable Vidya Kilgore MD Unavailable [phone] Sena Stuart CONSUMER INSIGHT MANAGER Unavailable Rajat Givens DO Primary Care Provider [phone] Reason for Referral * MRI/CAT Scan - Closed Specialty Diagnoses / Procedures Referred By Niko t Referred To Contact Radiology Diagnoses Right lower quadrant pain Procedures CT Abdomen/Pelvis Agueda October, BRAD-C Phone: tel: fax: [email or web address] Referral ID Status Reason Start Date Expiration Date Visits Re quested Visits Authorized [id number] Closed 12/10/2018 12/10/2019 1 1 Encounter Details Date Type Department Care Team (Latest Contact Info) Description 12/10/2018 Transcribe Orders Virtual Department 30 [place] [address] Edita Romeo PA-C [address] [place] [address] [email or web address] Right lower quadrant pain (Primary [...] documented as of this encounter Care Teams Director Medicaid Relationship Specialty Start Date End Date Rajat Givens DO [email or web address] PCP - General Internal Medicine 12/10/18 Rajat Givens DO [email or web address] Historical LMR Provider 05/07/17 Mar Voss CNM [address] [place] [address] Historical LMR Provider 05/07/17 2 Kimberly Henderson NP [address] [place] [address] [email or web address] Historical LMR Provider 05/07/17 07/29/21 Maddy Johnson MD [address] [place] [address] Historical LMR Provider 05/07/17 2 Carmelo Kellogg MD [address] [place] [address] Historical LMR Provider 05/07/17 Fina Clement NP [address] [place] [address] [email or web address] Historical LMR Provider 05/07/17 2 Estiven Alonso MD [address] [address] [email or web address] Historical LMR Provider 05/07/17 07/29/21 Tatiana Gutierrez NP [address] [place] [address] Historical LMR Provider 05/07/17 2 Catherine Sloan MD [address] [address] Historical LMR Provider 05/07/17 2 Oscar Braxton MD [facility] [address] [place] [address] [email or web address] Historical LMR Provider 05/07/17 07/29/21 [place] [address] [email or web address] Historical LMR Provider 05/07/17 07/29/21 Vidya Kilgore MD [address] [place] [phone] Historical LMR Provider 05/07/17 2 Sena Stuart NP [address] [place] [address] Historical LMR Provider 05/07/17 2 documented as of this encounter Additional Source Comments The information contained in this document represents components of the legal health record. It is not the complete legal health record.[facility]
--- OUTSIDE RECORDS SUMMARY | 2025-07-06 21:07 | XMS_ITS | Encounter Summary ---
Author Organization [facility] Address [address] [place] [address] [place] [address] Phone Care Team Providers Care Coffee Brewer Name Role Phone Rajat Givens DO Unavailable Rajat Givens DO Primary Care Provider [phone] Encounter Details Date Type Department Care Team (Late st Contact Info) Description 01/13/2023 Procedure Pass [facility], Ct Scan - [address] [address] Social History Tobacco Use Types Packs/Day Years [...] 4:56 PM EDT Terrie Shields RN * [place] Suicide Severity Rating Scale (Screener/Recent Self-Report) Question [...] documented as of this encounter Care Teams Coffee Brewer Relationship Specialty Start Date End Date Rajat Givens DO PCP - General Internal Medicine 12/10/18 Rajat Givens DO Historical LMR Provider 05/07/17 documented as of this encounter Additional Source Comments The information contained in this document represents components of the legal health record. It is not the complete legal health record.[facility]
--- OUTSIDE RECORDS SUMMARY | 2025-07-06 21:07 | XMS_ITS | Clinical Summary ---
Author Organization [facility] Address [address] [place] [address] Phone Care Team Providers Care Can Sealer Name Role Phone Rajat Givens DO Unavailable Rajat Givens DO Primary Care Provider [phone] Allergies Active Allergy Reactions Criticality Noted Date [...] 3 02/17/20 24 Active DEXCOM G6 TRANSMITTER DeviIndications :Hyperglycemia, Hypoglycemia 1 each by Miscellaneous route every 3 (three) months. 1 each 3 02/17/20 24 Active albuterol 90 mcg/actuation inhaler INHALE 2 PUFFS BY MOUTH EVERY 4 HOURS NEEDED FOR 30 DAYS 02/12/20 24 Active fluconazole (DIFLUCAN) 150 MG tabletIndicatio ns:Vaginal discharge Take one dose now and repeat in 3 days 2 tablet 1 08/26/19 25 Active estradioL (VIVELLE-DOT) 0.1 mg/24 hrIndications:S urgical menopause on hormone replacement therapy Apply patch to skin twice weekly. 24 patch 2 06/10/20 25 Active estradioL (VIVELLE-DOT) 0.1 mg/24 hrIndications:S urgical menopause on hormone replacement therapy APPLY PATCH TO SKIN TWICE WEEKLY. 24 patch 2 04/26/20 25 025 Discontin ued(Reord er) Active Problems Problem Noted Date Diagnosed Date [...] 2 weeks to drop off at front counter clerk or follow up appointment. Hypoglycemia 03/28/2023 Assessment [...] Type Department Care Team Description 04/25/2025 Refill [facility] [address] [place] [address] Oscar Braxton MD Medication Refill from Last [...] (2 - 2024-2 6 season) 2025 04/07/2021 COLOGUARD 06/18/2025 FIT TEST 06/18/2025 FOBT 06/18/2025 SIGMOIDOSCOPY 06/18/2025 VIRTUAL COLONOSCOPY 06/18/2025 SCREENING FOR DIABETES 08/16/2026 4, 04/18/2023, 03/18/2023 PAP SMEAR 12/18/2026 12/19/2023 Adult Td,Tdap Booster 01/03/2033 01/03/2023 , 04/09/2011, 07/22/2010 COLONOSCOPY 03/27/2035 03/27/2023 COLORECTAL CANCER SCREENING 03/27/2035 SMOKING STATUS SCREENING (On ce After 26 [...] PAP TEST Routine 12/19/2023 12:00 AM EDT HM COLONOSCOPY FOR RESULT ENTRY ONLY Routine 03/27/2023 GLUCOSE TOLERANCE TEST, 2 HR Routine 03/18/2023 9:26 AM EDT Hyperglycemia from Last 3 Months or Most Recently Relevant to Health Maintenance Results * Pap Test (12/19/2023 12:00 AM EDT) Report [address] [address] Nurse: Amisha Hopkins MD [facility] Cytology Report FINAL DIAGNOSIS A. PAP SMEAR (THIN PREP) CE: SPECIMEN ADEQUACY: Satisfactory for evaluation; transformation zone present. INTERPRETATION: EPITHELIAL CELL ABNORMALITY - SQUAMOUS. Low grade squamous intraepithelial lesion. This specimen was analyzed by the automated ThinPrep Imaging System (Halldis.) and manually rescreened by a steam and power superintendent and/or pathologist. Electronically Signed Out By: MD [...] 16, 18 and 45. Testing performed by Viralitilarity HR-HPV analysis. Clinical correlation is advised. This HPV test was performed at [facility], [address] [place] [address]. This test has been FDA approved for both SurePath and ThinPrep cervical cytology specimens. The accuracy and precision of this test for all other specimen sources has been verified in the Cytopathology Laboratory of the [facility] and has not been cleared or approved by the U.S. Food and Drug Administration. Clinical correlation is advised. CLINICAL HISTORY Date of Last Menstrual Period: 12-09-2023 Infection History: HPV: 2023 Treatment History: Other: CONCURRENT POLYPECTOMY Other Clinical Conditions: Screening Pap [facility] exam with abnormal findings: CERVICAL POLYP SPECIMEN SOURCE A: PAP SMEAR (THIN PREP) CE Patient Name: JOSE BARRAGAN : 1990 (Age: 33) Sex: F Institution: [facility] Location: [facility] Date of Collection: 12/19/2023 Date of Reported: 12/26/2023 09:16 Results to: Santi Wellington MD [facility] Final Diagnosis A. PAP SMEAR (THIN PREP) CE: SPECIMEN ADEQUACY: Satisfactory for evaluation; transformation zone present. INTERPRETATION: EPITHELIAL CELL ABNORMALITY - SQUAMOUS. Low grade squamous intraepithelial lesion. This specimen was analyzed by the automated ThinPrep Imaging System (Halldis.) and manually rescreened by a steam and power superintendent and/or pathologist. [facility] Results\Inte rpretation A. PAP SMEAR (THIN [...] types 16, 18 and 45.Testing performed by [employer] Onclarity HR-HPV analysis. Clinical correlation is advised. This HPV test was performed at [facility], [address] [place] [address]. This test has been FDA approved for both SurePath and ThinPrep cervical cytology specimens. The accuracy and precision of this test for all other specimen sources has been verified in the Cytopathology Laboratory of the [facility] and has not been cleared or approved by the U.S. Food and Drug Administration. Clinical correlation is advised. [facility] Conversion Type (Conversion Source) 12/19/2023 12/20/2023 9:09 AM EDT us Santi Wellington MD CYTOLOGY ORDERABLES Edit ed Result - Final [address] [place] [address] * COLONOSCOPY FOR RESULT ENTRY ONLY (03/27/2023) HM Colonoscopy External Historical Provider HEALTH MAINTENANCE Final Result * (ABNORMAL) Glucose tolerance test, 2 hr (03/18/2023 9:26 AM EDT) FASTING GLUCOSE 69(L) 70 - 95 mg/dL [facility] ONE HR GLUCOSE 116 70 - 180 mg/dL [facility] TWO HR GLUCOSE 117 70 - 155 mg/dL [facility] Comment: PLEASE NOTE THESE RANGES ARE FOR PATIENTS. REFERENCE RANGES, NON- PATIENTS: FASTING GLUCOSE: 70-100 mg/dl 1 HOUR GLUCOSE: 70-200 mg/dl 2 HOUR GLUCOSE: 70-200 mg/dl Blood 03/18/2023 9:26 AM EDT 03/18/2023 11:53 AM EDT Rajat Givens DO LAB BLOOD BKR ORDERABLES Final R esult [address] [address] from Last 3 Months or Most Recently Relevant to Health Maintenance Insurance [employer] NET [place] [address] [place] [address] [employer] NET PARTIAL [facility] Address: [facility] [id number] [place] [phone] HEALTH SAF[employer]Y NET PARTIAL Member Subscriber Plan / Payer (Ef fective 2023-Present) Name:Jose Barragan Relation to Subscriber:Self Name:Jose Barragan Payer ID:Not on file Group ID:Not on file Type:Medicaid Address: [address] [facility] PARTIAL Member Subscriber Plan / Payer (Ef fective 2023-Present) Name:CarlaJose nguyen Relation to Subscriber:Self Name:CarlaJose garrett Payer ID:Not on file Group ID:Not on file Type:Medicaid Address: [address] [employer] PARTIAL Member Subscriber Plan / Payer (Ef fective 2023-Present) Name:Jose Barragan Relation to Subscriber:Self Name:Jose Barragan Payer ID:Not on file Group ID:Not on file Type:Medicaid Address: [address] [facility] Address: [facility] [id number] [place] [phone] HE[employer] SAF[employer]Y NET PARTIAL Member Subscriber Plan / Payer (Ef fective 2023-Present) Name:Jose Barragan Relation to Subscriber:Self Name:Jose Barragan Payer ID:Not on file Group ID:Not on file Type:Medicaid Address: [address] [facility] Address: [facility] [id number] [place] [phone] HEALTH SAFETY NET PARTIAL Member Subscriber Plan / Payer (Ef fective 2023-Present) Name:Jose Barragan Relation to Subscriber:Self Name:Jose Barragan Payer ID:Not on file Group ID:Not on file Type:Medicaid Address: [address] [facility] Address: [facility] [id number] [place] [phone] [facility] NET PARTIAL Member Subscriber Plan / Payer (Ef fective 2023-Present) Name:Jose Barragan Relation to Subscriber:Self Name:Jose Barragan Payer ID:Not on file Group ID:Not on file Type:Medicaid Address: [address] [employer] PART[employer] Member Subscriber Plan / Payer (Ef fective 2023-Present) Name:Jose Barragan Relation to Subscriber:Self Name:Jose Barragan Payer ID:Not on file Group ID:Not on file Type:Medicaid Address: [address] [employer] Advance Directives For more information, please contact: [phone] (9AM - 5PM [facility], Saturday-Saturday) Documents on File Type Date Recorded 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 Expl 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 Healthcare Proxy 03/31/2024 4:11 PM * Full Code (Latest Code Status on File) Date Activated Date Inactivated Comments 03/26/2024 3:05 PM Question Answer Comments Code Status Confirmed With: Patient * Full Code Date Activated Date Inactivated Comments 03/26/2024 9:12 AM 03/26/2024 3:05 PM Question Answer Comments Code Status Confirmed With: Patient Care Teams Can Sealer Relationship Specialty Start Date End Date Rajat Givens DO [email or web address] PCP - General Internal Medicine 12/10/18 Rajat Givens DO [email or web address] Historical LMR Provider 05/07/17 Additional Source Comments The information contained in this document represents components of the legal health record. It is not the complete legal health record.[facility]
--- OUTSIDE RECORDS SUMMARY | 2025-07-06 21:07 | XMS_ITS | Encounter Summary ---
Author Organization [facility] Address [address] [place] [address] [place] [address] Phone Care Team Providers Care Roustabout Crew Name Role Phone Rajat Givens DO Unavailable Rajat Givens DO Primary Care Provider Encounter Details Date Type Department Care Team (Latest Contact Info) Description 2022 Transcribe Orders Virtual Department [address] [place] [address] Yodit Canales PA 6 [facility] [place] [address] [place] [address] Family history of ischemic heart disease and [...] documented as of this encounter Care Teams Roustabout Crew Relationship Specialty Start Date End Date Rajat Givens DO [email or web address] PCP - General Internal Medicine 12/10/18 Rajat Givens DO [email or web address] Historical LMR Provider 05/07/17 documented as of this encounter Additional Source Comments The information contained in this document represents components of the legal health record. It is not the complete legal health record.[facility]
--- OUTSIDE RECORDS SUMMARY | 2025-07-06 21:08 | XMS_ITS | Encounter Summary ---
Author Organization [facility] Address [address] [place] [address] [place] [address] Phone Care Team Providers Care Buggyman Name Role Phone Rajat Givens DO Unavailable Rajat Givens DO Primary Care Provider [phone] Encounter Details Date Type Department Care Team (Late st Contact Info) Description 06/14/2022 Procedure Pass [facility], Ct Scan - [address] [address] Social History Tobacco Use Types Packs/Day Years [...] 06/14/2022 12:29 PM Melinda Herrera RN * [place] Suicide Severity Rating Scale (Screener/Recent Self-Report) Question [...] documented as of this encounter Care Teams Buggyman Relationship Specialty Start Date End Date Rajat Givens DO PCP - General Internal Medicine 12/10/18 Rajat Givens DO Historical LMR Provider 05/07/17 documented as of this encounter Additional Source Comments The information contained in this document represents components of the legal health record. It is not the complete legal health record.[facility]
--- OUTSIDE RECORDS SUMMARY | 2025-07-06 21:08 | XMS_ITS | Continuity of Care Document ---
Author Organization [facility], [facility] Address [address] [place] [address] [place] [address] Assessment Encounter Date Assessment Date Assessment LastModified by Organization Details LastModified Time 04/14/2025 04/14/2025 [address] [place] [id number] (TRAFFIC SIGNAL REPAIRER) MDM MODERATE MUST MEET 2 OUT OF [...] Organization Details Last Modified Time Details Appointments FOLLOW UP 15 2024 10:15A M DR WALKER Not available Not available Not available Lab None recorded. Referral None recorded. Procedures None recorded. Surgeries None recorded. Imaging [place], hepatobil iary scan 2024 025 [facility] (Imaging), [address] [place] [address], [address], 04/16/2025 16:09:24 RF, upper gastroint estinal tract, w/ contrast PO 2024 025 [facility] (Imaging), [address] [place], [address], 04/21/2025 08:19:42 Medication Orders None recorded. Patient TargetsNo targets recorded. Patient InstructionsNo instructions recorded. Reason for Referral None Reported. Results Created Date Observation Date Name Description Value Unit Range Abnormal Flag Note LastModifiedBy Organization Detail LastModifiedTime 04/23/2004/22/2025 RF, upper gastr ointe trudy l tract , w/ contr ast PO No observ ation record ed. [address] (Medical Records) [address] [place], [address], 05/04/2025 23:29:20 05/14/20 25 05/14/2025 NM, hepat obili jignesh scan No observ ation record ed. [address] (Medical Records) [address] [place], [address], 05/14/2025 13:35:43 07/06/20 25 07/06/2025 imagi ng/di agnos tic resul t No observ ation record ed. [facility] (Medical Records) [address] [place], [address], 07/06/2025 17:17:36 Result Notes None recorded. Problems Name Problem SNOMED Code Status Onset Date Resolution Date Notes Provider Name and Address Organization Details Recorded Time Asthma 825986495 Active 2018 only when sick Nisreen jin [facility] 14:39:13 Anxiety 48558028 Active 2018 ?bipol ar d/o Nisreen jin [facility] 14:39:14 Allergic rhinitis 52114578 Active 2018 Nisreen jin [facility] 14:39:14 Costal chondriti s 50579425 Active 2018 Nisreen jin [facility] 14:39:14 Herpes labialis 0779809 Active 2018 Nisreenjaneth Patel [facility] 5 14:38:55 Chronic pelvic pain of female 830600029 Active 2018 Nisreenjaneth jin, [facility] 5 14:39:13 Anemia 017087034 [facility] 14:[facility]14 Chronic depressio n 509534848 Active 2018 [facility] 5 14:39:13 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 312424823 Active 2021 Not Available [facility] 2 00:31:34 Acute pharyngit is 569343651 Active 2021 [facility] 5 14:38:55 Fatigue 89902808 Active 2021 Nisreen jin [facility] 5 14:38:55 Acute severe exacerbat ion of asthma 643297290 Active 2021 [facility] 5 14:38:55 COVID-19 426737459 [facility] 2021 [facility] 14:38:55 Acute sinusitis 60205658 Active 2021 [facility] 5 14:38:55 Colitis 23066114 Active 2021 Nisreen jin [facility] 5 14:39:13 Cyst of ovary 47801537 Active 2021 Nisreen jin [facility] 5 14:39:13 Hemorrhag ic cyst of ovary 687025407 Active 2021 Nisreen jin [facility] 5 14:39:13 Influenza 4025328 Active 2022 Nisreen jin [facility] 5 14:38:55 Substance abuse 36631292 Active 2022 Nisreen Patel null, [facility] 5 14:39:13 Acute urinary tract infection 791729554 Active 2022 Rajat Walker, DO [address], [place], [address], [facility] Internal [facility] 5 15:06:50 Anxiety disorder 989972055 Active 2022 Nisreen Patel null, [facility] 5 14:39:13 Nausea 327880959 Active 2022 Nisreen Patel null, [facility] 5 14:38:55 Dysmenorr hea 379121215 Active 2022 Nisreen Patel null, [facility] 5 14:39:13 Right lower quadrant pain 293240311 Active 2022 Nisreen Patel null, [facility] 5 14:38:55 Hyperglyc emia 43226235 Active 2022 Nisreen Patel null, [facility] 5 14:39:13 Infection of toe 718803648 Active 2022 Nisreen Patel null, [facility] 5 14:38:55 Celluliti s 877935469 Active 2022 Nisreen Patel null, [facility] 5 14:38:55 Random blood glucose outside reference range 323453417 Active 2022 Nisreen Patel null, [facility] 5 14:39:13 Hypoglyce tosin 425602121 Active 2022 Nisreen Patel null, [facility] 5 14:39:13 Acute bronchiti s 85735588 Active 2022 Nisreen Patel null, [facility] 5 14:38:55 Cough 18302142 Active 2023 Nisreen Patel null, [facility] 5 14:38:55 Patellofe moral syndrome of right knee 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 9103 Active 2023 Nisreenjaneth Patel null, [facility] 5 14:39:13 Atypical chest pain 297624249 Active 2023 Nisreen Patel null, [facility] 5 14:38:55 Pneumonia 509950104 Active 2023 Nisreen Patel null, [facility] 5 14:38:55 Migraine 02531554 Active 2023 Nisreenjaneth Patel null, [facility] 5 14:39:13 Moderate recurrent major depressio n 78891073 Active 2023 Nisreenjaneth Patel null, [facility] 5 14:39:13 Low back pain 405945290 Active 2024 Nisreenjaneth Patel null, [facility] 5 14:38:55 Thoracic back pain 752695602 Active 2024 Rajat Walker, DO [address] [place] [address], [phone], [facility] 5 16:16:49 Aphthous ulcer of mouth 137943409 Active 2024 Rajat Walker, DO [address] [place] [address], [phone], [facility] 5 17:59:07 Right upper quadrant pain 252379497 Active 2024 Rajat Walker, DO [address] [place] [address], [address], [place] [facility] 5 11:04:18 Infection of tooth 869033942 Active 2024 Rajat Walker, DO [address] [place] [address], [phone], [place] [facility] 5 13:41:18 Episodic migraine 625912680066 106 Active 2024 Rajat Walker, DO [address] [place], [address], [facility] 5 22:42:06 Problem Notes None recorded. Procedures Surgical History Date Name Laterality Status Provider Name and Address Organization Details Recorded Time 03/27/20 23 Colonoscopy completed Stefan Walker [facility] 03/27/2023 16:16:35 07/22/19 19 total excision of bilateral fallopian tubes completed October Agueda [facility] [address] [place], [address], [facility] 12/10/2018 10:45:16 01/20/20 12 Date of Last Pap Smear completed [facility] 12/10/2018 08:37:46 06/21/20 09 removal of ovarian cyst completed [facility] 12/10/2018 10:42:36 Knee Surgery completed October [facility] [address], [address], [facility] 12/10/2018 10:44:33 extraction of wisdom tooth completed [facility] 12/10/2018 10:41:45 Imaging Results None recorded. Procedure Notes None recorded. Medical Equipment None Reported. Allergies Allergen ID Allergen Name Allergen Category Reaction Reaction Severity Criticality Documentation Date Start Date Code Code System Note Provider Name and Address Organization Details Recorded Time 35731 quetiapin e medicatio n Not available Not available Not available 06/28/20252014 10085 RxNorm Not Available [employer] - External Data Service - prod 15:17:29 92113 estradiol medicatio n Not available Not available Not available 06/28/20252023 4083 RxNorm Not Available [employer] External Data Service - prod 15:17:31 3089 Seroquel medicatio n dizziness Not available Not available 12/10/2018 40360 RxNorm Janelle jin [facility] 9 08:26:52 3090 naproxen medicatio n Not available Not available Not available 12/10/2018 7258 RxNorm bad dream s [facility] 9 08:27:07 3092 sertralin e medicatio n nausea Not available Not available 12/10/2018 32394 RxNorm migra delaney Janelle jin, [facility] 9 10:33:54 3506 escitalop allie Not available Not available Not available Not available 04/06/2019 30489 8 RxNorm suici david ideat ion ALEM Silva [address] [place], [address], [facility] 9 16:30:07 8610 venlafaxi ne medicatio n other Not available Not available 07/07/2024 07905 RxNorm ALLEGRA VILLALOBOS, PA [address] [place], [address], [facility] Internal [facility] 4 09:50:18 Medications Name Sig Start Date Stop Date Status Note LastModified by Organization Details LastModified Time Prescript ion - Prior Authoriza tion Request active Not Available Not Available Not Available amoxicill in 500 mg capsule Take 1 capsule every 8 hours by oral route for 10 days. 06/07 completed Not Available Not Available Not Available methocarb ward 500 mg tablet active Not Available Not Available No t Available bupropion HCl SR 150 mg tablet,12 hr sustained -release TAKE 2 TABLETS BY MOUTH IN THE MORNING AND 1 TABLET IN THE EVENING 2024 active Not Available Not Available Not Avai lable cefprozil 500 mg tablet Take 1 tablet [...] hours by oral route for 5 days. 2024 active Not Available Not Available Not Avai lable estradiol 0.05 mg/24 hr semiweekl y transderm [...] Not Available Not Available Not Available Vitals None Recorded Social History Question Answer Notes LastModified by Organizat ion Details LastModified Time Tobacco Smoking Status Never Smoker Not Available [facility] 05/24/2020 03:36:24 What Was The Date Of [...] Artery Disease N Other Y Gout N Kidney Stones Y Blood Diseases N Breast Cancer N Blood Transfusion N Depression Y COPD N Lung Disease N Defects or Inherited Disease N Anxiety Disorder Y Muscle, Joint, or Bone Problems N Obesity N Vision or Eye Problems N Arthritis N Polyps N Infertility N Mental Disorder N Cancer N Varicosities N Stroke N Endometriosis N Bladder or Kidney Problems N High Cholesterol N Liver Disease N Headaches Y Fibromyalgia N Kidney Disease N Allergies/Hayfever N Heart Problems N Hospitalizations N Thyroid Problems N GI Problems N Skin Problems N Eating Disorder N Anemia Y MRSA exposure N Constipation N Mental Illness Y Ovarian Cancer N Diabetes N Seizures/Epilepsy N Tuberculosis N Congestive Heart Failure (CHF) N Eczema N Diverticulitis N Abuse/Domestic Violence N Asthma N Reflux/GERD N Hepatitis N Heart Disease N Pulmonary Embolism N Hypertension N Chicken Pox Y Autism Spectrum Disorder (ASD) N Osteoporosis N Gynecological History Statement/Question Response Date of Last Pap Smear 01/20/2012 Obstetrics History GPAL:G 0 P 0 0 0 0 Immunizations Vaccine Type Date Status Note Provider Nam shilo and Address Organization Details Recorded Time COVID-19 vaccine, vector-nr, rS-Ad26, PF, 0.5 mL 1 completed Not Available [facility] 07/29/2022 05:47:18 Tdap 1 completed Not Available [facility] 07/29/2022 05:47:18 Hep B, adult 9 completed Not Available [facility] 07/29/2022 05:47:18 MMR 9 completed Not Available [facility] 07/29/2022 05:47:18 Influenza, split virus, quadrivalent, preservative 9 completed Not Available [facility] 07/29/2022 05:47:18 Influenza, split virus, quadrivalent, preservative 9 completed Not Available [facility] 07/29/2022 05:47:18 MMR 9 completed Not Available [facility] 07/29/2022 05:47:18 MMR 9 completed Not Available [facility] 07/29/2022 05:47:18 Hep B, adult 9 completed Not Available [facility] 07/29/2022 05:47:18 Past Encounters Encounter ID Performer Location Encounter Start Date Encounter Closed Date Diagnosis/Indication Diagnosis SNOMED-CT Code Diagnosis ICD10 Code Diagnosis IMO Codes Diagnosis Note [id number] Rajat Walker DO [facility] [address] [address] 04/14/2025 09:13:24 04/14/2025 11:55:38 Depression screening 283119297 Z13.31 Negative Screen Asthma 461193590 J45.21 stable nowflu was an issue but now is doing well Right uppe r quadrant pain 873933569 R10.11 1516019 given ongoing symptoms we need to look for gastritis /ulceras well as GB dysfunctio n Health Concerns Section Related Observation LastModified by Organization Detai ls LastModified Time None Recorded Concern Status LastModified by Organization Details LastModified Time None Recorded Payers Encounter Date Sequence Insurance Name Policy Number Policy Rizvi Covered Member ID Rizvi Member ID Guarantor Name 04/14/2025 1 [facility] () Lilly A Carla [id number] Lilly Aguirre Notes Date Note Type Note Provider Name a id Address Organization Details Recorded Time 04/14/2025 text/html Care Management - AsthmaReported by PatientROS as [...] doingrelates she is also very stressed Rajat Walker, DO [address], [place], [address], [facility] 04/14/2025 11:06:24 OBGyn Episode No OBEpisode recorded.
--- OUTSIDE RECORDS SUMMARY | 2025-07-06 21:08 | XMS_ITS | Data Portability ---
Author Organization [facility], Telehealth Patient Home Address [address] [place] [address] Assessment Encounter Date Assessment Date Assessment LastModified by Organization Details LastModified Time 02/12/2024 02/12/2024 Patient agreed and verbally consents to this audio and video Telehealth appt via a secure platform [email or web address] Not available 02/12/2024 14:04:33 10/05/2024 10/05/2024 [address] [place] [address] (LOGISTICS ASSOCIATE) MDM MODERATE MUST MEET 2 OUT OF [...] COVERED Not available 10/05/2024 16:15:22 04/14/2025 04/14/2025 [address] [place] [address] (LOGISTICS ASSOCIATE) MDM MODERATE MUST MEET 2 OUT OF [...] Not available Not available Not available Lab CBC w/ auto diff 2023 024 [facility], [address] [place] [address], [address], 06/03/2024 12:16:00 iron + TIBC + ferritin, serum 2023 024 [facility], [address] [place] [address], [address], 06/03/2024 12:16:00 Referral None recorded. Procedures None recorded. Surgeries None recorded. Imaging NM, hepatobil iary scan 2024 025 [facility] (Imaging), [address] [place] [address], [address], 04/16/2025 16:09:24 RF, upper gastroint estinal tract, w/ contrast PO 2024 025 [facility] (Imaging), [address] [place] [address], [address], 04/21/2025 08:19:42 XR, thoracic spine, 2 view 2024 025 [facility], [address] [place] [address], [address], 10/14/2024 08:10:39 XR, lumbar spine, 2 view 2024 025 [facility], [address] [place] [address], [address], 10/14/2024 08:10:38 Medication Orders Rexulti 1 mg tablet 2023 024 [facility], [address] [place] [address], [address], 07/07/2024 09:52:05 baclofen 20 mg tablet 2023 025 [facility], [address] [place] [address], [address], 10/05/2024 15:52:37 tramadol 50 mg tablet 2023 024 [facility], [address] [place] [address], [address], 07/07/2024 09:58:39 Rexulti 1 mg tablet 2023 024 [facility], [address] [place] [address], [address], 06/12/2024 12:49:02 topiramat e 25 mg tablet 2023 024 [facility], [address] [place] [address], [address], 06/02/2024 14:45:48 sumatript an 25 mg tablet 2023 024 [facility], [address] [place] [address], [address], 06/02/2024 14:45:48 albuterol sulfate HFA 90 mcg/actua tion aerosol inhaler 2023 024 [facility], [address] [place] [address], [address], 02/12/2024 14:05:07 prednison e 10 mg tablet 2023 024 [facility] #2024, [address] [place] [address], [address], 06/02/2024 14:30:30 levofloxa ronaldo 500 mg tablet 2023 024 [facility], [address] [place], [address], 06/02/2024 14:32:26 codeine 10 mg-guaife nesin 100 mg/5 mL oral liquid 2023 024 [facility]/Pharmacy #5, [address] [place], [address], 06/02/2024 14:30:49 Patient TargetsNo targets recorded. Patient Instructions Encounter Date Encounter Id Patient Instructions Last Modified By Organization Details Last Modified Time 10/05/2024 [id number] healthy upper back: exercises Not available 10/05/2024 [...] Abnormal Flag Note LastModifiedBy Organization Detail LastModifiedTime 02/10/20 24 02/10/2024 CT, angio gram, abdom en + pelvi s, w/ contr ast No observ ation record ed. [email or web address] [facility] (Medical Records) [address] [place], [address], 02/10/2024 11:59:48 02/10/20 24 02/10/2024 US, pelvi c wall No observ ation record ed. [email or web address] [facility] (Medical Records) [address] [place], [address], 02/10/2024 12:01:39 02/10/20 24 02/10/2024 US, pelvi s, trans abdom inal + trans vagin al No observ ation record ed. [email or web address] [facility] (Medical Records) [address] [place], [address], 02/10/2024 12:02:55 07/08/20 24 07/08/2024 XR, chest , 2 view No observ ation record ed. [address] (Medical Records) [address] [place], [address], 10/05/2024 16:05:22 11/05/19 25 11/02/2024 XR, lumba r spine , 2 view No observ ation record ed. [address] (Medical Records) [address] [place], [address], 04/14/2025 11:06:15 11/05/19 25 11/02/2024 XR, thora cic spine , 2 view No observ ation record ed. [address] (Medical Records) [address] [place], [address], 04/14/2025 11:06:15 02/06/20 25 02/04/2025 CT, abdom en + pelvi s, w/ contr ast No observ ation record ed. [address] (Medical Records) [address] [place], [address], 04/14/2025 11:06:15 04/23/20 25 04/22/2025 RF, upper gastr ointe trudy l tract , w/ contr ast PO No observ ation record ed. [address] (Medical Records) [address] [place], [address], 05/04/2025 23:29:20 05/14/20 25 05/14/2025 NM, hepat obili jignesh scan No observ ation record ed. [address] (Medical Records) [address] [place], [address], 05/14/2025 13:35:43 07/06/20 25 07/06/2025 imagi ng/di agnos tic resul t No observ ation record ed. [facility] (Medical Records) [address] [facility], [place], [address], 07/06/2025 17:17:36 Result Notes None recorded. Problems Name Problem SNOMED Code Status Onset Date Resolution Date Notes Provider Name and Address Organization Details Recorded Time Asthma 799320116 Active 2018 only when sick Nisreen jin [facility] 14:39:13 Anxiety 05096323 Active 2018 ?bipol ar d/o Nisreen jin [facility] 14:39:14 Allergic rhinitis 00500809 Active 2018 Nisreen jin [facility] 14:39:14 Costal chondriti s 87220027 Active 2018 Nisreen jin [facility] 14:39:14 Herpes labialis 7069911 Active 2018 Nisreen jin [facility] 14:38:55 Chronic pelvic pain of female 381630863 Active 2018 Nisreen jin [facility] 14:39:13 Anemia 657232307 Active 2018 Nisreen jin [facility] 14:39:14 Chronic depressio n 447737391 Active 2018 Nisreen jin [facility] 5 14:39:13 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 406124387 Active 2021 Not Available [facility] 2 00:31:34 Acute pharyngit is 848200301 Active 2021 Nisreen jin [facility] 5 14:38:55 Fatigue 24129483 Active 2021 Nisreen jin [facility] 5 14:38:55 Acute severe exacerbat ion of asthma 972249847 Active 2021 Nisreen Patel null, [facility] 5 14:38:55 COVID-19 072083092 Active 2021 Nisreen Patel null, [facility] 5 14:38:55 Acute sinusitis 03645756 Active 2021 Nisreen Patel null, [facility] 5 14:38:55 Colitis 88275438 Active 2021 Nisreen Patel null, [facility] 5 14:39:13 Cyst of ovary 97615989 Active 2021 Nisreen Patel null, [facility] 5 14:39:13 Hemorrhag ic cyst of ovary 862383647 Active 2021 Nisreen Patel null, [facility] 5 14:39:13 Influenza 3273183 Active 2022 Nisreen Patel null, [facility] 5 14:38:55 Substance abuse 93619470 Active 2022 Nisreen Patel null, [facility] 5 14:39:13 Acute urinary tract infection 372321815 Active 2022 Rajat Walker, DO [address] [place] [address], [place], [address], [facility] 5 15:06:50 Anxiety disorder 306590335 Active 2022 Nisreen Patel null, [facility] 5 14:39:13 Nausea 545576614 Active 2022 Nisreen Patel null, [facility] 5 14:38:55 Dysmenorr hea 040410985 Active 2022 Nisreen Patel null, [facility] 5 14:39:13 Right lower quadrant pain 911282760 Active 2022 Nisreen Patel null, [facility] 5 14:38:55 Hyperglyc emia 70053187 Active 2022 Nisreen Patel null, [facility] 5 14:39:13 Infection of toe 772059358 Active 2022 Nisreenjaneth Patel null, [facility] 5 14:38:55 Celluliti s 597395380 Active 2022 Nisreen Patel null, [facility] 5 14:38:55 Random blood glucose outside reference range 431962023 Active 2022 Nisreen Patel null, [facility] 5 14:39:13 Hypoglyce tosin 011104292 Active 2022 Nisreen Patel null, [facility] 5 14:39:13 Acute bronchiti s 59041808 Active 2022 Nisreen Patel null, [facility] 5 14:38:55 Cough 29747307 Active 2023 Nisreen Patel null, [facility] 5 14:38:55 Patellofe moral syndrome of right knee 925377986832 9103 Active 2023 Nisreen Patel null, [facility] 5 14:39:13 Atypical chest pain 386525519 Active 2023 Nisreen Patel [facility] 5 14:38:55 Pneumonia 852984798 Active 2023 Nisreen Patel null, [facility] 5 14:38:55 Migraine 08201789 Active 2023 Nisreen Patel null, [facility] 5 14:39:13 Moderate recurrent major depressio n 55644839 Active 2023 Nisreen Patel null, [facility] 5 14:39:13 Low back pain 437314390 Active 2024 Nisreen Patel null, [facility] 5 14:38:55 Thoracic back pain 773280704 Active 2024 Rajat Craft Tosha, [address], [address], [facility] 16:16:49 Aphthous ulcer of mouth 649831404 Active 2024 Rajat Craft Tosha [address], [address], [facility] 5 17:59:07 Right upper quadrant pain 113335429 Active 2024 Rajat Craft Tosha [address], [address], [facility] 11:04:18 Infection of tooth 220559371 Active 2024 Rajat Craft Tosha [address], [address], [facility] 13:41:18 Episodic migraine 394560371656 106 Active 2024 Rajat Craft Tosha, [address], [address], [facility] 22:42:06 Problem Notes None recorded. Procedures Surgical History Date Name Laterality Status Provider Name and Address Organization Details Recorded Time 03/27/20 23 Colonoscopy completed Stefan Walker [facility] 03/27/2023 16:16:35 07/22/19 19 total excision of bilateral fallopian tubes completed October Agueda [address], [address], [facility] 12/10/2018 10:45:16 01/20/20 12 Date of Last Pap Smear completed Janelle Da Silva [facility] 12/10/2018 08:37:46 06/21/20 09 removal of ovarian cyst completed Janellesaurav Da Silva [facility] 12/10/2018 10:42:36 Knee Surgery completed October Ander perales [address], [address], [facility] 12/10/2018 10:44:33 extraction of wisdom tooth completed Janelle Da Silva [facility] 12/10/2018 10:41:45 Imaging Results None recorded. Procedure Notes None recorded. Medical Equipment None Reported. Allergies Allergen ID Allergen Name Allergen Category Reaction Reaction Severity Criticality Documentation Date Start Date Code Code System Note Provider Name and Address Organization Details Recorded Time 76914 quetiapin e medicatio n Not available Not available Not available 06/28/20252014 78695 RxNorm Not Available [facility] 5 15:17:29 60458 estradiol medicatio n Not available Not available Not available 06/28/20252023 4083 RxNorm Not Available [facility] - prod 5 15:17:31 3089 Seroquel medicatio n dizziness Not available Not available 12/10/2018 76345 RxNorm [facility] 9 08:26:52 3090 naproxen medicatio n Not available Not available Not available 12/10/2018 7258 RxNorm bad dream s [facility] 08:27:07 3092 sertralin e medicatio n nausea Not available Not available 12/10/2018 45667 RxNorm migra delaney [facility] 10:33:54 3506 escitalop allie Not available Not available Not available Not available 04/06/2019 19660 8 RxNorm suici david ideat ALEM Dickerson [address] [place], [address], [facility] 9 16:30:07 8610 venlafaxi ne medicatio n other Not available Not available 07/07/2024 03837 RxNorm BRAD PRAKASH [address] [place], [address], [facility] 4 09:50:18 Medications Name Sig [...] (BMI) Body weight Heart rate Oxygen saturation Systolic And Diastolic Provider Name and Address Organization Details Last Updated DateTime 5 157.48 cm 26.6 kg/m2 38066.9 7 g 95 /min 90 % 112/74 mm[Hg] Nisreen Patel [facility] 5 16:01:07 Date Recorded Body height Body mass index (BMI) Body weight Heart rate Oxygen saturation Systolic And Diastolic Provider Name and Address Organization Details Last Updated DateTime 4 157.48 cm 26.1 kg/m2 59067.9 1 g 86 /min 98 % 106/64 mm[Hg] Nisreen Patel [facility] 4 14:18:50 Date Recorded Body height Body mass index (BMI) Body weight Heart rate Oxygen saturation Systolic And Diastolic Provider Name and Address Organization Details Last Updated DateTime 4 157.48 cm 26 kg/m2 37926.1 2 g 82 /min 98 % 100/62 mm[Hg] Olivia Stacy [facility] 4 09:37:25 Social History Question [...] PF, 0.5 mL 1 completed Not Available [facility] 07/29/2022 05:47:18 Tdap 1 completed Not Available [facility] 07/29/2022 05:47:18 Hep B, adult 9 completed Not Available [facility] 07/29/2022 05:47:18 MMR 9 completed Not Available [facility] 07/29/2022 05:47:18 Influenza, split virus, quadrivalent, preservative 9 completed Not Available [facility] 07/29/2022 05:47:18 Influenza, split virus, quadrivalent, preservative 9 completed Not Available [facility] 07/29/2022 05:47:18 MMR 9 completed Not Available [facility] 07/29/2022 05:47:18 MMR 9 completed Not Available [facility] 07/29/2022 05:47:18 Hep B, adult 9 completed Not Available [facility] 07/29/2022 05:47:18 Past Encounters Encounter ID Performer Location Encounter Start Date Encounter Closed Date Diagnosis/Indication Diagnosis SNOMED-CT Code Diagnosis ICD10 Code Diagnosis IMO Codes Diagnosis Note [id number] DO [facility] [address] [facility] [address] 12/10/2018 10:13:25 12/10/2018 11:15:43 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 chronic will rx flector patch Chronic depression 50792 0009 F34.1 stable on citalopram Herpes labialis 1712344 B00.1 Asthma 303915964 J45.90 9 quiet Right lowe r quadrant pain 612600635 R10.31 pending labs or worsening of sx may need to go to ER - pt understood Rajat Nyeeugenio [facility] [address] [facility],[place] [address] 12/12/2018 13:47:05 12/12/2018 14:20:43 Right lower quadrant pain 132671943 R10.31 pending labs or worsening of sx may need to go to ER - pt understood Asthma 177603834 J45.90 9 quiet Anemia 250491274 D64.9 has f/u labs ordered [id number] Rajat Nyeeugenio [facility] [address] [facility],[place] [address] 02/09/2019 15:48:01 02/09/2019 16:28:22 Nausea and vomiting 55400834 R11.2 Right lowe r quadrant pain 694654721 R10.31 prior work up negative Screening procedure 2012 5006 Z13.9 [id number] Rajat Nyeeugenio [facility] [address] [facility],[place] [address] 04/06/2019 15:32:42 04/06/2019 16:42:37 Depressive disorder 33441087 F32.9 escitalopr am not helpful - had SI so she stopped it citalopram not helpful sertraline caused nausea and migraines Acute asthma 755080791 J 45.901 breathing still difficult despite inhaler Acute sinusitis 20319807 J01.90 some improvemen t [id number] Rajat Nyeeugenio [facility] [address] [facility],[place] [address] 05/01/2019 15:22:55 05/01/2019 16:22:18 Active or passive immunization 684068370 Z23 Adult [facility] th examination 486699183 Z00.00 [id number] Rajat Nyeeugenio [facility] [address] [facility],[place] [address] 06/02/2019 16:18:28 06/02/2019 16:35:36 Exposure to Bordetella pertussis 412670927 Z20.818 Depressive disorder 3548 9007 F32.9 escitalopr am not helpful - had SI so she stopped it citalopram not helpful sertraline caused nausea and migraines wellbutrin - made depression worse [id number] Rajat Walker [facility] [address] [facility] [facility] [place] [address] 01/19/2020 15:44:49 01/19/2020 16:01:39 Anxiety 61343775 F41.9 see below still struggling with this as it dovetails into the depression s Chronic depression 43445 0009 F34.1 after going through her mult med trials in the past we have decided upon using wellbutrin Asthma 673741018 J45.90 9 stable [id number] Rajat KarolineFarzaneh Tosha [facility] [address] [facility] [address] 02/22/2020 15:44:20 02/22/2020 16:34:16 Anemia 940530387 D64.9 needs iron supp Chronic depression 87534 0009 F34.1 after going through her mult med trials in the past we have decided upon using wellbutrin Active or passive immunization 350804297 Z23 needs for her school [id number] Rajat Walker [facility] [address] [facility] [address] 04/13/2020 15:47:06 04/13/2020 16:26:35 Patellofemoral syndrome of right knee 0225412243 129147 M22.2X1 the patient [place] to go to [place] [id number] Rajat Walker [facility] [address] [facility] [address] 08/24/2020 14:19:35 08/24/2020 15:03:36 Asthma 279663192 J45.909 stable Pain in right thumb 1076 746265 393338 M79.644 [id number] Rajat Walker [facility] [address] [facility] [address] 10/05/2020 15:51:22 10/05/2020 16:34:23 Pain of joint of wrist 940192242 M25.531 [id number] Rajat Walker [facility] [address] [facility],[place] [address] 11/18/2020 14:36:08 11/18/2020 16:16:45 Asthma 642310816 J45.909 stable Female sterilization 608 63721 Z30.2 will send to a pathology laboratory aides teacher for consult to reverse fallopian Acute urin jignesh tract infection 731579130 N39.0 based on dipstick will start on abx and submit culture [id number] Rajat Walker [facility] [address] [facility] [address] 03/07/2021 11:47:36 03/07/2021 13:17:53 Active or passive immunization 566423841 Z23 needs for her school Adult heal th examination 532780802 Z00.00 doing very well and is in remarkable good shape even after 4 kidsnote she has been having an issue with daily nausea the week after her menses [id number] Rajat Walker [facility] [address] [facility] [address] 05/30/2021 09:23:35 05/30/2021 14:10:49 Cough 67748030 R05.2 will treat for probable bronchitis COVID test negative for her and daughter Acute bronchitis 5098995 2 J20.8 will treat [id number] Rajat Walker [facility] [address] [facility] [address] 06/09/2021 15:07:30 06/09/2021 16:45:54 Asthma 401762627 J45.909 stable now lungs sound good and is usu doing ok Anxiety 42358148 F41.9 see below still struggling with this as it dovetails into the depression s Chronic depression 18305 0009 F34.1 after going through her mult med trials in the past we have decided upon using wellbutrin [id number] Rajat Walker [facility] [address] [facility],[place] [address] 08/08/2021 13:32:46 08/08/2021 14:05:54 Dislocation of patellofemoral joint 775811811 S83.004D given worsening of her right knee approx x 2monow hurting daily and getting diff [facility] the knee gets locked up [id number] Rajat Walker [facility] [address] [place] [address] 09/01/2021 08:52:49 09/04/2021 08:47:17 Allergic rhinitis 45905186 J30.9 nasal congestion is stable Asthma 528009107 J45.90 9 stable now lungs sound good and is usu doing ok Anxiety 77538672 F41.9 see below still struggling with this as it dovetails into the depression s relates that she is still doing ok [id number] Rajat Walker [facility] [address] [place] [address] 10/04/2021 09:36:48 10/04/2021 16:47:39 Acute pharyngitis 598717067 J02.8 will start on z-ferdinand for abx Herpes labialis 1651822 B00.1 needs refill Cough 45729352 R05.2 will start on cough suppressan t [id number] Rajat Walker [facility] [address] [facility],[place] [address] 11/29/2021 15:44:12 11/29/2021 15:55:32 Acute pharyngitis 189612683 J02.8 will start on z-ferdinand for abx and cough suppressan t Anemia 114187633 D50.8 will recheck levels Fatigue 99063810 R53.83 fatigue and recurrent illness, will fu with testing with blood work [id number] Rajat Walker DO [facility] [address] [facility],[place] [address] 04/03/2022 10:21:10 04/03/2022 15:56:05 Asthma 717027962 J45.21 stable Acute sinusitis 47291613 J01.00 will fu with doxy and immunologi st visit [id number] Rajat Walker [facility] [address] [facility],[place] [address] 06/29/2022 11:41:17 06/29/2022 13:23:34 Hemorrhagic cyst of ovary 315938685 N83.209 flip provide with diclofenac 50 mg daily [id number] Rajat Walker DO [facility] [address] [facility],[place] [address] 08/13/2022 09:07:52 08/13/2022 15:34:53 Asthma 495636635 J45.21 stable nowflu was an issue but now is doing well Influenza 5014170 J10.1 had influenza A and worse issues were the vomiting Substance abuse 02356951 F19.10 she is still struggling and craving she prob left the program too soonshe will call seamus today and see if there is a need to return or to have her do an outpts will call and let me know [id number] Rajat Walker DO [facility] [address] [facility] [facility] [place] [address] 09/05/2022 13:55:50 09/05/2022 14:51:47 Acute urinary tract infection 408345777 N10 will start on bactrim Anxiety disorder 5907215 06 F40.01 split the duloxetine 40 mg and 20 mg Nausea 828149798 R11.0 will switch to 8 mg from 4 mg Dysmenorrhea 197294077 N 94.4 will set up with lab work [id number] Rajat Walker DO [facility] [address] [facility],[place] [address] 01/15/2023 13:48:17 01/15/2023 14:56:01 Asthma 485809276 J45.21 stable nowflu was an issue but now is doing well Right lowe r quadrant pain 097918367 R10.31 could this be a femoral hernia? will ask her to se dr ellis [id number] Rajat Walker [facility] [address] [facility] [address] 03/11/2023 16:06:54 03/12/2023 07:51:26 Asthma 007401753 J45.21 stable nowflu was an issue but now is doing well Chronic depression 68389 000 F34.1 bupropion is not helping alone Anxiety 50847137 F41.9 see below still struggling with this as it dovetails into the depression s relates that she is still doing ok [id number] Rajat Walker [facility] [address] [facility] [address] 04/15/2023 13:15:09 04/15/2023 14:53:42 Anxiety 57346816 F41.9 see below still struggling with this as it dovetails into the depression s relates that she is still doing ok Asthma 312821898 J45.21 stable nowflu was an issue but now is doing well Chronic depression 32727 000 F34.1 bupropion is not helping alone Random blo od glucose outside reference range 136223186 R73.09 pt having symptomati c low level glucose dropgluc to test ayervhd3m is normalwill refer for opinion Hypoglycemia 354300430 E 16.2 endocrine not seeing her until 6 months from now unacceptab lewe will order tests now [id number] Rajat Walker [facility] [address] [facility] [address] 11/27/2023 09:11:29 11/27/2023 11:18:19 Depression screening 293758811 Z13.31 Negative Screen Dislocatio n of patellofemoral joint 140497255 S83.004D Patellofem oral syndrome of right knee [id number] 270559 M22.2X1 will have her start PT and also get a neoprene nico cross brace Atypical chest pain 1025 64850 R07.89 [id number] Rajat Walker [facility] [address] [facility] [address] 02/12/2024 10:49:36 02/14/2024 09:18:15 Asthma 966693320 J45.21 stable Pneumonia 902285301 J17 adjusted taper, switch out from doxy to levofloxac ingiven cough suppressan textended work note until 02/24/24 [id number] Rajat Walker [facility] [address] [facility],[place] [address] 06/02/2024 14:13:10 06/02/2024 14:55:46 Anxiety 80224245 F41.1 stable Chronic depression 60326 0009 F34.1 suggested rexulti as an alt, with benefits for bipolar d/o (depressio n) Migraine 12347435 G43.90 9 start on topimax and sumitrapta n Anemia 516330150 D50.8 will recheck levels [id number] Rajat Walker [facility] [address] [facility] [address] 07/07/2024 09:30:16 07/07/2024 10:14:05 Costal chondritis 16961197 M94.0 will add a msk relaxer and pain medication to the steroid Chronic depression 8 F34.1 said would be approved for the [place] [id number] Rajat Walker [facility] [address] [facility] [address] 10/05/2024 15:36:06 10/05/2024 16:24:31 Low back pain 245867103 M54.50 Thoracic back pain 31295 8004 M54.6 [id number] Rajat Walker [facility] [address] [facility] [address] 04/14/2025 09:13:24 04/14/2025 11:55:38 Depression screening 262182074 Z13.31 Negative Screen Asthma 030616366 J45.21 stable nowflu was an issue but now is doing well Right uppe r quadrant pain 350405035 R10.11 [id number] given ongoing symptoms we need to look [...] DISCOUNT Lilly Ramey Carla 01/14/2023 1 [place] [facility] Lilly Ramey Carla [id number] Lilly Ramey Carla 01/14/2023 1 [place] PRIOR TO 2022 - [facility] (MEDICAID) Lilly Ramey Carla [id number] Lilly Ramey Carla 10/05/2024 1 [facility] - [employer] () Lilly Ramey Carla [id number] Lilly Ramey Carla 02/22/2020 SLIDING FEE SCHEDULE - DISCOUNT Lilly Ramey Carla 01/14/2023 1 [facility] (O) [id number] Lilly Ramey Carla [id number] Lilly Ramey Carla 09/24/2023 PAYMENT PLAN Lilly Karoline Carla 01/14/2023 2 [place] [facility] Lilly Ramey Carla [id number] Lilly Karoline Carla 08/24/2020 SLIDING FEE SCHEDULE - DISCOUNT Lilly Karoline Carla 01/15/2020 1 [facility] - [employer] () Girma Carla [id number] Lilly Ramey Carla 01/14/2023 1 [employer] Lilly Ramey Carla [id number] Lilly Ramey Carla 10/08/2023 1 [facility] Lilly Ramey Carla [id number] Lilly Karoline Carla 04/11/2025 1 [facility] [employer] () Lilly Ramey Carla [id number] Lilly Ramey Carla Notes Date Note Type [...] needs to be adjusted BRAD PRAKASH [address] [place], [address], [facility] 02/12/2024 14:14:47 4 text/htm l [...] abortive med on board BRAD PRAKASH [address] [place], [address], [facility] 06/02/2024 14:54:43 4 text/htm l [...] a PA, 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 on wqpte-te-tond : per pt for insurance: [phone] option 2 continue on current medications as prescribed BRAD PRAKASH [address] [place], [address], [facility] 07/07/2024 10:04:25 5 text/htm l [...] a PA, 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 on iowqf-ij-wruf : per pt for insurance: [phone] option 2 continue on current medications as prescribed Rajat Walker DO [address] [place], [address], [facility] 10/05/2024 16:18:50 5 text/htm l [...] doingrelates she is also very stressed Rajat Walker DO [address] [place], [address], [facility] 04/14/2025 11:06:24 OBGyn Episode No OBEpisode recorded.
--- OUTSIDE RECORDS SUMMARY | 2025-07-06 21:08 | XMS_ITS | Encounter Summary ---
Author Organization [facility] Address [address] [place] [address] [place] [address] Phone Care Team Providers Care Lens Cleaner Name Role Phone Rajat Givens DO Unavailable Rajat Givens DO Primary Care Provider [phone] Encounter Details Date Type Department Care Team (Late st Contact Info) Description 05/27/2024 Procedure Pass [address] [place] [address] Social History Tobacco Use Types Packs/Day Years [...] on filedocumented in this encounter Care Teams Lens Cleaner Relationship Specialty Start Date End Date Rajat Givens DO PCP - General Internal Medicine 12/10/18 Rajat Givens DO Historical LMR Provider 05/07/17 documented as of this encounter Additional Source Comments The information contained in this document represents components of the legal health record. It is not the complete legal health record.[facility]
--- OUTSIDE RECORDS SUMMARY | 2025-07-06 21:09 | XMS_ITS | Encounter Summary ---
Author Organization [facility] Address [address] [place] [address] Phone Care Team Providers Care County Director Name Role Phone Rajat Givens Unavailable Rajat Givens DO Primary Care Provider [phone] Encounter Details Date Type Department Care Team (Late st Contact Info) Description 08/08/2021 Procedure Pass [facility], [address] [address] Social History Tobacco Use Types Packs/Day Years [...] documented as of this encounter Care Teams County Director Relationship Specialty Start Date End Date PopeyeRajat [email or web address] PCP - General Internal Medicine 12/10/18 Rajat Givens DO [email or web address] Historical LMR Provider 05/07/17 documented as of this encounter Additional Source Comments The information contained in this document represents components of the legal health record. It is not the complete legal health record.[facility]
--- OUTSIDE RECORDS SUMMARY | 2025-07-06 21:09 | XMS_ITS | Encounter Summary ---
Author Organization [facility] Address [address] [place] [address] Phone Care Team Providers Care Artificial Flowers Starcher Name Role Phone Rajat Givens DO Unavailable Rajat Givens DO Primary Care Provider [phone] Reason for Referral * MRI/CAT Scan - Closed Specialty Diagnoses / Procedures Referred By Niko thorne Referred To Contact Radiology Diagnoses Unspecified dislocation of right patella, subsequent encounter Procedures MRI Knee (Right) Rajat Givens DO Phone: tel: fax: [email or web address] Referral ID Status Reason Start Date Expiration Date Visits Re quested Visits Authorized [id number] Closed 08/08/2021 08/08/2022 1 1 Encounter Details Date Type Department Care Team (Late st Contact Info) Description 08/08/2021 Transcribe Orders Virtual Department [address] [place] [address] Rajat Givens DO [address] [facility] [place] [address] [email or web address] Unspecified dislocation of right patella, subsequent encounter [...] documented as of this encounter Care Teams Artificial Flowers Starcher Relationship Specialty Start Date End Date Rajat Givens DO [email or web address] PCP - General Internal Medicine 12/10/18 Rajat Givens DO [email or web address] Historical LMR Provider 05/07/17 documented as of this encounter Additional Source Comments The information contained in this document represents components of the legal health record. It is not the complete legal health record.[facility]
--- OUTSIDE RECORDS SUMMARY | 2025-07-06 21:09 | XMS_ITS | Encounter Summary ---
Author Organization [facility] Address [address] [place] [address] Phone Care Team Providers Care Steward/Stewardess Banquet Name Role Phone Rajat Givens DO Unavailable Mar Voss CNM Unavailable Kimberly Henderson WELDER BOILERMAKER Unavailable [phone] Maddy Johnson MD Unavailable Carmelo Kellogg MD Unavailable Fina Clement WELDER BOILERMAKER Unavailable Estiven Alonso MD Unavailable Tatiana Gutierrez WELDER BOILERMAKER Unavailable Catherine Sloan MD Unavailable [phone] Oscar Braxton MD Unavailable Ramya Mendiola MD Unavailable Vidya Kilgore MD Unavailable [phone] Sena Stuart WELDER BOILERMAKER Unavailable Rajat Givens DO Primary Care Provider Encounter Details Date Type Department Care Team (Late st Contact Info) Description 08/24/2020 Transcribe Orders Virtual Department [address] [place] [address] Rajat Givens DO [address] [facility] [place] [address] [email or web address] Thumb pain, right (Primary Dx) Social History [...] documented as of this encounter Care Teams Steward/Stewardess Banquet Relationship Specialty Start Date End Date Tosha Rajat RameyDO PCP - General Internal Medicine 12/10/18 Rajat Givens DO Historical LMR Provider 05/07/17 Mar Voss CNM [address] [place] [address] Historical LMR Provider 05/07/17 2 Kimberly Henderson WELDER BOILERMAKER [address] [place] [address] [email or web address] Historical LMR Provider 05/07/17 07/29/21 Maddy Johnson MD [address] [place] [address] Historical LMR Provider 05/07/17 2 Carmelo Kellogg MD [address] [place] [address] Historical LMR Provider 05/07/17 Fina Clement NP [address] [place] [address] [email or web address] Historical LMR Provider 05/07/17 2 Estiven Alonso MD [address] [facility] [address] [place] [address] [email or web address] Historical LMR Provider 05/07/17 07/29/21 Tatiana Gutierrez NP [address] [place] [address] Historical LMR Provider 05/07/17 2 Catherine Sloan MD [address] [place] [address] Historical LMR Provider 05/07/17 2 Oscar Braxton MD [address] [place] [address], [address] [place] [address] [email or web address] Historical LMR Provider 05/07/17 07/29/21 [place] [address] [email or web address] Historical LMR Provider 05/07/17 07/29/21 Vidya Kilgore MD [address] [place] [address] Historical LMR Provider 05/07/17 2 Sena Stuart NP [address] [place] [address] Historical LMR Provider 05/07/17 2 documented as of this encounter Additional Source Comments The information contained in this document represents components of the legal health record. It is not the complete legal health record.[facility]
[2025-07-06 21:43] VITALS: BP 107/66; PULSE 80; RESP 16; TEMP 36.6; O2SAT 100
[2025-07-06 22:35] LABS: Resp Syncy Virus RNA Qual PCR NEGATIVE (Negative); SARS COV2 PCR INHOUSE NEGATIVE (Negative)
[2025-07-06 22:38] VITALS: BP 107/66; PULSE 80; RESP 16; TEMP 36.6; O2SAT 100
== END 2025-07-06 22:38 | disposition home or self-care (01) ==
PROVIDERS: Physician Assistant; Emergency Provider Emergency Medicine; PCP Internal Medicine
DX: R07.9 Chest pain, unspecified (principal); M94.0 Chondrocostal junction syndrome [Tietze]; Z03.818 Encounter for observation for suspected exposure to other biological agents ruled out
CPT/HCPCS: 36415; 71046; 80053; 83880; 84484; 85025; 85610; 85652; 85730; 86140; 87637; 87651; 93005; 96372; 99284; J1885

== ENCOUNTER → 2025-07-06 15:17 | Outpatient (BNV) | payer OTHER, SELFPAY | PROVIDERS: Emergency Provider Emergency Medicine; PCP Internal Medicine; Visit Provider Internal Medicine Cardiovascular Disease | DX: R07.9 Chest pain, unspecified (principal) | CPT/HCPCS: 93010 ==

== ENCOUNTER → 2025-07-06 17:00 | Outpatient (BNV) | payer OTHER, SELFPAY | PROVIDERS: PCP Internal Medicine; Visit Provider Radiology Diagnostic Radiology | DX: R07.9 Chest pain, unspecified (principal) | CPT/HCPCS: 71046 ==